=== PATIENT | male | born 1975 | race Caucasian/White ===

== ENCOUNTER 2023-06-30 20:07 | Inpatient (IN) | payer OTHER, SELFPAY ==
--- NOTE | ~2023-06-30 | CT_ITS ---
EXAMINATION: CT ABDOMEN AND PELVIS WITH CONTRAST CLINICAL INFORMATION: Fungemia. Evaluate for obstruction or stones COMPARISON: Chest CT 07/01/2023 TECHNIQUE: Multidetector volumetric images were obtained from the superior aspect of the liver through the pubic symphysis following administration 85 mL of Omnipaque 350 intravenous contrast. Sagittal and coronal reformatted images were obtained on the technologist's workstation. Oral contrast: Yes This CT examination was performed using dose optimization techniques as appropriate, variously including the following: *Automated exposure control *Adjustment of mA and/or kV according to patient size (this includes techniques or standardized protocols for targeted exams where dose is matched to indication/reason for exam; i.e. extremities or head) *Use of iterative reconstruction technique DLP: 447 mGy-cm FINDINGS: LUNG BASES: Increased groundglass attenuation at the lung bases. This is increased from previous chest CT 07/01/2023 LIVER, GALLBLADDER, AND BILIARY TREE: The liver is normal in shape and attenuation. Liver may be slightly enlarged, right lobe measuring 19 cm in length. No focal hepatic lesion or biliary ductal dilatation is present. The gallbladder is contracted. PANCREAS: Unremarkable. SPLEEN: Spleen is slightly enlarged measuring 15 cm in length. ADRENAL GLANDS: Unremarkable. KIDNEYS AND URETERS: The kidneys are normal in size, shape, and attenuation. Bilateral moderate hydronephrosis and ureteral dilatation down to the bladder. No stone seen. Bilateral perinephric stranding. BLADDER: Diffusely thickened bladder wall. Infectious, inflammatory and neoplastic processes should be considered. GASTROINTESTINAL TRACT: The small and large bowel are unremarkable. The appendix is unremarkable. ABDOMINAL WALL: No significant hernia is appreciated. LYMPH NODES: Normal. VASCULAR: Unremarkable. PELVIC VISCERA: The prostate gland is slightly enlarged and measures 4.2 x 4.6 cm in AP and transverse dimension. Prostate gland is heterogeneous in attenuation with low-attenuation areas. Appearance is questionable for prostatitis. There is a small amount of fluid in the pelvis. OSSEOUS STRUCTURES: Degenerative disc disease at L4-L5. CT/CT abdomen pelvis w IV con IMPRESSION: Moderate bilateral hydronephrosis and ureteral dilatation down to the bladder. Diffuse bladder wall thickening. Infectious, inflammatory and neoplastic processes should be considered. Slightly enlarged low-attenuation prostate gland worrisome for infection/prostatitis as well. Groundglass attenuation bases. This is slightly increased from previous chest CT. Pneumonitis/atypical pneumonia and fluid overload/pulmonary edema should be considered. Mild hepatosplenomegaly Findings will be communicated by the [place] work flow assistant front end manager.. Fleischner guidelines were followed.
--- NOTE | ~2023-06-30 | CT_ITS ---
EXAMINATION: CT CHEST WITHOUT CONTRAST CLINICAL INFORMATION: Shortness of breath. COMPARISON: None available. TECHNIQUE: Multidetector volumetric CT imaging of the chest was done. Axial MIP volume rendering provided. Sagittal and coronal reformatted images were obtained. This CT examination was performed using dose optimization techniques as appropriate, variously including the following: *Automated exposure control *Adjustment of mA and/or kV according to patient size (this includes techniques or standardized protocols for targeted exams where dose is matched to indication/reason for exam; i.e. extremities or head) *Use of iterative reconstruction technique DLP: 340 mGy-cm FINDINGS: ABORIGINAL CEREMONIAL CELEBRANT: Unremarkable. LUNGS: There is bilateral mid to lower lung field groundglass opacities/groundglass infiltrates. MEDIASTINUM: The mediastinum is normal. CORONARY ARTERY CALCIFICATION: Mild. PLEURA: There is no pleural effusion. No pleural mass or thickening. AXILLA: No lymphadenopathy. UPPER ABDOMEN: Unremarkable. OSSEOUS STRUCTURES: Unremarkable. CT/CT chest wo IV con IMPRESSION: Bilateral mid to lower lung field groundglass opacities/infiltrates is nonspecific but may be seen with a pneumonitis/atypical pneumonia. Edema could have this appearance. Fleischner guidelines were followed.
--- NOTE | ~2023-06-30 | XR_ITS ---
EXAMINATION: XR CHEST 2 VIEWS CLINICAL INFORMATION: Chest pain. COMPARISON: None. TECHNIQUE: Frontal and lateral views of the chest were obtained. FINDINGS: The heart, great vessels, pulmonary vasculature and mediastinum are normal. The lungs show no focal infiltrate, effusion or pneumothorax. There is no acute osseous abnormality. XR/XR chest 2V IMPRESSION: No active cardiopulmonary disease.
--- NOTE | 2023-06-30 20:20 | ECG_ITS ---
Test Reason : WEAKNESS Blood Pressure : / mmHG Vent. Rate : 128 BPM Atrial Rate : 128 BPM P-R Int : 134 ms QRS Dur : 086 ms QT Int : 322 ms P-R-T Axes : 054 054 034 degrees QTc Int : 470 ms Sinus tachycardia Otherwise normal ECG No previous ECGs available Referred By: Lázaro Ball Electronically Signed By:ELAINE PERLA
[2023-06-30 20:31] VITALS: BP 102/78; PULSE 135; RESP 18; TEMP 39.1; O2SAT 92; BMI 25.1
[2023-06-30 20:47] LABS: Basophils Percent Auto 0.2 % (0-2); Eosinophils Absolute Auto 0.2 X10*3/uL (0.0-0.4); Eosinophils Percent Auto 0.7 % (0-4); Hematocrit 32.2 % (42.0-52.0); Hemoglobin 11.1 g/dl (14.0-18.0); Imm Gran Abs Auto 0.12 X10*3/uL (0.00-0.03); Imm Gran Pct Auto 0.6 % (0.0-0.4); Lymphocytes Absolute Auto 0.9 X10*3/uL (1.2-4.9); Lymphocytes Percent Auto 4.2 % (20-40); MANUAL DIFF FLAG SCAN; Mean Corpuscular HGB Conc 34.5 g/dl (31.0-36.0); Mean Corpuscular Hemoglobin 27.1 pg (27.0-33.0); Mean Corpuscular Volume 78.7 fL (80.0-98.0); Mean Platelet Volume 9.6 fL (9.4-12.4); Monocytes Absolute Auto 0.7 X10*3/uL (0.1-1.2); Monocytes Percent Auto 3.2 % (2-11); Neutrophils Absolute Auto 19.7 x10*3/uL (2.0-8.3); Neutrophils Percent Auto 91.1 % (45-73); Platelet Count 357 X10*3/uL (160-400); Red Blood Count 4.09 X10*6/uL (4.60-5.80); Red Cell Distribution Width 12.4 % (11.0-16.0); SCAN SMEAR FLAG 1; White Blood Count 21.6 X10*3/uL (4.8-10.8)
[2023-06-30] MEDS: Acetaminophen 325 MG TABLET 975 MG PO (20:56)
[2023-06-30 21:00] LABS: COVID-19 Test Negative (Negative); IDNOW Serial# 6674DD1D
[2023-06-30 21:04] LABS: SLIDE REVIEW VERIFIED
[2023-06-30 21:06] VITALS: BP 131/72; PULSE 128; RESP 31; TEMP 37.7; O2SAT 98
--- NOTE | 2023-06-30 21:08 | MHC.EDTECH ---
THIS PCT JUST ASSUMED CARE OF PT ,PT WAS CHANGE INTO HOSPITAL ATTIRE ,VITALS SIGN TAKEN ,ANNIE ADAMS IS AWARE OF PT HIGH RESP AND HEART RATE ,PT WAS HOOKED UP TO [facility] .
[2023-06-30 21:13] LABS: Lactic Acid 1.9 mmol/L (0.5-2.0)
[2023-06-30 21:27] LABS: Appearance Urine Hazy; Color Urine Straw; Glucose Urine UA >=1000 mg/dL (Negative); Leukocyte Esterase Urine Small (1+) (Negative); Nitrite Urine Negative (Negative); Specific Gravity - Urine 1.015 (1.005-1.025); UMIC TRIGGER UACC YES; Urine Blood Moderate (2+) (Negative); Urine Ketones 15 mg/dL (Negative); Urine Protein 100 (2+) mg/dL (Neg-Trace)
[2023-06-30 21:29] LABS: Alanine Aminotransferase 25 U/L (0-40); Albumin Level 3.6 g/dL (3.5-5.0); Alkaline Phosphatase 102 U/L (39-117); Anion Gap 16 (12-20); Aspartate Amino Transferase 22 U/L (5-37); Bilirubin Total 0.8 mg/dL (0.0-1.0); Blood Urea Nitrogen 21 mg/dL (9-16); Calcium 9.4 mg/dL (8.4-10.2); Carbon Dioxide 21 mmol/L (22-29); Chloride 87 mmol/L (96-108); Creatinine Clr Calc Pharmacy 55.4; Estimated Glomerular Filt Rate 48; Glucose Random 552 mg/dL (60-115); Lipase 22 U/L (8-78); Potassium 3.6 mmol/L (3.3-5.1); Sodium 120 mmol/L (135-145); Total Protein 7.6 g/dL (6.5-8.0)
[2023-06-30 21:36] LABS: Bacteria Urine 4+ (None Seen); RBC Urine >20 /HPF (0-2); UACC Culture Trigger YES; WBC Urine >50 /HPF (0-5)
--- NOTE | 2023-06-30 21:43 | ED.GENADULT ---
HPI - General Adult General Chief complaint: Fever Stated complaint: difficulty swallowing, back pain Time Seen by Provider: 06/30/23 21:27 Source: patient Mode of arrival: ambulatory Limitations: no limitations History of Present Illness HPI narrative: Patient comes to the emergency room complaining of a UTI infection and trouble swallowing. Patient states that for about a month, intermittently patient has had UTIs, patient states that his UTI self-resolved and does not take any medications but this time is not getting any better. Also, patient complaining of difficulty swelling for about a week. Patient complaining of fever and chills. Patient into a diabetic, patient does not take any medications at all. Related Data Allergies Allergy/AdvReac Type Severity Reaction Status Date / Time No Known Allergies Allergy Unverified 07/09/20 15:45 Review of Systems Review of Systems: Constitutional : No Weight loss, complaining of fever and chills, No Night Sweats, No Fatigue, No Malaise ENT/Mouth : No Hearing loss, No Ear Pain, No Nasal Congestion, No Sinus Pain, No Hoarseness, No sore throat, No Rhinorrhea, No Swallowing Difficulty Eyes: No Eye Pain, No Swelling, No Redness, No Foreign Body, No Discharge, No Vision Changes Cardiovascular : No Chest Pain, No SOB, No Dyspnea on Exertion, No Orthopnea, No Edema, No Palpitations Respiratory : No Cough, No Sputum, No Wheezing, No Smoke Exposure, No Dyspnea Gastrointestinal : Complaining of trouble swallowing, no pain. No Nausea, No Vomiting, No Diarrhea, No Constipation, No abdominal Pain, No Hematochezia, No Melena Genitourinary : Complaining of dysuria and cloudy looking urine, No Urinary Frequency, No Hematuria, No Urinary Incontinence, No Urgency, complaining of mild bilateral Flank Pain, No Urinary Flow Changes, No Hesitancy Musculoskeletal : No joint pain, No Myalgias, No Joint Swelling Skin : No Skin Lesions, No rash Neuro : No Weakness, No Numbness, No Paresthesias, No Loss of Consciousness, No Dizziness, No Headache Psych : No Anxiety/Panic, No Depression, No SI/HI/AH/VH, No Social Issues, Heme/Lymph: No Bruising, No Bleeding,No Lymphadenopathy Endocrine : No Polyuria, No Polydipsia, No Temperature Intolerance [facility] Past Medical History Medical History (Updated 06/30/23 @ 22:15 by Veronica Wilburn MD) Type 2 diabetes mellitus Social History Social History Smoked in Last 30 Days: No Use of substances other than those prescribed or required for medical reasons: No Advance Directives: No Advance Directives Information Provided: Yes Physical Exam ED Vital Signs: Vital Signs - 24 hr 06/30/23 20:31 06/30/23 21:06 Temperature 102.3 F H 99.9 F Pulse Rate 135 H 128 H Respiratory Rate 18 31 H Blood Pressure 102/78 131/72 Pulse Oximetry 92 98 Oxygen Delivery Method Room Air Room Air BMI result Body Mass Index 25.1 Const Other: Appearance: Alert. Oriented X3. No acute distress. Eyes: Pupils equal, round and reactive to light. ENT: Patient has candidiasis in the home and the oropharynx. Neck: Normal inspection. Neck supple. No lymph nodes noted. No crepitus CVS: Normal heart rate and rhythm. Pulses normal. Normal S1 and S2 Respiratory: No respiratory distress. Breath sounds normal. No Wheezing. No rales Abdomen: Soft and nontender. No rigidity. No distention. Mild CVA tenderness Skin: Skin warm and dry. Patient looks pale, Normal skin turgor. Extremities: No lower extremity edema. No Lacerations. No Rash Neuro: Oriented X 3. No motor deficit. No sensory deficit. Moving all extremities. No slurred speech. CN 2 through 12 grossly intact Psych: calm, cooperative, normal affect Medications Administered Generic Name Dose Route Start Last Admin Trade Name Freq PRN Reason Stop Dose Admin Sodium Chloride 2,245.29 mls @ 2,245.29 mls/hr 06/30/23 21:34 06/30/23 21:49 Ns 30 ml/kg infuse over 1 hr (2245.29 ml) 06/30/23 22:33 2,245.29 mls/hr IV Administration .Q1H STA Discontinued Medications Generic Name Dose Route Start Last Admin Trade Name Freq PRN Reason Stop Dose Admin Acetaminophen 975 mg 06/30/23 20:20 06/30/23 20:56 Acetaminophen 325 Mg Tablet PO 06/30/23 20:21 975 mg ONCE ONE Administration Ceftriaxone Sodium 1 gm/ 50 mls @ 100 mls/hr 06/30/23 21:34 06/30/23 21:52 Sodium Chloride IV 06/30/23 22:03 100 mls/hr ONCE ONE Administration Insulin Human Regular 10 unit 06/30/23 21:34 06/30/23 21:45 Insulin Regular, Human 100 Unit/Ml 3 Ml Vial IVPUSH 06/30/23 21:35 10 unit ONCE ONE Administration Lidocaine HCl 15 ml 06/30/23 21:36 06/30/23 22:04 Lidocaine Hcl Viscous 2 % 15 Ml Solution MUCOUS MEM 06/30/23 21:37 15 ml ONCE ONE Administration Nystatin 200,000 unit 06/30/23 21:35 06/30/23 22:03 Nystatin Oral Susp 500,000 Unit/5 Ml Oral.Susp BUCCAL 06/30/23 21:36 200,000 unit ONCE ONE Administration Protocol Medical Decision Making Medical Decision Making MDM Narrative: -my interpretation of labs: White blood cell count 21.6. The patient's sodium is 120, (corrected sodium 127) glucose 552. Patient's creatinine 1.56, no previous labs for comparison, anion gap closed -on physical exam, patient has candidiasis in the tongue and esophagus, likely secondary from prolonged hyperglycemia. -patient has a UTI, already covered with fluids and antibiotics. -discussed with the patient that he has several electrolyte abnormalities, hyperglycemia, candidiasis, UTI, I discussed with him that I strongly recommend admission. Patient agrees with plan Differential Diagnosis Differential Diagnoses: The differential diagnosis associated with the presentation includes (Hyperglycemia, viral infection, UTI, pyelonephritis) Admission/Observation Consideration of admission/observation: Escalation of care including admission/observation considered Consult Healthcare Provider Management of the patient was discussed with: Hospitalist Lab Data [facility] Lab Attestation statement: I reviewed the patient's lab results. 06/30/23 20:40 06/30/23 20:40 Labs: Lab Results 06/30/23 06/30/23 Range/Units 20:40 21:20 WBC 21.6 H (4.8-10.8) X10*3/uL RBC 4.09 L (4.60-5.80) X10*6/uL Hgb 11.1 L (14.0-18.0) g/dl Hct 32.2 L (42.0-52.0) % MCV 78.7 L (80.0-98.0) fL MCH 27.1 (27.0-33.0) pg MCHC 34.5 (31.0-36.0) g/dl RDW 12.4 (11.0-16.0) % Plt Count 357 (160-400) X10*3/uL MPV 9.6 (9.4-12.4) fL Immature Gran % (Auto) 0.6 H (0.0-0.4) % Neut % (Auto) 91.1 H (45-73) % Lymph % (Auto) 4.2 L (20-40) % [place] % (Auto) 3.2 (2-11) % Eos % (Auto) 0.7 (0-4) % Baso % (Auto) 0.2 (0-2) % Lymph # (Auto) 0.9 L (1.2-4.9) X10*3/uL [place] # (Auto) 0.7 (0.1-1.2) X10*3/uL Eos # (Auto) 0.2 (0.0-0.4) X10*3/uL Baso # (Auto) 0.0 (0.0-0.2) X10*3/uL Abs Immat Gran (auto) 0.12 H (0.00-0.03) X10*3/uL Absolute Neuts (auto) 19.7 H (2.0-8.3) x10*3/uL Absolute Nucleated RBC 0.000 (0.0-0.012) X10*3/uL Nucleated RBC % (auto) 0.0 (0.0-0.2) /100WBC Smear Tech's Comments VERIFIED Sodium 120 L* (135-145) mmol/L Potassium 3.6 (3.3-5.1) mmol/L Chloride 87 L (96-108) mmol/L Carbon Dioxide 21 L (22-29) mmol/L Anion Gap 16 (12-20) BUN 21 H (9-16) mg/dL Creatinine 1.56 H (0.5-1.4) mg/dL Estim Creat Clear Calc 55.4 Estimated GFR 48 Random Glucose 552 H* (60-115) mg/dL Lactic Acid 1.9 (0.5-2.0) mmol/L Calcium 9.4 (8.4-10.2) mg/dL Total Bilirubin 0.8 (0.0-1.0) mg/dL AST 22 (5-37) U/L ALT 25 (0-40) U/L Alkaline Phosphatase 102 (39-117) U/L Total Protein 7.6 (6.5-8.0) g/dL Albumin 3.6 (3.5-5.0) g/dL Lipase 22 (8-78) U/L Urine Color Straw Urine Appearance Hazy Urine pH 6.0 (5.0-9.0) Ur Specific [place] 1.015 (1.005-1.025) Urine Protein 100 (2+) H (Neg-Trace) mg/dL Urine Glucose (UA) >=1000 H (Negative) mg/dL Urine Ketones 15 (Negative) mg/dL Urine Blood Moderate (2+) H (Negative) Urine Nitrite Negative (Negative) Ur Leukocyte Esterase Small (1+) H (Negative) Urine RBC >20 H (0-2) /HPF Urine WBC >50 H (0-5) /HPF Ur Squamous Epith Cells 11-20 (0-2) /HPF Urine Bacteria 4+ (None Seen) Hyaline Casts 3-5 (0-2) /LPF Urine Yeast Present COVID-19 (KAVITHA) Negative (Negative) COVID-19 Clin Com See Note Independent Interpretation I performed an independent interpretation of an: Plain X-Ray Interpretation: FINDINGS: The heart, great vessels, pulmonary vasculature and mediastinum are normal. The lungs show no focal infiltrate, effusion or pneumothorax. There is no acute osseous abnormality. XR/XR chest 2V IMPRESSION: No active cardiopulmonary disease. Radiology Impression Discussion of test interpretation with radiology: I have reviewed the radiologist's reading. Critical Care Time Critical Care Time Critical Care Time: Yes Total Critical Care Time: 60 Attestation: I have personally provided critical care time. Time includes review of lab data, radiology results, discussion with consultants, and monitoring for potential decompensation. Intervention performed as documented. Discharge Plan Discharge Clinical Impression: Type 2 diabetes mellitus, Acute hyperglycemia, DANNIE (acute kidney injury), Acute hyponatremia, Acute UTI, Candidiasis of esophagus Patient Disposition: Admitted As Inpatient
[2023-06-30] MEDS: Insulin Regular, Human 100 UNIT/ML 3 ML VIAL 10 UNIT IVPUSH (21:45)
[2023-06-30] MEDS: 0.9 % Sodium Chloride 2,245.29 ML 2245.29 ML IV (21:49)
[2023-06-30] MEDS: cefTRIAXone sodium 1 GM in 0.9 % Sodium Chloride 50 ML IV (21:52)
[2023-06-30] MEDS: Nystatin Oral Susp 500,000 UNIT/5 ML ORAL.SUSP 200000 UNIT BUCCAL (22:03)
[2023-06-30] MEDS: Lidocaine HCl Viscous 2 % 15 ML SOLUTION MUCOUS MEM (22:04)
[2023-06-30 22:13] LABS: Beta-Hydroxybutyrate 0.88 mmol/L (0.02-0.27)
[2023-06-30 22:25] VITALS: BP 112/66; PULSE 117; RESP 24; TEMP 37.7; O2SAT 93
--- NOTE | 2023-06-30 22:34 | PHA.MEDREC ---
Pharmacy Consult ? Medication Reconciliation Pharmacy has completed the medication reconciliation. Patient report only dual action aleve every once in a while. Zandra Carrasco, PharmD
[2023-06-30 22:37] LABS: Glucose, Whole Blood 398 mg/dL (60-115)
[2023-06-30] MEDS: Lactated Ringers 1,000 ML 100 ML IVCONT (22:55)
[2023-06-30] MEDS: Fluconazole in NaCl,Iso-Osm 400 MG/200 ML PIGGYBACK 100 MG IV (23:00)
[2023-06-30] MEDS: Enoxaparin Sodium 40 MG/0.4 ML SYRINGE SUBCUT (23:05)
[2023-06-30] MEDS: Insulin Lispro 100 UNIT/ML 3 ML VIAL SUBCUT (23:05)
--- NOTE | 2023-06-30 23:07 | P.HPHOSP_ITS ---
History of Present Illness Date of Service: 06/30/23 Chief Complaint: urinary symptoms and difficulty swallowing 38-year-old male past medical history of diabetes comes into the hospital urinary symptoms as well as difficulty swallowing. Patient reports that his urinary symptoms started about a month ago, his started having frequency, urgency, and dysuria. He reports that he has also been experiencing difficulty swallowing for the past 2 weeks. He denies any pain in the esophagus but reports that he just can not swallow. He does endorse a history of diabetes but has not taken any of his medications for many years. He reports that he noticed gemfibrozil was causing him to have recurrent urinary infections therefore he stopped taking it as well as metformin. He has also noticed that he has been having fever and chills for the past few days. Denies any shortness of breath, has a mild cough, some sputum production. He denies any chest pain, has nausea with no vomiting, no abdominal pain or diarrhea. No constipation. No lower extremity edema. On arrival to the ED patient found to have a fever of 102.3, heart rate of 135, satting 88% on room air Labs are significant for WBC count of 21,000, left shift, glucose of 552, pseudohyponatremia, bicarb of 21, creatinine of 1.56 with no baseline for comparison, UA positive for leukocyte Estrace WBC and bacteria Chest CT shows bilateral infiltrate concerning for pneumonia Patient will be admitted for further management Review of Systems 2 Review of Systems: Yes all other systems are reviewed and are negative [facility] Medical History Type 2 diabetes mellitus Social History Patient Tobacco Use Status: Never used Tobacco Smoked in Last 30 Days: No Use of substances other than those prescribed or required for medical reasons: No Advance Directives: No Advance Directives Information Provided: Yes Meds Allergies Allergy/AdvReac Type Severity Reaction Status Date / Time No Known Allergies Allergy Unverified 07/09/20 15:45 Active Medications: Current Medications Acetaminophen (Acetaminophen 325 Mg Tablet) 650 mg PO Q6H PRN PRN Reason: Pain, Mild (Pain Scale 1-3) Dextrose (Dextrose 50 % 25 Gm/50 Ml Syringe) 25 gm IVPUSH Q15M PRN; Protocol PRN Reason: per Hypoglycemia Standing Ord. Docusate Sodium (Docusate Sodium 100 Mg Capsule) 100 mg PO DAILY PRN PRN Reason: Constipation Enoxaparin Sodium (Enoxaparin Sodium 40 Mg/0.4 Ml Syringe) 40 mg SUBCUT Q24H [facility] Fluconazole (Fluconazole 100 Mg Tablet) 200 mg PO DAILY [facility] Glucose (Glucose Gel 15 Gm Gel..Gram.) 15 gm PO Q15M PRN; Protocol PRN Reason: per Hypoglycemia Standing Ord. Lactated Ringer's (Lr) 1,000 mls @ 100 mls/hr IVCONT .Q10H [facility] Last Admin: 06/30/23 22:55 Dose: 100 mls/hr Ceftriaxone Sodium 1 gm/ (Sodium Chloride) 50 mls @ 100 mls/hr IV Q24H [facility] Fluconazole (Diflucan) 400 mg in 200 mls @ 100 mls/hr IV ONCE ONE Stop: 07/01/23 00:31 Last Admin: 06/30/23 23:00 Dose: 100 mls/hr Insulin Human Lispro (Insulin Lispro 100 Unit/Ml 3 Ml Vial) 0 unit SUBCUT QIDACHS [facility]; Protocol Ondansetron HCl (Ondansetron Hcl 4 Mg/2 Ml Vial) 4 mg IVPUSH Q8H PRN PRN Reason: Nausea and Vomiting Sodium Chloride (0.9 % Sodium Chloride Flush 3 Ml Syringe) 3 ml IVFLUSH QSHIFT [facility] Home Medications Medication Instructions Recorded Confirmed Last Taken Type ibuprofen 125 mg-acetaminophen 250 2 tab PO Q8H PRN Pain 06/30/23 06/30/23 Unknown History mg tablet Physical Exam 2 Vital Signs and Narrative: Vital Signs: Last Vital Signs Temp 99.9 F 06/30/23 22:25 Pulse 117 H 06/30/23 22:25 Resp 24 H 06/30/23 22:25 BP 112/66 06/30/23 22:25 Pulse Ox 93 06/30/23 22:25 O2 Del Method Room Air 06/30/23 22:25 BMI result Body Mass Index 25.1 Const: Other: Cachectic appearing Slow speech No confusion General: cooperative HEENT: Other: Has candidiasis on the tongue Eyes: General: appearance normal, both eyes and all related structures Resp: Other: Crackles bilaterally Effort & Inspection: normal respiratory effort Cardio: Rate: regular rate Rhythm: regular rhythm GI: Palpation (GI): Soft to palpation Auscultation: normal bowel sounds Skin: General skin exam: no rashes or lesions noted Neuro: Cognition (Neuro): normal cognition Extrem: General: Yes normal to inspection and Yes no pedal edema Results Labs 06/30/23 20:40 06/30/23 20:40 Labs: Laboratory Results - last 24 hr 06/30/23 06/30/23 06/30/23 20:40 21:20 22:33 MCV 78.7 L MCH 27.1 MCHC 34.5 RDW 12.4 Plt Count 357 MPV 9.6 Immature Gran % (Auto) 0.6 H Neut % (Auto) 91.1 H Lymph % (Auto) 4.2 L [place] % (Auto) 3.2 Eos % (Auto) 0.7 Baso % (Auto) 0.2 Lymph # (Auto) 0.9 L [place] # (Auto) 0.7 Eos # (Auto) 0.2 Baso # (Auto) 0.0 Abs Immat Gran (auto) 0.12 H Absolute Neuts (auto) 19.7 H Absolute Nucleated RBC 0.000 Nucleated RBC % (auto) 0.0 Smear Tech's Comments VERIFIED Anion Gap 16 Estim Creat Clear Calc 55.4 Estimated GFR 48 POC Glucose 398 H* Random Glucose 552 H* Lactic Acid 1.9 Calcium 9.4 Total Bilirubin 0.8 AST 22 ALT 25 Alkaline Phosphatase 102 Total Protein 7.6 Albumin 3.6 Lipase 22 Beta-Hydroxybutyrate 0.88 H Urine Color Straw Urine Appearance Hazy Urine pH 6.0 Ur Specific [place] 1.015 Urine Protein 100 (2+) H Urine Glucose (UA) >=1000 H Urine Ketones 15 Urine Blood Moderate (2+) H Urine Nitrite Negative Ur Leukocyte Esterase Small (1+) H Urine RBC >20 H Urine WBC >50 H Ur Squamous Epith Cells 11-20 Urine Bacteria 4+ Hyaline Casts 3-5 Urine Yeast Present COVID-19 (KAVITHA) Negative COVID-19 Clin Com See Note Imaging Radiologist's Impressions: Impressions Chest X-Ray 06/30/23 20:35 IMPRESSION: No active cardiopulmonary disease. Assessment and Plan (1) Acute UTI: Status: Acute (2) Pseudohyponatremia: Status: Acute (3) DANNIE (acute kidney injury): Status: Acute (4) Acute hyperglycemia: Status: Acute (5) Type 2 diabetes mellitus: Qualifiers: Diabetes mellitus custodial insulin use: without terminal makeup operator use Diabetes mellitus complication status: with hyperglycemia Qualified Code(s): E11.65 - Type 2 diabetes mellitus with hyperglycemia Status: Acute (6) Poorly controlled diabetes mellitus: Status: Acute (7) Candidiasis of esophagus: Status: Acute (8) Acute respiratory failure with hypoxia: Status: Acute Plan 48-year-old male with significant past medical history for diabetes comes into the hospital with difficulty swallowing as well as urinary symptoms found to have multiple complications # acute hyperglycemia poorly controlled diabetes - patient reports that he has not taken his diabetic medications and many years - hemoglobin A1c pending - comes in with a glucose of 550s - not in DKA - will place on low-dose sliding scale insulin, pending A1c, may need additional insulin - POC QIDACHS , diabetic diet # DANNIE - secondary to volume depletion/dehydration - IVF - follow BMP # pseudohyponatremia - secondary to above - follow BMP # acute UTI - UA positive, patient symptomatic - will treat with IV antibiotics - pending cultures # esophageal candidiasis - likely secondary to poor glucose control - will treat with fluconazole -will rule out HIV # acute hypoxic respiratory failure/ community-acquired pneumonia - has bilateral infiltrate on chest x-ray, - with hypoxia in the 80s - continue oxygen supplement as needed - IV antibiotics - follow cultures DVT prophylaxis: Lovenox Given patient's need for further management of the above-mentioned reasons patient require minimum 2 nights inpatient hospital stay for further management and monitoring Time Spent With Patient Time: Total time managing care of this patient today ____ minutes. Quality Stroke Does the patient have a stroke diagnosis?: No VTE Prior VTE?: No VTE Risk Level:: Medical - moderate - high VTE Device Contraindication: Treatment Not Indicated VTE Drug Contraindication: N/A - Med Ordered
[2023-06-30 23:09] VITALS: BP 132/81; PULSE 113; RESP 16; TEMP 37.2; O2SAT 88; O2SAT 94
[2023-06-30 23:47] VITALS: BP 128/79; PULSE 108; RESP 24; O2SAT 94
[2023-07-01] VITALS (8 sets, daily range): BP systolic 129–177; BP diastolic 76–86; PULSE 100–127; RESP 18–42; TEMP 36.6–40; O2SAT 85–95; BMI 29.2
--- NOTE | 2023-07-01 01:23 | PC.NURSE ---
this rn assumed care of pt @ 2300. pt family at bedside. pt calm and cooperative. awaiting bed assignment at this time
--- NOTE | 2023-07-01 03:47 | PC.NURSE ---
this rn made aware of rectal temp of 104.0 hr 110s-120s. pt medicated according to bertha with prn tylenol pt also given ice packs.
[2023-07-01] MEDS: Acetaminophen 325 MG TABLET 650 MG PO (03:51)
[2023-07-01 04:00] LABS: Glucose, Whole Blood 414 mg/dL (60-115)
--- NOTE | 2023-07-01 04:40 | PC.NURSE ---
this rn rechecked poc. poc reading [address] jackson aware. no new orders this rn resent poc result of 414 @[id number]. orders placed
[2023-07-01 05:02] LABS: Glucose, Whole Blood 400 mg/dL (60-115)
[2023-07-01] MEDS: Insulin Lispro 100 UNIT/ML 3 ML VIAL 10 UNIT SUBCUT (05:03)
[2023-07-01] MEDS: Insulin Regular, Human 100 UNIT/ML 3 ML VIAL 10 UNIT IVPUSH (05:03)
--- NOTE | 2023-07-01 06:00 | PC.NURSE ---
repeat POC 344 and rectal temp 101.2. this rn made dr jackson aware of poc and rectal temp. per md no new orders. this rn replaced cold packs
[2023-07-01 06:03] LABS: Glucose, Whole Blood 344 mg/dL (60-115)
[2023-07-01 06:38] LABS: MANUAL DIFF FLAG NO
[2023-07-01 06:42] LABS: Basophils Percent Auto 0.2 % (0-2); Eosinophils Absolute Auto 0.1 X10*3/uL (0.0-0.4); Eosinophils Percent Auto 0.3 % (0-4); Hematocrit 28.9 % (42.0-52.0); Hemoglobin 10.1 g/dl (14.0-18.0); Imm Gran Abs Auto 0.11 X10*3/uL (0.00-0.03); Imm Gran Pct Auto 0.6 % (0.0-0.4); Lymphocytes Absolute Auto 0.9 X10*3/uL (1.2-4.9); Lymphocytes Percent Auto 4.6 % (20-40); Mean Corpuscular HGB Conc 34.9 g/dl (31.0-36.0); Mean Corpuscular Hemoglobin 27.6 pg (27.0-33.0); Mean Platelet Volume 9.7 fL (9.4-12.4); Monocytes Absolute Auto 0.8 X10*3/uL (0.1-1.2); Monocytes Percent Auto 4.4 % (2-11); Neutrophils Absolute Auto 16.7 x10*3/uL (2.0-8.3); Neutrophils Percent Auto 89.9 % (45-73); Platelet Count 307 X10*3/uL (160-400); Red Blood Count 3.66 X10*6/uL (4.60-5.80); Red Cell Distribution Width 12.8 % (11.0-16.0); White Blood Count 18.6 X10*3/uL (4.8-10.8)
[2023-07-01 06:54] LABS: Anion Gap 11 (12-20); Blood Urea Nitrogen 19 mg/dL (9-16); Calcium 9.2 mg/dL (8.4-10.2); Carbon Dioxide 21 mmol/L (22-29); Chloride 100 mmol/L (96-108); Estimated Glomerular Filt Rate > 60; Glucose Random 327 mg/dL (60-115); Potassium 3.1 mmol/L (3.3-5.1); Sodium 129 mmol/L (135-145)
[2023-07-01] MEDS: Azithromycin 500 MG in 0.9 % Sodium Chloride 250 ML 125 MG IV (07:18)
[2023-07-01 07:19] LABS: Glucose, Whole Blood 297 mg/dL (60-115)
[2023-07-01] MEDS: 0.9 % Sodium Chloride Flush 3 ML SYRINGE IVFLUSH ×2 (07:23→16:59)
[2023-07-01] MEDS: Insulin Lispro 100 UNIT/ML 3 ML VIAL SUBCUT ×4 (07:28→22:03)
--- NOTE | 2023-07-01 07:30 | PC.NURSE ---
pt a&ox3, vss, sinus tachy on the ekg monitor tech. pt verbalizing no pain kaci. LR still hung and running. abx and insulin administered per provider order/sliding scale. respirations even and unlabored - no WOB or any signs of apparent distress noted. call hernandez placed within reach.
[2023-07-01 07:54] LABS: Estimated Average Glucose 229 mg/dL; Hemoglobin A1c % 9.6 % (<6.0)
[2023-07-01] MEDS: Lactated Ringers 1,000 ML 100 ML IVCONT ×2 (08:27→22:37)
[2023-07-01] MEDS: Insulin Glargine,Hum.rec.anlog 100 UNIT/ML 10 ML VIAL 8 UNIT SUBCUT (08:27)
[2023-07-01] MEDS: Potassium Chloride Packet 20 MEQ PACKET 40 MEQ PO ×2 (08:28→10:33)
--- NOTE | 2023-07-01 08:34 | PC.NURSE ---
report given to RN on S3 - will notify transport.
[2023-07-01] MEDS: Potassium Chloride/H20 10 MEQ/100 ML PIGGYBACK 100 MEQ IV ×2 (09:27→10:26)
[2023-07-01 09:43] LABS: HIV AB/AG Nonreactive (Nonreactive); HIV Num 1 0.04 S/CO (0.00-0.99)
[2023-07-01] MEDS: metFORMIN HCl 500 MG TABLET PO ×2 (10:34→16:58)
[2023-07-01 11:24] LABS: Glucose, Whole Blood 273 mg/dL (60-115)
--- NOTE | 2023-07-01 12:58 | HO.PM.IMPN ---
Subjective Subjective Date of Service: 07/01/23 Interval History: Seen and evaluated Feels more comfortable spiking fever and dropping O2 sat Still hyperglycemic tolerating diet Review of Systems Review of Systems: Yes all other systems are reviewed and are negative Physical Exam Vital Signs: Vital Signs: Last Vital Signs Temp 100 F 07/01/23 11:43 Pulse 117 H 07/01/23 09:08 Resp 18 07/01/23 09:08 BP 132/78 07/01/23 09:08 Pulse Ox 88 L 07/01/23 11:43 O2 Del Method Room Air 07/01/23 11:43 O2 Flow Rate 2 07/01/23 09:08 BMI result Body Mass Index 29.2 Const: Other: Constitutional : Awake, interactive, not in distress Neck : Normal inspection, Supple Cardiovascular : RRR, no JVP, no lower extremity edema, tachycardia Respiratory : good bilateral air entry, basal fine crackles, no wheezes Gastrointestinal: soft, lax, Normal bowel sounds, Non tender Skin : Warm, Dry Neurological : Alert & oriented x3, No focal deficit Objective Data Active Medications Acetaminophen (Acetaminophen 325 Mg Tablet) 650 mg PO Q6H PRN PRN Reason: Pain, Mild (Pain Scale 1-3) Last Admin: 07/01/23 03:51 Dose: 650 mg Documented By: CASEY Dextrose (Dextrose 50 % 25 Gm/50 Ml Syringe) 25 gm IVPUSH Q15M PRN; Protocol PRN Reason: per Hypoglycemia Standing Ord. Docusate Sodium (Docusate Sodium 100 Mg Capsule) 100 mg PO DAILY PRN PRN Reason: Constipation Enoxaparin Sodium (Enoxaparin Sodium 40 Mg/0.4 Ml Syringe) 40 mg SUBCUT Q24H [facility] Last Admin: 06/30/23 23:05 Dose: 40 mg Documented By: ESTHELA Fluconazole (Fluconazole 100 Mg Tablet) 200 mg PO DAILY [facility] Glipizide (Glipizide 5 Mg Tablet) 5 mg PO DAILY [facility] Glucose (Glucose Gel 15 Gm Gel..Gram.) 15 gm PO Q15M PRN; Protocol PRN Reason: per Hypoglycemia Standing Ord. Lactated Ringer's (Lr) 1,000 mls @ 100 mls/hr IVCONT .Q10H [facility] Last Admin: 07/01/23 08:27 Dose: 100 mls/hr Documented By: CJ Ceftriaxone Sodium 1 gm/ (Sodium Chloride) 50 mls @ 100 mls/hr IV Q24H [facility] Azithromycin 500 mg/ Sodium (Chloride) 250 mls @ 125 mls/hr IV Q24H [facility] Last Infusion: 07/01/23 09:38 Dose: Infused Documented By: ELISEO Insulin Glargine (Insulin Glargine,Hum.Rec.Anlog 100 Unit/Ml 10 Ml Vial) 8 unit SUBCUT DAILY [facility] Last Admin: 07/01/23 08:27 Dose: 8 unit Documented By: CJ Insulin Human Lispro (Insulin Lispro 100 Unit/Ml 3 Ml Vial) 0 unit SUBCUT QIDACHS [facility]; Protocol Last Admin: 07/01/23 11:41 Dose: 6 unit Documented By: ELISEO Metformin HCl (Metformin Hcl 500 Mg Tablet) 500 mg PO BIDWM [facility] Last Admin: 07/01/23 10:34 Dose: 500 mg Documented By: ELISEO Ondansetron HCl (Ondansetron Hcl 4 Mg/2 Ml Vial) 4 mg IVPUSH Q8H PRN PRN Reason: Nausea and Vomiting Sodium Chloride (0.9 % Sodium Chloride Flush 3 Ml Syringe) 3 ml IVFLUSH QSHIFT [facility] Last Admin: 07/01/23 07:23 Dose: 3 ml Documented By: CJ Labs 07/01/23 06:28 07/01/23 06:28 Labs: Laboratory Results - last 24 hr 06/30/23 06/30/23 06/30/23 20:40 21:20 22:33 MCV 78.7 L MCH 27.1 MCHC 34.5 RDW 12.4 Plt Count 357 MPV 9.6 Immature Gran % (Auto) 0.6 H Neut % (Auto) 91.1 H Lymph % (Auto) 4.2 L [place] % (Auto) 3.2 Eos % (Auto) 0.7 Baso % (Auto) 0.2 Lymph # (Auto) 0.9 L [place] # (Auto) 0.7 Eos # (Auto) 0.2 Baso # (Auto) 0.0 Abs Immat Gran (auto) 0.12 H Absolute Neuts (auto) 19.7 H Absolute Nucleated RBC 0.000 Nucleated RBC % (auto) 0.0 Smear Tech's Comments VERIFIED Anion Gap 16 Estim Creat Clear Calc 55.4 Estimated GFR 48 POC Glucose 398 H* Random Glucose 552 H* Estimat Average Glucose Hemoglobin A1c % Lactic Acid 1.9 Calcium 9.4 Total Bilirubin 0.8 AST 22 ALT 25 Alkaline Phosphatase 102 Total Protein 7.6 Albumin 3.6 Lipase 22 Beta-Hydroxybutyrate 0.88 H Urine Color Straw Urine Appearance Hazy Urine pH 6.0 Ur Specific [place] 1.015 Urine Protein 100 (2+) H Urine Glucose (UA) >=1000 H Urine Ketones 15 Urine Blood Moderate (2+) H Urine Nitrite Negative Ur Leukocyte Esterase Small (1+) H Urine RBC >20 H Urine WBC >50 H Ur Squamous Epith Cells 11-20 Urine Bacteria 4+ Hyaline Casts 3-5 Urine Yeast Present COVID-19 (KAVITHA) Negative COVID-19 Clin Com See Note HIV 1&2 Ab/P24 Ag 4thGn 06/30/23 07/01/23 07/01/23 23:42 03:56 04:58 MCV MCH MCHC RDW Plt Count MPV Immature Gran % (Auto) Neut % (Auto) Lymph % (Auto) [place] % (Auto) Eos % (Auto) Baso % (Auto) Lymph # (Auto) [place] # (Auto) Eos # (Auto) Baso # (Auto) Abs Immat Gran (auto) Absolute Neuts (auto) Absolute Nucleated RBC Nucleated RBC % (auto) Smear Tech's Comments Anion Gap Estim Creat Clear Calc Estimated GFR POC Glucose 414 H* 400 H* Random Glucose Estimat Average Glucose 229 Hemoglobin A1c % 9.6 H Lactic Acid Calcium Total Bilirubin AST ALT Alkaline Phosphatase Total Protein Albumin Lipase Beta-Hydroxybutyrate Urine Color Urine Appearance Urine pH Ur Specific [place] Urine Protein Urine Glucose (UA) Urine Ketones Urine Blood Urine Nitrite Ur Leukocyte Esterase Urine RBC Urine WBC Ur Squamous Epith Cells Urine Bacteria Hyaline Casts Urine Yeast COVID-19 (KAVITHA) COVID-19 Clin Com HIV 1&2 Ab/P24 Ag 4thGn 07/01/23 07/01/23 07/01/23 05:54 06:28 06:53 MCV 79.0 L MCH 27.6 MCHC 34.9 RDW 12.8 Plt Count 307 MPV 9.7 Immature Gran % (Auto) 0.6 H Neut % (Auto) 89.9 H Lymph % (Auto) 4.6 L [place] % (Auto) 4.4 Eos % (Auto) 0.3 Baso % (Auto) 0.2 Lymph # (Auto) 0.9 L [place] # (Auto) 0.8 Eos # (Auto) 0.1 Baso # (Auto) 0.0 Abs Immat Gran (auto) 0.11 H Absolute Neuts (auto) 16.7 H Absolute Nucleated RBC 0.000 Nucleated RBC % (auto) 0.0 Smear Tech's Comments Anion Gap 11 L Estim Creat Clear Calc 68.0 Estimated GFR > 60 POC Glucose 344 H Random Glucose 327 H Estimat Average Glucose Hemoglobin A1c % Lactic Acid Calcium 9.2 Total Bilirubin AST ALT Alkaline Phosphatase Total Protein Albumin Lipase Beta-Hydroxybutyrate Urine Color Urine Appearance Urine pH Ur Specific [place] Urine Protein Urine Glucose (UA) Urine Ketones Urine Blood Urine Nitrite Ur Leukocyte Esterase Urine RBC Urine WBC Ur Squamous Epith Cells Urine Bacteria Hyaline Casts Urine Yeast COVID-19 (KAVITHA) COVID-19 [employer] Com HIV 1&2 Ab/P24 Ag 4thGn Nonreactive 07/01/23 07/01/23 07:12 11:19 MCV MCH MCHC RDW Plt Count MPV Immature Gran % (Auto) Neut % (Auto) Lymph % (Auto) [place] % (Auto) Eos % (Auto) Baso % (Auto) Lymph # (Auto) [place] # (Auto) Eos # (Auto) Baso # (Auto) Abs Immat Gran (auto) Absolute Neuts (auto) Absolute Nucleated RBC Nucleated RBC % (auto) Smear Tech's Comments Anion Gap Estim Creat Clear Calc Estimated GFR POC Glucose 297 H 273 H Random Glucose Estimat Average Glucose Hemoglobin A1c % Lactic Acid Calcium Total Bilirubin AST ALT Alkaline Phosphatase Total Protein Albumin Lipase Beta-Hydroxybutyrate Urine Color Urine Appearance Urine pH Ur Specific [place] Urine Protein Urine Glucose (UA) Urine Ketones Urine Blood Urine Nitrite Ur Leukocyte Esterase Urine RBC Urine WBC Ur Squamous Epith Cells Urine Bacteria Hyaline Casts Urine Yeast COVID-19 (KAVITHA) COVID-19 Clin Com HIV 1&2 Ab/P24 Ag 4thGn Microbiology Microbiology Results: Microbiology 06/30/23 21:17 Blood Culture - Preliminary Blood - Venous Prelim: GPC Gram Stain only 06/30/23 20:40 Blood Culture - Preliminary Blood - Venous Prelim: GPC Gram Stain only Assessment and Plan (1) Acute respiratory failure with hypoxia: Status: Acute (2) Poorly controlled diabetes mellitus: Status: Acute (3) Pseudohyponatremia: Status: Acute (4) Candidiasis of esophagus: Status: Acute (5) Acute UTI: Status: Acute (6) Acute hyponatremia: Status: Acute (7) DANNIE (acute kidney injury): Status: Acute (8) Bacteremia due to Gram-positive bacteria: Status: Acute Plan 48-year-old male with significant past medical history for diabetes comes into the hospital with difficulty swallowing as well as urinary symptoms found to have multiple complications # acute hypoxic respiratory failure with Bacteremia 2/2 community-acquired pneumonia has bilateral infiltrate on chest x-ray Cultures growing GPC, to repeat IV antibiotics of Vancomycin and Ceftriaxone Wean O2 down as tolerated ID consult # acute hyperglycemia poorly controlled diabetes Improving HbA1c of 9.6 Lantus 8 units Start Metformin now low-dose sliding scale insulin diabetic diet # DANNIE secondary to volume depletion/dehydration improving, continue IVF follow BMP # pseudohyponatremia improving, secondary to hyperglycemia follow BMP # acute UTI IV antibiotics pending cultures # esophageal candidiasis secondary to poor glucose control Continue fluconazole negative HIV DVT prophylaxis: Lovenox Needs overnight inpatient hospital stay for further management of bacteremia, hypoxia pending final cultures Time Spent With Patient Time: Total time managing care of this patient today ____ minutes. Quality Stroke Does the patient have a stroke diagnosis?: No VTE Prior VTE?: No VTE Risk Level:: Medical - moderate - high VTE Device Contraindication: Treatment Not Indicated VTE Drug Contraindication: N/A - Med Ordered
[2023-07-01] MEDS: vancomycin HCL 1,250 MG in 0.9 % Sodium Chloride 250 ML 166.67 MG IV (13:36)
[2023-07-01 16:12] LABS: Glucose, Whole Blood 283 mg/dL (60-115)
--- NOTE | 2023-07-01 16:20 | MHC.CM.PN ---
CM MET WITH PT AND DAUGHTER AT BEDSIDE PT LIVES WITH 4 OTHER ADULT FAMILY MEMBERS HE IS INDEPENDENT WITH CARE, HAS NO DME AND NO SERVICES PT HAS NO HCP, AND DECLINES TO COMPLETE ONE TODAY HE HAS NO PCP DCP: HOME NO SERVICES DAUGHTER TO TRANSPORT
[2023-07-01] MEDS: Fluconazole 100 MG TABLET 200 MG PO (19:40)
[2023-07-01 20:30] LABS: Glucose, Whole Blood 246 mg/dL (60-115)
[2023-07-01] MEDS: Enoxaparin Sodium 40 MG/0.4 ML SYRINGE SUBCUT (22:02)
[2023-07-01] MEDS: cefTRIAXone sodium 1 GM in 0.9 % Sodium Chloride 50 ML IV (22:03)
[2023-07-02] MEDS: vancomycin HCL 750 MG in 0.9 % Sodium Chloride 250 ML 265 MG IV (02:34)
[2023-07-02 02:47] VITALS: BP 140/80; PULSE 97; RESP 18; TEMP 36.3; O2SAT 92
[2023-07-02 03:48] VITALS: RESP 20
[2023-07-02 06:00] LABS: Hemoglobin 9.4 g/dl (14.0-18.0); Mean Corpuscular HGB Conc 33.6 g/dl (31.0-36.0); Mean Corpuscular Hemoglobin 27.2 pg (27.0-33.0); Mean Corpuscular Volume 80.9 fL (80.0-98.0); Mean Platelet Volume 9.8 fL (9.4-12.4); Platelet Count 312 X10*3/uL (160-400); Red Blood Count 3.46 X10*6/uL (4.60-5.80); Red Cell Distribution Width 13.1 % (11.0-16.0); White Blood Count 15.5 X10*3/uL (4.8-10.8)
[2023-07-02 06:22] LABS: Anion Gap 10 (12-20); Blood Urea Nitrogen 16 mg/dL (9-16); Calcium 9.3 mg/dL (8.4-10.2); Carbon Dioxide 22 mmol/L (22-29); Chloride 101 mmol/L (96-108); Creatinine Clr Calc Pharmacy 99.9; Estimated Glomerular Filt Rate > 60; Glucose Random 253 mg/dL (60-115); Potassium 3.3 mmol/L (3.3-5.1); Sodium 130 mmol/L (135-145)
[2023-07-02 07:22] VITALS: BP 134/81; PULSE 99; RESP 16; TEMP 36.2; O2SAT 93
[2023-07-02 07:51] LABS: Glucose, Whole Blood 284 mg/dL (60-115)
[2023-07-02] MEDS: Insulin Lispro 100 UNIT/ML 3 ML VIAL SUBCUT ×3 (07:59→22:34)
[2023-07-02] MEDS: metFORMIN HCl 500 MG TABLET PO ×2 (08:01→18:17)
[2023-07-02] MEDS: glipiZIDE 5 MG TABLET PO (08:02)
[2023-07-02] MEDS: 0.9 % Sodium Chloride Flush 3 ML SYRINGE IVFLUSH ×3 (08:02→22:44)
[2023-07-02] MEDS: Fluconazole 100 MG TABLET 200 MG PO (08:02)
[2023-07-02] MEDS: Lactated Ringers 1,000 ML 100 ML IVCONT (09:29)
[2023-07-02] MEDS: Insulin Glargine,Hum.rec.anlog 100 UNIT/ML 10 ML VIAL 8 UNIT SUBCUT (09:30)
[2023-07-02 11:16] LABS: Glucose, Whole Blood 209 mg/dL (60-115)
[2023-07-02 13:40] LABS: Vancomycin Random 6.1 mcg/mL (15-20)
[2023-07-02] MEDS: vancomycin HCL 1,000 MG in 0.9 % Sodium Chloride 250 ML 270 MG IV (14:05)
--- NOTE | 2023-07-02 14:56 | P.PNIM_ITS ---
Subjective Subjective Date of Service: 07/02/23 Interval History: Seen and evaluated Feels more comfortable spiking fever less often Blood cultures growing Strep and Yeast Still hyperglycemic tolerating diet Review of Systems Review of Systems: Yes all other systems are reviewed and are negative Physical Exam 2 Vital Signs: Vital Signs: Last Vital Signs Temp 97.1 F 07/02/23 07:22 Pulse 99 07/02/23 07:22 Resp 16 07/02/23 07:22 BP 134/81 07/02/23 07:22 Pulse Ox 93 07/02/23 07:22 O2 Del Method Room Air 07/02/23 07:22 O2 Flow Rate 2.5 07/02/23 02:47 BMI result Body Mass Index 29.2 Const: Other: Constitutional : Awake, interactive, not in distress Neck : Normal inspection, Supple Cardiovascular : RRR, no JVP, no lower extremity edema, tachycardia Respiratory : good bilateral air entry, basal fine crackles, no wheezes Gastrointestinal: soft, lax, Normal bowel sounds, Non tender Skin : Warm, Dry Neurological : Alert & oriented x3, No focal deficit Objective Data Active Medications Acetaminophen (Acetaminophen 325 Mg Tablet) 650 mg PO Q6H PRN PRN Reason: Pain, Mild (Pain Scale 1-3) Last Admin: 07/01/23 03:51 Dose: 650 mg Documented By: CASEY Dextrose (Dextrose 50 % 25 Gm/50 Ml Syringe) 25 gm IVPUSH Q15M PRN; Protocol PRN Reason: per Hypoglycemia Standing Ord. Docusate Sodium (Docusate Sodium 100 Mg Capsule) 100 mg PO DAILY PRN PRN Reason: Constipation Enoxaparin Sodium (Enoxaparin Sodium 40 Mg/0.4 Ml Syringe) 40 mg SUBCUT Q24H [facility] Last Admin: 07/01/23 22:02 Dose: 40 mg Documented By: NEHA Fluconazole (Fluconazole 100 Mg Tablet) 200 mg PO DAILY [facility] Last Admin: 07/02/23 08:02 Dose: 200 mg Documented By: ELISEO Glipizide (Glipizide 5 Mg Tablet) 5 mg PO DAILY [facility] Last Admin: 07/02/23 08:02 Dose: 5 mg Documented By: ELISEO Glucose (Glucose Gel 15 Gm Gel..Gram.) 15 gm PO Q15M PRN; Protocol PRN Reason: per Hypoglycemia Standing Ord. Ceftriaxone Sodium 1 gm/ (Sodium Chloride) 50 mls @ 100 mls/hr IV Q24H [facility] Last Infusion: 07/01/23 22:33 Dose: Infused Documented By: NEHA Vancomycin HCl 1,000 mg/ (Sodium Chloride) 270 mls @ 270 mls/hr IV Q12H [facility] Last Admin: 07/02/23 14:05 Dose: 270 mls/hr Documented By: ELISEO Insulin Human Lispro (Insulin Lispro 100 Unit/Ml 3 Ml Vial) 0 unit SUBCUT QIDACHS [facility]; Protocol Last Admin: 07/02/23 11:41 Dose: 4 unit Documented By: ELISEO Metformin HCl (Metformin Hcl 500 Mg Tablet) 500 mg PO BIDWM [facility] Last Admin: 07/02/23 08:01 Dose: 500 mg Documented By: ELISEO Ondansetron HCl (Ondansetron Hcl 4 Mg/2 Ml Vial) 4 mg IVPUSH Q8H PRN PRN Reason: Nausea and Vomiting Pharmacy Consult (Consult Rx Vancomycin Dosing) 1 each MISCELLANE DAILY PRN PRN Reason: Consult order Sodium Chloride (0.9 % Sodium Chloride Flush 3 Ml Syringe) 3 ml IVFLUSH QSHIFT [facility] Last Admin: 07/02/23 08:02 Dose: 3 ml Documented By: ELISEO Labs 07/02/23 05:49 07/02/23 05:49 Labs: Laboratory Results - last 24 hr 07/01/23 07/01/23 07/02/23 16:08 20:13 05:49 MCV 80.9 MCH 27.2 MCHC 33.6 RDW 13.1 Plt Count 312 MPV 9.8 Absolute Nucleated RBC 0.000 Nucleated RBC % (auto) 0.0 Anion Gap 10 L Estim Creat Clear Calc 99.9 Estimated GFR > 60 POC Glucose 283 H 246 H Random Glucose 253 H Calcium 9.3 Random Vancomycin 07/02/23 07/02/23 07/02/23 07:27 11:12 13:05 MCV MCH MCHC RDW Plt Count MPV Absolute Nucleated RBC Nucleated RBC % (auto) Anion Gap Estim Creat Clear Calc Estimated GFR POC Glucose 284 H 209 H Random Glucose Calcium Random Vancomycin 6.1 L Microbiology Microbiology Results: Microbiology 06/30/23 21:17 Blood Culture - Preliminary Blood - Venous Strep agalactiae (Grp B) 06/30/23 20:40 Blood Culture - Preliminary Blood - Venous Strep agalactiae (Grp B) Yeast 06/30/23 Unknown Urine Culture - Preliminary Urine clean catch - Urine gonzalez top Culture in progress. Assessment and Plan (1) Bacteremia due to Gram-positive bacteria: Status: Acute (2) Acute respiratory failure with hypoxia: Status: Acute (3) Poorly controlled diabetes mellitus: Status: Acute (4) Pseudohyponatremia: Status: Acute Plan 48-year-old male with significant past medical history for diabetes comes into the hospital with difficulty swallowing as well as urinary symptoms found to have multiple complications # acute hypoxic respiratory failure with Streptococcus Bacteremia 2/2 community- acquired pneumonia has bilateral infiltrate on chest x-ray Cultures growing Strep B, to repeat Continue Vancomycin and Ceftriaxone until cx finalized Wean O2 down as tolerated ID consult # Yeast infection growing in blood cultures, pending sensitivity Discuss with ID the need of Caspofungin # acute hyperglycemia poorly controlled diabetes better controlled HbA1c of 9.6 Lantus 8 units, hold and start Glipizide Metformin low-dose sliding scale insulin diabetic diet # DANNIE secondary to volume depletion/dehydration improving, continue IVF follow BMP # pseudohyponatremia improving, secondary to hyperglycemia follow BMP # acute UTI IV antibiotics pending cultures # esophageal candidiasis secondary to poor glucose control Continue fluconazole negative HIV DVT prophylaxis: Lovenox Needs overnight inpatient hospital stay for further management of bacteremia, hypoxia pending final cultures Time Spent With Patient Time: Total time managing care of this patient today ____ minutes. Quality Stroke Does the patient have a stroke diagnosis?: No VTE Prior VTE?: No VTE Risk Level:: Medical - moderate - high VTE Device Contraindication: Treatment Not Indicated VTE Drug Contraindication: N/A - Med Ordered
[2023-07-02 15:29] VITALS: BP 130/63; PULSE 96; RESP 18; TEMP 36.6; O2SAT 91
[2023-07-02 16:17] LABS: Glucose, Whole Blood 126 mg/dL (60-115)
[2023-07-02 19:58] VITALS: BP 144/84; PULSE 94; RESP 17; TEMP 36.7; O2SAT 94
[2023-07-02 20:34] LABS: Glucose, Whole Blood 158 mg/dL (60-115)
--- NOTE | 2023-07-02 22:05 | W.PM.IDCN ---
History of Present Illness Data of Consult Service Date: 07/01/23 Requesting physician: Vale Sinha Primary Care Provider: Unknown Physician HPI Reason for consult: sepsis He presents with fever and chills. He has Group B and yeast in blood on 06/30. He has some pyuria and dysuria reported. He also has dysphagia. Review of Systems Review of Systems: Yes all other systems are reviewed and are negative Constitutional: Constitutional: Reports chills and Reports fever(s) PMFSH Past Medical History Medical History Type 2 diabetes mellitus Family History Family history: reviewed and not pertinent Social History Social History Household Members: Family Housing: House Patient Tobacco Use Status: Never used Tobacco Second Hand Smoke Exposure: No service: Yes Meds Allergies Allergy/AdvReac Type Severity Reaction Status Date / Time No Known Allergies Allergy Verified 07/01/23 19:42 Active Medications: Current Medications Acetaminophen (Acetaminophen 325 Mg Tablet) 650 mg PO Q6H PRN PRN Reason: Pain, Mild (Pain Scale 1-3) Last Admin: 07/01/23 03:51 Dose: 650 mg Dextrose (Dextrose 50 % 25 Gm/50 Ml Syringe) 25 gm IVPUSH Q15M PRN; Protocol PRN Reason: per Hypoglycemia Standing Ord. Docusate Sodium (Docusate Sodium 100 Mg Capsule) 100 mg PO DAILY PRN PRN Reason: Constipation Enoxaparin Sodium (Enoxaparin Sodium 40 Mg/0.4 Ml Syringe) 40 mg SUBCUT Q24H [facility] Last Admin: 07/01/23 22:02 Dose: 40 mg Fluconazole (Fluconazole 100 Mg Tablet) 200 mg PO DAILY [facility] Last Admin: 07/02/23 08:02 Dose: 200 mg Glipizide (Glipizide 5 Mg Tablet) 5 mg PO DAILY [facility] Last Admin: 07/02/23 08:02 Dose: 5 mg Glucose (Glucose Gel 15 Gm Gel..Gram.) 15 gm PO Q15M PRN; Protocol PRN Reason: per Hypoglycemia Standing Ord. Ceftriaxone Sodium 1 gm/ (Sodium Chloride) 50 mls @ 100 mls/hr IV Q24H [facility] Last Infusion: 07/01/23 22:33 Dose: Infused Insulin Human Lispro (Insulin Lispro 100 Unit/Ml 3 Ml Vial) 0 unit SUBCUT QIDACHJaycob [facility]; Protocol Last Admin: 07/02/23 18:19 Dose: Not Given Metformin HCl (Metformin Hcl 500 Mg Tablet) 500 mg PO BIDWM [facility] Last Admin: 07/02/23 18:17 Dose: 500 mg Ondansetron HCl (Ondansetron Hcl 4 Mg/2 Ml Vial) 4 mg IVPUSH Q8H PRN PRN Reason: Nausea and Vomiting Pharmacy Consult (Consult Rx Vancomycin Dosing) 1 each MISCELLANE DAILY PRN PRN Reason: Consult order Sodium Chloride (0.9 % Sodium Chloride Flush 3 Ml Syringe) 3 ml IVFLUSH QSHIFT [facility] Last Admin: 07/02/23 18:18 Dose: 3 ml Home Medications Medication Instructions Recorded Confirmed Last Taken Type ibuprofen 125 mg-acetaminophen 250 2 tab PO Q8H PRN Pain 06/30/23 06/30/23 Unknown History mg tablet Physical Exam Vital Signs: Vital Signs: Last Vital Signs Temp 98.1 F 07/02/23 19:58 Pulse 94 07/02/23 19:58 Resp 17 07/02/23 19:58 BP 144/84 H 07/02/23 19:58 Pulse Ox 94 07/02/23 19:58 O2 Del Method Room Air 07/02/23 19:58 O2 Flow Rate 2.5 07/02/23 02:47 BMI result Body Mass Index 29.2 Const: General: cooperative HEENT: Head: Yes normal to inspection Face and sinus: Yes normal facial exam Mouth: Normal oral and palatal mucosa present Teeth and gingiva: dentition normal Eyes: General: appearance normal, both eyes and all related structures Pupils: Equal, round and reactive pupils present Resp: Effort & Inspection: normal respiratory effort Cardio: Rate: regular rate Rhythm: regular rhythm GI: Palpation (GI): Soft to palpation and nontender : General: Yes no CVA tenderness Back/Spine/Pelvis: Back: no CVA tenderness Skin: General skin exam: no rashes or lesions noted Neuro: General: moves all extremities Cranial nerves: Yes Equal, round and reactive pupils present Extrem: General: Yes normal to inspection Psych: Appearance: grossly normal Results Labs 07/02/23 05:49 07/02/23 05:49 Labs: Short CBC 07/02/23 Range/Units 05:49 WBC 15.5 H (4.8-10.8) X10*3/uL Hgb 9.4 L (14.0-18.0) g/dl Hct 28.0 L (42.0-52.0) % Plt Count 312 (160-400) X10*3/uL BMP 07/02/23 05:49 Sodium 130 L Potassium 3.3 Chloride 101 Carbon Dioxide 22 BUN 16 Creatinine 0.96 Calcium 9.3 Microbiology Microbiology Results: Microbiology 07/01/23 12:57 Blood - Venous Blood Culture - Preliminary No growth after 24 hours. 07/01/23 13:04 Blood - Venous Blood Culture - Preliminary No growth after 24 hours. 06/30/23 21:17 Blood - Venous Blood Culture - Preliminary Strep agalactiae (Grp B) 06/30/23 20:40 Blood - Venous Blood Culture - Preliminary Strep agalactiae (Grp B) Yeast 06/30/23 Unknown Urine clean catch - Urine gonzalez top Urine Culture - Preliminary Culture in progress. Assessment and Plan (1) Bacteremia due to Gram-positive bacteria: Status: Acute Possible urinary source Group B strep. There is possibility of urinary obstruction or nephrolithiasis (2) Candidiasis of esophagus: Status: Acute [place] esophagus unusual in HIV negative even if diabetic and may be causing fungemia Patient not known use IVDU. Check CT abdomen and pelvis check urinary obstruction /hydro/nephrolithiasis. Also consider GI evaluation [place]. Continue Ceftriaxone and Diflucan (may change to oral day or two) Check echo evaluate endocarditis. Optimal blood glucose control Time Spent With Patient Time: Total time managing care of this patient today ____ minutes.
[2023-07-02] MEDS: Enoxaparin Sodium 40 MG/0.4 ML SYRINGE SUBCUT (22:35)
[2023-07-02] MEDS: cefTRIAXone sodium 1 GM in 0.9 % Sodium Chloride 50 ML IV (22:39)
[2023-07-03 03:56] VITALS: BP 135/62; PULSE 65; RESP 18; TEMP 36.4; O2SAT 94
[2023-07-03 06:05] LABS: Hematocrit 28.8 % (42.0-52.0); Hemoglobin 9.7 g/dl (14.0-18.0); Mean Corpuscular HGB Conc 33.7 g/dl (31.0-36.0); Mean Corpuscular Hemoglobin 27.9 pg (27.0-33.0); Mean Corpuscular Volume 82.8 fL (80.0-98.0); Mean Platelet Volume 10.2 fL (9.4-12.4); Platelet Count 382 X10*3/uL (160-400); Red Blood Count 3.48 X10*6/uL (4.60-5.80); Red Cell Distribution Width 13.2 % (11.0-16.0); White Blood Count 13.8 X10*3/uL (4.8-10.8)
[2023-07-03 06:18] LABS: Anion Gap 13 (12-20); Blood Urea Nitrogen 17 mg/dL (9-16); Calcium 9.1 mg/dL (8.4-10.2); Carbon Dioxide 24 mmol/L (22-29); Chloride 102 mmol/L (96-108); Creatinine Clr Calc Pharmacy 106.6; Estimated Glomerular Filt Rate > 60; Glucose Random 139 mg/dL (60-115); Potassium 2.9 mmol/L (3.3-5.1); Sodium 136 mmol/L (135-145)
--- NOTE | 2023-07-03 07:00 | CA_ITS ---
Transthoracic Echocardiogram Patient (Last, First, Middle): Luis Helms P Gender: Male Date of : 1975 Age: 48 Procedure Date: 07/03/2023 Procedure Type: Transthoracic Echocardiogram Location: S3E Height: 172.72 cm Weight: 85.28 kg BSA: 1.99 m2 Heart Rate: 82 bpm BP: 132 / 77 mmHg [employer] Machine Operator: SB Referring MD: Vale Sinha MD Symptoms: Strep B bacteremia, R O vegetations Study Quality: Adequate/Contrast ECG Rhythm: Sinus Conclusions: - The left ventricular systolic function is mildly decreased. The visually estimated ejection fraction is between 45-50%. - No obvious valvular pathology seen on this study. - PFO or ASD with left to right shunt by color doppler. Findings Procedure Information Contrast agent, definity, is being given per protocol without apparent complications. Left Ventricle Normal left ventricular cavity size. There is mildly increased left ventricular wall thickness. The left ventricular systolic function is mildly decreased. The visually estimated ejection fraction is between 45-50%. There is mild global hypokinesis. Diastolic function is normal for age. Right Ventricle Normal right ventricular cavity size and systolic function. Atria Both atria are normal in size. PFO or ASD with left to right shunt by color doppler. Aortic Valve There is a normal trileaflet aortic valve. There is no aortic valve stenosis. There is no aortic valve regurgitation. Mitral Valve The mitral valve appears normal. There is mild anterior mitral leaflet thickening. There is no mitral valve regurgitation. There is no mitral valve stenosis. Pulmonic Valve There is trace pulmonic valve regurgitation. Tricuspid Valve Normal tricuspid valve structure. There is trace tricuspid valve regurgitation. Great Vessels The asc aorta is normal in size. Venous The inferior vena cava is normal in size and collapses greater than 50% with inspiration. Pericardium/Pleural There is a trivial pericardial effusion. Prior Study Comparison No prior study available for comparison. Recommendations, Care & Conclusions No obvious valvular pathology seen on this study. Measurements 2D Linear Measurements IVSd: 1.04 0.6-0.9/0.6-1.0 cm LVIDd: 4.96 3.9-5.3/4.2-5.9 cm LVIDd Index: 2.49 2.4-3.2/2.2-3.1 cm/m2 LVIDs: 3.56 2.0-3.6 cm LVPWd: 1.08 0.7-1.1 cm LA Diam: 3.40 2.7-3.8/3.0-4.0 cm LAIDs Index: 1.71 1.5-2.3 cm/m2 LV Mass: 242.19 67-162/88-224 g LV Mass Index: 121.70 43-95/49-115 g/m2 LVOT Diam: 2.40 3.0+(-)1.3 cm 2D Systolic Function EF 4C: 60.20 >55% EF 2C: 54.20 >55% Mitral Valve MV Pk E: 0.62 MV PK A: 0.60 MV Decel Time: 212.00 E/A: 1.00 E'Lateral: 8.59 E'Medial: 6.42 E/E' Med: 9.70 E/E' Lat: 7.20 PHT: 62.00 MVA PHT: 3.55 Decel [place]: 2.93 Aortic Valve AoV Pk Lonnie: 1.24 AoV Mn Lonnie: 0.83 AoV VTI: 0.19 AoV Pk Grad: 6.00 Aov Mn Grad: 3.00 SID Cont.VTI: 3.21 LVOT LVOT Pk Lonnie: 0.81 LVOT Mn Lonnie: 0.53 LVOT VTI: 0.14 LVOT Pk Grad: 3.00 LVOT Mn Grad: 1.00 LVOT Diam: 2.40 LVOT Area: 4.52 Diastolic Function MV Pk E: 0.62 MV Pk A: 0.60 E/A: 1.00 E'Medial: 6.42 E/E' Med: 9.70 E' Laterial: 8.59 E/E' Lat: 7.20 Right Ventricle TAPSE (mm): 21.90 TVS' Lonnie: 12.40 Tricuspid Valve RA Press: 3.00 Great Vessels Aorta Sinus of Valsalva: 3.10 2.0-3.5 cm Ao Asc: 3.00 2.1-3.4 cm Pulmonary Veins Pulm Vein S/D 1.10 Pulmonary Valve PV Pk Lonnie: 1.13 Peak PV Grad: 5.00 Shunting QP:QS: 1.10 Updated in Other Vendor System with Status of Final Juan Dodge MD electronically signed on 07/03/2023 4:26:29 PM with status of Final
[2023-07-03 07:19] VITALS: BP 132/77; PULSE 77; RESP 18; TEMP 36.2; O2SAT 90
[2023-07-03 07:39] LABS: Glucose, Whole Blood 151 mg/dL (60-115)
[2023-07-03] MEDS: Insulin Lispro 100 UNIT/ML 3 ML VIAL SUBCUT ×2 (07:48→20:49)
[2023-07-03] MEDS: Fluconazole 100 MG TABLET 200 MG PO ×2 (07:48→20:48)
[2023-07-03] MEDS: metFORMIN HCl 500 MG TABLET PO (07:48)
[2023-07-03] MEDS: glipiZIDE 5 MG TABLET PO (07:48)
[2023-07-03] MEDS: 0.9 % Sodium Chloride Flush 3 ML SYRINGE IVFLUSH ×2 (07:51→20:51)
[2023-07-03] MEDS: Potassium Chloride Packet 20 MEQ PACKET 40 MEQ PO ×2 (08:54→10:40)
[2023-07-03 11:27] LABS: Glucose, Whole Blood 132 mg/dL (60-115)
--- NOTE | 2023-07-03 12:16 | P.PNIM_ITS ---
Subjective Subjective Date of Service: 07/03/23 Interval History: Seen and evaluated Feels more comfortable but remains overall weak and not back to his baseline No more fever Blood cultures growing Strep and Yeast Still hyperglycemic tolerating diet Review of Systems Review of Systems: Yes all other systems are reviewed and are negative Physical Exam 2 Vital Signs: Vital Signs: Last Vital Signs Temp 97.2 F 07/03/23 07:19 Pulse 77 07/03/23 07:19 Resp 18 07/03/23 07:19 BP 132/77 07/03/23 07:19 Pulse Ox 90 L 07/03/23 07:19 O2 Del Method Room Air 07/03/23 07:19 O2 Flow Rate 2.5 07/02/23 02:47 BMI result Body Mass Index 29.2 Const: Other: Constitutional : Awake, interactive, not in distress Neck : Normal inspection, Supple Cardiovascular : RRR, no JVP, no lower extremity edema, no clear murmurs, tachycardia Respiratory : good bilateral air entry, basal fine crackles, no wheezes Gastrointestinal: soft, lax, Normal bowel sounds, Non tender Skin : Warm, Dry Neurological : Alert & oriented x3, No focal deficit Objective Data Active Medications Acetaminophen (Acetaminophen 325 Mg Tablet) 650 mg PO Q6H PRN PRN Reason: Pain, Mild (Pain Scale 1-3) Last Admin: 07/01/23 03:51 Dose: 650 mg Documented By: CASEY Dextrose (Dextrose 50 % 25 Gm/50 Ml Syringe) 25 gm IVPUSH Q15M PRN; Protocol PRN Reason: per Hypoglycemia Standing Ord. Docusate Sodium (Docusate Sodium 100 Mg Capsule) 100 mg PO DAILY PRN PRN Reason: Constipation Enoxaparin Sodium (Enoxaparin Sodium 40 Mg/0.4 Ml Syringe) 40 mg SUBCUT Q24H [facility] Last Admin: 07/02/23 22:35 Dose: 40 mg Documented By: MALAIKA Fluconazole (Fluconazole 100 Mg Tablet) 200 mg PO DAILY [facility] Last Admin: 07/03/23 07:48 Dose: 200 mg Documented By: SEN Glipizide (Glipizide 5 Mg Tablet) 5 mg PO DAILY [facility] Last Admin: 07/03/23 07:48 Dose: 5 mg Documented By: SEN Glucose (Glucose Gel 15 Gm Gel..Gram.) 15 gm PO Q15M PRN; Protocol PRN Reason: per Hypoglycemia Standing Ord. Ceftriaxone Sodium 1 gm/ (Sodium Chloride) 50 mls @ 100 mls/hr IV Q24H [facility] Last Infusion: 07/02/23 23:16 Dose: Infused Documented By: MALAIKA Insulin Human Lispro (Insulin Lispro 100 Unit/Ml 3 Ml Vial) 0 unit SUBCUT QIDACHS [facility]; Protocol Last Admin: 07/03/23 11:35 Dose: Not Given Documented By: SEN Non-Admin Reason: No Insulin Coverage Metformin HCl (Metformin Hcl 500 Mg Tablet) 500 mg PO BIDWM [facility] Last Admin: 07/03/23 07:48 Dose: 500 mg Documented By: SEN Ondansetron HCl (Ondansetron Hcl 4 Mg/2 Ml Vial) 4 mg IVPUSH Q8H PRN PRN Reason: Nausea and Vomiting Pharmacy Consult (Consult Rx Vancomycin Dosing) 1 each MISCELLANE DAILY PRN PRN Reason: Consult order Sodium Chloride (0.9 % Sodium Chloride Flush 3 Ml Syringe) 3 ml IVFLUSH QSHIFT [facility] Last Admin: 07/03/23 07:51 Dose: 3 ml Documented By: SEN Labs 07/03/23 05:51 07/03/23 05:51 Labs: Laboratory Results - last 24 hr 07/02/23 07/02/23 07/02/23 13:05 16:09 20:30 MCV MCH MCHC RDW Plt Count MPV Absolute Nucleated RBC Nucleated RBC % (auto) Anion Gap Estim Creat Clear Calc Estimated GFR POC Glucose 126 H 158 H Random Glucose Calcium Random Vancomycin 6.1 L 07/03/23 07/03/23 07/03/23 05:51 07:17 11:23 MCV 82.8 MCH 27.9 MCHC 33.7 RDW 13.2 Plt Count 382 MPV 10.2 Absolute Nucleated RBC 0.000 Nucleated RBC % (auto) 0.0 Anion Gap 13 Estim Creat Clear Calc 106.6 Estimated GFR > 60 POC Glucose 151 H 132 H Random Glucose 139 H Calcium 9.1 Random Vancomycin Microbiology Microbiology Results: Microbiology 07/01/23 12:57 Blood Culture - Preliminary Blood - Venous Prelim: Yeast Gram Stain only 06/30/23 20:40 Blood Culture - Preliminary Blood - Venous Strep agalactiae (Grp B) Yeast 06/30/23 21:17 Blood Culture - Final Blood - Venous Strep agalactiae (Grp B) 06/30/23 Unknown Urine Culture - Preliminary Urine clean catch - Urine gonzalez top Culture in progress. 07/01/23 13:04 Blood Culture - Preliminary Blood - Venous No growth after 24 hours. Assessment and Plan (1) Bacteremia due to Gram-positive bacteria: Status: Acute (2) Acute respiratory failure with hypoxia: Status: Acute (3) Poorly controlled diabetes mellitus: Status: Acute (4) Pseudohyponatremia: Status: Acute (5) Candidiasis of esophagus: Status: Acute (6) Acute UTI: Status: Acute (7) Fungemia: Status: Acute Plan 48-year-old male with significant past medical history for diabetes comes into the hospital with difficulty swallowing as well as urinary symptoms found to have multiple complications # acute hypoxic respiratory failure with Streptococcus Bacteremia 2/2 community- acquired pneumonia has bilateral infiltrate on chest x-ray Cultures growing Strep B, to repeat Continue Ceftriaxone Weaned O2 down to RA ID input appreciated # Fungemia growing in blood cultures and in the repeat pending sensitivity Discuss with ID, Fluconazole 200 mg (can go up to 400 if needed) To get an ECHO # acute hyperglycemia poorly controlled diabetes better controlled , Tolerating new PO meds well, did not take meds for years prior to this hospital stay HbA1c of 9.6 Continue Glipizide Continue Metformin low-dose sliding scale insulin diabetic diet # DANNIE resolved DC IVF follow BMP # pseudohyponatremia improving, secondary to hyperglycemia follow BMP # acute UTI IV antibiotics pending cultures # esophageal candidiasis secondary to poor glucose control Continue fluconazole negative HIV DVT prophylaxis: Lovenox Needs overnight inpatient hospital stay for further management of bacteremia, Fungemia hypoxia pending final cultures Time Spent With Patient Time: Total time managing care of this patient today ____ minutes. Quality Stroke Does the patient have a stroke diagnosis?: No VTE Prior VTE?: No VTE Risk Level:: Medical - moderate - high VTE Device Contraindication: Treatment Not Indicated VTE Drug Contraindication: N/A - Med Ordered
[2023-07-03] MEDS: cefTRIAXone sodium 1 GM in 0.9 % Sodium Chloride 50 ML IV (13:08)
[2023-07-03 13:52] LABS: Vancomycin Random 4.2 mcg/mL (15-20)
[2023-07-03 15:08] VITALS: BP 130/71; PULSE 85; RESP 18; TEMP 36.2; O2SAT 93
[2023-07-03] MEDS: iohexoL 350 MG/ML 100 ML INFUS..BTL 85 ML IV (16:18)
[2023-07-03 16:20] LABS: Glucose, Whole Blood 130 mg/dL (60-115)
--- NOTE | 2023-07-03 19:00 | P.CDIM_ITS ---
PROVIDER RESPONSE TEXT: To clarify, the appropriate diagnosis supported by the clinical indicators: After study (the condition) has been ruled out QUERY TEXT: PHYSICIAN'S DOCUMENTATION REQUEST Date of Query: 07/03/2023 09:42 AM EDT Patient Name: Luis Helms Admit Date: 07/01/2023 Dear Vale Sinha, A review of the medical record indicates additional documentation may be needed. Please review below and update the documentation accordingly. Clinical indicators: ID Consult note 07/02 - Reason for consult: Sepsis Fever, chills WBC 21.6 Temp 104.0 RR 31 HR 135 Vancomycin, Ceftriaxone Consistency and clarity of a diagnosis within the medical record: Sepsis is/was present and is a clinical diagnosis based on After study (the condition) has been ruled out Other (explain)Clinically unable to determine (explain)Thank you, Corrie Hoyt, CCS, CDIS Use of terms such as suspected, likely, concern for, or probable (associated with a specific diagnosi s that is being evaluated, monitored, or treated as if it exists) are acceptable and can be coded in the inpatient se tting, when documented at the time of discharge. Please use your independent medical judgment in providing your response. THIS QUERY IS PART OF THE PERMANENT MEDICAL RECORD
[2023-07-03 19:43] VITALS: BP 137/82; PULSE 85; RESP 18; TEMP 36.3; O2SAT 96
[2023-07-03 20:39] LABS: Glucose, Whole Blood 151 mg/dL (60-115)
[2023-07-03] MEDS: Enoxaparin Sodium 40 MG/0.4 ML SYRINGE SUBCUT (22:24)
[2023-07-04 04:00] VITALS: BP 129/85; PULSE 85; RESP 16; TEMP 36.3; O2SAT 92
[2023-07-04 06:40] LABS: Hematocrit 28.7 % (42.0-52.0); Hemoglobin 9.5 g/dl (14.0-18.0); Mean Corpuscular HGB Conc 33.1 g/dl (31.0-36.0); Mean Corpuscular Hemoglobin 26.9 pg (27.0-33.0); Mean Corpuscular Volume 81.3 fL (80.0-98.0); Platelet Count 474 X10*3/uL (160-400); Red Blood Count 3.53 X10*6/uL (4.60-5.80); Red Cell Distribution Width 13.3 % (11.0-16.0); White Blood Count 10.8 X10*3/uL (4.8-10.8)
[2023-07-04 06:57] LABS: Anion Gap 12 (12-20); Blood Urea Nitrogen 14 mg/dL (9-16); Calcium 9.1 mg/dL (8.4-10.2); Carbon Dioxide 25 mmol/L (22-29); Chloride 104 mmol/L (96-108); Creatinine Clr Calc Pharmacy 121.4; Estimated Glomerular Filt Rate > 60; Glucose Random 132 mg/dL (60-115); Potassium 3.1 mmol/L (3.3-5.1); Sodium 138 mmol/L (135-145)
[2023-07-04 07:13] LABS: Prostate Specific Antigen < 0.10 ng/mL (<0.05-4.0)
[2023-07-04 07:35] LABS: Glucose, Whole Blood 135 mg/dL (60-115)
[2023-07-04 08:00] VITALS: BP 131/79; PULSE 85; RESP 16; TEMP 36; O2SAT 91
[2023-07-04] MEDS: Fluconazole 100 MG TABLET 200 MG PO ×2 (08:11→20:34)
[2023-07-04] MEDS: glipiZIDE 5 MG TABLET PO (08:12)
[2023-07-04] MEDS: 0.9 % Sodium Chloride Flush 3 ML SYRINGE IVFLUSH ×3 (08:12→20:35)
[2023-07-04] MEDS: Potassium Chloride ER 20 MEQ TAB.ER.PRT 40 MEQ PO (08:12)
--- NOTE | 2023-07-04 09:41 | PM.UROCN ---
History of Present Illness Consult details Consult date: 07/04/23 Narrative: 48 year old male with type 2 diabetes states he has had multiple urinary tract infections in the past. He has seen a urologist but had has been many years ago and does not remember the name of the urologist. He states he had UTI symptoms for a few weeks and try to increase his water intake and take cranberry. a presented to ED for worsening symptoms abdominal pain and trouble swallowing. Urine and blood cultures Nuvia and Strep Agalactiae Grp B. The patient denies dysuria currently feels that he is voiding well. CTAP Moderate bilateral hydronephrosis and ureteral dilatation down to the bladder. Diffuse bladder wall thickening. Infectious, inflammatory and neoplastic processes should be considered. Slightly enlarged low-attenuation prostate gland worrisome for infection/prostatitis as well. Review of Systems Review of Systems: Ten point review of systems negative other than stated in HPI [facility] Past Medical History Medical History Type 2 diabetes mellitus Family History Family history: reviewed and not pertinent Social History Social History Household Members: Family Housing: House Patient Tobacco Use Status: Never used Tobacco Second Hand Smoke Exposure: No service: Yes Meds Allergies Allergy/AdvReac Type Severity Reaction Status Date / Time No Known Allergies Allergy Verified 07/01/23 19:42 Active Medications: Current Medications Acetaminophen (Acetaminophen 325 Mg Tablet) 650 mg PO Q6H PRN PRN Reason: Pain, Mild (Pain Scale 1-3) Last Admin: 07/01/23 03:51 Dose: 650 mg Dextrose (Dextrose 50 % 25 Gm/50 Ml Syringe) 25 gm IVPUSH Q15M PRN; Protocol PRN Reason: per Hypoglycemia Standing Ord. Docusate Sodium (Docusate Sodium 100 Mg Capsule) 100 mg PO DAILY PRN PRN Reason: Constipation Enoxaparin Sodium (Enoxaparin Sodium 40 Mg/0.4 Ml Syringe) 40 mg SUBCUT Q24H [facility] Last Admin: 07/03/23 22:24 Dose: 40 mg Fluconazole (Fluconazole 100 Mg Tablet) 200 mg PO BID [facility] Last Admin: 07/04/23 08:11 Dose: 200 mg Glipizide (Glipizide 5 Mg Tablet) 5 mg PO DAILY [facility] Last Admin: 07/04/23 08:12 Dose: 5 mg Glucose (Glucose Gel 15 Gm Gel..Gram.) 15 gm PO Q15M PRN; Protocol PRN Reason: per Hypoglycemia Standing Ord. Ceftriaxone Sodium 1 gm/ (Sodium Chloride) 50 mls @ 100 mls/hr IV Q24H [facility] Last Infusion: 07/03/23 13:39 Dose: Infused Insulin Human Lispro (Insulin Lispro 100 Unit/Ml 3 Ml Vial) 0 unit SUBCUT QIDACHS [facility]; Protocol Last Admin: 07/04/23 07:39 Dose: Not Given Metformin HCl (Metformin Hcl 500 Mg Tablet) 500 mg PO BIDWM [facility] Last Admin: 07/03/23 17:19 Dose: Not Given Ondansetron HCl (Ondansetron Hcl 4 Mg/2 Ml Vial) 4 mg IVPUSH Q8H PRN PRN Reason: Nausea and Vomiting Pharmacy Consult (Consult Rx Vancomycin Dosing) 1 each MISCELLANE DAILY PRN PRN Reason: Consult order Sodium Chloride (0.9 % Sodium Chloride Flush 3 Ml Syringe) 3 ml IVFLUSH QSHIFT [facility] Last Admin: 07/04/23 08:12 Dose: 3 ml Home Medications Medication Instructions Recorded Confirmed Last Taken Type ibuprofen 125 mg-acetaminophen 250 2 tab PO Q8H PRN Pain 06/30/23 06/30/23 Unknown History mg tablet Physical Exam Vital Signs: Vital Signs: Last Vital Signs Temp 96.8 F 07/04/23 08:00 Pulse 85 07/04/23 08:00 Resp 16 07/04/23 08:00 BP 131/79 07/04/23 08:00 Pulse Ox 91 L 07/04/23 08:00 O2 Del Method Room Air 07/04/23 08:00 O2 Flow Rate 2.5 07/02/23 02:47 BMI result Body Mass Index 29.2 Const: General: healthy appearing, no acute distress and well developed Orientation/consciousness: patient oriented x3 HEENT: Head: Yes normocephalic and Yes atraumatic Eyes: Conjunctivae: conjunctivae normal Neck: Neck: Yes normal visual inspection Chest: Chest palpation & inspection: normal inspection of the chest Resp: Effort & Inspection: normal respiratory effort Cardio: Rate: regular rate GI: Inspection: Yes normal to inspection Skin: General skin exam: no rashes or lesions noted Neuro: General: patient oriented x3 Extrem: General: No pedal edema Psych: Appearance: grossly normal Affect: normal affect Results Labs 07/04/23 06:01 07/04/23 06:01 Labs: Abnormal lab results 07/03/23 07/03/23 07/03/23 Range/Units : 13:13 16:15 RBC (4.60-5.80) X10*6/uL Hgb (14.0-18.0) g/dl Hct (42.0-52.0) % MCH (27.0-33.0) pg Plt Count (160-400) X10*3/uL Potassium (3.3-5.1) mmol/L POC Glucose 132 H 130 H (60-115) mg/dL Random Glucose (60-115) mg/dL Random Vancomycin 4.2 L (15-20) mcg/mL 07/03/23 07/04/23 07/04/23 Range/Units 20:34 06:01 07:20 RBC 3.53 L (4.60-5.80) X10*6/uL Hgb 9.5 L (14.0-18.0) g/dl Hct 28.7 L (42.0-52.0) % MCH 26.9 L (27.0-33.0) pg Plt Count 474 H (160-400) X10*3/uL Potassium 3.1 L (3.3-5.1) mmol/L POC Glucose 151 H 135 H (60-115) mg/dL Random Glucose 132 H (60-115) mg/dL Random Vancomycin (15-20) mcg/mL Short CBC 07/04/23 Range/Units 06:01 WBC 10.8 (4.8-10.8) X10*3/uL Hgb 9.5 L (14.0-18.0) g/dl Hct 28.7 L (42.0-52.0) % Plt Count 474 H (160-400) X10*3/uL BMP 07/04/23 06:01 Sodium 138 Potassium 3.1 L Chloride 104 Carbon Dioxide 25 BUN 14 Creatinine 0.79 Calcium 9.1 Urine 06/30/23 Range/Units 21:20 Urine Color Straw Urine Appearance Hazy Urine pH 6.0 (5.0-9.0) Ur Specific [place] 1.015 (1.005-1.025) Urine Protein 100 (2+) H (Neg-Trace) mg/dL Urine Glucose (UA) >=1000 H (Negative) mg/dL All other labs normal. Imaging Additional studies: Date of Service: 07/03/23 EXAMINATION: CT ABDOMEN AND PELVIS WITH CONTRAST CLINICAL INFORMATION: Fungemia. Evaluate for obstruction or stones COMPARISON: Chest CT 07/01/2023 TECHNIQUE: Multidetector volumetric images were obtained from the superior aspect of the liver through the pubic symphysis following administration 85 mL of Omnipaque 350 intravenous contrast. Sagittal and coronal reformatted images were obtained on the technologist's workstation. Oral contrast: Yes This CT examination was performed using dose optimization techniques as appropriate, variously including the following: *Automated exposure control *Adjustment of mA and/or kV according to patient size (this includes techniques or standardized protocols for targeted exams where dose is matched to indication/reason for exam; i.e. extremities or head) *Use of iterative reconstruction technique DLP: 447 mGy-cm FINDINGS: LUNG BASES: Increased groundglass attenuation at the lung bases. This is increased from previous chest CT 07/01/2023 LIVER, GALLBLADDER, AND BILIARY TREE: The liver is normal in shape and attenuation. Liver may be slightly enlarged, right lobe measuring 19 cm in length. No focal hepatic lesion or biliary ductal dilatation is present. The gallbladder is contracted. PANCREAS: Unremarkable. SPLEEN: Spleen is slightly enlarged measuring 15 cm in length. ADRENAL GLANDS: Unremarkable. KIDNEYS AND URETERS: The kidneys are normal in size, shape, and attenuation. Bilateral moderate hydronephrosis and ureteral dilatation down to the bladder. No stone seen. Bilateral perinephric stranding. BLADDER: Diffusely thickened bladder wall. Infectious, inflammatory and neoplastic processes should be considered. GASTROINTESTINAL TRACT: The small and large bowel are unremarkable. The appendix is unremarkable. ABDOMINAL WALL: No significant hernia is appreciated. LYMPH NODES: Normal. VASCULAR: Unremarkable. PELVIC VISCERA: The prostate gland is slightly enlarged and measures 4.2 x 4.6 cm in AP and transverse dimension. Prostate gland is heterogeneous in attenuation with low-attenuation areas. Appearance is questionable for prostatitis. There is a small amount of fluid in the pelvis. OSSEOUS STRUCTURES: Degenerative disc disease at L4-L5. IMPRESSION: Moderate bilateral hydronephrosis and ureteral dilatation down to the bladder. Diffuse bladder wall thickening. Infectious, inflammatory and neoplastic processes should be considered. Slightly enlarged low-attenuation prostate gland worrisome for infection/prostatitis as well. Groundglass attenuation bases. This is slightly increased from previous chest CT. Pneumonitis/atypical pneumonia and fluid overload/pulmonary edema should be considered. Mild hepatosplenomegaly Assessment and Plan (1) Bacteremia due to Gram-positive bacteria: Status: Acute (2) Type 2 diabetes mellitus: Qualifiers: Diabetes mellitus complication status: with hyperglycemia Diabetes mellitus detention insulin use: without detention use Qualified Code(s): E11.65 - Type 2 diabetes mellitus with hyperglycemia Status: Acute (3) DANNIE (acute kidney injury): Status: Acute (4) Bilateral hydronephrosis: Status: Acute (5) Obstructive uropathy: Status: Acute Plan Antibiotics per ID Recommend flomax 0.4 mg Recommend check postvoid residual with bladder scan Outpatient urology follow up Time Spent With Patient Time: Total time managing care of this patient today ____ minutes. Procedures Date of Service Date of Service: 07/04/23
--- NOTE | 2023-07-04 10:58 | HO.PM.IMPN ---
Subjective Subjective Date of Service: 07/04/23 Interval History: Seen and evaluated Feels more comfortable but remains overall weak and not back to his baseline No more fever tolerating diet Review of Systems Review of Systems: Yes all other systems are reviewed and are negative Physical Exam Vital Signs: Vital Signs: Last Vital Signs Temp 96.8 F 07/04/23 08:00 Pulse 85 07/04/23 08:00 Resp 16 07/04/23 08:00 BP 131/79 07/04/23 08:00 Pulse Ox 91 L 07/04/23 08:00 O2 Del Method Room Air 07/04/23 08:00 O2 Flow Rate 2.5 07/02/23 02:47 BMI result Body Mass Index 29.2 General: AO X 3, no acute distress Resp: CTA bilateral, no accessory muscles used CVS: S1,S2,RRR GI: soft, non tender, non distended Neuro: motor grossly intact, alert Psych: appropriate affect, appropriate insight Objective Data Active Medications Acetaminophen (Acetaminophen 325 Mg Tablet) 650 mg PO Q6H PRN PRN Reason: Pain, Mild (Pain Scale 1-3) Last Admin: 07/01/23 03:51 Dose: 650 mg Documented By: CASEY Dextrose (Dextrose 50 % 25 Gm/50 Ml Syringe) 25 gm IVPUSH Q15M PRN; Protocol PRN Reason: per Hypoglycemia Standing Ord. Docusate Sodium (Docusate Sodium 100 Mg Capsule) 100 mg PO DAILY PRN PRN Reason: Constipation Enoxaparin Sodium (Enoxaparin Sodium 40 Mg/0.4 Ml Syringe) 40 mg SUBCUT Q24H [facility] Last Admin: 07/03/23 22:24 Dose: 40 mg Documented By: MALAIKA Fluconazole (Fluconazole 100 Mg Tablet) 200 mg PO BID [facility] Last Admin: 07/04/23 08:11 Dose: 200 mg Documented By: SEN Glipizide (Glipizide 5 Mg Tablet) 5 mg PO DAILY [facility] Last Admin: 07/04/23 08:12 Dose: 5 mg Documented By: SEN Glucose (Glucose Gel 15 Gm Gel..Gram.) 15 gm PO Q15M PRN; Protocol PRN Reason: per Hypoglycemia Standing Ord. Ceftriaxone Sodium 1 gm/ (Sodium Chloride) 50 mls @ 100 mls/hr IV Q24H [facility] Last Infusion: 07/03/23 13:39 Dose: Infused Documented By: SEN Insulin Human Lispro (Insulin Lispro 100 Unit/Ml 3 Ml Vial) 0 unit SUBCUT QIDACHS [facility]; Protocol Last Admin: 07/04/23 07:39 Dose: Not Given Documented By: SEN Non-Admin Reason: No Insulin Coverage Metformin HCl (Metformin Hcl 500 Mg Tablet) 500 mg PO BIDWM [facility] Last Admin: 07/03/23 17:19 Dose: Not Given Documented By: SEN Non-Admin Reason: med on hold Ondansetron HCl (Ondansetron Hcl 4 Mg/2 Ml Vial) 4 mg IVPUSH Q8H PRN PRN Reason: Nausea and Vomiting Pharmacy Consult (Consult Rx Vancomycin Dosing) 1 each MISCELLANE DAILY PRN PRN Reason: Consult order Sodium Chloride (0.9 % Sodium Chloride Flush 3 Ml Syringe) 3 ml IVFLUSH QSHIFT [facility] Last Admin: 07/04/23 08:12 Dose: 3 ml Documented By: SEN Tamsulosin HCl (Tamsulosin Hcl 0.4 Mg Capsule) 0.4 mg PO BEDTIME [facility] Labs 07/04/23 06:01 07/04/23 06:01 Labs: Laboratory Results - last 24 hr 07/03/23 07/03/23 07/03/23 11:23 13:13 16:15 MCV MCH MCHC RDW Plt Count MPV Absolute Nucleated RBC Nucleated RBC % (auto) Anion Gap Estim Creat Clear Calc Estimated GFR POC Glucose 132 H 130 H Random Glucose Calcium Prostate Specific Ag Random Vancomycin 4.2 L 07/03/23 07/04/23 07/04/23 20:34 06:01 07:20 MCV 81.3 MCH 26.9 L MCHC 33.1 RDW 13.3 Plt Count 474 H MPV 10.0 Absolute Nucleated RBC 0.000 Nucleated RBC % (auto) 0.0 Anion Gap 12 Estim Creat Clear Calc 121.4 Estimated GFR > 60 POC Glucose 151 H 135 H Random Glucose 132 H Calcium 9.1 Prostate Specific Ag < 0.10 Random Vancomycin Microbiology Microbiology Results: Microbiology 06/30/23 20:40 Blood Culture - Preliminary Blood - Venous Strep agalactiae (Grp B) Nuvia albicans 06/30/23 Unknown Urine Culture - Final Urine clean catch - Urine gonzalez top Nuvia albicans Strep agalactiae (Grp B) 07/01/23 13:04 Blood Culture - Preliminary Blood - Venous Prelim: Yeast Gram Stain only 07/01/23 12:57 Blood Culture - Preliminary Blood - Venous Prelim: Yeast Gram Stain only 06/30/23 21:17 Blood Culture - Final Blood - Venous Strep agalactiae (Grp B) Assessment and Plan (1) Bacteremia due to Gram-positive bacteria: Status: Acute (2) Acute respiratory failure with hypoxia: Status: Acute (3) Poorly controlled diabetes mellitus: Status: Acute (4) Pseudohyponatremia: Status: Acute (5) Candidiasis of esophagus: Status: Acute (6) Acute UTI: Status: Acute (7) Fungemia: Status: Acute Plan 48M PMH DM presented with dysphagia acute hypoxic respiratory failure 2/2 community-acquired pneumonia has bilateral infiltrate on chest x-ray Continue Ceftriaxone Weaned O2 down to RA ID input appreciated sepsis due to candidemia and GBS bacteremia due to acute UTI due to urinary retention continue rocephin, diflucan follow up cultures acute hyperglycemia poorly controlled diabetes better controlled , Tolerating new PO meds well, did not take meds for years prior to this hospital stay HbA1c of 9.6 Continue Glipizide Continue Metformin low-dose sliding scale insulin diabetic diet DANNIE resolved DC IVF follow BMP esophageal candidiasis secondary to poor glucose control Continue fluconazole negative HIV DVT prophylaxis: Lovenox Needs overnight inpatient hospital stay for further management of bacteremia, Fungemia hypoxia pending final cultures Time Spent With Patient Time: Total time managing care of this patient today ____ minutes. Quality Stroke Does the patient have a stroke diagnosis?: No VTE Prior VTE?: No VTE Risk Level:: Medical - moderate - high VTE Device Contraindication: Treatment Not Indicated VTE Drug Contraindication: N/A - Med Ordered
[2023-07-04 11:43] LABS: Glucose, Whole Blood 181 mg/dL (60-115)
[2023-07-04] MEDS: Insulin Lispro 100 UNIT/ML 3 ML VIAL SUBCUT ×3 (11:44→20:34)
[2023-07-04] MEDS: cefTRIAXone sodium 1 GM in 0.9 % Sodium Chloride 50 ML IV (13:04)
[2023-07-04 15:51] VITALS: BP 126/72; PULSE 84; RESP 18; TEMP 36.1; O2SAT 94
[2023-07-04 16:12] LABS: Glucose, Whole Blood 231 mg/dL (60-115)
[2023-07-04 18:53] VITALS: BP 136/73; PULSE 86; RESP 15; TEMP 36.4; O2SAT 96
[2023-07-04 20:24] LABS: Glucose, Whole Blood 295 mg/dL (60-115)
[2023-07-04] MEDS: Tamsulosin HCL 0.4 MG CAPSULE PO (20:34)
[2023-07-04] MEDS: Enoxaparin Sodium 40 MG/0.4 ML SYRINGE SUBCUT (22:39)
[2023-07-05 03:06] VITALS: BP 129/75; PULSE 91; RESP 16; TEMP 36.3; O2SAT 93
[2023-07-05 06:20] LABS: Creatinine Clr Calc Pharmacy 112.8; Estimated Glomerular Filt Rate > 60
[2023-07-05 07:27] VITALS: BP 124/81; PULSE 77; RESP 16; TEMP 36.1; O2SAT 92
[2023-07-05 07:37] LABS: Glucose, Whole Blood 171 mg/dL (60-115)
--- NOTE | 2023-07-05 08:38 | P.DS_ITS ---
DS: Providers Provider Date of Service: 07/05/23 Date of admission: 06/30/23 22:12 Primary care physician: Unknown Physician Consults: 07/01/23 13:07 Consult to Infectious Diseases Routine Consulting Provider: [facility] Infectious Disease Reason for consultation: GPC Bacteremia 07/03/23 18:11 Consult to Urology Routine Consulting Provider: Tony Davies Reason for consultation: Fungemia, Bladder wall thickening, Hydronephrosis for eval DS: Diagnosis Discharge Diagnosis (1) Bacteremia due to Gram-positive bacteria: Status: Acute (2) Type 2 diabetes mellitus: Status: Acute (3) DANNIE (acute kidney injury): Status: Acute (4) Bilateral hydronephrosis: Status: Acute (5) Obstructive uropathy: Status: Acute DS: Summary Hospital Course Hospital Course: from initial hpi: 38-year-old male past medical history of diabetes comes into the hospital urinary symptoms as well as difficulty swallowing. Patient reports that his urinary symptoms started about a month ago, his started having frequency, urgency, and dysuria. He reports that he has also been experiencing difficulty swallowing for the past 2 weeks. He denies any pain in the esophagus but reports that he just can not swallow. He does endorse a history of diabetes but has not taken any of his medications for many years. He reports that he noticed gemfibrozil was causing him to have recurrent urinary infections therefore he stopped taking it as well as metformin. He has also noticed that he has been having fever and chills for the past few days. Denies any shortness of breath, has a mild cough, some sputum production. He denies any chest pain, has nausea with no vomiting, no abdominal pain or diarrhea. No constipation. No lower extremity edema. On arrival to the ED patient found to have a fever of 102.3, heart rate of 135, satting 88% on room air Labs are significant for WBC count of 21,000, left shift, glucose of 552, pseudohyponatremia, bicarb of 21, creatinine of 1.56 with no baseline for comparison, UA positive for leukocyte Estrace WBC and bacteria Chest CT shows bilateral infiltrate concerning for pneumonia Patient will be admitted for further management hospital course: Patient was admitted for acute hypoxic respiratory failure secondary to community-acquired pneumonia. He was she was ceftriaxone and weaned off oxygen. He was on room air at time of discharge. He also had sepsis due to candidemia and group B strep bacteremia due to urinary tract infection due to urinary retention. Sepsis resolved. He cultures are negative from 07/03/2023. He was treated with ceftriaxone Diflucan. Will be transitioned to amoxicillin and Diflucan for 4 weeks. For diabetes with hyperglycemia due to noncompliance, patient was treated with insulin, metformin, glipizide. On discharge will be continued on metformin and glipizide. Patient should continue to follow his sugars outpatient follow-up with primary care doctor. For acute kidney injury he received IV fluids and resolved, patient also incidentally noted to have reduced EF of 45% on echocardiogram, he should follow up with Cardiology as outpatient. For urinary retention he was started on Flomax and will follow up with Urology. Time Spent with Patient Time attestation: Total time managing care of this patient today ____ minutes. Discharge coordination time: Greater than 30 minutes Quality: Safe Use of Opioids Does Pt have an Active Cancer Diagnosis on the Problem List?: No Quality: Stroke Does the patient have a stroke diagnosis?: No Physical Exam Vital Signs: Vital Signs: Last Vital Signs Temp 96.9 F 07/05/23 07:27 Pulse 77 07/05/23 07:27 Resp 16 07/05/23 07:27 BP 124/81 07/05/23 07:27 Pulse Ox 92 07/05/23 07:27 O2 Del Method Room Air 07/05/23 07:27 O2 Flow Rate 2.5 07/02/23 02:47 BMI result Body Mass Index 29.2 General: AO X 3, no acute distress Resp: CTA bilateral, no accessory muscles used CVS: S1,S2,RRR GI: soft, non tender, non distended Neuro: motor grossly intact, alert Psych: appropriate affect, appropriate insight DS: Data Data Completed and Pending Labs on day of discharge: Laboratory Results - last 24 hr 07/04/23 07/04/23 07/04/23 11:39 16:04 20:08 Creatinine Estim Creat Clear Calc Estimated GFR POC Glucose 181 H 231 H 295 H 07/05/23 07/05/23 05:42 07:32 Creatinine 0.85 Estim Creat Clear Calc 112.8 Estimated GFR > 60 POC Glucose 171 H Preliminary micro results at discharge 07/03/23 13:13 Blood Culture - Preliminary Blood - Venous No growth after 24 hours. 07/03/23 13:13 Blood Culture - Preliminary Blood - Venous No growth after 24 hours. 07/01/23 13:04 Blood Culture - Preliminary Blood - Venous Yeast 07/01/23 12:57 Blood Culture - Preliminary Blood - Venous Yeast 06/30/23 20:40 Blood Culture - Preliminary Blood - Venous Strep agalactiae (Grp B) Nuvia albicans Discharge Plan Discharge Anticipated Discharge Date/Time: 07/05/23 08:29 Patient Disposition: Home, Self-Care Discharge Diagnosis: uti Referrals: Tony Davies MD [Physician] - 1 Week Juan Dodge MD [Physician] - 1 Week Physician,Joseline J [Primary Care Provider] - 1 Week Discharge Medications: New fluconazole [Diflucan] 200 mg tablet 400 mg PO DAILY Qty: 24 0RF amoxicillin 875 mg tablet 875 mg PO BID Qty: 24 0RF tamsulosin 0.4 mg Capsule 0.4 mg PO BEDTIME Qty: 30 0RF glipizide 5 mg Tablet 5 mg PO DAILY Qty: 30 0RF metformin 1,000 mg tablet 1,000 mg PO BIDWMEAL Qty: 60 0RF (DME) FreeStyle Lite Strips Strip Qty: 100 0RF Rx Instructions: Test four times a day or as directed. (DME) blood-glucose meter [FreeStyle Lite Meter] Kit Qty: 1 0RF Rx Instructions: As Directed alcohol swabs Pads, Medicated 1 pad TOPICAL QIDACHS Qty: 100 0RF Rx Instructions: Use four times a day or as directed. (DME) pen needle, diabetic 32 gauge x 1/4 needle Qty: 100 0RF Rx Instructions: Use four times a day or as directed. (DME) lancets [FreeStyle Lancets] 28 gauge misc Qty: 100 0RF Rx Instructions: Test four times a day or as directed. Continued ibuprofen-acetaminophen 125-250 mg Tablet 2 tab PO Q8H PRN (Reason: Pain) Discharge Orders: Discharge Order (Routine); Ordered 07/05/23 Ordered By: Greg Monahan Diet: Advance to usual diet Activity on Discharge: As tolerated Stand Alone Forms: Patient Portal Discharge page Care Plan Goals: recovery Health Concerns: DM, urinary retentnion, uti, reduced EF Plan of Treatment: follow up with cardiology for new finding of reduced EF on echo Assessment: see above
[2023-07-05] MEDS: Fluconazole 100 MG TABLET 200 MG PO (08:54)
[2023-07-05] MEDS: 0.9 % Sodium Chloride Flush 3 ML SYRINGE IVFLUSH (08:55)
[2023-07-05] MEDS: Insulin Lispro 100 UNIT/ML 3 ML VIAL SUBCUT (08:55)
[2023-07-05] MEDS: glipiZIDE 5 MG TABLET PO (08:55)
--- NOTE | 2023-07-05 08:57 | MHC.CM.PN ---
Patient is discharged to home self care. His dtr will provide transport home. He will follow up with out patient.
== END 2023-07-05 11:29 | disposition home or self-care (01) | DRG 193 ==
LOC: HO.ED 22:23 → HO.EDOVER 22:39 → HO.S3 07-01 07:52
PROVIDERS: Physician Assistant; Student in an Organized Health Care Education/Training Program; Admitting Provider Internal Medicine; Emergency Provider Emergency Medicine; Visit Provider Internal Medicine
DX: J18.9 Pneumonia, unspecified organism (principal); J96.01 Acute respiratory failure with hypoxia; N17.9 Acute kidney failure, unspecified; B37.81 Candidal esophagitis; R78.81 Bacteremia; B49 Unspecified mycosis; N13.6 Pyonephrosis; B95.1 Streptococcus, group B, as the cause of diseases classified elsewhere; E86.0 Dehydration; E11.65 Type 2 diabetes mellitus with hyperglycemia; Z20.822 Contact with and (suspected) exposure to COVID-19; Z87.440 Personal history of urinary (tract) infections; Z79.84 Long term (current) use of oral hypoglycemic drugs; Z79.899 Other long term (current) drug therapy
CPT/HCPCS: 36415; 71046; 71250; 74177; 80048; 80053; 80202; 81001; 82010; 82565; 82947; 83036; 83605; 83690; 84153; 85025; 85027; 87040; 87077; 87086; 87088; 87147; 87205; 87389; 87635; 93005; 93306; 99285; J0456; J0696; J1450; J1650; J3370; J3371; Q9957; Q9967

== ENCOUNTER 2023-06-30 22:12 | Outpatient (BNV) | payer OTHER, SELFPAY | END 2023-07-03 07:00 | PROVIDERS: Admitting Provider Internal Medicine; Emergency Provider Emergency Medicine; Visit Provider Internal Medicine | DX: I34.89 Other nonrheumatic mitral valve disorders (principal) | CPT/HCPCS: 93306 ==

== ENCOUNTER → 2023-06-30 22:12 | Outpatient (BNV) | payer OTHER, SELFPAY | PROVIDERS: Admitting Provider Internal Medicine; Emergency Provider Emergency Medicine; Visit Provider Urology | DX: N13.30 Unspecified hydronephrosis (principal); R78.81 Bacteremia; E11.65 Type 2 diabetes mellitus with hyperglycemia; N17.9 Acute kidney failure, unspecified; N13.9 Obstructive and reflux uropathy, unspecified | CPT/HCPCS: 99222 ==

== ENCOUNTER → 2023-06-30 22:12 | Outpatient (BNV) | payer OTHER, SELFPAY | PROVIDERS: Admitting Provider Internal Medicine; Emergency Provider Emergency Medicine; Visit Provider Internal Medicine | DX: R78.81 Bacteremia (principal); E11.65 Type 2 diabetes mellitus with hyperglycemia; N17.9 Acute kidney failure, unspecified; N13.30 Unspecified hydronephrosis; N13.9 Obstructive and reflux uropathy, unspecified | CPT/HCPCS: 99223; 99232; 99233; 99239 ==

== ENCOUNTER → 2023-06-30 22:12 | Outpatient (BNV) | payer OTHER, SELFPAY | PROVIDERS: Admitting Provider Internal Medicine; Emergency Provider Emergency Medicine; Visit Provider Internal Medicine | DX: R78.81 Bacteremia (principal); B37.81 Candidal esophagitis | CPT/HCPCS: 99222 ==

== ENCOUNTER 2023-07-17 08:39 | Outpatient (AMB) | payer OTHER, SELFPAY ==
[2023-07-17 08:43] VITALS: BP 120/72; PULSE 95; BMI 28.0
--- NOTE | 2023-07-17 08:43 | A.OFFVIS_ITS ---
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 blood-glucose meter (FreeStyle Lite Meter kit) As Directed fluconazole (Diflucan) 400 mg (2 x 200 mg) PO DAILY glipizide 5 mg PO DAILY ibuprofen-acetaminophen 125-250 mg 2 tabs PO Q8H PRN lancets (FreeStyle Lancets) Test four times a day or as directed. metformin 1,000 mg PO BIDWMEAL pen needle, diabetic Use four times a day or as directed. 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 He was found to have UTI, bilateral hydronephrosis, bacteremia, community-acquired pneumonia, esophageal Nuvia, uncontrolled diabetes which were managed medically and he was discharged in improved condition. Echocardiogram incidentally showed EF 45-50% in he was referred to Cardiology as outpatient. Today he reports that he is doing much better since his hospital discharge. He continues on antibiotics for a few more weeks. He no longer has any urinary symptoms. He denies having any chest discomfort at rest or with exertion. No shortness of breath, palpitations, dizziness, presyncope, syncope, PND, orthopnea or edema. He has noticed some chest pressure in the past when he is under high stress. 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 He does no routine exercise. Nonsmoker and no alcohol use. He has no known cardiac history. He does have diabetes which he says has been uncontrolled as well as hyperlipidemia. He denies hypertension. His older brot her had an [place] a few years ago. Maternal uncle from [place] in his 50s [facility] Medical History Type 2 diabetes mellitus Family History (Updated 07/17/23 @ 08:50 by Marybel Resendiz) Brother Heart attack Maternal Grandfather CHF (congestive heart failure) Cancer Social History Household Members: Family Housing: House Patient Tobacco Use Status: Never used Tobacco Second Hand Smoke Exposure: No service: Yes Review of Systems Const All systems reviewed & are unremarkable except as noted in HPI and below ENT Denies dizziness Card Denies chest pain, Denies chest pain at rest, Denies chest pain with activity, Denies rapid heart rate, Denies pedal edema, Denies edema, Denies leg edema, Denies lightheadedness, Denies palpitations, Denies dyspnea, Denies dyspnea on exertion and Denies orthopnea Resp Denies cough, Denies dyspnea and Denies dyspnea on exertion GI Denies hematochezia and Denies change in stool character Musc Denies abnormal gait, Denies limited range of motion, Denies muscle cramps, Denies muscle weakness, Denies numbness, Denies radiating pain into limb, Denies stiffness and Denies tingling Neuro Denies abnormal gait, Denies dizziness, Denies numbness and Denies tingling Endo Denies palpitations Physical Exam Vital Signs: Last Vital Signs Pulse 95 07/17/23 08:43 BP 120/72 07/17/23 08:43 BMI result Body Mass Index 28.0 Const General: cooperative, healthy appearing, comfortable and no acute distress Orientation/consciousness: patient oriented x3 Neck Neck: Yes normal visual inspection and Yes no JVD Chest Chest palpation & inspection: normal inspection of the chest Resp Effort & Inspection: normal respiratory effort Auscultation: clear to auscultation bilaterally, no crackles, no rales, no rhonchi and no wheezes Cardio Jugular venous distension: no JVD Rate: regular rate Rhythm: regular rhythm Heart sounds: S1 normal heart sound present, S2 normal heart sound present, no gallops, no murmurs and no rubs Peripheral pulses: Peripheral pulses 2+ throughout GI Inspection: Yes normal to inspection Skin General skin exam: no rashes or lesions noted Neuro General: patient oriented x3 Extrem General: Yes normal to inspection, No no pedal edema and No calf tenderness Psych Appearance: grossly normal Mental Status: mental status grossly normal Speech and movement: Normal speech and movement present Office Procedures EKG Details: Today, read by me sinus rhythm, no acute ST or T-wave abnormalities, rate 95 [id number], Complete Assessment & Plan Assessment & Plan (1) Cardiomyopathy: Code(s): I42.9 - Cardiomyopathy, unspecified Qualifiers: Cardiomyopathy type: unspecified Qualified Code(s): I42.9 - Cardiomyopathy, unspecified Plan: Recent hospital admission for noncardiac reasons including bacteremia, UTI, hydronephrosis, pneumonia. An echocardiogram was done showing EF 45-50%, no valve issues, PFO versus ASD with [id number] shunt. No prior known history of cardiomyopathy, CAD or PFO/ASD. Referred to Cardiology for further evaluation. He does report some chest pressure if he is very stressed. No exertional symptoms. No known sleep apnea. No alcohol use. Blood pressure seems well controlled. EF could have been reduced in the setting of his acute illness. Will check a exercise nuclear stress test to evaluate for any ischemia. Will recheck a limited echo in a few weeks to reassess for improvement in EF. Will add bubble study to determine if he in fact has PFO or ASD. He is interested in knowing this information for his current and future health. His had no TIAs or strokes in the past. He does not take daily aspirin. Cardiology follow-up in 4-6 weeks to go over results in detail. If EF remains low he will need neurohormonal modulation. (2) Abnormal echocardiography findings without diagnosis: Code(s): R93.1 - Abnormal findings on diagnostic imaging of heart and coronary circulation Plan: As above (3) Hospital discharge follow-up: Code(s): Z09 - Encounter for follow-up examination after completed treatment for conditions other than malignant neoplasm Orders: Orders NM cardiolite stress test Today I42.9 - Cardiomyopathy, unspecified, R93.1 - Abnormal findings on diagnostic imaging of heart and coronary circulation CA stress test Today I42.9 - Cardiomyopathy, unspecified, R93.1 - Abnormal findings on diagnostic imaging of heart and coronary circulation CA echo limited 3 Weeks I42.9 - Cardiomyopathy, unspecified, R93.1 - Abnormal findings on diagnostic imaging of heart and coronary circulation Coding Level of Care Code New Pt Level 4 (21265) Diagnoses Cardiomyopathy, unspecified type I42.9 Cardiomyopathy type: unspecified Abnormal echocardiography findings without diagnosis R93.1 Hospital discharge follow-up Z09 CPT Codes EKG - CPT: 37931-[id number], Complete ([id number]) Time Spent (min) 30
== END 2023-07-17 09:15 | disposition home or self-care (01) ==
PROVIDERS: Visit Provider Nurse Practitioner Family
DX: I42.9 Cardiomyopathy, unspecified (principal); R93.1 Abnormal findings on diagnostic imaging of heart and coronary circulation; Z09 Encounter for follow-up examination after completed treatment for conditions other than malignant neoplasm
CPT/HCPCS: 93010; 99204

== ENCOUNTER → 2023-07-17 08:39 | Outpatient (BNVA) | payer OTHER, SELFPAY | PROVIDERS: Visit Provider Nurse Practitioner Family | DX: I42.9 Cardiomyopathy, unspecified (principal); R93.1 Abnormal findings on diagnostic imaging of heart and coronary circulation | CPT/HCPCS: 93005 ==

== ENCOUNTER 2023-08-16 08:51 | Outpatient (AMB) | payer OTHER, SELFPAY ==
--- NOTE | 2023-08-16 08:52 | A.OFFVIS_ITS ---
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 08/16/2023? He is present today for an evaluation of fungemia, bladder wall thickening, and hydronephrosis. The patient was seen in consultation while as an in-patient on 07/04/2023. He has a past medical history significant for type 2 diabetes. Urine culture and blood culture during the admission came back positive for [place], and strep agalastiae group B. He was treated with Antibiotics. Patient was started on Flomax. He states that is doing well since he was discharged from the hospital. Patient states that he noted good urinary flow whi le he was on Flomax. He states that he ran out of Flomax. Patient denies any burning with urination. Evaluation today?UA? leukocytes: 3 +; nitrite: positive; blood: 2 +. Bladder scan PVR >600 mL I discussed placing a marie. On attempts to place a Marie catheter, the meatus was stenotic. I attempted to dilate with a 14 Marshallese dilator, however even with use of lidocaine jelly the patient was not able to tolerate due to pain. I have discussed with the patient urethral dilation and Cystoscopy as an outpt procedure. Patient received macrobid 100 mg 1x dose here. I reviewed the CT abdomen/pelvis results from 07/03/2023 revealed moderate bilateral hydronephrosis and ureteral dilatation down to the bladder. Diffuse bladder wall thickening.. Slightly enlarged low-attenuation prostate gland worrisome for infection/prostatitis as well. Groundglass attenuation bases. Mild hepatosplenomegaly Plan: Nitrite positive urine. Ordered Diflucan 200 mg BID for 7 days. urine culture results, and I will resume tamsulosin 0.4 mg daily. Urethral dilation, cystoscopy - outpatient [facility] Medical History (Updated 09/12/23 @ 09:19 by Giovanni Donovan MD) Type 2 diabetes mellitus Surgical History No pertinent past surgical history Family History Brother Heart attack Maternal Grandfather CHF (congestive heart failure) Cancer Social History Household Members: Family Housing: House Patient Tobacco Use Status: Never used Tobacco Second Hand Smoke Exposure: No service: Yes Review of Systems Const All systems reviewed & are unremarkable except as noted in HPI and below Reports no additional complaints Eyes Reports no additional complaints ENT Reports no additional complaints Card Denies dyspnea Resp Denies cough and Denies dyspnea GI Reports no additional complaints Musc Reports no additional complaints Skin/Breast Denies rash and Denies unusual bruising Neuro Reports no additional complaints Psych Reports no additional complaints Endo Reports no additional complaints Alfonso/Lymph Reports no additional complaints Aller/Immun Reports no additional complaints Physical Exam Const General: healthy appearing, no acute distress and well developed Orientation/consciousness: patient oriented x3 HEENT Head: Yes normocephalic and Yes atraumatic Eyes Conjunctivae: conjunctivae normal Neck Neck: Yes normal visual inspection Chest Chest palpation & inspection: normal inspection of the chest Resp Effort & Inspection: normal respiratory effort Cardio Rate: regular rate GI Inspection: Yes normal to inspection Palpation (GI): Soft to palpation Other: meatal stenosis Scrotum: scrotum normal Skin General skin exam: no rashes or lesions noted Neuro General: patient oriented x3 Extrem General: No pedal edema Psych Appearance: grossly normal Affect: normal affect Office Procedures Post Void Residual Post Residual Void Post Void Residual (PVR): [id number] Void Residual by ultrasound Results AMB Urinalysis, Automated UA Leukoctes 500 Krystina/uL Last Edit by MATT Platt on 08/16/23 09:23 3+ Kenyatta García 08/16/23 09:23 UA Nitrite Positive Last Edit by Kenyatta García A on 08/16/23 09:23 UA Urobilinogen 0.2 mg/dL Last Edit by Kenyatta García, A on 08/16/23 09:2 3 UA Protein 15 mg/dL Last Edit by Kenyatta García, A on 08/16/23 09:23 UA pH 6.0 Last Edit by Kenyatta García, A on 08/16/23 09:23 UA Blood 80 Georgi/uL Last Edit by Kenyatta García [facility] on 08/16/23 09:23 2+ Kenyatta García 08/16/23 09:23 UA Specific [place] 1.020 Last Edit by Kenyatta García [facility] on 08/16/23 09: 23 UA Ketone Negative Last Edit by Kenyatta García, [facility] on 08/16/23 09:23 UA Bilirubin 0 mg/dL Last Edit by Kenyatta García, A on 08/16/23 09:23 UA Glucose 0 mg/dL Last Edit by Kenyatta García [facility] on 08/16/23 09:23 Results Reviewed Results Reviewed: Laboratory Last Values Urine pH (Auto) 6.0 08/16/23 09:14 Specific [place] (Auto) 1.020 08/16/23 09:14 Urine Protein (Auto) 15 mg/dL 08/16/23 09:14 Glucose (UA)(Auto) 0 mg/dL 08/16/23 09:14 Urine Ketones (Auto) Negative 08/16/23 09:14 Urine Blood (Auto) 80 Georgi/uL 08/16/23 09:14 Urine Nitrite (Auto) Positive 08/16/23 09:14 Urine Bilirubin (Auto) 0 mg/dL 08/16/23 09:14 Urine Urobilinogen (Auto) 0.2 mg/dL 08/16/23 09:14 Leukocyte Esterase (Auto) 500 Krystina/uL 08/16/23 09:14 Date of Service: 07/03/23 EXAMINATION: CT ABDOMEN AND PELVIS WITH CONTRAST?? CLINICAL INFORMATION: Fungemia. Evaluate for obstruction or stones?? COMPARISON: Chest CT 07/01/2023 FINDINGS: LUNG BASES: Increased groundglass attenuation at the lung bases. This is increased from previous chest CT 07/01/2023 LIVER, GALLBLADDER, AND BILIARY TREE: The liver is normal in shape and attenuation. Liver may be slightly enlarged, right lobe measuring 19 cm in length. No focal hepatic lesion or biliary ductal dilatation is present. The gallbladder is contracted. PANCREAS: Unremarkable.?? SPLEEN: Spleen is slightly enlarged measuring 15 cm in length. ADRENAL GLANDS: Unremarkable.?? KIDNEYS AND URETERS: The kidneys are normal in size, shape, and attenuation. Bilateral moderate hydronephrosis and ureteral dilatation down to the bladder. No stone seen. Bilateral perinephric stranding. BLADDER: Diffusely thickened bladder wall. Infectious, inflammatory and neoplastic processes should be considered. GASTROINTESTINAL TRACT: The small and large bowel are unremarkable. The appendix is unremarkable.?? ABDOMINAL WALL: No significant hernia is appreciated.?? LYMPH NODES: Normal. VASCULAR: Unremarkable. PELVIC VISCERA: The prostate gland is slightly enlarged and measures 4.2 x 4.6 cm in AP and transverse dimension. Prostate gland is heterogeneous in attenuation with low-attenuation areas. Appearance is questionable for prostatitis. There is a small amount of fluid in the pelvis.? OSSEOUS STRUCTURES: Degenerative disc disease at L4-L5. IMPRESSION: Moderate bilateral hydronephrosis and ureteral dilatation down to the bladder. Diffuse bladder wall thickening. Infectious, inflammatory and neoplastic processes should be considered. Slightly enlarged low-attenuation prostate gland worrisome for infection/prostatitis as well. Groundglass attenuation bases. This is slightly increased from previous chest CT. Pneumonitis/atypical pneumonia and fluid overload/pulmonary edema should be considered. Mild hepatosplenomegaly. Assessment & Plan Assessment & Plan (1) No pertinent past surgical history: Code(s): Z78.9 - Other specified health status (2) Bilateral hydronephrosis: Code(s): N13.30 - Unspecified hydronephrosis (3) Incomplete bladder emptying: Code(s): R33.9 - Retention of urine, unspecified (4) Fungemia: Code(s): B49 - Unspecified mycosis (5) Other urethral stricture, male, meatal: Code(s): N35.811 - Other urethral stricture, male, meatal Plan Nitrite positive urine. Ordered Diflucan 200 mg BID for 7 days. urine culture results, and I will resume tamsulosin 0.4 mg daily. Urethral dilation, cystoscopy - outpatient Orders: Orders US retroperitoneal comp 08/16/23 N13.30 - Unspecified hydronephrosis, R33.9 - Retention of urine, unspecified Blood Urea Nitrogen 08/16/23 R33.9 - Retention of urine, unspecified AMB Urinalysis Automated 08/16/23 Z13.9 - Encounter for screening, unspecified AMB Post Void Residual by ultrasound 08/16/23 N39.8 - Other specified disorders of urinary system Electrolytes 08/16/23 R33.9 - Retention of urine, unspecified Creatinine 08/16/23 R33.9 - Retention of urine, unspecified Medications: New fluconazole (Diflucan) 200 mg PO BID 14 tabs 0RF 7 days tamsulosin (Flomax) 0.4 mg PO BEDTIME 90 caps 1RF Patient Instructions: The patient had an opportunity to ask questions regarding treatment plan. All questions were answered. Imaging, Laboratory studies and physical exam results were discussed and reviewed in detail. No major barriers to understanding were identified. The patient expressed understanding and agreement with the above treatment plan.? ? ? The patient is aware they should contact our office by phone for worsening of their current condition or the appearance of new symptoms. Compliance is encouraged with any medications and followup testing that is ordered.? ? ? It is a privilege to be allowed the opportunity to participate in the urologic care of your patient. If you have any questions or concerns regarding treatment for the above conditions please do not hesitate to contact me. The office telephone contact is [phone].? ? ? This note is constructed in part using voice recognition software. While every effort has been made to ensure accuracy electronic wirer errors may have been included.? ? ? Yours sincerely,? ? ? Giovanni Donovan MD? Coding Level of Care Code Est Pt Level 4 (15064) Diagnoses No pertinent past surgical history Z78.9 Bilateral hydronephrosis N13.30 Incomplete bladder emptying R33.9 Fungemia B49 Other urethral stricture, male, meatal N35.811 CPT Codes Post Residual Void - PVR CPT Code: 52595-Htua Void Residual by ultrasound ([id number])
== END 2023-08-16 13:58 | disposition home or self-care (01) ==
PROVIDERS: Visit Provider Urology
DX: Z78.9 Other specified health status (principal); N13.30 Unspecified hydronephrosis; R33.9 Retention of urine, unspecified; B49 Unspecified mycosis; N35.811 Other urethral stricture, male, meatal
CPT/HCPCS: 99214

== ENCOUNTER 2023-08-16 08:51 | Outpatient (REF) | payer OTHER, SELFPAY | END 2023-08-16 08:52 | disposition home or self-care (01) | LOC: HO.LAB 08:51 | PROVIDERS: Visit Provider Urology | DX: N13.30 Unspecified hydronephrosis (principal); N35.811 Other urethral stricture, male, meatal; R33.9 Retention of urine, unspecified; Z78.9 Other specified health status | CPT/HCPCS: 51798; 81003; 87086; 87088; 87186 ==

== ENCOUNTER → 2023-09-01 07:53 | Outpatient (REF) | payer OTHER, SELFPAY ==
--- NOTE | ~2023-09-01 | NM_ITS ---
EXERCISE MYOCARDIAL PERFUSION STUDY INDICATION: Chest pain, assess for coronary disease and ischemia TECHNIQUE: The patient was brought in for an exercise perfusion study on 09/01/2023. Patient performed exercise as per Trevin protocol and was injected 30 mCi of sestamibi once target heart rate was achieved. Images were obtained using the SPECT gamma camera interlaced with the gating device. Images were obtained in supine position. Resting perfusion study was performed on 09/08/2023. Patient was administered 30 mCi of sestamibi intravenously at rest. Images were then obtained in supine position. Images were processed with the software and compared side to side in short axis, horizontal long axis and vertical long axis views. Total DLP 93mGy-cm. FINDINGS: Raw images were reviewed. The stress perfusion study showed no significant perfusion abnormality. The gated study shows normal LV systolic function with calculated LVEF of 61%. LV cavity is normal in size. The gated study shows normal wall thickening and contraction of segments. Resting study shows diminished tracer uptake along the inferior wall, but there is also adjacent subdiaphragmatic tracer uptake. Overall, difficult to assess. With CT attenuation correction, again inferior wall difficult to assess but otherwise unremarkable. Gating at rest reveals normal wall motion with ejection fraction at 49%. Visually appears normal. The findings are consistent with no clear evidence of any reversible or fixed perfusion defects. NM/NM cardiolite stress test IMPRESSION: 1. Myocardial perfusion imaging study shows probably normal myocardial perfusion. 2. Gated LVEF is 61% during stress and 49% during rest. Visually, there appears to be normal range. 3. Transient ischemic dilatation not present. EKG component of the test reported separately.
--- NOTE | 2023-09-01 07:55 | CA_ITS ---
Transthoracic Echocardiogram Patient (Last, First, Middle): Luis Helms P Gender: Male Date of : 1975 Age: 48 Procedure Date: 09/01/2023 Procedure Type: Transthoracic Echocardiogram Location: OP Height: 172.72 cm Weight: 86.18 kg BSA: 2.00 m2 Heart Rate: 77 bpm BP: 115 / 70 mmHg Central Office Operator Supervisor: SHARYN Referring MD: Kari Rivera PLANT BIOLOGY PROFESSORGeovanyC Traffic Sergeant: Ahsan Ahuja MD Symptoms: R93.1 - Abnormal findings on diagnostic imaging of heart and coronary ci... Study Quality: Adequate ECG Rhythm: Sinus Conclusions: - 1. LV systolic function is normal with LVEF of 60-65% with normal filling pattern 2. Possible PFO with tqbw-rg-sldoi flow at rest Findings Left Ventricle Normal left ventricular size and systolic function. There is mildly increased left ventricular wall thickness. The visually estimated ejection fraction is between 60-65%. Spectral Doppler is indicative of a normal filling pattern. Atria Interatrial shunt cannot be excluded by agitated saline. Prior Study Comparison No significant change compared to prior study dated: 07/03/2023. Recommendations, Care & Conclusions Consider a PHIL if clinically appropriate. Measurements 2D Linear Measurements IVSd: 1.45 0.6-0.9/0.6-1.0 cm LVIDd: 4.47 3.9-5.3/4.2-5.9 cm LVIDd Index: 2.24 2.4-3.2/2.2-3.1 cm/m2 LVIDs: 2.71 2.0-3.6 cm LVPWd: 1.28 0.7-1.1 cm LA Diam: 3.90 2.7-3.8/3.0-4.0 cm LAIDs Index: 1.95 1.5-2.3 cm/m2 LV Mass: 295.29 67-162/88-224 g LV Mass Index: 147.65 43-95/49-115 g/m2 LVOT Diam: 2.10 3.0+(-)1.3 cm 2D Systolic Function EF 4C: 61.90 >55% EF 2C: 52.30 >55% EF BiP: 56.70 >55% Mitral Valve MV Pk E: 0.77 MV PK A: 0.67 MV Decel Time: 201.00 E/A: 1.10 E'Lateral: 8.27 E'Medial: 6.64 E/E' Med: 11.60 E/E' Lat: 9.30 PHT: 59.00 MVA PHT: 3.73 Decel Garvin: 3.82 LVOT LVOT Diam: 2.10 LVOT Area: 3.46 Diastolic Function MV Pk E: 0.77 MV Pk A: 0.67 E/A: 1.10 E'Medial: 6.64 E/E' Med: 11.60 E' Laterial: 8.27 E/E' Lat: 9.30 Updated in Other Vendor System with Status of Final Ahsan Ahuja MD electronically signed on 09/01/2023 6:26:45 PM with status of Final
--- NOTE | 2023-09-01 07:55 | CA_ITS ---
Acquisition Time: 2023-09-01 09:14:56 Total Exercise Time: 00:06:45 Test Indications: Chest Pain Medications: Amlodipine Glipizide Flomax Metformin Protocol: OBI Max HR: 162 BPM 94% of Pred: 171 BPM Max BP: 154/070 mmHG Max Work Load: 8.1 METS Exercise stress test exercise 6 min 45 sec of Obi protocol achieving 94% MPHR, without anginal symptoms, without arrhythmias, with normotensive response to exercise, without EKG changes. Nuclear images pending. Test reviewed with Dr. Ahuja Referred By: Kari Rivera Overread By: Zuleika Esparza
== END ==
LOC: HO.CARD 07:53
PROVIDERS: Visit Provider Nurse Practitioner Family
DX: I42.9 Cardiomyopathy, unspecified (principal); R93.1 Abnormal findings on diagnostic imaging of heart and coronary circulation
CPT/HCPCS: 78452; 87086; 93017; 93308; A9500

== ENCOUNTER → 2023-09-01 07:55 | Outpatient (BNV) | payer OTHER, SELFPAY | PROVIDERS: Visit Provider Nurse Practitioner | DX: I42.9 Cardiomyopathy, unspecified (principal); R93.1 Abnormal findings on diagnostic imaging of heart and coronary circulation | CPT/HCPCS: 78452; 93016; 93018; 93308 ==

== ENCOUNTER → 2023-09-01 11:11 | Outpatient (REF) | payer OTHER, SELFPAY | LOC: HO.NUCMED 11:11 | PROVIDERS: Visit Provider Nurse Practitioner Family | DX: Z13.89 Encounter for screening for other disorder (principal) ==

== ENCOUNTER 2023-09-04 11:00 | Outpatient (REF) | payer OTHER, SELFPAY ==
--- NOTE | ~2023-09-04 | US_ITS ---
EXAMINATION: US RETROPERITONEAL COMPLETE (RENAL) CLINICAL INFORMATION: Hydronephrosis. COMPARISON: 07/03/2023 TECHNIQUE: Real-time imaging of the kidneys and bladder. FINDINGS: RIGHT KIDNEY: 12.2 x 7.0 x 6.1 cm (SAG x AP x TRV). The kidney is normal in size, contour, and echogenicity. Renal cortical thickness is normal. Moderate hydroureteronephrosis. LEFT KIDNEY: 12.7 x 6.8 x 5.7 cm (SAG x AP x TRV). The kidney is normal in size, contour, and echogenicity. Renal cortical thickness is normal. Severe hydroureteronephrosis. BLADDER: Wall thickening with intraluminal debris. Bilateral ureteral jets are demonstrated. Prevoid bladder volume is 899 mL. Postvoid bladder volume is 388 mL following the second voiding attempt. The prostate gland measures 5.6 x 3.6 x 4.8 cm for a volume of 51 mL. US/US retroperitoneal comp IMPRESSION: Moderate right hydroureteronephrosis. Severe left hydroureteronephrosis. Urinary retention. Bladder wall thickening with intraluminal debris.
== END 2023-09-04 11:01 | disposition home or self-care (01) ==
LOC: HO.US 11:00
PROVIDERS: Visit Provider Urology
DX: N13.30 Unspecified hydronephrosis (principal); R33.9 Retention of urine, unspecified
CPT/HCPCS: 76770

== ENCOUNTER 2023-10-03 10:51 | Day surgery (SDC) | payer OTHER, SELFPAY ==
[2023-09-29 10:50] VITALS: BMI 28.0
--- NOTE | 2023-10-02 10:58 | HO.ANESPROP2 ---
Documented by User: Abigail Frey NP 10/02/23 11:01 HPI - Anesthesia Eval Consult details Narrative: 48yo M for Cystoscopy Dilation Bladder Neck Cardiac optimized [facility] Active Problems Active Problems: All Active Problems (Updated 09/29/23 @ 10:50 by Liss Truong RN) Other urethral stricture, male, meatal (Acute) Incomplete bladder emptying (Acute) Hospital discharge follow-up (Acute) Abnormal echocardiography findings without diagnosis (Acute) Cardiomyopathy (Acute) Obstructive uropathy (Acute) Bilateral hydronephrosis (Acute) Fungemia (Acute) Bacteremia due to Gram-positive bacteria (Acute) Acute respiratory failure with hypoxia (Acute) Poorly controlled diabetes mellitus (Acute) Pseudohyponatremia (Acute) Candidiasis of esophagus (Acute) Acute UTI (Acute) Acute hyponatremia (Acute) DANNIE (acute kidney injury) (Acute) Acute hyperglycemia (Acute) No pertinent past surgical history (Acute) Type 2 diabetes mellitus (Acute) Past Medical History Medical History Obstructive uropathy Cardiomyopathy Type 2 diabetes mellitus Family History Family History Brother Heart attack Maternal Grandfather CHF (congestive heart failure) Cancer Surgical History Surgical History No pertinent past surgical history Social History Social History Household Members: Family Housing: House Patient Tobacco Use Status: Never used Tobacco Second Hand Smoke Exposure: No Advance Directives: No Advance Directives Information Provided: Yes service: Yes Meds Allergies Allergy/AdvReac Type Severity Reaction Status Date / Time No Known Allergies Allergy Verified 08/16/23 08:52 Home Medications Medication Instructions Recorded Confirmed Last Taken Type ibuprofen 125 mg-acetaminophen 250 2 tab PO Q8H PRN Pain 06/30/23 09/29/23 Unknown History mg tablet Exam Height,Weight and Vital Signs: Height 5 ft 8 in Weight 83.461 kg Pertinent Lab Results Pertinent Lab Results: Laboratory Tests 07/04/23 07/04/23 07/05/23 06:01 06:01 05:42 WBC 10.8 Hgb 9.5 L Hct 28.7 L Plt Count 474 H Sodium 138 Potassium 3.1 L Chloride 104 Carbon Dioxide 25 BUN 14 Creatinine 0.85 Narrative Narrative: EKG 06/2023 NSR @ 95 ECHO 08/2023 Conclusions: - 1. LV systolic function is normal with LVEF of 60-65% with normal filling pattern 2. Possible PFO with vlwn-es-injtz flow at rest (No valve abnormality on 06/2023 ECHO) NM cardiolite stress test 08/2023 IMPRESSION: 1. Myocardial perfusion imaging study shows probably normal myocardial perfusion. 2. Gated LVEF is 61% during stress and 49% during rest. Visually, there appears to be normal range. 3. Transient ischemic dilatation not present. EKG component of the test reported separately. Assessment and Plan Assessment Anesthesia Assessment: Chart Reviewed Documented by User: Rosario Jaffe MD 10/03/23 12:20 [facility] Past Medical History Medical History Obstructive uropathy Cardiomyopathy Type 2 diabetes mellitus Family History Family History Brother Heart attack Maternal Grandfather CHF (congestive heart failure) Cancer Family history of problems with anesthesia: No Surgical History Surgical History No pertinent past surgical history History of Problems with Anesthesia: Unobtainable Social History Social History Household Members: Family Housing: House Patient Tobacco Use Status: Never used Tobacco Second Hand Smoke Exposure: No Advance Directives: No Advance Directives Information Provided: Yes service: Yes Meds Allergies Allergy/AdvReac Type Severity Reaction Status Date / Time No Known Allergies Allergy Verified 08/16/23 08:52 Home Medications Medication Instructions Recorded Confirmed Last Taken Type ibuprofen 125 mg-acetaminophen 250 2 tab PO Q8H PRN Pain 06/30/23 09/29/23 Unknown History mg tablet Exam Airway Mallampati Class: II TM Dist: >3cm Neck ROM: Full Heart: rrr Lungs: cta Assessment and Plan Assessment Anesthesia Assessment: Anesthesia Plan Discussed Final Anesthetic Review Family History of Problems with Anesthesia: No History of Problems with Anesthesia: Unobtainable NPO: Yes ASA Class: III Final Preanesthetic Review: No Changes in Pt Med Stat, Meds/Allgs Chart Reviewed, Consent Obtained/Reviewed and Anes Risks/Benef Reviewed Patient Risk: Intermediate Procedure Risk: Low Anesthetic Plan Anesthetic Plan: GA Disposition: Standard PACU
--- NOTE | ~2023-10-03 | FL_ITS ---
EXAMINATION: XR FLUOROSCOPY WITH IMAGES CLINICAL INFORMATION: Bladder neck dilatation. COMPARISON: None available. TECHNIQUE: Fluoroscopy Supervised By: Dr. Donovan. Fluoroscopy Time: 8.2 seconds. Cumulative Dose: 3.03 mGy. DAP: Not available. Images: 1. FINDINGS: Image demonstrates balloon and catheter in the bladder. FL/FL guidance in OR IMPRESSION: Fluoroscopy guidance for urology procedure.
[2023-10-03 12:30] LABS: Glucose, Whole Blood 216 mg/dL (60-115)
[2023-10-03 13:57] VITALS: BP 119/77; PULSE 79; RESP 14; TEMP 36.2; O2SAT 96
[2023-10-03 14:02] VITALS: BP 121/80; PULSE 78; RESP 17; O2SAT 98
[2023-10-03 14:07] VITALS: BP 118/82; PULSE 77; RESP 17; O2SAT 98
[2023-10-03 14:12] VITALS: BP 112/73; PULSE 72; RESP 17; O2SAT 98
[2023-10-03 14:27] VITALS: BP 108/71; PULSE 67; RESP 17; O2SAT 98
[2023-10-03 14:35] VITALS: BP 114/74; PULSE 72; RESP 16; TEMP 36.2; O2SAT 96
--- NOTE | 2023-10-03 15:15 | MHC.SHP ---
Pre-Procedural Eval Section A Date of Service: 10/03/23 The History & Physical has been completed within 30 days and I have reviewed it.: Yes Section B Chief Complaint: Unspecified hydronephrosis, bladder outlet obst Allergies: Allergies Allergy/AdvReac Type Severity Reaction Status Date / Time No Known Allergies Allergy Verified 08/16/23 08:52 Plan Diagnosis/Plan: Unchanged I have reviewed the history and physical and performed a pertinent physical examination on my patient. No changes have occurred unless specified. Urethral Dilation. Catheter insertion. Time Spent With Patient Time: Total time managing care of this patient today ____ minutes.
--- NOTE | 2023-10-03 15:17 | W.PM.OPN ---
Operative Note Operative Note Date of Service: 10/03/23 Narrative: PREOP DIAGNOSIS: bilateral hydronephrosis, bladder outlet obstruction, meatal stenosis POSTOP DIAGNOSIS: bilateral hydronephrosis, bladder outlet obstruction, meatal stenosis, bladder neck obstruction PROCEDURE: CYSTOSCOPY, fossa navicularis meatal dilation, urethral dilation bladder neck SURGEON: Giovanni Donovan MD ANESTHESIA: General Indications: Luis has had recurrent UTIs, CT imaging notable for bilateral hydronephrosis hydroureter secondary to bladder outlet obstruction. Details of procedure: The patient was brought into the operating room placed on the OR table in supine position. Vancomycin 2 g IV. General anesthesia was administered. The patient was repositioned into lithotomy position, prepped and draped in the usual sterile fashion. Time-out was done per protocol. Lilian sounds were used to dilate the fossa navicularis starting with a 12 [place]i gradually up to a 24 [place]i A 22 fr cystoscope was placed transurethrally into the bladder. The distal bulbous urethra was within normal limits the membranous urethra, there was noted to be a stricture and scarring proximal to the membranous urethra. An Amplatz Stiff guidewire was passed, into the bladder, using the urethral dilators starting with a 10 [place] this was passed over the guidewire through the bladder neck up to a 20 [place]i. The pediatric urethral scope was passed over the guidewire to the opening at the bladder neck there was scarring noted. The 16 [place]i [place] tip catheter was passed over the guidewire, cloudy yellow urine was drained and urine was sent for culture. The catheter was placed to gravity drainage. Fluoroscopy was used during the procedure. The patient was brought out of anesthesia and taken to recovery in stable condition. Complications: None Drains: 16 fr [place] tip catheter
== END 2023-10-03 14:54 | disposition home or self-care (01) ==
PROVIDERS: Visit Provider Urology
PROC: 0T7C8ZZ Dilation of Bladder Neck, Via Natural or Artificial Opening Endoscopic (ICD-10-PCS; CPT 52281; principal; 2023-10-03 12:30)
DX: N32.0 Bladder-neck obstruction (principal); N13.30 Unspecified hydronephrosis; N35.811 Other urethral stricture, male, meatal; B49 Unspecified mycosis; R33.9 Retention of urine, unspecified; E11.9 Type 2 diabetes mellitus without complications; Z87.440 Personal history of urinary (tract) infections
CPT/HCPCS: 52281; 82947; 87086; 87088; 87186; C1758; C1769; J1885; J2405; J2704; J3010; J3371; Q9967

== ENCOUNTER → 2023-10-03 10:51 | Outpatient (BNV) | payer OTHER, SELFPAY | PROVIDERS: Visit Provider Urology | DX: N32.0 Bladder-neck obstruction (principal); N35.811 Other urethral stricture, male, meatal; N13.30 Unspecified hydronephrosis | CPT/HCPCS: 52281 ==

== ENCOUNTER 2023-10-06 15:21 | Outpatient (AMB) | payer OTHER, SELFPAY ==
--- NOTE | 2023-10-06 16:01 | A.OFFVIS_ITS ---
Intake Intake Visit Reasons: cysto/cath replacement Allergies No Known Allergies Allergy (Verified 08/16/23 08:52) HPI HPI Comments History of Present Illness Details Luis is s/p procedure to dilate urethral meatus and bladder neck 2 days ago, he states the marie mechanism controlling the marie balloon got broken and the marie slipped out of position. Office cysto - today, notes bladder neck is wide open, the [place] tip marie was placed over a guide wire and the marie was clamped. The patient was instructed to drain the catheter every 2-3 hr duing the daytime and keep to gravity drainage at night. [facility] Medical History (Updated 10/20/23 @ 09:06 by MATT Platt) Heart attack Obstructive uropathy Cardiomyopathy Type 2 diabetes mellitus Surgical History No pertinent past surgical history Family History Brother Heart attack Maternal Grandfather CHF (congestive heart failure) Cancer Social History Household Members: Family Housing: House Patient Tobacco Use Status: Never used Tobacco Second Hand Smoke Exposure: No service: Yes Office Procedures Cystoscopy Consent Discussed risk and benefit or proposed procedure with the patient. Information consent for procedure given to the patient. Discussed technical aspects, risks, benefits and alternatives in full. Addressed all of the patient's questions and concerns regarding the procedure. The patient demonstrated knowledge and understanding. They wish to proceed with this procedure. Preparation The patient was prepped in the usual manner. A harbor master was present and in the room. Genitalia was prepped with betadine solution in a sterile manner. Lidocaine Jelly 2% was placed into the urethra and 16Fr flexible Olympus cystoscope was inserted into the meatus after adequate lubrication. Procedure PROCEDURE: CYSTOSCOPY Details of procedure: Time-out was done per protocol. A 16 fr cystoscope was placed transurethrally into the bladder. The urethra was within normal limits, the bladder neck was open, an amplaz guide wire was passed thru the cystoscope, the cystoscope was removed leaving the guide wire in place. The 16 fr [place] tip marie was passed over the guide wire into the bladder 13 cc placed into the balloon. Complications: None Drains: 16 fr marie [id number] of temporary indwelling bladder catheter, simple [id number] DISPOSABLE SCOPE URO-G FLEXIBLE SCOPE Procedure code (CPT) selection complete Office Meds lidocaine HCl 2 % mucosal jelly in applicator Performing Provider: Giovanni Donovan MD Performing Location: [facility] Administered by: Rose Marie Ellison RN on 10/06/23 16:01 Dose Route Admin Location Dispensed Lot Number Expiration Date NDC Pest Control Service Representative 10 mL intra-urethral 20 mL naproxen 500 mg tablet Performing Provider: Giovanni Donovan MD Performing Location: [facility] Administered by: Rose Marie Ellison RN on 10/06/23 16:01 Dose Route Admin Location Dispensed Lot Number Expiration Date NDC Pest Control Service Representative 500 mg PO 1 tab ciprofloxacin HCl 500 mg tablet Performing Provider: Giovanni Donovan MD Performing Location: [facility] Administered by: Rose Marie Ellison RN on 10/06/23 16:01 Dose Route Admin Location Dispensed Lot Number Expiration Date NDC Pest Control Service Representative 500 mg PO 1 tab Assessment & Plan Assessment & Plan (1) Other urethral stricture, male, meatal: Code(s): N35.811 - Other urethral stricture, male, meatal (2) Incomplete bladder emptying: Code(s): R33.9 - Retention of urine, unspecified (3) Obstructive uropathy: Code(s): N13.9 - Obstructive and reflux uropathy, unspecified Plan FU in 2 weeks Orders: Orders AMB Cystoscopy 10/06/23 N35.811 - Other urethral stricture, male, meatal Coding Level of Care Code Procedure Only Diagnoses Other urethral stricture, male, meatal N35.811 Incomplete bladder emptying R33.9 Obstructive uropathy N13.9 CPT Codes Cystoscopy - CPT: 50912-Kdhkqwlme of temporary indwelling bladder catheter, simple ([id number]) Cystoscopy - CPT: 54145-Cakksftjso ([id number])
== END 2023-10-06 16:46 | disposition home or self-care (01) ==
PROVIDERS: Visit Provider Urology
DX: N35.811 Other urethral stricture, male, meatal (principal)
CPT/HCPCS: 52000

== ENCOUNTER → 2023-10-06 15:21 | Outpatient (BNVA) | payer OTHER, SELFPAY | PROVIDERS: Visit Provider Urology | DX: N35.811 Other urethral stricture, male, meatal (principal); R33.9 Retention of urine, unspecified; N13.9 Obstructive and reflux uropathy, unspecified | CPT/HCPCS: 52000 ==

== ENCOUNTER 2023-10-20 08:53 | Outpatient (AMB) | payer OTHER, SELFPAY ==
--- NOTE | 2023-10-20 08:58 | A.OFFVIS_ITS ---
Intake Intake Visit Reasons: f/u urethral stricture, BNO, marie Intake Note: Patient presents today for a follow-up on Urethral Stricture, BNO & Marie: Meds- Tamsulosin & Pyridium Allergies to Antibiotic- No Known Allergies Blood Thinner- None Patient stated that he had a heart attack on 10/17/2023 Log Cut Off Sawyer Required: No Accompanied by: Self / Same As Patient Allergies No Known Allergies Allergy (Verified 08/16/23 08:52) HPI HPI Comments History of Present Illness Details Luis is a 48-year-old male who presents today to the office for follow up. He has been followed for hydronephrosis secondary to obstructive u ropathy, and was treated for UTI and fungemia. 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 He is s/p urethral dilation and on cystoscopy was noted to have bladder neck scarring which needed dilation. 10/20/23--He presents today in and [facility] he was hospitalized at [facility] for an [place] and had a cardiac cath, he was discharged last night. He currently has marie in place (placed 10/06/23) and is draining it every 2-3 hours during the day and to drainage at night time. The patient states he was started on new meds at [facility] but does not remember the names, he will call once he gets home. Will reconcile meds once we have the updated medications available. Exam- penis, meatus no excoriation. Review of chart: The patient was seen in consultation while as an in-patient on 07/04/2023. He has a past medical history significant for type 2 diabetes. Urine culture and blood culture during the admission came back positive for [place], and strep agalastiae group B. He was treated with Antibiotics. Patient was started on Flomax. noted persistent elevated PVR CT abdomen/pelvis results from 07/03/2023 revealed moderate bilateral hydronephrosis and ureteral dilatation down to the bladder. Diffuse bladder wall thickening. Slightly enlarged low-attenuation prostate gland worrisome for infection/prostatitis. Plan: Cont marie, fu for nurse visit in 2 wks for catheter change, fu with me in 6 weeks for cysto and possible catheter removal vs change. Renal US prior. [facility] Medical History Heart attack Obstructive uropathy Cardiomyopathy Type 2 diabetes mellitus Surgical History No pertinent past surgical history Family History Brother Heart attack Maternal Grandfather CHF (congestive heart failure) Cancer Social History Household Members: Family Housing: House Patient Tobacco Use Status: Never used Tobacco Second Hand Smoke Exposure: No service: Yes Review of Systems Const All systems reviewed & are unremarkable except as noted in HPI and below Reports no additional complaints Eyes Reports no additional complaints ENT Reports no additional complaints Resp Denies cough GI Reports no additional complaints Musc Reports no additional complaints Skin/Breast Denies rash and Denies unusual bruising Neuro Reports no additional complaints Psych Reports no additional complaints Endo Reports no additional complaints Alfonso/Lymph Reports no additional complaints Aller/Immun Reports no additional complaints Physical Exam Const General: well developed Orientation/consciousness: patient oriented x3 HEENT Head: Yes normocephalic and Yes atraumatic Eyes Conjunctivae: conjunctivae normal Neck Neck: Yes normal visual inspection Chest Chest palpation & inspection: normal inspection of the chest Resp Effort & Inspection: normal respiratory effort Cardio Rate: regular rate GI Inspection: Yes normal to inspection Palpation (GI): Soft to palpation Penis: normal penis Scrotum: scrotum normal Skin General skin exam: no rashes or lesions noted Neuro General: patient oriented x3 Psych Appearance: grossly normal Affect: normal affect Assessment & Plan Assessment & Plan (1) Other urethral stricture, male, meatal: Code(s): N35.811 - Other urethral stricture, male, meatal (2) Incomplete bladder emptying: Code(s): R33.9 - Retention of urine, unspecified (3) Obstructive uropathy: Code(s): N13.9 - Obstructive and reflux uropathy, unspecified (4) Bilateral hydronephrosis: Code(s): N13.30 - Unspecified hydronephrosis (5) Marie catheter in place: Code(s): Z97.8 - Presence of other specified devices Plan Cont marie, fu for nurse visit in 2 wks for catheter change, fu with me in 6 weeks for cysto and possible catheter removal vs change. Renal US prior. Orders: Orders US renal BI Today N13.30 - Unspecified hydronephrosis, N13.9 - Obstructive and reflux uropathy, unspecified, R33.9 - Retention of urine, unspecified, Z97.8 - Presence of other specified devices Patient Instructions: The patient had an opportunity to ask questions regarding treatment plan. All questions were answered. Imaging, Laboratory studies and physical exam results were discussed and reviewed in detail. No major barriers to understanding were identified. The patient expressed understanding and agreement with the above treatment plan. The patient is aware they should contact our office by phone for worsening of their current condition or the appearance of new symptoms. Compliance is encouraged with any medications and followup testing that is ordered. It is a privilege to be allowed the opportunity to participate in the urologic care of your patient. If you have any questions or concerns regarding treatment for the above conditions please do not hesitate to contact me. The office telephone contact is [phone]. This note is constructed in part using voice recognition software. While every effort has been made to ensure accuracy high pressure operator errors may have been included. Yours sincerely, Giovanni Donovan MD Coding Level of Care Code Est Pt Level 4 (57795) Diagnoses Other urethral stricture, male, meatal N35.811 Incomplete bladder emptying R33.9 Obstructive uropathy N13.9 Bilateral hydronephrosis N13.[address] Z97.8
== END 2023-10-20 09:39 | disposition home or self-care (01) ==
PROVIDERS: Visit Provider Urology
DX: N35.811 Other urethral stricture, male, meatal (principal); R33.9 Retention of urine, unspecified; N13.9 Obstructive and reflux uropathy, unspecified; N13.30 Unspecified hydronephrosis; Z97.8 Presence of other specified devices
CPT/HCPCS: 99214

== ENCOUNTER → 2023-10-20 08:53 | Outpatient (BNVA) | payer OTHER, SELFPAY | PROVIDERS: Visit Provider Urology ==

== ENCOUNTER 2023-10-26 14:59 | Outpatient (AMB) | payer OTHER, SELFPAY ==
[2023-10-26 15:23] VITALS: BP 120/60; PULSE 79; BMI 30.6
--- NOTE | 2023-10-26 15:23 | MHC.OFFVIS ---
Intake Vital Signs 10/26/23 15:23 Height 5 ft 8 in Weight 201 lb 0.985 oz BMI 30.6 BP 120/60 Blood Pressure Location Lt brachial Position Sitting Pulse 79 Pulse Source Pulse Oximeter Intake Visit Reasons: FU/DC [facility] 10.17.23/LDR Stent Intake Note: f/up [facility] 10/17/23, pt its feeling fine Cotton Expert Required: No Accompanied by: Self / Same As Patient Allergies No Known Allergies Allergy (Verified 08/16/23 08:52) Medication List - Last Reconciled 10/26/23 by Kari Rivera NP-C alcohol swabs 1 pad topical QIDACHS aspirin 81 mg PO DAILY blood sugar diagnostic (FreeStyle Lite Strips) Test four times a day or as directed. carvedilol 6.25 mg PO BID lancets (FreeStyle Lancets) Test four times a day or as directed. metformin 1,000 mg PO BIDWMEAL rosuvastatin 40 mg PO DAILY sacubitril-valsartan 24-26 mg (Entresto) 1 tab PO BID tamsulosin (Flomax) 0.4 mg PO BEDTIME ticagrelor (Brilinta) 90 mg PO BID HPI FU/DC [facility] 10.17.23/LDR Stent HPI Details Luis is a 48-year-old male with past medical history of diabetes, uncontrolled who was recently admitted to [facility] with urinary symptoms, difficulty swallowing. He was found to have UTI, bilateral hydronephrosis, bacteremia, community-acquired pneumonia, esophageal Nuvia, uncontrolled diabetes which were managed medically and he was discharged in improved condition. Echocardiogram incidentally showed EF 45-50% in he was referred to Cardiology as outpatient. [facility] Medical History (Updated 10/26/23 @ 17:08 by VINNIE CostelloC) Heart attack Obstructive uropathy Cardiomyopathy Type 2 diabetes mellitus Surgical History (Updated 10/26/23 @ 17:40 by JORDY Costello) No pertinent past surgical history Family History Brother Heart attack Maternal Grandfather CHF (congestive heart failure) Cancer Social History Household Members: Family Housing: House Patient Tobacco Use Status: Never used Tobacco Second Hand Smoke Exposure: No service: Yes Review of Systems Const No All systems reviewed & are unremarkable except as noted in HPI and below Denies chills, Reports fatigue, Denies fever(s), Denies frequent falls, Denies weakness, Denies weight gain and Denies weight loss ENT Denies dizziness Card Denies chest pain, Denies leg edema, Denies lightheadedness, Denies palpitations, Denies dyspnea and Denies dyspnea on exertion Resp Denies cough, Denies dyspnea and Denies dyspnea on exertion GI Denies hematochezia Musc Denies abnormal gait, Denies muscle weakness, Denies numbness, Denies radiating pain into limb and Denies tingling Neuro Denies abnormal gait, Denies dizziness, Denies frequent falls, Denies numbness, Denies tingling and Denies weakness Endo Reports fatigue and Denies palpitations Physical Exam Vital Signs: Last Vital Signs Pulse 79 10/26/23 15:23 BP 120/60 10/26/23 15:23 BMI result Body Mass Index 30.6 Const General: cooperative, healthy appearing, comfortable and no acute distress Orientation/consciousness: patient oriented x3 Neck Neck: Yes normal visual inspection Resp Effort & Inspection: normal respiratory effort Auscultation: clear to auscultation bilaterally, no crackles, no rales, no rhonchi and no wheezes Cardio Jugular venous distension: no JVD Rate: regular rate Rhythm: regular rhythm Heart sounds: S1 normal heart sound present, S2 normal heart sound present, no murmurs and no rubs Neuro General: patient oriented x3 Extrem Other: Right radial catheterization site well healed General: Yes normal to inspection Psych Appearance: grossly normal Mental Status: mental status grossly normal Speech and movement: Normal speech and movement present Assessment & Plan Assessment & Plan (1) Cardiomyopathy: Code(s): I42.9 - Cardiomyopathy, unspecified Qualifiers: Cardiomyopathy type: unspecified Qualified Code(s): I42.9 - Cardiomyopathy, unspecified Plan[place] [facility] [place] for noncardiac reasons including bacteremia, UTI, hydronephrosis, pneumonia. An echocardiogram was done showing EF 45-50%, no valve issues, PFO versus ASD with ovvu-am-ijark shunt. No prior known history of cardiomyopathy, CAD or PFO/ASD. As outpt he was Referred to Cardiology for further evaluation and he was seen on 07/17/23. At that visit he reported some chest pressure if he is very stressed, No exertional symptoms, No known sleep apnea, No alcohol use. Blood pressure was well controlled. Reduced EF to be related to acute illness however ischemia needed to be ruled out. He underwent an exercise nuclear stress test on 09/01/23 with exercise 6 min 45 sec of Trevin protocol without anginal symptoms or EKG changes, nuclear imaging showed normal myocardial perfusion imaging with visually normal EF, t.i.d. not present. A limited echocardiogram on 09/01/2023 shows EF 60-65%, normal filling pattern, possible PFO, no reported wall motion abnormality. Patient had been informed of normal test results, possible PFO. (2) STEMI (ST elevation myocardial infarction): Code(s): I21.3 - ST elevation (STEMI) myocardial infarction of unspecified site Plan: Patient developed sudden-onset chest discomfort on 10/17/2023. He was transported to [facility] for anterior STEMI. Cardiac catheterization shows 100% occlusion of the proximal LAD. Lad open with balloon and stent placed. Other vessels showed only minimal irregularities. Echocardiogram done there showed EF 30-35%, no apical thrombus, mid to distal anterior wall akinetic, entire septal wall akinetic, distal inferior wall akinetic, apex dyskinetic. Today he reports he has been doing well since his hospital discharge. His right radial catheterization site is healing well. He has had no recurrent chest discomfort. He tells me prior to the not CO he had not been getting discomfort like he felt the day of his CO. He is interested in cardiac rehab, will order. Will have him continue on aspirin indefinitely. Continue ticagrelor 90 mg b.i.d.. Continue rosuvastatin with ideal LDL goal less than 70. Continue carvedilol and Entresto. Will plan for limited echo prior to his next visit. Cardiology follow-up in 1 month, sooner if needed. Emergency care if needed for any recurrent discomfort. (3) S/P cardiac cath: Comment: 10/17/2023, left main, left circumflex and RCA minimal luminal irregularities, lad proximal 100% stenosis, culprit lesion, balloon angioplasty and stent Code(s): Z98.890 - Other specified postprocedural states Plan: As above (4) Hospital discharge follow-up: Code(s): Z09 - Encounter for follow-up examination after completed treatment for conditions other than malignant neoplasm Plan: As above (5) Type 2 diabetes mellitus: Comment: uncontrolled-recently started on glipizide & metformin Code(s): E11.9 - Type 2 diabetes mellitus without complications Qualifiers: Diabetes mellitus complication status: with hyperglycemia Diabetes mellitus fci insulin use: without fci use Qualified Code(s): E11.65 - Type 2 diabetes mellitus with hyperglycemia Plan: Patient has history of diabetes. He had been on metformin but tells me he does not have a PCP and has been out of his metformin for several weeks. He is status post STEMI and is very important to keep his blood sugar well controlled. Will send refill for his metformin, confirmed on [facility] discharge. Will send message to our chief environmental commitment officer regarding PCP availability in the [facility]. Plan Time spent on chart review, documentation, interview and assessment Orders: Orders CA echo limited 11/20/[address] - [address] elevation (STEMI) myocardial infarction of unspecified site, Z98.890 - Other specified postprocedural states Cardiac Rehab Today I21.3 - ST elevation (STEMI) myocardial infarction of unspecified site, Z98.890 - Other specified postprocedural states Medications: New ticagrelor (Brilinta) 90 mg PO BID 90 days 180 tabs 3RF carvedilol 6.25 mg PO BID 90 days 180 tabs 3RF aspirin 81 mg PO DAILY 90 tabs 3RF sacubitril-valsartan 24-26 mg (Entresto) 1 tab PO BID 90 days 180 tabs 1RF rosuvastatin 40 mg PO DAILY 90 tabs 3RF Changed From metformin 1,000 mg PO BIDWMEAL 60 tabs 0RF To metformin Further refills from your PCP 1,000 mg PO BIDWMEAL 90 days 180 tabs 0RF Coding Level of Care Code Est Pt Level 4 (26156) Diagnoses Cardiomyopathy, unspecified type I42.9 Cardiomyopathy type: unspecified STEMI (ST elevation myocardial infarction) I21.3 S/P cardiac cath Z98.890 Hospital discharge follow-up Z09 Type 2 diabetes mellitus with hyperglycemia, without long-term current use of insulin E11.65 Diabetes mellitus complication status: with hyperglycemia Diabetes mellitus fci insulin use: without supervisor coffee use Time Spent (min) 35
== END 2023-10-26 16:18 | disposition home or self-care (01) ==
PROVIDERS: Visit Provider Nurse Practitioner Family
DX: I42.9 Cardiomyopathy, unspecified (principal); I21.3 ST elevation (STEMI) myocardial infarction of unspecified site; Z98.890 Other specified postprocedural states; Z09 Encounter for follow-up examination after completed treatment for conditions other than malignant neoplasm; E11.65 Type 2 diabetes mellitus with hyperglycemia
CPT/HCPCS: 99214

== ENCOUNTER → 2023-10-26 14:59 | Outpatient (BNVA) | payer OTHER, SELFPAY | PROVIDERS: Visit Provider Nurse Practitioner Family ==

== ENCOUNTER → 2023-10-29 23:59 | Outpatient (BNV) | payer OTHER, SELFPAY ==
--- NOTE | 2024-11-03 14:51 | MHC.OFFVIS ---
Intake Visit Reasons: Remote ICD check- [employer] Allergies No Known Allergies Allergy (Verified 10/31/24 15:03) [facility] Medical History (Updated 11/03/24 @ 14:53 by Juan Dodge MD) ICD (implantable cardioverter-defibrillator) in place Candidiasis of mouth and esophagus Bacteremia due to Gram-positive bacteria Fungemia Hydronephrosis Obstructive uropathy Abnormal echocardiography findings without diagnosis Hospital discharge follow-up Incomplete bladder emptying STEMI (ST elevation myocardial infarction) Bacteriuria, asymptomatic Bacteriuria, chronic UTI (urinary tract infection) Atherosclerotic cardiovascular disease Obstructive uropathy Cardiomyopathy Type 2 diabetes mellitus Surgical History S/P cardiac cath History of permanent cardiac pacemaker placement Family History Brother Heart attack Maternal Grandfather CHF (congestive heart failure) Cancer Father Prostate cancer Paternal Grandfather Stomach cancer Other Mental health disorder Substance use disorder Social History Household Members: Family Housing: House Do you presently have visiting nurse or other home services: No Alcohol intake: never Patient Tobacco Use Status: Former Tobacco user e-Cigarette/Vaping Use: Never Used Second Hand Smoke Exposure: Yes service: Yes Current occupational status: employed Current occupation: [employer] Cognitive needs: No Hearing needs: No Vision needs: Yes (glasses) Office Procedures Cardiac Device Check Cardiac Device Check Details: Date of service 10/29/2024; Battery life 99%; no treated VT/VF; normal ICD function. [id number] Cardiac Interrogation, implant defibrillator w/interim Procedure code (CPT) selection complete Assessment & Plan Assessment & Plan (1) ICD (implantable cardioverter-defibrillator) in place: Code(s): Z95.810 - Presence of automatic (implantable) cardiac defibrillator Category: Medical (2) Ischemic cardiomyopathy: Code(s): I25.5 - Ischemic cardiomyopathy Category: Medical Plan x Coding Level of Care Code Procedure Only Diagnoses ICD (implantable cardioverter-defibrillator) in place Z95.810 Ischemic cardiomyopathy I25.5 CPT Codes Cardiac Device Check - Cardiac Device 13: [id number] Cardiac Interrogation, implant defibrillator w/interim ([id number])
== END ==
PROVIDERS: PCP Internal Medicine; Visit Provider Internal Medicine
DX: I25.5 Ischemic cardiomyopathy (principal); Z95.810 Presence of automatic (implantable) cardiac defibrillator
CPT/HCPCS: 93295

== ENCOUNTER → 2023-11-14 08:50 | Outpatient (REF) | payer OTHER, SELFPAY ==
--- NOTE | 2023-11-14 08:53 | CA_ITS ---
Transthoracic Echocardiogram Patient (Last, First, Middle): Luis Helms P Gender: Male Date of : 1975 Age: 48 Procedure Date: 11/14/2023 Procedure Type: Transthoracic Echocardiogram Location: OP Height: 172.72 cm Weight: 89.36 kg BSA: 2.03 m2 Heart Rate: bpm BP: 110 / 70 mmHg Staple Laster: TO Referring MD: Kari Rivera SENIOR INFRASTRUCTURE ENGINEERGeovanyC Symptoms: I21.3 - ST elevation (STEMI) myocardial infarction of unspecified site Study Quality: Fair/Contrast Conclusions: - The left ventricular systolic function is moderately decreased. The visually estimated ejection fraction is between 30-35%. - There is evidence of regional wall motion abnormalities. Findings Procedure Information Contrast agent, definity, is being given per protocol without apparent complications. Left Ventricle Normal left ventricular cavity size. There is mildly increased left ventricular wall thickness. The left ventricular systolic function is moderately decreased. The visually estimated ejection fraction is between 30 35%. There is evidence of regional wall motion abnormalities. There is mild septal and mild basal asymmetric hypertrophy. Wall Motion Rest Echo Findings The mid inferoseptal segment is hypokinetic. The apex, apical inferior, mid anterior, apical septum, and mid anteroseptal segments are akinetic. Venous The inferior vena cava is normal in size and collapses greater than 50% with inspiration. Pericardium/Pleural There is a small loculated pericardial effusion overlying the left ventricle. Prior Study Comparison Changes noted compared to prior study dated: 09/01/2023. However, similar [place] [facility] [place] Measurements 2D Linear Measurements IVSd: 1.53 0.6-0.9/0.6-1.0 cm LVIDd: 4.81 3.9-5.3/4.2-5.9 cm LVIDd Index: 2.37 2.4-3.2/2.2-3.1 cm/m2 LVIDs: 3.48 2.0-3.6 cm LVPWd: 1.09 0.7-1.1 cm LV Mass: 310.84 67-162/88-224 g LV Mass Index: 153.12 43-95/49-115 g/m2 LVOT Diam: 2.40 3.0+(-)1.3 cm 2D Systolic Function EF 4C: 48.90 >55% EF 2C: 35.00 >55% EF BiP: 44.30 >55% LVOT LVOT Pk Lonnie: 0.65 LVOT Mn Lonnie: 0.50 LVOT VTI: 0.14 LVOT Pk Grad: 2.00 LVOT Mn Grad: 1.00 LVOT Diam: 2.40 LVOT Area: 4.52 Tricuspid Valve RA Press: 3.00 Updated in Other Vendor System with Status of Final Juan Dodge MD electronically signed on 11/14/2023 2:39:22 PM with status of Final
== END ==
LOC: HO.CARD 08:50
PROVIDERS: Visit Provider Nurse Practitioner Family
DX: I21.3 ST elevation (STEMI) myocardial infarction of unspecified site (principal); Z98.890 Other specified postprocedural states
CPT/HCPCS: 93308; Q9957

== ENCOUNTER → 2023-11-14 08:53 | Outpatient (BNV) | payer OTHER, SELFPAY | PROVIDERS: Visit Provider Internal Medicine | DX: I21.3 ST elevation (STEMI) myocardial infarction of unspecified site (principal) | CPT/HCPCS: 93308 ==

== ENCOUNTER 2023-11-17 10:21 | Outpatient (REF) | payer OTHER, SELFPAY ==
--- NOTE | ~2023-11-17 | US_ITS ---
EXAMINATION: US RETROPERITONEAL LIMITED (RENAL ONLY) CLINICAL INFORMATION: Retention of urine, unspecified. COMPARISON: Renal ultrasound 09/04/2023. CT abdomen and pelvis 07/03/2023. TECHNIQUE: Real-time imaging of the kidneys. FINDINGS: RIGHT KIDNEY: 11.6 x 4.5 x 6.1 cm (SAG x AP x TRV). The kidney is normal in size, contour, and echogenicity. Renal cortical thickness is normal. No renal calculi or focal parenchymal lesions. LEFT KIDNEY: 12.3 x 4.1 x 5.6 cm (SAG x AP x TRV). The kidney is normal in size, contour, and echogenicity. Renal cortical thickness is normal. No renal calculi or focal parenchymal lesions. There is mild left renal caliectasis. US/US renal BI IMPRESSION: 1. Interval marked resolution of left hydronephrosis and hydroureter. Mild residual left renal caliectasis is seen on the current examination. 2. Unchanged normal sonographic appearance of right kidney.
== END 2023-11-17 10:22 | disposition home or self-care (01) ==
LOC: HO.US 10:21
PROVIDERS: Visit Provider Urology
DX: R33.9 Retention of urine, unspecified (principal); N13.9 Obstructive and reflux uropathy, unspecified; N13.30 Unspecified hydronephrosis; Z97.8 Presence of other specified devices
CPT/HCPCS: 76775

== ENCOUNTER 2023-11-27 12:24 | Outpatient (AMB) | payer OTHER, SELFPAY ==
[2023-11-27 12:45] VITALS: BP 120/68; PULSE 83; BMI 30.8
--- NOTE | 2023-11-27 12:45 | A.OFFVIS_ITS ---
Intake Vital Signs 11/27/23 12:45 Height 5 ft 8 in Weight 202 lb 6.15 oz BMI 30.8 BP 120/68 Blood Pressure Location Lt brachial Position Sitting Pulse 83 Intake Visit Reasons: 1 month follow up Intake Note: 1 month follow up Prick Stitcher Required: No Accompanied by: Self / Same As Patient Allergies No Known Allergies Allergy (Verified 11/27/23 12:46) Medication List - Last Reconciled 11/27/23 by Juan Dodge MD alcohol swabs 1 pad topical QIDACHS aspirin 81 mg PO DAILY blood sugar diagnostic (FreeStyle Lite Strips) Test four times a day or as directed. carvedilol 6.25 mg PO BID 90 days dapagliflozin propanediol 10 mg PO DAILY lancets (FreeStyle Lancets) Test four times a day or as directed. metformin 1,000 mg PO BIDWMEAL 90 days rosuvastatin 40 mg PO DAILY sacubitril-valsartan 24-26 mg (Entresto) 1 tab PO BID 90 days tamsulosin (Flomax) 0.4 mg PO BEDTIME ticagrelor (Brilinta) 90 mg PO BID 90 days HPI HPI Comments History of Present Illness Details Luis is here for consultation regarding coronary artery disease. He has been previously seen by our nurse practitioner. Due to findings of mild cardiomyopathy on a prior echocardiogram, he underwent ischemic workup with a stress test which was essentially unremarkable. However, couple months later he actually had a anterior wall STEMI. Underwent LAD stenting. Prior to that episode, he states he never really had any chest pain. Subsequent to stenting again no further symptoms. History of diabetes. No smoking or drugs. [facility] Medical History (Updated 11/27/23 @ 13:02 by Juan Dodge MD) Atherosclerotic cardiovascular disease Heart attack Obstructive uropathy Cardiomyopathy Type 2 diabetes mellitus Surgical History No pertinent past surgical history Family History Brother Heart attack Maternal Grandfather CHF (congestive heart failure) Cancer Social History Household Members: Family Housing: House Patient Tobacco Use Status: Never used Tobacco Second Hand Smoke Exposure: No service: Yes Review of Systems Const Denies weakness ENT Denies dizziness Card Denies chest pain, Denies chest pain with activity, Denies syncope, Denies rapid heart rate, Denies pedal edema, Denies edema, Denies leg edema, Denies lightheadedness, Denies palpitations, Denies dyspnea, Denies dyspnea on exertion and Denies orthopnea Resp Denies cough, Denies dyspnea and Denies dyspnea on exertion GI Denies hematochezia and Denies change in stool character Musc Denies abnormal gait, Denies muscle cramps, Denies muscle weakness, Denies numbness, Denies radiating pain into limb and Denies tingling Neuro Denies abnormal gait, Denies dizziness, Denies syncope, Denies numbness, Denies tingling and Denies weakness Endo Denies palpitations Physical Exam Vital Signs: Last Vital Signs Pulse 83 11/27/23 12:45 BP 120/68 11/27/23 12:45 BMI result Body Mass Index 30.8 Const General: comfortable and no acute distress Orientation/consciousness: patient oriented x3 HEENT Other: Unremarkable Head: Yes normal to inspection Neck Neck: Yes normal visual inspection Chest Chest palpation & inspection: normal inspection of the chest Resp Auscultation: clear to auscultation bilaterally Cardio Palpation: normal PMI Heart sounds: S1 normal heart sound present, S2 normal heart sound present, no gallops, no murmurs and no rubs GI Palpation (GI): Soft to palpation Back/Spine/Pelvis Other: unremarkable Skin General skin exam: no rashes or lesions noted Neuro General: patient oriented x3 Extrem General: Yes normal to inspection Psych Mental Status: mental status grossly normal Assessment & Plan Assessment & Plan (1) STEMI (ST elevation myocardial infarction): Code(s): I21.3 - ST elevation (STEMI) myocardial infarction of unspecified site (2) Atherosclerotic cardiovascular disease: Code(s): I25.10 - Atherosclerotic heart disease of [place] coronary artery without angina pectoris (3) Type 2 diabetes mellitus: Comment: uncontrolled-recently started on glipizide & metformin Code(s): E11.9 - Type 2 diabetes mellitus without complications Qualifiers: Diabetes mellitus complication status: with hyperglycemia Diabetes mellitus termite control representative insulin use: without termite control representative use Qualified Code(s): E11.65 - Type 2 diabetes mellitus with hyperglycemia Plan Recent EKG from [facility] shows evidence of anterior infarction with anterior Q-waves. In the recent echocardiogram, LVEF is 30-35%. LAD wall motion abnormality. Prior echocardiogram August showed preserved LVEF at 60-65%. Cardiac catheterization 09/2023-100% stenosis in the distal subsection of proximal LAD, status post PCI. Otherwise, only minimal irregularities. Of note, myocardial perfusion imaging study prior to catheterization actually showed probably normal perfusion at 8.1 METS. Overall, continue medical therapy for stable CAD. Aspirin indefinitely. Brilinta for 1 year. Continue beta-blockers and Entresto. Continue high-dose statins. He is also on a diuretic regimen of metformin/Farxiga. Check labs including renal function, lipids, hemoglobin A1c. Cardiac rehabilitation. Follow-up in about 3 months. Total time spent including review of all the prior [facility] as well as [facility] inpatient documentation, counseling, documentation, coordination of care-45 minutes. Orders: Orders Lipid Panel Today E78.5 - Hyperlipidemia, unspecified, I25.10 - Atherosclerotic heart disease of [place] coronary artery without angina pectoris LDL Cholesterol Direct Today E78.2 - Mixed hyperlipidemia, I25.10 - Atherosclerotic heart disease of [place] coronary artery without angina pectoris Hemoglobin A1c Today E11.9 - Type 2 diabetes mellitus without complications, I25.10 - Atherosclerotic heart disease of [place] coronary artery without angina pectoris Liver Panel Today I25.10 - Atherosclerotic heart disease of [place] coronary artery without angina pectoris Basic Metabolic Panel Today I25.10 - Atherosclerotic heart disease of [place] co ronary artery without angina pectoris Coding Level of Care Code Est Pt Level 5 (82566) Diagnoses STEMI (ST elevation myocardial infarction) I21.3 Atherosclerotic cardiovascular disease I25.10 Type 2 diabetes mellitus with hyperglycemia, without long-term current use of insulin E11.65 Diabetes mellitus complication status: with hyperglycemia Diabetes mellitus termite control representative insulin use: without termite control representative use
== END 2023-11-27 13:11 | disposition home or self-care (01) ==
PROVIDERS: Visit Provider Internal Medicine
DX: I21.3 ST elevation (STEMI) myocardial infarction of unspecified site (principal); I25.10 Atherosclerotic heart disease of native coronary artery without angina pectoris; E11.65 Type 2 diabetes mellitus with hyperglycemia
CPT/HCPCS: 99215

== ENCOUNTER → 2023-11-27 12:24 | Outpatient (BNVA) | payer OTHER, SELFPAY | PROVIDERS: Visit Provider Internal Medicine ==

== ENCOUNTER 2023-11-28 08:12 | Outpatient (REF) | payer OTHER, SELFPAY ==
[2023-11-28 09:17] LABS: Estimated Average Glucose 154 mg/dL
[2023-11-28 09:26] LABS: Alanine Aminotransferase 33 U/L (0-40); Albumin Level 4.5 g/dL (3.5-5.0); Alkaline Phosphatase 69 U/L (39-117); Anion Gap 13 (12-20); Aspartate Amino Transferase 17 U/L (5-37); Bilirubin Direct 0.2 mg/dL (0.0-0.5); Bilirubin Total 0.6 mg/dL (0.0-1.0); Blood Urea Nitrogen 29 mg/dL (9-16); Calcium 10.1 mg/dL (8.4-10.2); Carbon Dioxide 23 mmol/L (22-29); Chloride 106 mmol/L (96-108); Cholesterol 137 mg/dL (<200); Estimated Glomerular Filt Rate 57; Glucose Random 181 mg/dL (60-115); HDL Cholesterol 32 mg/dL (>40); LDL Cholesterol Calculated 26 mg/dL (<100); Potassium 3.8 mmol/L (3.3-5.1); Sodium 138 mmol/L (135-145); Total Protein 7.6 g/dL (6.5-8.0); Triglycerides 399 mg/dL (<150)
[2023-11-29 23:14] LABS: LDL Cholesterol Direct 71 mg/dL (<100)
== END 2023-11-28 08:13 | disposition home or self-care (01) ==
LOC: HO.LAB 08:12
PROVIDERS: Visit Provider Internal Medicine
DX: I25.10 Atherosclerotic heart disease of native coronary artery without angina pectoris (principal); E78.2 Mixed hyperlipidemia; E11.9 Type 2 diabetes mellitus without complications; E78.5 Hyperlipidemia, unspecified
CPT/HCPCS: 36415; 80048; 80061; 80076; 83036; 83721

== ENCOUNTER 2023-11-29 08:45 | Outpatient (AMB) | payer OTHER, SELFPAY ==
--- NOTE | 2023-11-29 08:49 | MHC.PC.OV ---
Vital Signs 11/29/23 08:52 Height 5 ft 7 in Weight 201 lb 4 oz BMI 31.5 BP 100/60 Blood Pressure Location Lt brachial Position Sitting Pulse 45 L Pulse Source Pulse Oximeter Pulse Oximetry (%) 95 Oxygen Delivery Method Room Air Intake Visit Reasons: est care/ previous heart attack Intake Note: Patient is a new patient here to establish care for History of Heart attack, Diabetes, Left shoulder pain. Transferring care from Dr Bowden. Medical records have not been requested and have not received. Clinical Business Analyst Required: No Venetian Blind Machine Operator: Not Required per policy Accompanied by: Self / Same As Patient Allergies No Known Allergies Allergy (Verified 11/29/23 09:38) Medication List - Last Reconciled 11/29/23 by Richard Wright MD alcohol swabs 1 pad topical QIDACHS aspirin 81 mg PO DAILY blood sugar diagnostic (FreeStyle Lite Strips) Test four times a day or as directed. carvedilol 6.25 mg PO BID 90 days dapagliflozin propanediol 10 mg PO DAILY lancets (FreeStyle Lancets) Test four times a day or as directed. metformin 1,000 mg PO BIDWMEAL 90 days nitroglycerin 0.4 mg sublingual Q5M PRN rosuvastatin 40 mg PO DAILY sacubitril-valsartan 24-26 mg (Entresto) 1 tab PO BID 90 days tamsulosin (Flomax) 0.4 mg PO BEDTIME ticagrelor (Brilinta) 90 mg PO BID 90 days Tobacco use date assessed: 11/29/23 Dental Screening Dental Screen Date: 11/29/23 Did you have a dental visit in the last 12 months?: No Did you have a dental problem in the last 6 months where you did not have access to dental care?: No Was dental information given to patient?: No HPI est care/ previous heart attack HPI Details 48-year-old male presents to the office to discuss his medical issues. I will be his new primary care provider. Patient has not seen a primary care physician in the last 10 years. In June 2023, patient was admitted to the hospital with pneumonia and urinary sepsis. He was treated with antibiotics and antifungal medications. Diabetes medications including metformin and glipizide were given to him. Patient was only taking the metformin till September when he had an acute coronary event. Patient subsequently had a stent placed and was discharged home on Farxiga for diabetes. Patient is reporting symptoms of diarrhea when he takes a combination of metformin and Farxiga. In the last 2 days he has stopped taking the Farxiga. Currently asymptomatic. Able to function and do all activities of daily living. Patient is at cardiac rehab and is also restarted his work. 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 1. Little interest or pleasure in doing things: not at all 2. Feeling down, depressed, or hopeless: not at all 3. Trouble falling or staying asleep, or sleeping too much: not at all 4. Feeling tired or having little energy: not at all 5. Poor appetite or overeating: not at all 6. Feeling bad about yourself - or that you are a failure or have let yourself or your family down: not at all 7. Trouble concentrating on things, such as reading the newspaper or watching television: not at all 8. Moving or speaking so slowly that other people could have noticed. Or the opposite - being so fidgety or restless that you have been moving around a lot more than usual: not at all 9. Thoughts that you would be better off or of hurting yourself in some way: not at all Total score: 0 Depression Screening Interpretation: Negative Depression Screening Done: Yes Source: Developed by Drs. Morgan Kitchen, Guillermo Guerrero and colleagues, with an educational azul from [employer]. Thrive Questionnaire Date Thrive assessed: 11/29/23 I am a: Patient What is your living situation today?: I have a steady place to live Within the past 12 months, did the food you bought not last and you didn't have the money to get more?: Never true Within the past 12 months, did you worry whether your food would run out before you got money to buy more?: Never true Do you have trouble paying for medicines?: No Do you have trouble getting transportation to medical appointments?: No Do you have trouble paying your heating and electricity bill?: No Do you have trouble taking care of your child, family member or friend?: No Do you have trouble with day-to-day activities such as bathing, preparing meals, shopping, managing finances, etc.?: No Are you currently unemployed and looking for a job?: No Are you interested in more education?: No Currently or been in a relationship where the following occur: no concerns reported THRIVE Score: 0 AUDIT C Alcohol Use Questionnaire (AUDIT-C) 1. How often do you have a drink containing alcohol?: Never Total Score: 0 MAKAYLA-7 AMB Questionnaire MAKAYLA-7 Date MAKAYLA - 7 assessed: 11/29/23 Feeling nervous, anxious, or on edge: 0 = Not at all Not being able to stop or control worryin = Not at all Worrying too much about different things: 0 = Not at all Trouble relaxin = Not at all Being so restless that it is hard to sit still: 0 = Not at all Becoming easily annoyed or irritable: 0 = Not at all Feeling afraid as if something awful might happen: 0 = Not at all Total MAKAYLA-7 score (0-4 normal; 5-9 mild; 10-14 moderate; 15-21 severe): 0 Source: Developed by Drs. Morgan Kitchen, Guillermo Guerrero and colleagues, with an educational azul from [employer]. Physical exam (Primary Care) Vital Signs: Last Vital Signs Pulse 45 L 11/29/23 08:52 BP 100/60 11/29/23 08:52 Pulse Ox 95 11/29/23 08:52 Oxygen Delivery Method Room Air 11/29/23 08:52 Care Plan Goal for BP management: Blood pressure is in range. Continue current medications. BMI result Body Mass Index 31.5 BMI Assessment/Plan discussion: High (1 lb per week weight loss suggested.) BMI High, discussed plan: lifestyle, weight reduction and dietary Tobacco/Smoking Status: Tobacco use Status Tobacco use date assessed 11/29/23 11/29/23 09:04 Patient Tobacco Use Status Never used Tobacco 11/29/23 08:51 e-Cigarette/Vaping Use Never Used 11/29/23 09:04 PHQ-9: PHQ-9 Score PHQ-9: Total score 0 11/29/23 08:51 Depression Screening Interpretation: Negative Thrive Assessment: Date of Thrive Assessment Date Thrive assessed 11/29/23 11/29/23 08:51 Currently or been in a relationship where the following occur: no concerns reported Const General: cooperative and healthy appearing Nutritional Appearance: well nourished Orientation/consciousness: patient oriented x3 Limitations: no limitations HENMT Head: Yes normal to inspection Eyes General: appearance normal, both eyes and all related structures Neck Neck: Yes normal visual inspection Chest Chest palpation & inspection: normal palpation of entire chest wall Resp Effort & Inspection: normal respiratory effort Neuro General: patient oriented x3 Assessment and Plan Assessment & Plan (1) Poorly controlled diabetes mellitus: Code(s): E11.65 - Type 2 diabetes mellitus with hyperglycemia Plan: A1c is 7.0. Farxiga has been discontinued. Jardiance has been substituted in place. Continue metformin at same dosage. Patient was advised to check blood sugars regularly and report via the portal. Also encouraged him to continue the rehab and start diet and exercise. (2) STEMI (ST elevation myocardial infarction): Code(s): I21.3 - ST elevation (STEMI) myocardial infarction of unspecified site Plan: Condition is stable. Continue current medications. Continue cardiac rehab. Coding Level of Care Code New Pt Level 4 (30628) Diagnoses Poorly controlled diabetes mellitus E11.65 STEMI (ST elevation myocardial infarction) I21.3
[2023-11-29 08:52] VITALS: BP 100/60; PULSE 45; O2SAT 95; BMI 31.5
== END 2023-11-29 09:37 | disposition home or self-care (01) ==
PROVIDERS: Visit Provider Internal Medicine
DX: E11.65 Type 2 diabetes mellitus with hyperglycemia (principal); I25.2 Old myocardial infarction
CPT/HCPCS: 99204

== ENCOUNTER 2023-12-01 14:17 | Outpatient (AMB) | payer OTHER, SELFPAY ==
--- NOTE | 2023-12-01 14:27 | A.OFFVIS_ITS ---
Intake Intake Visit Reasons: follow up Intake Note: Patient presents today for a follow-up on Urethral Stricture, Bladder neck obstruction, neurogenic bladder. Meds- Tamsulosin & Pyridium Allergies to Antibiotic- No Known Allergies Blood Thinner- Aspirin L Cotton Classer Aide Required: No Accompanied by: Self / Same As Patient Allergies No Known Allergies Allergy (Verified 12/01/23 14:28) HPI HPI Comments History of Present Illness Details 12/01/23--Luis is a 48-year-old mal e who presents today to the office for follow up. He has been followed for hydronephrosis secondary to obstructive uropathy, and was treated for UTI and fungemia. 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 He is s/p urethral dilation and on cystoscopy was noted to have bladder neck scarring which needed dilation. He also has neurogenic bladder. 16 fr marie removed by nursing staff. O ffice cystoscopy not indicated today. (cystoscopy done on 10/06/23 - bladder neck open) I want the patient to follow up with nursing to learn CIC. Review of chart: 10/20/23--He presents today in and [facility] he was hospitalized at [facility] for an NV and had a cardiac cath, he was discharged last night. He currently has marie in place (placed 10/06/23) and is draining it every 2-3 hours during the day and to drainage at night time. The patient states he was started on new meds at [facility] but does not remember the names, he will call once he gets home. Will reconcile meds once we have the updated medications available. Exam- penis, meatus no excoriation. Cont marie, fu for nurse visit in 2 wks for catheter change, fu with me in 6 weeks for cysto and possible catheter removal vs change. Renal US prior. 10/06/23--Luis is s/p procedure t o dilate urethral meatus and bladder neck 2 days ago, he states the marie mechanism controlling the marie balloon got broken and the marie slipped out of position. Office cysto - today, notes bladder neck is wide open, the picayune tip marie was placed over a guide wire and the marie was clamped. The patient was instructed to drain the catheter every 2-3 hr duing the daytime and keep to gravity drainage at night. 08/16/2023? The patient was seen in consultation while as an in-patient on 07/04/2023. He has a past medical history significant for type 2 diabetes. Urine culture and blood culture during the admission came back positive for [place], and strep agalastiae group B. He was treated with Antibiotics. Patient was started on Flomax. FU noted persistent elevated PVR. Bladder scan PVR >600 mL Evaluation today?UA? leukocytes: 3 +; nitrite: positive; blood: 2 +. I discussed placing a marie. On attempts to place a Marie catheter, the meatus was stenotic. I attempted to dilate with a 14 [place] dilator, however even with use of lidocaine jelly the patient was not able to tolerate due to pain. I have discussed with the patient urethral dilation and Cystoscopy as an outpt procedure. Patient received macrobid 100 mg [address]x dose here. CT abdomen/pelvis results from 07/03/2023 revealed moderate bilateral hydronephrosis and ureteral dilatation down to the bladder. Diffuse bladder wall thickening. Slightly enlarged low-attenuation prostate gland worrisome for infection/prostatitis. 12/01/23--PLAN: Follow up with nursing for CIC teaching. Renal US. CIC - TID to start. 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 Current occupation: [employer] Cognitive needs: No Hearing needs: No Vision needs: Yes (glasses) Review of Systems Const All systems reviewed & are unremarkable except as noted in HPI and below Reports no additional complaints Eyes Reports no additional complaints ENT Reports no additional complaints Resp Denies cough GI Reports no additional complaints Musc Reports no additional complaints Skin/Breast Denies rash and Denies unusual bruising Neuro Reports no additional complaints Psych Reports no additional complaints Endo Reports no additional complaints Alfonso/Lymph Reports no additional complaints Aller/Immun Reports no additional complaints Assessment & Plan Assessment & Plan (1) Neurogenic bladder: Code(s): N31.9 - Neuromuscular dysfunction of bladder, unspecified (2) Other urethral stricture, male, meatal: Code(s): N35.811 - Other urethral stricture, male, meatal (3) Incomplete bladder emptying: Code(s): R33.9 - Retention of urine, unspecified (4) Obstructive uropathy: Code(s): N13.9 - Obstructive and reflux uropathy, unspecified (5) Bilateral hydronephrosis: Code(s): N13.30 - Unspecified hydronephrosis Plan Follow up with nursing for CIC teaching. Renal US. CIC - TID to start. Orders: Orders US retroperitoneal comp 1 Month N31.9 - Neuromuscular dysfunction of bladder, unspecified Coding Level of Care Code Est Pt Level 3 (90828) Diagnoses Neurogenic bladder N31.9 Other urethral stricture, male, meatal N35.811 Incomplete bladder emptying R33.9 Obstructive uropathy N13.9 Bilateral hydronephrosis N13.30
--- NOTE | 2023-12-01 14:27 | AM.OFFVISNUR ---
Intake Intake Visit Reasons: cysto- possible cath change Allergies No Known Allergies Allergy (Verified 12/01/23 14:28) Nursing Note patient here for catheter removal. 16 fr 10ml balloon removed, patient tolerated removal well. Coding
== END 2023-12-01 14:48 | disposition home or self-care (01) ==
PROVIDERS: Visit Provider Urology
DX: N31.9 Neuromuscular dysfunction of bladder, unspecified (principal); N35.811 Other urethral stricture, male, meatal; R33.9 Retention of urine, unspecified; N13.9 Obstructive and reflux uropathy, unspecified; N13.30 Unspecified hydronephrosis
CPT/HCPCS: 99213

== ENCOUNTER → 2023-12-01 14:17 | Outpatient (BNVA) | payer OTHER, SELFPAY | PROVIDERS: Visit Provider Urology ==

== ENCOUNTER 2023-12-07 08:53 | Outpatient (AMB) | payer OTHER, SELFPAY ==
--- NOTE | 2023-12-07 09:46 | AM.OFFVISNUR ---
Intake Intake Visit Reasons: CIC teaching Allergies No Known Allergies Allergy (Verified 12/01/23 14:28) Nursing Note Patient presented to office for CIC teaching. Patient stated that his urine was cloudy even with increase in intake of water. Reviewed with Dr. Campo- run UA and send for culture. Pt urinated 300mls in urinal, PVR showed 334 mls. Patient UA indicated infection so CIC rescheduled 12/25/23. Patient understood and agreeable Office Procedures Post Void Residual Post Residual Void Details: pt presents to office for PVR and discussion of CIC- infection present CIC delayed. PVR done to calculate times needed daily for CIC Post Void Residual (PVR): 334 [id number] Void Residual by ultrasound Results AMB Urinalysis, Automated UA Leukoctes 125 Krystina/uL Last Edit by Ren Martínez LPN on 12/07/23 09:49 UA Nitrite Positive Last Edit by Ren Martínze LPN on 12/07/23 09:49 UA Urobilinogen 0 mg/dL Last Edit by Ren Martínez LPN on 12/07/23 09:49 UA Protein 100 mg/dL Last Edit by Ren Martínez LPN on 12/07/23 09:49 UA pH 6.0 Last Edit by Ren Martínez LPN on 12/07/23 09:49 UA Blood 200 Georgi/uL Last Edit by Ren Martínez LPN on 12/07/23 09:49 UA Specific Malcolm 1.015 Last Edit by Ren Martínez LPN on 12/07/23 09:49 UA Ketone Negative Last Edit by Ren Martínez LPN on 12/07/23 09:49 UA Bilirubin 0 mg/dL Last Edit by Ren Martínez LPN on 12/07/23 09:49 UA Glucose 1000 mg/dL Last Edit by Ren Martínez LPN on 12/07/23 09:49 Coding CPT Codes Post Residual Void - PVR CPT Code: [id number] Void Residual by ultrasound ([id number]) Assessment & Plan Assessment & Plan Orders: Orders Urine Culture Today N31.9 - Neuromuscular dysfunction of bladder, unspecified, N39.0 - Urinary tract infection, site not specified, R33.9 - Retention of urine, unspecified AMB Urinalysis Automated Today N31.9 - Neuromuscular dysfunction of bladder, unspecified, N39.0 - Urinary tract infection, site not specified, R33.9 - Retention of urine, unspecified AMB Post Void Residual by ultrasound Today N31.9 - Neuromuscular dysfunction of bladder, unspecified, R33.9 - Retention of urine, unspecified
== END 2023-12-07 09:56 | disposition home or self-care (01) ==
PROVIDERS: Visit Provider Urology
DX: N31.9 Neuromuscular dysfunction of bladder, unspecified (principal); R33.9 Retention of urine, unspecified; N39.0 Urinary tract infection, site not specified

== ENCOUNTER 2023-12-07 08:53 | Outpatient (REF) | payer OTHER, SELFPAY | END 2023-12-07 08:54 | disposition home or self-care (01) | LOC: HO.LNP 08:53 | PROVIDERS: Visit Provider Urology | DX: N31.9 Neuromuscular dysfunction of bladder, unspecified (principal); N39.0 Urinary tract infection, site not specified; R33.9 Retention of urine, unspecified | CPT/HCPCS: 51798; 81003; 87086; 87088; 87186 ==

== ENCOUNTER 2023-12-27 10:32 | Outpatient (REF) | payer OTHER, SELFPAY ==
--- NOTE | ~2023-12-27 | US_ITS ---
EXAMINATION: US RETROPERITONEAL COMPLETE (RENAL) CLINICAL INFORMATION: Neuromuscular dysfunction bladder. COMPARISON: 11/17/2023 TECHNIQUE: Real-time imaging of the kidneys and bladder. FINDINGS: RIGHT KIDNEY: 12.6 x 5.4 x 5.4 cm (SAG x AP x TRV). The kidney is normal in size, contour, and echogenicity. Renal cortical thickness is normal. No calculi or focal parenchymal lesions. In comparison with previous study, increasing right mild hydronephrosis. Proximal right hydroureter also identified. LEFT KIDNEY: 12.5 x 5.4 x 5.4 cm (SAG x AP x TRV). The kidney is normal in size, contour, and echogenicity. Renal cortical thickness is normal. No calculi or focal parenchymal lesions. Interval development of moderate left hydronephrosis with megaureter identified measuring 1.6 cm. BLADDER: Despite urinary bladder wall distention, diffusely thickened bladder wall to 4 mm. Urinary bladder debris again seen. Bilateral ureteral jets are demonstrated. Prevoid bladder volume 561.2 mL. 2 post void residuals were obtained, first measures 305.4 mL, second 253 mL. Prominent heterogeneous prostate measuring 39.6 mL. US/US retroperitoneal comp IMPRESSION:. Interval development of moderate left hydronephrosis and left megaureter to 1.6 cm. Interval development of mild right hydroureteronephrosis. (Similar findings were present on 09/04/2023 with resolution on most recent 11/17/2023 renal ultrasound.) Distended urinary bladder with wall thickening and significant post void residual. Prominent heterogeneous prostate.
== END 2023-12-27 10:33 | disposition home or self-care (01) ==
LOC: HO.US 10:32
PROVIDERS: Visit Provider Urology
DX: N31.9 Neuromuscular dysfunction of bladder, unspecified (principal)
CPT/HCPCS: 76770

== ENCOUNTER 2024-01-25 10:10 | Outpatient (AMB) | payer OTHER, SELFPAY ==
--- NOTE | 2024-01-25 10:15 | MHC.OFFVIS ---
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 carvedilol 6.25 mg PO BID 90 days empagliflozin (Jardiance) 10 mg PO DAILY lancets (FreeStyle Lancets) Test four times a day or as directed. metformin 1,000 mg PO BIDWMEAL 90 days nitrofurantoin macrocrystal 100 mg PO BID 10 days nitroglycerin 0.4 mg sublingual Q5M PRN rosuvastatin 40 mg PO DAILY sacubitril-valsartan 24-26 mg (Entresto) 1 tab PO BID 90 days tamsulosin (Flomax) 0.4 mg PO BEDTIME ticagrelor (Brilinta) 90 mg PO BID 90 days HPI HPI Comments History of Present Illness Details Luis returns for follow-up regarding coronary artery disease. He has been previously seen by our nurse practitioner. Due to findings of mild cardiomyopathy on a prior echocardiogram, he underwent ischemic workup with a stress test which was essentially unremarkable. However, couple months later he actually had a anterior wall STEMI. Underwent LAD stenting. Prior to that episode, he states he never really had any chest pain. Subsequent to stenting again no further symptoms. History of diabetes. No smoking or drugs. Since last seen, he is generally doing fine. He really does not have any clear-cut symptoms and also back on his job without issues. 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 Current occupation: [employer] Cognitive needs: No Hearing needs: No Vision needs: Yes (glasses) Review of Systems Const Denies weakness ENT Denies dizziness Card Denies chest pain, Denies chest pain with activity, Denies syncope, Denies rapid heart rate, Denies pedal edema, Denies edema, Denies leg edema, Denies lightheadedness, Denies palpitations, Denies dyspnea, Denies dyspnea on exertion and Denies orthopnea Resp Denies cough, Denies dyspnea and Denies dyspnea on exertion GI Denies hematochezia and Denies change in stool character Musc Denies abnormal gait, Denies muscle cramps, Denies muscle weakness, Denies numbness, Denies radiating pain into limb and Denies tingling Neuro Denies abnormal gait, Denies dizziness, Denies syncope, Denies numbness, Denies tingling and Denies weakness Endo Denies palpitations Physical Exam Vital Signs: Last Vital Signs Pulse 83 01/25/24 10:16 BP 92/56 L 01/25/24 10:16 BMI result Body Mass Index 32.5 Const General: comfortable and no acute distress Orientation/consciousness: patient oriented x3 HEENT Other: Unremarkable Head: Yes normal to inspection Neck Neck: Yes normal visual inspection Chest Chest palpation & inspection: normal inspection of the chest Resp Auscultation: clear to auscultation bilaterally Cardio Palpation: normal PMI Heart sounds: S1 normal heart sound present, S2 normal heart sound present, no gallops, no murmurs and no rubs GI Palpation (GI): Soft to palpation Back/Spine/Pelvis Other: unremarkable Skin General skin exam: no rashes or lesions noted Neuro General: patient oriented x3 Extrem General: Yes normal to inspection Psych Mental Status: mental status grossly normal Assessment & Plan Assessment & Plan (1) STEMI (ST elevation myocardial infarction): Code(s): I21.3 - ST elevation (STEMI) myocardial infarction of unspecified site (2) Ischemic cardiomyopathy: Code(s): I25.5 - Ischemic cardiomyopathy (3) Atherosclerotic cardiovascular disease: Code(s): I25.10 - Atherosclerotic heart disease of [place] coronary artery without angina pectoris (4) Type 2 diabetes mellitus: Comment: recently started on glipizide & metformin Code(s): E11.9 - Type 2 diabetes mellitus without complications Qualifiers: Diabetes mellitus complication status: with hyperglycemia Diabetes mellitus senior living insulin use: without petroleum terminal plant operator use Qualified Code(s): E11.65 - Type 2 diabetes mellitus with hyperglycemia Plan [place] [facility] [place] of [place] infarction with anterior Q-waves. Recent echocardiogram with LVEF of 30-35%. LAD territory wall motion abnormality. In the study prior to that, again similar. Even earlier study from August showed preserved LVEF at 60-65%. Cardiac catheterization 09/2023-100% stenosis in the distal subsection of proximal LAD, status post PCI. Otherwise, only minimal irregularities. Of note, myocardial perfusion imaging study prior to catheterization actually showed probably normal perfusion at 8.1 METS. Overall, coronary disease, ischemic cardiomyopathy but clinically no overt symptoms. For medications, continue aspirin. Brilinta for 1 year. Continue beta-blockers/Entresto. Blood pressure somewhat lowish but he does not have any overt symptoms. Continue high-dose statins. Last LDL 71 mg/dL. Four diabetes, on Jardiance, metformin. Hemoglobin A1c is 7%. With regard to the cardiomyopathy, he may be candidate for prophylactic ICD. As the myocardial infarction is only 3 months ago, we will give him somewhat time to see if there is any recovery. If not, possibly EP referral for ICD. We did briefly discuss about this. 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
[2024-01-25 10:16] VITALS: BP 92/56; PULSE 83; BMI 32.5
== END 2024-01-25 10:35 | disposition home or self-care (01) ==
PROVIDERS: Visit Provider Internal Medicine
DX: I21.3 ST elevation (STEMI) myocardial infarction of unspecified site (principal); I25.5 Ischemic cardiomyopathy; I25.10 Atherosclerotic heart disease of native coronary artery without angina pectoris; E11.65 Type 2 diabetes mellitus with hyperglycemia
CPT/HCPCS: 99214

== ENCOUNTER → 2024-01-25 10:10 | Outpatient (BNVA) | payer OTHER, SELFPAY | PROVIDERS: Visit Provider Internal Medicine ==

== ENCOUNTER 2024-02-29 08:16 | Outpatient (AMB) | payer OTHER, SELFPAY ==
--- NOTE | 2024-02-29 08:21 | MHC.OFFVIS ---
Intake Visit Reasons: 3m/US Intake Note: Patient presents today for a follow-up on US Results. Meds- Tamsulosin & Pyridium Allergies to Antibiotic- No Known Allergies Blood Thinner- Aspirin PVR, 298 mL Pricing Intern Required: No Accompanied by: Self / Same As Patient Allergies No Known Allergies Allergy (Verified 01/25/24 10:17) Medication List - Last Reconciled 02/29/24 by Giovanni Donovan MD alcohol swabs 1 pad topical QIDACHS aspirin 81 mg PO DAILY bethanechol chloride 25 mg PO TID blood sugar diagnostic (FreeStyle Lite Strips) Test four times a day or as directed. carvedilol 6.25 mg PO BID 90 days empagliflozin (Jardiance) 10 mg PO DAILY lancets (FreeStyle Lancets) Test four times a day or as directed. metformin 1,000 mg PO BIDWMEAL 90 days nitrofurantoin macrocrystal 100 mg PO BID 10 days nitroglycerin 0.4 mg sublingual Q5M PRN rosuvastatin 40 mg PO DAILY sacubitril-valsartan 24-26 mg (Entresto) 1 tab PO BID 90 days tamsulosin (Flomax) 0.4 mg PO BID ticagrelor (Brilinta) 90 mg PO BID 90 days HPI Comments Details: 02/29/2024--Luis is here in follow-up. He states that he has not been doing the clean intermittent catheterization. He states he tried once and had some difficulty and did not try again. I have reviewed the renal ultrasound which shows that the bilateral hydronephrosis is recurrent. I have discussed with the patient risks related to incomplete bladder emptying and referred pressure on the kidneys that may cause kidney damage. Recommended Marie catheter. Patient declines. Discussed other evaluation and therapy to investigate including urodynamics. Urinalysis today nitrite positive. Will send urine for culture. Hold on antibiotics until culture results. Trial of increasing Flomax to b.i.d., bethanechol 25 mg t.i.d. repeat renal ultrasound in 2 months. Review of chart: 12/01/23--Luis is a 48-year-old male who presents today to the office for follow up. He has been followed for hydronephrosis secondary to obstructive uropathy, and was treated for UTI and fungemia. 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 He is s/p urethral dilation and on cystoscopy was noted to have bladder neck scarring which needed dilation. He also has neurogenic bladder. 16 fr marie removed by nursing staff. Office cystoscopy not indicated today. (cystoscopy done on 10/06/23 - bladder neck open) I want the patient to follow up with nursing to learn CIC. 10/20/23--He presents today in fu and states he was hospitalized at [facility] for an VT and had a cardiac cath, he was discharged last night. He currently has marie in place (placed 10/06/23) and is draining it every 2-3 hours during the day and to drainage at night time. The patient states he was started on new meds at [facility] but does not remember the names, he will call once he gets home. Will reconcile meds once we have the updated medications available. Exam- penis, meatus no excoriation. Cont marie, fu for nurse visit in 2 wks for catheter change, fu with me in 6 weeks for cysto and possible catheter removal vs change. Renal US prior. 10/06/23--Riosjuan m is s/p procedure to dilate urethral meatus and bladder neck 2 days ago, he states the marie mechanism controlling the marie balloon got broken and the marie slipped out of position. Office cysto - today, notes bladder neck is wide open, the [place] tip marie was placed over a guide wire and the marie was clamped. The patient was instructed to drain the catheter every 2-3 hr duing the daytime and keep to gravity drainage at night. 08/16/2023? The patient was seen in consultation while as an in-patient on 07/04/2023. He has a past medical history significant for type 2 diabetes. Urine culture and blood culture during the admission came back positive for [place], and strep agalastiae group B. He was treated with Antibiotics. Patient was started on Flomax. FU noted persistent elevated PVR. Bladder scan PVR >600 mL Evaluation today?UA? leukocytes: 3 +; nitrite: positive; blood: 2 +. I discussed placing a marie. On attempts to place a Marie catheter, the meatus was stenotic. I attempted to dilate with a 14 Telugu dilator, however even with use of lidocaine jelly the patient was not able to tolerate due to pain. I have discussed with the patient urethral dilation and Cystoscopy as an outpt procedure. Patient received macrobid 100 mg [address] dose [address]. [address] abdomen/pelvis results from 07/03/2023 revealed moderate bilateral hydronephrosis and ureteral dilatation down to the bladder. Diffuse bladder wall thickening. Slightly enlarged low-attenuation prostate gland worrisome for infection/prostatitis. 02/29/24--PLAN:Will send urine for culture. Hold on antibiotics until culture results. Trial of increasing Flomax to b.i.d., bethanechol 25 mg t.i.d. 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 Current occupation: [employer] Cognitive needs: No Hearing needs: No Vision needs: Yes (glasses) Review of Systems Const All systems reviewed & are unremarkable except as noted in HPI and below Reports no additional complaints Eyes Reports no additional complaints ENT Reports no additional complaints Card Reports no additional complaints Resp Reports no additional complaints GI Reports no additional complaints Reports as per HPI Musc Reports no additional complaints Skin/Breast Reports system reviewed and no additional complaints, except as documented Neuro Reports no additional complaints Psych Reports no additional complaints Endo Reports no additional complaints Alfonso/Lymph Reports no additional complaints Aller/Immun Reports no additional complaints Office Procedures Post Void Residual Post Residual Void Post Void Residual (PVR): 298 [id number] Void Residual by ultrasound Results AMB Urinalysis, Automated UA Leukoctes 70 Krystina/uL Last Edit by MATT Platt on 02/29/24 08:42 1+ Kenyatta García 02/29/24 08:42 UA Nitrite Positive Last Edit by Kenyatta García [facility] on 02/29/24 08:42 UA Urobilinogen 0.2 mg/dL Last Edit by Kenyatta García, [facility] on 02/29/24 08:42 UA Protein 30 mg/dL Last Edit by Kenyatta García [facility] on 02/29/24 08:42 1+ Kenyatta García 02/29/24 08:42 UA pH 6.0 Last Edit by Kenyatta García, [facility] on 02/29/24 08:42 UA Blood 200 Georgi/uL Last Edit by Kenyatta García [facility] on 02/29/24 08:42 3+ Kenyatta García 02/29/24 08:42 UA Specific [place]elope 1.015 Last Edit by Kenyatta García [facility] on 02/29/24 08:42 UA Ketone Negative Last Edit by Kenyatta García [facility] on 02/29/24 08:42 UA Bilirubin 0 mg/dL Last Edit by Kenyatta García, [facility] on 02/29/24 08:42 UA Glucose 1000 mg/dL Last Edit by Kenyatta García [facility] on 02/29/24 08:42 3+ Kenyatta García 02/29/24 08:42 Results Reviewed Results Reviewed: Laboratory Last Values Urine pH (Auto) 6.0 02/29/24 08:29 Specific [place]elope (Auto) 1.015 02/29/24 08:29 Urine Protein (Auto) 30 mg/dL 02/29/24 08:29 Glucose (UA)(Auto) 1000 mg/dL 02/29/24 08:29 Urine Ketones (Auto) Negative 02/29/24 08:29 Urine Blood (Auto) 200 Georgi/uL 02/29/24 08:29 Urine Nitrite (Auto) Positive 02/29/24 08:29 Urine Bilirubin (Auto) 0 mg/dL 02/29/24 08:29 Urine Urobilinogen (Auto) 0.2 mg/dL 02/29/24 08:29 Leukocyte Esterase (Auto) 70 Krystina/uL 02/29/24 08:29 Date of Service: 12/27/23 Procedure(s): US retroperitoneal comp Accession Number(s): [id number] cc: Giovanni Donovan MD~ EXAMINATION: US RETROPERITONEAL COMPLETE (RENAL) CLINICAL INFORMATION: Neuromuscular dysfunction bladder. COMPARISON: 11/17/2023 TECHNIQUE: Real-time imaging of the kidneys and bladder. FINDINGS: RIGHT KIDNEY: 12.6 x 5.4 x 5.4 cm (SAG x AP x TRV). The kidney is normal in size, contour, and echogenicity. Renal cortical thickness is normal. No calculi or focal parenchymal lesions. In comparison with previous study, increasing right mild hydronephrosis. Proximal right hydroureter also identified. LEFT KIDNEY: 12.5 x 5.4 x 5.4 cm (SAG x AP x TRV). The kidney is normal in size, contour, and echogenicity. Renal cortical thickness is normal. No calculi or focal parenchymal lesions. Interval development of moderate left hydronephrosis with megaureter identified measuring 1.6 cm. BLADDER: Despite urinary bladder wall distention, diffusely thickened bladder wall to 4 mm. Urinary bladder debris again seen. Bilateral ureteral jets are demonstrated. Prevoid bladder volume 561.2 mL. 2 post void residuals were obtained, first measures 305.4 mL, second 253 mL. Prominent heterogeneous prostate measuring 39.6 mL. IMPRESSION:. Interval development of moderate left hydronephrosis and left megaureter to 1.6 cm. Interval development of mild right hydroureteronephrosis. (Similar findings were present on 09/04/2023 with resolution on most recent 11/17/2023 renal ultrasound.) Distended urinary bladder with wall thickening and significant post void residual. Prominent heterogeneous prostate. Date of Service: 07/03/23 EXAMINATION: CT ABDOMEN AND PELVIS WITH CONTRAST?? CLINICAL INFORMATION: Fungemia. Evaluate for obstruction or stones?? COMPARISON: Chest CT 07/01/2023 FINDINGS: LUNG BASES: Increased groundglass attenuation at the lung bases. This is increased from previous chest CT 07/01/2023 LIVER, GALLBLADDER, AND BILIARY TREE: The liver is normal in shape and attenuation. Liver may be slightly enlarged, right lobe measuring 19 cm in length. No focal hepatic lesion or biliary ductal dilatation is present. The gallbladder is contracted. PANCREAS: Unremarkable.?? SPLEEN: Spleen is slightly enlarged measuring 15 cm in length. ADRENAL GLANDS: Unremarkable.?? KIDNEYS AND URETERS: The kidneys are normal in size, shape, and attenuation. Bilateral moderate hydronephrosis and ureteral dilatation down to the bladder. No stone seen. Bilateral perinephric stranding. BLADDER: Diffusely thickened bladder wall. Infectious, inflammatory and neoplastic processes should be considered. GASTROINTESTINAL TRACT: The small and large bowel are unremarkable. The appendix is unremarkable.?? ABDOMINAL WALL: No significant hernia is appreciated.?? LYMPH NODES: Normal. VASCULAR: Unremarkable. PELVIC VISCERA: The prostate gland is slightly enlarged and measures 4.2 x 4.6 cm in AP and transverse dimension. Prostate gland is heterogeneous in attenuation with low-attenuation areas. Appearance is questionable for prostatitis. There is a small amount of fluid in the pelvis.? OSSEOUS STRUCTURES: Degenerative disc disease at L4-L5. IMPRESSION: Moderate bilateral hydronephrosis and ureteral dilatation down to the bladder. Diffuse bladder wall thickening. Infectious, inflammatory and neoplastic processes should be considered. Slightly enlarged low-attenuation prostate gland worrisome for infection/prostatitis as well. Groundglass attenuation bases. This is slightly increased from previous chest CT. Pneumonitis/atypical pneumonia and fluid overload/pulmonary edema should be considered. Mild hepatosplenomegaly. Assessment & Plan Assessment & Plan (1) Neurogenic bladder: Code(s): N31.9 - Neuromuscular dysfunction of bladder, unspecified Category: Medical (2) Other urethral stricture, male, meatal: Code(s): N35.811 - Other urethral stricture, male, meatal Category: Medical (3) Incomplete bladder emptying: Code(s): R33.9 - Retention of urine, unspecified Category: Medical (4) Obstructive uropathy: Code(s): N13.9 - Obstructive and reflux uropathy, unspecified Category: Medical (5) Bilateral hydronephrosis: Code(s): N13.30 - Unspecified hydronephrosis Category: Medical Plan Will send urine for culture. Hold on antibiotics until culture results. Trial of increasing Flomax to b.i.d., bethanechol 25 mg t.i.d. repeat renal ultrasound in 2 months Orders: Orders AMB Urinalysis Automated Today Z13.9 - Encounter for screening, unspecified AMB Post Void Residual by ultrasound Today N39.8 - Other specified disorders of urinary system Urine Culture Today N39.0 - Urinary tract infection, site not specified US renal BI 2 Months N13.30 - Unspecified hydronephrosis Medications: New bethanechol chloride 25 mg PO TID 90 tabs 1RF Changed From tamsulosin (Flomax) 0.4 mg PO BEDTIME 90 caps 1RF To tamsulosin (Flomax) 0.4 mg PO BID 180 caps 1RF Patient Instructions: The patient had an opportunity to ask questions regarding treatment plan. The patient expressed understanding and agreement with the above treatment plan. The patient is aware they should contact our office by phone for worsening of their current condition or the appearance of new symptoms. Compliance is encouraged with any medications and followup testing that is ordered. It is a privilege to be allowed the opportunity to participate in the urologic care of your patient. If you have any questions or concerns regarding treatment for the above conditions please do not hesitate to contact me. The office telephone contact is [phone]. This note is constructed in part using voice recognition software. While every effort has been made to ensure accuracy cath lab manager errors may have been included. Yours sincerely, Giovanni Donovan MD Coding Level of Care Code Est Pt Level 4 (40114) Diagnoses Neurogenic bladder N31.9 Other urethral stricture, male, meatal N35.811 Incomplete bladder emptying R33.9 Obstructive uropathy N13.9 Bilateral hydronephrosis N13.30 CPT Codes Post Residual Void - PVR CPT Code: 63640-Uvrx Void Residual by ultrasound ([id number])
== END 2024-02-29 09:19 | disposition home or self-care (01) ==
PROVIDERS: Visit Provider Urology
DX: N31.9 Neuromuscular dysfunction of bladder, unspecified (principal); N35.811 Other urethral stricture, male, meatal; R33.9 Retention of urine, unspecified; N13.9 Obstructive and reflux uropathy, unspecified; N13.30 Unspecified hydronephrosis; Z13.9 Encounter for screening, unspecified
CPT/HCPCS: 99214

== ENCOUNTER 2024-02-29 08:16 | Outpatient (REF) | payer OTHER, SELFPAY | END 2024-02-29 08:17 | disposition home or self-care (01) | LOC: HO.LAB 08:16 | PROVIDERS: Visit Provider Urology | DX: N39.0 Urinary tract infection, site not specified (principal); Z13.9 Encounter for screening, unspecified | CPT/HCPCS: 51798; 81003; 87086; 87147; 87186 ==

== ENCOUNTER 2024-03-21 09:17 | Outpatient (AMB) | payer OTHER, SELFPAY ==
--- NOTE | 2024-03-21 09:44 | A.OFFPC_ITS ---
Vital Signs 03/21/24 09:47 Height 5 ft 7 in Weight 203 lb BMI 31.8 BP 102/68 Blood Pressure Location Lt brachial Position Sitting Pulse 70 Pulse Source Pulse Oximeter Pulse Oximetry (%) 99 Oxygen Delivery Method Room Air Intake Visit Reasons: 3mth f/u Intake Note: Patient is here to follow up on DM, STEMI, DANNIE. 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 carvedilol 6.25 mg PO BID 90 days empagliflozin (Jardiance) 10 mg PO DAILY lancets (FreeStyle Lancets) Test four times a day or as directed. metformin 1,000 mg PO BIDWMEAL 90 days nitrofurantoin macrocrystal 100 mg PO BID 10 days nitroglycerin 0.4 mg sublingual Q5M PRN rosuvastatin 40 mg PO DAILY sacubitril-valsartan 24-26 mg (Entresto) 1 tab PO BID 90 days tamsulosin (Flomax) 0.4 mg PO BID ticagrelor (Brilinta) 90 mg PO BID 90 days Tobacco use date assessed: 03/21/24 Dental Screening Dental Screen Date: 11/29/23 HPI 3mth f/u HPI Details 48-year-old male presents to the office to discuss his chronic medical conditions. Patient is compliant with medications and reporting no side effects. Not checking his blood sugars as he had run out of strips. Has returned to work and able to do all activities of daily living. Patient does cardiac rehab twice a week and as part of his work, he is constantly on his feet. 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 Morgan Kitchen, Luly Jones, Guillermo Rai and colleagues, with an educational azul from [employer]. Physical exam (Primary Care) Vital Signs: Last Vital Signs Pulse 70 03/21/24 09:47 BP 102/68 03/21/24 09:47 Pulse Ox 99 03/21/24 09:47 Oxygen Delivery Method Room Air 03/21/24 09:47 Care Plan Goal for BP management: Blood pressure is in range. Continue current medications. BMI result Body Mass Index 31.8 Tobacco/Smoking Status: Tobacco use Status Tobacco use date assessed 03/21/24 03/21/24 09:49 Patient Tobacco Use Status Never used Tobacco 03/21/24 09:49 e-Cigarette/Vaping Use Never Used 03/21/24 09:49 Thrive Assessment: Date of Thrive Assessment Date Thrive assessed 11/29/23 03/21/24 09:49 Const General: cooperative and healthy appearing Nutritional Appearance: well nourished Orientation/consciousness: patient oriented x3 Limitations: no limitations HENMT Head: Yes normal to inspection Eyes General: appearance normal, both eyes and all related structures Neck Neck: Yes normal visual inspection Chest Chest palpation & inspection: normal palpation of entire chest wall Resp Effort & Inspection: normal respiratory effort Neuro General: patient oriented x3 Results AMB Hemoglobin A1c AMB Hemoglobin A1c 7.4 % Last Edit by MATT Pollack on 03/21/24 09:56 Results Reviewed Results Reviewed: Laboratory Last Values Hgb A1c (Clinic) 7.4 % (4.0-6.0) H 03/21/24 09:43 Assessment and Plan Assessment & Plan (1) Poorly controlled diabetes mellitus: Code(s): E11.65 - Type 2 diabetes mellitus with hyperglycemia Plan: A1c continues to be elevated at 7.4. Trulicity added to the regimen. Patient was encouraged to follow a healthy diet. Orders: Orders AMB Hemoglobin A1c Today E11.65 - Type 2 diabetes mellitus with hyperglycemia Medications: Refilled blood sugar diagnostic (FreeStyle Lite Strips) Test four times a day or as directed. 100 ea 0RF E11.9 - Type 2 diabetes mellitus without complications Coding Level of Care Code Est Pt Level 4 (41297) Complex EM visit Add On G2211 Diagnoses Poorly controlled diabetes mellitus E11.65 Time Spent (min) 20
[2024-03-21 09:47] VITALS: BP 102/68; PULSE 70; O2SAT 99; BMI 31.8
== END 2024-03-21 10:36 | disposition home or self-care (01) ==
PROVIDERS: Visit Provider Internal Medicine
DX: E11.65 Type 2 diabetes mellitus with hyperglycemia (principal)
CPT/HCPCS: 83036; 99214; G2211

== ENCOUNTER 2024-03-29 10:00 | Outpatient (RCR) | payer OTHER, SELFPAY ==
[2024-03-04 12:02] LABS: Glucose, Whole Blood 164 mg/dL (60-115)
[2024-03-11 11:09] LABS: Glucose, Whole Blood 126 mg/dL (60-115)
[2024-04-05 11:11] LABS: Glucose, Whole Blood 132 mg/dL (60-115)
== END 2024-04-09 09:47 | disposition home or self-care (01) ==
LOC: HO.CR 10:00
PROVIDERS: PCP Internal Medicine; Visit Provider Nurse Practitioner Family
DX: I21.3 ST elevation (STEMI) myocardial infarction of unspecified site (principal); Z98.890 Other specified postprocedural states
CPT/HCPCS: 82947; 93798

== ENCOUNTER → 2024-04-23 08:43 | Outpatient (REF) | payer OTHER, SELFPAY ==
--- NOTE | 2024-04-23 08:45 | CA_ITS ---
Transthoracic Echocardiogram Patient (Last, First, Middle): Luis Helms P Gender: Male Date of : 1975 Age: 48 Procedure Date: 04/23/2024 Procedure Type: Transthoracic Echocardiogram Location: OP Height: 172.72 cm Weight: 86.18 kg BSA: 2.00 m2 Heart Rate: 75 bpm BP: 98 / 58 mmHg Cryptographic Machine Operator: SB Referring MD: Juan Dodge MD Symptoms: I42.9 - Cardiomyopathy, unspecified Study Quality: Adequate ECG Rhythm: Sinus Conclusions: - The left ventricular systolic function is moderately decreased. The visually estimated ejection fraction is between 30-35%. - Wall motion abnormalities related to underlying coronary artery disease. - No obvious valvular pathology seen on this study. Findings Procedure Information Contrast agent, definity, is being given per protocol without apparent complications. Left Ventricle Normal left ventricular cavity size. The left ventricular systolic function is moderately decreased. The visually estimated ejection fraction is between 30-35%. There is evidence of regional wall motion abnormalities. Evidence suggests grade I (mild) diastolic dysfunction. There is moderate septal asymmetric hypertrophy. Wall Motion Rest Echo Findings The apex, apical inferior, basal inferior, apical lateral, and mid anteroseptal segments are akinetic. Right Ventricle Normal right ventricular cavity size and systolic function. Atria Both atria are normal in size. Aortic Valve There is a normal trileaflet aortic valve. There is no aortic valve stenosis. There is no aortic valve regurgitation. Mitral Valve The mitral valve appears normal. There is no mitral valve regurgitation. There is no mitral valve stenosis. Pulmonic Valve The pulmonic valve is likely normal. Tricuspid Valve Normal tricuspid valve structure. There is no tricuspid valve regurgitation. Tricuspid regurgitation envelope is inadequate for calculation of right ventricular systolic pressure. Great Vessels The asc aorta and aortic arch are normal in size. Venous The inferior vena cava is normal in size and collapses greater than 50% with inspiration. Pericardium/Pleural There is no evidence of pericardial effusion. Prior Study Comparison No significant change compared to prior study. Recommendations, Care & Conclusions No obvious valvular pathology seen on this study. Measurements 2D Linear Measurements IVSd: 1.35 0.6-0.9/0.6-1.0 cm LVIDd: 5.15 3.9-5.3/4.2-5.9 cm LVIDd Index: 2.58 2.4-3.2/2.2-3.1 cm/m2 LVIDs: 3.98 2.0-3.6 cm LVPWd: 0.82 0.7-1.1 cm LA Diam: 3.50 2.7-3.8/3.0-4.0 cm LAIDs Index: 1.75 1.5-2.3 cm/m2 LV Mass: 266.36 67-162/88-224 g LV Mass Index: 133.18 43-95/49-115 g/m2 LVOT Diam: 2.30 3.0+(-)1.3 cm 2D Systolic Function EF 4C: 46.10 >55% EF 2C: 37.20 >55% EF BiP: 41.70 >55% Mitral Valve MV Pk E: 0.51 MV PK A: 0.66 MV Decel Time: 138.00 E/A: 0.80 E'Lateral: 4.90 E'Medial: 6.09 E/E' Med: 8.40 E/E' Lat: 10.50 PHT: 41.00 MVA PHT: 5.37 Decel [place]: 3.71 Aortic Valve AoV Pk Lonnie: 1.02 AoV Pk Grad: 4.00 SID: 3.27 LVOT LVOT Pk Lonnie: 0.81 LVOT Mn Lonnie: 0.56 LVOT VTI: 0.20 LVOT Pk Grad: 3.00 LVOT Mn Grad: 1.00 LVOT Diam: 2.30 LVOT Area: 4.15 Diastolic Function MV Pk E: 0.51 MV Pk A: 0.66 E/A: 0.80 E'Medial: 6.09 E/E' Med: 8.40 E' Laterial: 4.90 E/E' Lat: 10.50 Right Ventricle TAPSE (mm): 19.80 TVS' Lonnie: 11.00 Tricuspid Valve RA Press: 3.00 Great Vessels Aorta Sinus of Valsalva: 3.10 2.0-3.5 cm Ao Asc: 3.10 2.1-3.4 cm Ao Arch: 2.40 Pulmonary Valve PV Pk Lonnie: 1.33 Peak PV Grad: 7.00 Updated in Other Vendor System with Status of Final Juan Dodge MD electronically signed on 04/25/2024 12:43:38 PM with status of Final
== END ==
LOC: HO.CARD 08:43
PROVIDERS: Visit Provider Internal Medicine
DX: I42.9 Cardiomyopathy, unspecified (principal)
CPT/HCPCS: 93306; Q9957

== ENCOUNTER → 2024-04-23 08:45 | Outpatient (BNV) | payer OTHER, SELFPAY | PROVIDERS: Visit Provider Internal Medicine | DX: I42.2 Other hypertrophic cardiomyopathy (principal); I25.10 Atherosclerotic heart disease of native coronary artery without angina pectoris | CPT/HCPCS: 93306 ==

== ENCOUNTER 2024-04-30 09:59 | Outpatient (REF) | payer OTHER, SELFPAY ==
--- NOTE | ~2024-04-30 | US_ITS ---
EXAMINATION: US RETROPERITONEAL LIMITED (RENAL ONLY) CLINICAL INFORMATION: Unspecified hydronephrosis. COMPARISON: Ultrasound kidneys and bladder 12/27/2023. Renal ultrasound 11/17/2023. CT abdomen and pelvis 07/03/2023. TECHNIQUE: Real-time imaging of the kidneys. FINDINGS: RIGHT KIDNEY: 12.1 x 6.6 x 5.4 cm (SAG x AP x TRV). The kidney is normal in size, contour, and echogenicity. Renal cortical thickness is normal. No calculi or focal parenchymal lesions. No hydronephrosis. Previously seen right-sided hydronephrosis on the prior CT scan is not evident on the current study. LEFT KIDNEY: 12.1 x 5.0 x 4.8 cm (SAG x AP x TRV). The kidney is normal in size, contour, and echogenicity. Renal cortical thickness is normal. No renal calculi or focal parenchymal lesions. There is mild left-sided hydronephrosis and dilatation of the left ureter to a maximum of 1.4 cm. Similar findings were seen on the 12/27/2023 study. US/US renal BI IMPRESSION: Mild left-sided hydronephrosis and dilatation of the left ureter.
== END 2024-04-30 10:00 | disposition home or self-care (01) ==
LOC: HO.US 09:59
PROVIDERS: Visit Provider Urology
DX: N13.30 Unspecified hydronephrosis (principal)
CPT/HCPCS: 76775

== ENCOUNTER 2024-05-01 09:07 | Outpatient (AMB) | payer OTHER, SELFPAY ==
[2024-05-01 09:08] VITALS: BP 100/54; PULSE 70; BMI 30.2
--- NOTE | 2024-05-01 09:08 | MHC.OFFVIS ---
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 carvedilol 6.25 mg PO BID 90 days dulaglutide (Trulicity) 0.75 mg (0.5 mL) subcut QWEEK empagliflozin (Jardiance) 10 mg PO DAILY lancets (FreeStyle Lancets) Test four times a day or as directed. metformin 1,000 mg PO BIDWMEAL 90 days nitroglycerin 0.4 mg sublingual Q5M PRN rosuvastatin 40 mg PO DAILY sacubitril-valsartan 24-26 mg (Entresto) 1 tab PO BID 90 days tamsulosin (Flomax) 0.4 mg PO BID ticagrelor (Brilinta) 90 mg PO BID 90 days HPI Comments Details: Luis returns for follow-up regarding coronary artery disease. He has been previously seen by our nurse practitioner. Due to findings of mild cardiomyopathy on a prior echocardiogram, he underwent ischemic workup with a stress test which was essentially unremarkable. However, couple months later he actually had a anterior wall STEMI. Underwent LAD stenting. Prior to that episode, he states he never really had any chest pain. Subsequent to stenting again no further symptoms. History of diabetes. No smoking or drugs. Overall doing well. No clear-cut symptoms. 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 Current occupation: [employer] Cognitive needs: No Hearing needs: No Vision needs: Yes (glasses) Review of Systems Const All systems reviewed & are unremarkable except as noted in HPI and below Denies chills, Denies fatigue, Denies fever(s), Denies weight gain and Denies weight loss Eyes Reports as per HPI and Denies no additional complaints ENT Denies no additional complaints and Reports as per HPI Card Denies chest pain, Denies leg edema, Denies lightheadedness, Denies palpitations, Denies dyspnea on exertion and Denies orthopnea Resp Denies cough and Denies dyspnea on exertion GI Denies hematochezia and Denies change in stool character Reports no additional complaints and Reports as per HPI Musc Denies muscle weakness and Denies radiating pain into limb Skin/Breast Reports system reviewed and no additional complaints, except as documented Neuro Reports no additional complaints and Reports as per HPI Psych Reports no additional complaints and Reports as per HPI Endo Denies fatigue and Denies palpitations Alfonso/Lymph Reports no additional complaints and Reports as per HPI Aller/Immun Reports no additional complaints and Reports as per HPI Physical Exam Vital Signs: Last Vital Signs Pulse 70 05/01/24 09:08 BP 100/54 L 05/01/24 09:08 BMI result Body Mass Index 30.2 Const General: comfortable and no acute distress Orientation/consciousness: patient oriented x3 HEENT Other: Unremarkable Head: Yes normal to inspection Neck Neck: Yes normal visual inspection Chest Chest palpation & inspection: normal inspection of the chest Resp Auscultation: clear to auscultation bilaterally Cardio Palpation: normal PMI Heart sounds: S1 normal heart sound present, S2 normal heart sound present, no gallops, no murmurs and no rubs GI Palpation (GI): Soft to palpation Back/Spine/Pelvis Other: unremarkable Skin General skin exam: no rashes or lesions noted Neuro General: patient oriented x3 Extrem General: Yes normal to inspection Psych Mental Status: mental status grossly normal Office Procedures EKG Details: EKG with sinus rhythm at 70/Min; old anteroseptal infarct. [id number], Complete Assessment & Plan Assessment & Plan (1) STEMI (ST elevation myocardial infarction): Code(s): I21.3 - ST elevation (STEMI) myocardial infarction of unspecified site Category: Medical (2) Ischemic cardiomyopathy: Code(s): I25.5 - Ischemic cardiomyopathy Category: Medical (3) Atherosclerotic cardiovascular disease: Code(s): I25.10 - Atherosclerotic heart disease of [place] coronary artery without angina pectoris Category: Medical (4) Type 2 diabetes mellitus: Comment: recently started on glipizide & metformin Code(s): E11.9 - Type 2 diabetes mellitus without complications Category: Medical Qualifiers: Diabetes mellitus complication status: with hyperglycemia Diabetes mellitus skilled nursing insulin use: without skilled nursing use Qualified Code(s): E11.65 - Type 2 diabetes mellitus with hyperglycemia Plan In the most recent echocardiogram, LVEF is 30-35%. Prior to that, echocardiogram from October 2023, again similar LVEF. Overall, no change. Cardiac catheterization 09/2023-100% stenosis in the distal subsection of proximal LAD, status post PCI. Otherwise, only minimal irregularities. Overall, coronary disease, ischemic cardiomyopathy but clinically no overt symptoms. For medications, continue aspirin. Brilinta for 1 year. Continue beta-blockers/Entresto. Blood pressure somewhat lowish. He does get some occasional dizziness and if it persists, cut back on Coreg dosing. Continue high-dose statins. Last LDL 26 mg/dL. Four diabetes, on Trulicity, Jardiance, metformin. Hemoglobin A1c is 7.4%. Due to persistently low EF and ischemic cardiomyopathy history, discussed about prophylactic ICD. He is interested. We will refer to EP. Coding Level of Care Code Est Pt Level 4 (03065) Diagnoses STEMI (ST elevation myocardial infarction) I21.3 Ischemic cardiomyopathy I25.5 Atherosclerotic cardiovascular disease I25.10 Type 2 diabetes mellitus with hyperglycemia, without long-term current use of insulin E11.65 Diabetes mellitus complication status: with hyperglycemia Diabetes mellitus skilled nursing insulin use: without skilled nursing use CPT Codes EKG - CPT: 79619-[id number], Complete ([id number])
== END 2024-05-01 10:00 | disposition home or self-care (01) ==
PROVIDERS: Visit Provider Internal Medicine
DX: I21.3 ST elevation (STEMI) myocardial infarction of unspecified site (principal); I25.5 Ischemic cardiomyopathy; I25.10 Atherosclerotic heart disease of native coronary artery without angina pectoris; E11.65 Type 2 diabetes mellitus with hyperglycemia
CPT/HCPCS: 93010; 99214

== ENCOUNTER → 2024-05-01 09:07 | Outpatient (BNVA) | payer OTHER, SELFPAY | PROVIDERS: Visit Provider Internal Medicine | DX: I25.5 Ischemic cardiomyopathy (principal); I25.10 Atherosclerotic heart disease of native coronary artery without angina pectoris; E11.65 Type 2 diabetes mellitus with hyperglycemia; I25.2 Old myocardial infarction; Z79.82 Long term (current) use of aspirin; Z79.84 Long term (current) use of oral hypoglycemic drugs; Z79.899 Other long term (current) drug therapy | CPT/HCPCS: 93005 ==

== ENCOUNTER 2024-05-31 09:05 | Outpatient (REF) | payer OTHER, SELFPAY ==
[2024-05-31 09:14] LABS: MANUAL DIFF FLAG NO
[2024-05-31 09:21] LABS: Basophils Absolute Auto 0.1 X10*3/uL (0.0-0.2); Basophils Percent Auto 0.6 % (0-2); Eosinophils Absolute Auto 0.3 X10*3/uL (0.0-0.4); Eosinophils Percent Auto 3.1 % (0-4); Hematocrit 38.8 % (42.0-52.0); Hemoglobin 13.4 g/dl (14.0-18.0); Imm Gran Abs Auto 0.04 X10*3/uL (0.00-0.03); Imm Gran Pct Auto 0.4 % (0.0-0.4); Lymphocytes Percent Auto 29.9 % (20-40); Mean Corpuscular HGB Conc 34.5 g/dl (31.0-36.0); Mean Corpuscular Hemoglobin 29.3 pg (27.0-33.0); Mean Corpuscular Volume 84.7 fL (80.0-98.0); Mean Platelet Volume 9.2 fL (9.4-12.4); Monocytes Absolute Auto 0.8 X10*3/uL (0.1-1.2); Monocytes Percent Auto 8.1 % (2-11); Neutrophils Absolute Auto 5.8 x10*3/uL (2.0-8.3); Neutrophils Percent Auto 57.9 % (45-73); Platelet Count 290 X10*3/uL (160-400); Red Blood Count 4.58 X10*6/uL (4.60-5.80); Red Cell Distribution Width 13.5 % (11.0-16.0); White Blood Count 10.1 X10*3/uL (4.8-10.8)
[2024-05-31 09:25] LABS: INTERNATIONAL NORM RATIO 0.9 (0.9-1.1)
[2024-05-31 09:53] LABS: Anion Gap 9 (12-20); Blood Urea Nitrogen 19 mg/dL (9-16); Calcium 9.8 mg/dL (8.4-10.2); Carbon Dioxide 25 mmol/L (22-29); Chloride 111 mmol/L (96-108); Estimated Glomerular Filt Rate > 60; Glucose Random 168 mg/dL (60-115); Potassium 3.6 mmol/L (3.3-5.1); Sodium 141 mmol/L (135-145)
== END 2024-05-31 09:06 | disposition home or self-care (01) ==
LOC: HO.LAB 09:05
PROVIDERS: PCP Internal Medicine; Visit Provider Internal Medicine Cardiovascular Disease
DX: I50.9 Heart failure, unspecified (principal)
CPT/HCPCS: 36415; 51798; 80048; 81003; 85025; 85610

== ENCOUNTER 2024-05-31 09:42 | Outpatient (AMB) | payer OTHER, SELFPAY ==
--- NOTE | 2024-05-31 09:56 | A.OFFVIS_ITS ---
Intake Visit Reasons: 3m/US(US 04/30) Intake Note: Patient presents today for a follow-up on US Results. Meds- Tamsulosin Allergies to Antibiotic- No Known Allergies Blood Thinner- Aspirin PVR:408mL Horseradish Maker Required: No Accompanied by: Self / Same As Patient Allergies No Known Allergies Allergy (Verified 05/31/24 09:57) HPI Comments Details: 05/31/24--here for fu. h/o neurogenic bladder on flomax and bethanochol. states he ran out of the bethanochol about a 6 weeks ago, called office and med was not refilled. He has been taking the flomax. He states he has pacemaker scheduled for next Monday. PVR >400 mL. UA nitrite positive. In review of previous c/s -- I will empiracally place him on macrobid. bactrim interacts with one of his meds. He denies any urinary symptoms, dysuria, fever. Discussed renal US, Mild left hydro, minimally improved. I will increase bethanochol to 50 mg tid. Review of chart: 02/29/2024--Luis is here in follow-up. He states that he has not been doing the clean intermittent catheterization. He states he tried once and had some difficulty and did not try again. I have reviewed the renal ultrasound which shows that the bilateral hydronephrosis is recurrent. I have discussed with the patient risks related to incomplete bladder emptying and referred pressure on the kidneys that may cause kidney damage. Recommended Marie catheter. Patient declines. Discussed other evaluation and therapy to investigate including urodynamics. Urinalysis today nitrite positive. Will send urine for culture. Hold on antibiotics until culture results. Trial of increasing Flomax to b.i.d., bethanechol 25 mg t.i.d. repeat renal ultrasound in 2 months. 12/01/23--Luis is a 48-year-old male who presents today to the office for follow up. He has been followed for hydronephrosis secondary to obstructive uropathy, and was treated for UTI and fungemia. 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 He is s/p urethral dilation and on cystoscopy was noted to have bladder neck scarring which needed dilation. He also has neurogenic bladder. 16 fr marie removed by nursing staff. Office cystoscopy not indicated today. (cystoscopy done on 10/06/23 - bladder neck open) I want the patient to follow up with nursing to learn CIC. 10/20/23--He presents today in fu and states he was hospitalized at [facility] for an MT and had a cardiac cath, he was discharged last night. He currently has marie in place (placed 10/06/23) and is draining it every 2-3 hours during the day and to drainage at night time. The patient states he was started on new meds at [facility] but does not remember the names, he will call once he gets home. Will reconcile meds once we have the updated medications available. Exam- penis, meatus no excoriation. Cont marie, fu for nurse visit in 2 wks for catheter change, fu with me in 6 weeks for cysto and possible catheter removal vs change. Renal US prior. 10/06/23--Luis is s/p procedure to dilate urethral meatus and bladder neck 2 days ago, he states the marie mechanism controlling the marie balloon got broken and the marie slipped out of position. Office cysto - today, notes bladder neck is wide open, the pilot station tip marie was placed over a guide wire and the marie was clamped. The patient was instructed to drain the catheter every 2-3 hr duing the daytime and keep to gravity drainage at night. 08/16/2023? The patient was seen in consultation while as an in-patient on 07/04/2023. He has a past medical history significant for type 2 diabetes. Urine culture and blood culture during the admission came back positive for [place], and strep agalastiae group B. He was treated with Antibiotics. Patient was started on Flomax. FU noted persistent elevated PVR. Bladder scan PVR >600 mL Evaluation today?UA? leukocytes: 3 +; nitrite: positive; blood: 2 +. I discussed placing a marie. On attempts to place a Marie catheter, the meatus was stenotic. I attempted to dilate with a 14 Urdu dilator, however even with use of lidocaine jelly the patient was not able to tolerate due to pain. I have discussed with the patient urethral dilation and Cystoscopy as an outpt procedure. Patient received macrobid 100 mg [address] dose here. [address] abdomen/pelvis results from 07/03/2023 revealed moderate bilateral hydronephrosis and ureteral dilatation down to the bladder. Diffuse bladder wall thickening. Slightly enlarged low-attenuation prostate gland worrisome for infection/prostatitis. 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 Current occupation: [employer] Cognitive needs: No Hearing needs: No Vision needs: Yes (glasses) Review of Systems Const All systems reviewed & are unremarkable except as noted in HPI and below Reports no additional complaints Eyes Reports no additional complaints ENT Reports no additional complaints Card Reports no additional complaints Resp Reports no additional complaints GI Reports no additional complaints Reports as per HPI Musc Reports no additional complaints Skin/Breast Reports system reviewed and no additional complaints, except as documented Neuro Reports no additional complaints Psych Reports no additional complaints Endo Reports no additional complaints Alfonso/Lymph Reports no additional complaints Aller/Immun Reports no additional complaints Office Procedures Post Void Residual Post Residual Void Post Void Residual (PVR): 408 [id number] Void Residual by ultrasound Results AMB Urinalysis, Automated UA Leukoctes 70 Krystina/uL Last Edit by Erin Morgan CMA on 05/31/24 10:05 UA Nitrite Positive Last Edit by Erin Morgan CMA on 05/31/24 10:05 UA Urobilinogen 0.2 mg/dL Last Edit by Erin Morgan CMA on 05/31/24 10:05 UA Protein 100 mg/dL Last Edit by Erin Morgan CMA on 05/31/24 10:05 UA pH 6.0 Last Edit by Erin Morgan CMA on 05/31/24 10:05 UA Blood 200 Georgi/uL Last Edit by Erin Morgan CMA on 05/31/24 10:05 UA Specific [place] 1.015 Last Edit by Erin Morgan CMA on 05/31/24 10:05 UA Ketone Negative Last Edit by Erin Morgan CMA on 05/31/24 10:05 UA Bilirubin 0 mg/dL Last Edit by Erin Morgan CMA on 05/31/24 10:05 UA Glucose 1000 mg/dL Last Edit by Erin Morgan CMA on 05/31/24 10:05 Results Reviewed Results Reviewed: Laboratory Last Values Urine pH (Auto) 6.0 05/31/24 09:58 Specific [place] (Auto) 1.015 05/31/24 09:58 Urine Protein (Auto) 100 mg/dL 05/31/24 09:58 Glucose (UA)(Auto) 1000 mg/dL 05/31/24 09:58 Urine Ketones (Auto) Negative 05/31/24 09:58 Urine Blood (Auto) 200 Georgi/uL 05/31/24 09:58 Urine Nitrite (Auto) Positive 05/31/24 09:58 Urine Bilirubin (Auto) 0 mg/dL 05/31/24 09:58 Urine Urobilinogen (Auto) 0.2 mg/dL 05/31/24 09:58 Leukocyte Esterase (Auto) 70 Krystina/uL 05/31/24 09:58 Date of Service: 04/30/24 US RETROPERITONEAL LIMITED (RENAL ONLY) CLINICAL INFORMATION: Unspecified hydronephrosis. COMPARISON: Ultrasound kidneys and bladder 12/27/2023. Renal ultrasound 11/17/2023. CT abdomen and pelvis 07/03/2023. TECHNIQUE: Real-time imaging of the kidneys. FINDINGS: RIGHT KIDNEY: 12.1 x 6.6 x 5.4 cm (SAG x AP x TRV). The kidney is normal in size, contour, and echogenicity. Renal cortical thickness is normal. No calculi or focal parenchymal lesions. No hydronephrosis. Previously seen right-sided hydronephrosis on the prior CT scan is not evident on the current study. LEFT KIDNEY: 12.1 x 5.0 x 4.8 cm (SAG x AP x TRV). The kidney is normal in size, contour, and echogenicity. Renal cortical thickness is normal. No renal calculi or focal parenchymal lesions. There is mild left-sided hydronephrosis and dilatation of the left ureter to a maximum of 1.4 cm. Similar findings were seen on the 12/27/2023 study. IMPRESSION: Mild left-sided hydronephrosis and dilatation of the left ureter. Date of Service: 12/27/23 EXAMINATION: US RETROPERITONEAL COMPLETE (RENAL) CLINICAL INFORMATION: Neuromuscular dysfunction bladder. COMPARISON: 11/17/2023 TECHNIQUE: Real-time imaging of the kidneys and bladder. FINDINGS: RIGHT KIDNEY: 12.6 x 5.4 x 5.4 cm (SAG x AP x TRV). The kidney is normal in size, contour, and echogenicity. Renal cortical thickness is normal. No calculi or focal parenchymal lesions. In comparison with previous study, increasing right mild hydronephrosis. Proximal right hydroureter also identified. LEFT KIDNEY: 12.5 x 5.4 x 5.4 cm (SAG x AP x TRV). The kidney is normal in size, contour, and echogenicity. Renal cortical thickness is normal. No calculi or focal parenchymal lesions. Interval development of moderate left hydronephrosis with megaureter identified measuring 1.6 cm. BLADDER: Despite urinary bladder wall distention, diffusely thickened bladder wall to 4 mm. Urinary bladder debris again seen. Bilateral ureteral jets are demonstrated. Prevoid bladder volume 561.2 mL. 2 post void residuals were obtained, first measures 305.4 mL, second 253 mL. Prominent heterogeneous prostate measuring 39.6 mL. IMPRESSION:. Interval development of moderate left hydronephrosis and left megaureter to 1.6 cm. Interval development of mild right hydroureteronephrosis. (Similar findings were present on 09/04/2023 with resolution on most recent 11/17/2023 renal ultrasound.) Distended urinary bladder with wall thickening and significant post void residual. Prominent heterogeneous prostate. Date of Service: 07/03/23 EXAMINATION: CT ABDOMEN AND PELVIS WITH CONTRAST?? CLINICAL INFORMATION: Fungemia. Evaluate for obstruction or stones?? COMPARISON: Chest CT 07/01/2023 FINDINGS: LUNG BASES: Increased groundglass attenuation at the lung bases. This is increased from previous chest CT 07/01/2023 LIVER, GALLBLADDER, AND BILIARY TREE: The liver is normal in shape and attenuation. Liver may be slightly enlarged, right lobe measuring 19 cm in length. No focal hepatic lesion or biliary ductal dilatation is present. The gallbladder is contracted. PANCREAS: Unremarkable.?? SPLEEN: Spleen is slightly enlarged measuring 15 cm in length. ADRENAL GLANDS: Unremarkable.?? KIDNEYS AND URETERS: The kidneys are normal in size, shape, and attenuation. Bilateral moderate hydronephrosis and ureteral dilatation down to the bladder. No stone seen. Bilateral perinephric stranding. BLADDER: Diffusely thickened bladder wall. Infectious, inflammatory and neoplastic processes should be considered. GASTROINTESTINAL TRACT: The small and large bowel are unremarkable. The appendix is unremarkable.?? ABDOMINAL WALL: No significant hernia is appreciated.?? LYMPH NODES: Normal. VASCULAR: Unremarkable. PELVIC VISCERA: The prostate gland is slightly enlarged and measures 4.2 x 4.6 cm in AP and transverse dimension. Prostate gland is heterogeneous in attenuation with low-attenuation areas. Appearance is questionable for prostatitis. There is a small amount of fluid in the pelvis.? OSSEOUS STRUCTURES: Degenerative disc disease at L4-L5. IMPRESSION: Moderate bilateral hydronephrosis and ureteral dilatation down to the bladder. Diffuse bladder wall thickening. Infectious, inflammatory and neoplastic processes should be considered. Slightly enlarged low-attenuation prostate gland worrisome for infection/prostatitis as well. Groundglass attenuation bases. This is slightly increased from previous chest CT. Pneumonitis/atypical pneumonia and fluid overload/pulmonary edema should be considered. Mild hepatosplenomegaly. Assessment & Plan Assessment & Plan (1) Neurogenic bladder: Code(s): N31.9 - Neuromuscular dysfunction of bladder, unspecified Category: Medical (2) Other urethral stricture, male, meatal: Code(s): N35.811 - Other urethral stricture, male, meatal Category: Medical (3) Incomplete bladder emptying: Code(s): R33.9 - Retention of urine, unspecified Category: Medical (4) Obstructive uropathy: Code(s): N13.9 - Obstructive and reflux uropathy, unspecified Category: Medical (5) Hydronephrosis: Code(s): N13.30 - Unspecified hydronephrosis Category: Medical (6) Bacteriuria, asymptomatic: Code(s): R82.71 - Bacteriuria Category: Medical (7) Bacteriuria, chronic: Code(s): R82.71 - Bacteriuria Category: Medical Plan Will send urine for culture. Hold on antibiotics until culture results. Trial of increasing Flomax to b.i.d., bethanechol 25 mg t.i.d. repeat renal ultrasound in 2 months Orders: Orders AMB Post Void Residual by ultrasound Today Z13.9 - Encounter for screening, unspecified AMB Urinalysis Automated Today Z13.9 - Encounter for screening, unspecified Medications: New bethanechol chloride 50 mg PO TID 90 tabs 11RF nitrofurantoin monohyd/m-cryst 100 mg (Macrobid) must administer with a meal/food 100 mg PO BID 10 days 20 caps 0RF Refilled tamsulosin (Flomax) 0.4 mg PO BID 180 caps 1RF Discontinued bethanechol chloride Discontinued Reason: Doctor's Order 25 mg PO TID 90 tabs 1RF Patient Instructions: The patient had an opportunity to ask questions regarding treatment plan. The patient expressed understanding and agreement with the above treatment plan. The patient is aware they should contact our office by phone for worsening of their current condition or the appearance of new symptoms. Compliance is encouraged with any medications and followup testing that is ordered. It is a privilege to be allowed the opportunity to participate in the urologic care of your patient. If you have any questions or concerns regarding treatment for the above conditions please do not hesitate to contact me. The office telephone contact is [phone]. This note is constructed in part using voice recognition software. While every effort has been made to ensure accuracy relationship manager errors may have been included. Yours sincerely, Giovanni Donovan MD Coding Level of Care Code Est Pt Level 4 (08435) Diagnoses Neurogenic bladder N31.9 Other urethral stricture, male, meatal N35.811 Incomplete bladder emptying R33.9 Obstructive uropathy N13.9 Hydronephrosis N13.30 Bacteriuria, asymptomatic R82.71 Bacteriuria, chronic R82.71 CPT Codes Post Residual Void - PVR CPT Code: 41495-Xuaj Void Residual by ultrasound ([id number])
== END 2024-05-31 10:29 | disposition home or self-care (01) ==
PROVIDERS: Visit Provider Urology
DX: N31.9 Neuromuscular dysfunction of bladder, unspecified (principal); N35.811 Other urethral stricture, male, meatal; R33.9 Retention of urine, unspecified; N13.9 Obstructive and reflux uropathy, unspecified; N13.30 Unspecified hydronephrosis; R82.71 Bacteriuria; Z13.9 Encounter for screening, unspecified
CPT/HCPCS: 99214

== ENCOUNTER 2024-05-31 10:33 | Outpatient (REF) | payer OTHER, SELFPAY | END 2024-05-31 10:34 | disposition home or self-care (01) | LOC: HO.LNP 10:33 | PROVIDERS: Visit Provider Urology | DX: N39.0 Urinary tract infection, site not specified (principal) | CPT/HCPCS: 87086; 87088; 87186 ==

== ENCOUNTER → 2024-06-04 13:22 | Outpatient (BNV) | payer OTHER, SELFPAY | PROVIDERS: Admitting Provider Internal Medicine Cardiovascular Disease; Visit Provider Internal Medicine | DX: R94.31 Abnormal electrocardiogram [ECG] [EKG] (principal) | CPT/HCPCS: 93010 ==

== ENCOUNTER 2024-06-04 14:30 | Observation (INO) | payer OTHER, SELFPAY ==
--- NOTE | 2024-06-03 09:49 | HO.ANESPROP2 ---
Documented by User: Abigail Frey NP 06/03/24 11:00 HPI - Anesthesia Eval Consult details Narrative: 49yo M for Single Chamber ICD Insertion Brillinta for NSTEMI with PCI 09/2023 Anesthesia Pre-Procedure Meds Is the patient on any of the following meds?: GLP1/DPP4 and SGLT2 Inhib PMFSH Active Problems Active Problems: All Active Problems Bacteriuria, chronic (Acute) Bacteriuria, asymptomatic (Acute) Recurrent UTI (Acute) Hydronephrosis (Acute) Ischemic cardiomyopathy (Acute) Neurogenic bladder (Acute) Atherosclerotic cardiovascular disease (Acute) S/P cardiac cath (Acute) STEMI (ST elevation myocardial infarction) (Acute) Cruz catheter in place (Acute) Other urethral stricture, male, meatal (Acute) Incomplete bladder emptying (Acute) Hospital discharge follow-up (Acute) Abnormal echocardiography findings without diagnosis (Acute) Cardiomyopathy (Acute) Obstructive uropathy (Acute) Bilateral hydronephrosis (Acute) Fungemia (Acute) Bacteremia due to Gram-positive bacteria (Acute) Acute respiratory failure with hypoxia (Acute) Poorly controlled diabetes mellitus (Acute) Pseudohyponatremia (Acute) Candidiasis of esophagus (Acute) Acute UTI (Acute) Acute hyponatremia (Acute) DANNIE (acute kidney injury) (Acute) Acute hyperglycemia (Acute) No pertinent past surgical history (Acute) Type 2 diabetes mellitus (Acute) Past Medical History Medical History Atherosclerotic cardiovascular disease Heart attack Obstructive uropathy Cardiomyopathy Type 2 diabetes mellitus Family History Family History Brother Heart attack Maternal Grandfather CHF (congestive heart failure) Cancer Other Mental health disorder Substance use disorder Family history of problems with anesthesia: No Surgical History Surgical History History of heart artery stent History of Problems with Anesthesia: Unobtainable Social History Social History Household Members: Family Housing: House Alcohol intake: never Patient Tobacco Use Status: Never used Tobacco e-Cigarette/Vaping Use: Never Used Second Hand Smoke Exposure: No Use of substances other than those prescribed or required for medical reasons: No Advance Directives: No Advance Directives Information 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 The visually estimated ejection fraction is between 30-35%. - Wall motion abnormalities related to underlying coronary artery disease. - No obvious valvular pathology seen on this study. EKG 04/2024 sinus rhythm at 70/Min; old anteroseptal infarct Cardiac catheterization 09/2023-100% stenosis in the distal subsection of proximal LAD, status post PCI. Otherwise, only minimal irregularities. Assessment and Plan Assessment Anesthesia Assessment: Chart Reviewed Final Anesthetic Review Family History of Problems with Anesthesia: No History of Problems with Anesthesia: Unobtainable Documented by User: Jass Mendez MD 06/04/24 13:45 [facility] Past Medical History Medical History Atherosclerotic cardiovascular disease Heart attack Obstructive uropathy Cardiomyopathy Type 2 diabetes mellitus Family History Family History Brother Heart attack Maternal Grandfather CHF (congestive heart failure) Cancer Other Mental health disorder Substance use disorder Surgical History Surgical History History of heart artery stent History of Problems with Anesthesia: No Social History Social History Household Members: Family Housing: House Alcohol intake: never Patient Tobacco Use Status: Never used Tobacco e-Cigarette/Vaping Use: Never Used Second Hand Smoke Exposure: No Use of substances other than those prescribed or required for medical reasons: No Advance Directives: No Advance Directives Information 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 Current occupation: [employer] Cognitive needs: No Hearing needs: No Vision needs: Yes (glasses) Meds Allergies Allergy/AdvReac Type Severity Reaction Status Date / Time No Known Allergies Allergy Verified 06/04/24 12:49 Exam Airway Mallampati Class: II TM Dist: >3cm Neck ROM: Full Loose/Missing/Broken Teeth: No Heart: see above Lungs: ok Assessment and Plan Assessment Anesthesia Assessment: Anesthesia Plan Discussed Final Anesthetic Review History of Problems with Anesthesia: No NPO: Yes ASA Class: IV Final Preanesthetic Review: No Changes in Pt Med Stat, Meds/Allgs Chart Reviewed, Consent Obtained/Reviewed and Anes Risks/Benef Reviewed Patient Risk: High Procedure Risk: Intermediate Anesthetic Plan Anesthetic Plan: GA and Agree w/ Assess. and Plan Disposition: Standard PACU
[2024-06-04] VITALS (10 sets, daily range): BP systolic 105–125; BP diastolic 64–76; PULSE 62–76; RESP 14–18; TEMP 36.2–36.6; O2SAT 97–98; BMI 28.7
--- NOTE | ~2024-06-04 | XR_ITS ---
EXAMINATION: XR CHEST CLINICAL INFORMATION: Single chamber ICD COMPARISON: 06/30/2020 TECHNIQUE: 2 views of the chest were obtained. FINDINGS: Lungs are clear, cardiomediastinal silhouette is normal. There is single chamber ICD identified with the battery on the left. XR/XR chest 2V IMPRESSION: ICD in place
--- NOTE | ~2024-06-04 | FL_ITS ---
EXAMINATION: XR FLUOROSCOPY WITH IMAGES CLINICAL INFORMATION: ICD insertion COMPARISON: None available. TECHNIQUE: Fluoroscopy Supervised By: Denice Fluoroscopy Time: 0.7 minutes. Cumulative Dose: 9.03 mGy. DAP: 0.157 Gycm2. Images: 1. FINDINGS: Single chamber ICD insertion FL/FL guidance in OR IMPRESSION: ICD insertion
[2024-06-04] MEDS: Lactated Ringers 1,000 ML 50 ML IVCONT (12:42)
[2024-06-04 12:47] LABS: Glucose, Whole Blood 167 mg/dL (60-115)
--- NOTE | 2024-06-04 13:22 | ECG_ITS ---
Test Reason : preop Blood Pressure : / mmHG Vent. Rate : 068 BPM Atrial Rate : 068 BPM P-R Int : 174 ms QRS Dur : 090 ms QT Int : 398 ms P-R-T Axes : 041 036 073 degrees QTc Int : 423 ms Normal sinus rhythm Low voltage QRS Cannot rule out Anteroseptal infarct , age undetermined Abnormal ECG When compared with ECG of 30-JUN-2023 20:26, Vent. rate has decreased BY 60 BPM QRS voltage has decreased Minimal criteria for Anteroseptal infarct are now Present T wave inversion now evident in Anterior leads Referred By: Kilo Vasquez Electronically Signed By:BRYAN ABREU
--- NOTE | 2024-06-04 14:41 | W.PM.OPN ---
Operative Note Operative Note Date of Service: 06/04/24
--- NOTE | 2024-06-04 16:36 | P.OP_ITS ---
Operative Note Operative Note Date of Service: 06/04/24 Narrative: NAME OF PROCEDURE: Subcutaneous?ICD?implantation (Healthcare IT DFT testing INDICATION FOR PROCEDURE:??Systolic heart failure: Primary prevention ICD SEDATION:??General anesthesia Description of Procedure:??Patient was identified brought to the electrophysiology laboratory in a postabsorptive state.? A 2.5 cm horizontal subxiphoid incision was made to the left of midline. Tissue was dissected to the fascia. The ICD ?lead was tunnelled to the center of sternum about 4 cm below the sternal notch. Lead was advanced over the sternum and extended to the lateral pocket with the tunnelling tool The initial incision was made lateral to the left of the pectoralis major muscle in a diagonal approach and was carried to the level of the pectoralis fascia in a diagonal approach and was carried to the level of the muscle.? Dissection was then carried down posteriorly along the thoracic cage deep to the latissimus dorsi muscle, where hemostasis was assured inside the pocket to accommodate t he?ICD?pulse generator. The patient received IV Antibiotics prior to the case for surgical prophylaxis. Hemostasis was obtained with electrocautery . Using a tunnelling tool, a tract was created from the subxiphoid incision to pocket that was made in the axillary line. ICD electrode was advanced from the subxiphoid incision site to the anterior axillary pocket. The anterior axillary incision site was flushed with an antibiotic solution. The subxiphoid and the anterior axillary incisions were closed using 2-0 Vicryl. Following this DFT testing was performed. VF was induced 65 J shock was del ivered and was successful. Dermabond was applied over the incision sites. After reversing anesthesia, patient was transferred to recovery in a stable condition.\ PLAN: 1.?Routine postprocedure monitoring. 2.?CXR tomorrow POST OP INSTRUCTIONS 1. No shower 3 days 2. Donot remove bandage till seen in clinic 3. Adequate pain control. 4. Followup in wound care clinic
[2024-06-04 18:25] LABS: Glucose, Whole Blood 170 mg/dL (60-115)
--- NOTE | 2024-06-04 18:37 | PHA.MEDREC ---
Pharmacy Consult ? Medication Reconciliation Pharmacy has reviewed the medication reconciliation completed by nursing. Patient takes Trulicity on Monday, last took all medications yesterday except Metformin last taken on Saturday 06/02, and Jardiance last taken Friday 06/01.
[2024-06-04] MEDS: 0.9 % Sodium Chloride Flush 3 ML SYRINGE IVFLUSH ×2 (18:45→20:33)
[2024-06-04] MEDS: metFORMIN HCl 1,000 MG TABLET 1000 MG PO (18:45)
[2024-06-04] MEDS: Atorvastatin Calcium 80 MG TABLET PO (18:45)
[2024-06-04] MEDS: carvediloL 6.25 MG TABLET PO (20:33)
[2024-06-04] MEDS: Sacubitril/Valsartan 24/26 1 TAB TABLET PO (20:33)
[2024-06-04] MEDS: Nitrofurantoin Monohyd/M-Cryst 100 MG CAPSULE PO (20:33)
[2024-06-04] MEDS: Bethanechol Chloride 25 MG TABLET 50 MG PO (20:33)
[2024-06-04] MEDS: Ticagrelor 90 MG TABLET PO (20:33)
[2024-06-04] MEDS: Tamsulosin HCL 0.4 MG CAPSULE PO (20:33)
[2024-06-05 03:38] VITALS: BP 111/66; PULSE 74; RESP 18; TEMP 36.4; O2SAT 95
[2024-06-05 06:45] LABS: MANUAL DIFF FLAG NO
--- NOTE | 2024-06-05 06:53 | PC.NURSE ---
Patient night was uneventful, he is A/O x4 he denies pain at this time, lung sounds are clear vitals are stable. Patient takes medication whole with thin liquids. He is able to turn and reposition self in bed, dressing to lateral left side DCI . No sign of respiratory distress no edema to lower extremities .Please see [facility] for more details.
[2024-06-05 06:55] LABS: Basophils Percent Auto 0.1 % (0-2); Hematocrit 38.8 % (42.0-52.0); Imm Gran Abs Auto 0.06 X10*3/uL (0.00-0.03); Imm Gran Pct Auto 0.4 % (0.0-0.4); Lymphocytes Absolute Auto 2.2 X10*3/uL (1.2-4.9); Lymphocytes Percent Auto 13.1 % (20-40); Mean Corpuscular HGB Conc 33.5 g/dl (31.0-36.0); Mean Corpuscular Hemoglobin 28.5 pg (27.0-33.0); Mean Corpuscular Volume 85.1 fL (80.0-98.0); Mean Platelet Volume 9.6 fL (9.4-12.4); Monocytes Absolute Auto 0.9 X10*3/uL (0.1-1.2); Monocytes Percent Auto 5.3 % (2-11); Neutrophils Absolute Auto 13.4 x10*3/uL (2.0-8.3); Neutrophils Percent Auto 81.1 % (45-73); Platelet Count 294 X10*3/uL (160-400); Red Blood Count 4.56 X10*6/uL (4.60-5.80); Red Cell Distribution Width 13.7 % (11.0-16.0); White Blood Count 16.5 X10*3/uL (4.8-10.8)
[2024-06-05 07:13] LABS: Alanine Aminotransferase 25 U/L (0-40); Albumin Level 4.1 g/dL (3.5-5.0); Alkaline Phosphatase 52 U/L (39-117); Anion Gap 12 (12-20); Aspartate Amino Transferase 13 U/L (5-37); Bilirubin Total 0.8 mg/dL (0.0-1.0); Blood Urea Nitrogen 16 mg/dL (9-16); Calcium 9.6 mg/dL (8.4-10.2); Carbon Dioxide 24 mmol/L (22-29); Chloride 108 mmol/L (96-108); Creatinine Clr Calc Pharmacy 104.6; Estimated Glomerular Filt Rate > 60; Glucose Random 143 mg/dL (60-115); Potassium 3.9 mmol/L (3.3-5.1); Sodium 140 mmol/L (135-145); Total Protein 6.7 g/dL (6.5-8.0)
[2024-06-05 07:31] VITALS: BP 108/67; PULSE 67; RESP 19; TEMP 36.3; O2SAT 97
[2024-06-05] MEDS: Tamsulosin HCL 0.4 MG CAPSULE PO (08:17)
[2024-06-05] MEDS: Aspirin Enteric Coated 81 MG TABLET.DR PO (08:17)
[2024-06-05] MEDS: metFORMIN HCl 1,000 MG TABLET 1000 MG PO (08:17)
[2024-06-05] MEDS: Nitrofurantoin Monohyd/M-Cryst 100 MG CAPSULE PO (08:17)
[2024-06-05] MEDS: Sacubitril/Valsartan 24/26 1 TAB TABLET PO (08:17)
[2024-06-05] MEDS: Empagliflozin 10 MG TABLET PO (08:17)
[2024-06-05] MEDS: 0.9 % Sodium Chloride Flush 3 ML SYRINGE IVFLUSH (08:18)
[2024-06-05] MEDS: carvediloL 6.25 MG TABLET PO (08:18)
[2024-06-05] MEDS: Ticagrelor 90 MG TABLET PO (08:18)
[2024-06-05] MEDS: Atorvastatin Calcium 80 MG TABLET PO (08:18)
[2024-06-05] MEDS: Bethanechol Chloride 25 MG TABLET 50 MG PO (08:18)
--- NOTE | 2024-06-05 08:27 | MHC.CM.PN ---
CM met with Patient at bedside and addressed ADAMS with him, providing Patient with the original and a copy has been placed on the chart. 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 Home/self care is the goal and CM has initiated and will follow for dc planning. PCP is Dr. Wright.Father or Daughter will transport to home.
--- NOTE | 2024-06-05 10:02 | HO.POSTANES ---
Post Anesthesia Evaluation Post Anesthesia Evaluation Date of Service: 06/04/24 Vital Signs: Vital Signs Temp Pulse Resp BP Pulse Ox O2 Del Method 06/05/24 07:31 97.4 F 67 19 108/67 97 Room Air 06/05/24 03:38 97.6 F 74 18 111/66 95 Room Air 06/04/24 23:18 97.4 F 75 18 106/64 97 Room Air Anesthesia: General LMA Mental Status: Awake Pain Control: Satisfactory Nausea/Vomiting: None Hydration: Adequate Anesthesia-Related Issues: No Anes. Related Issues
[2024-06-05 10:59] LABS: Glucose, Whole Blood 142 mg/dL (60-115)
[2024-06-05 11:18] VITALS: BP 107/58; PULSE 68; RESP 19; TEMP 36.3; O2SAT 98
--- NOTE | 2024-06-05 11:49 | PC.NURSE ---
pressure dressing removed at 10:20 this morning per Kilo Vasquez telephone order.
--- NOTE | 2024-06-05 11:55 | PM.IMHP ---
History of Present Illness Date of Service: 06/04/24 Attending physician on admission: Sumit Guillen Chief Complaint: ICD placement 49-year-old male with history of ujz-vvokwyd-[id number] type 2 diabetes, cardiomyopathy, coronary artery disease, HI, esophageal candidiasis, history of candidemia group B strep bacteremia due to UTI who underwent ICD implantation performed by Dr. Vasquez 06/04 due to systolic HF and cardiomyopathy admitted to hospitalist service for post operative pain management. ICD implanation uncomplicated. POst operative vitals stable. Review of Systems Review of Systems: General: No fevers, malaise, unintentional weight loss HEENT: No blurred vision, diplopia. No sore throat, nasal congestion, rhinorrhea, sinus pain, ear pain Cardiovascular: No chest pain, palpitations, or leg edema Respiratory: No shortness of breath, wheezing, cough GI: No abdominal pain, nausea, vomiting, diarrhea, constipation, melena, hematochezia : No dysuria, hematuria, increased urinary frequency, decreased urinary output MSK: No myalgia, back pain Neuro: No headaches, weakness, paresthesias Skin: No rashes or lesions [facility] Medical History Atherosclerotic cardiovascular disease Heart attack Obstructive uropathy Cardiomyopathy Type 2 diabetes mellitus Family History Brother Heart attack Maternal Grandfather CHF (congestive heart failure) Cancer Other Mental health disorder Substance use disorder Surgical History History of heart artery stent Social History Household Members: Family Housing: House Do you presently have visiting nurse or other home services: No Alcohol intake: never Patient Tobacco Use Status: Former Tobacco user e-Cigarette/Vaping Use: Never Used Second Hand Smoke Exposure: No Use of substances other than those prescribed or required for medical reasons: No Currently Displaying Signs/Symptoms of Drug Intoxication Withdrawal: No Have you been hit, kicked, punched, or otherwise hurt by someone within the past year? If so, by whom?: No Do you feel safe in your current relationship?: Yes Is there a partner from a previous relationship who is making you feel unsafe now?: No Are you made to feel afraid or neglected: No Advance Directives: No Advance Directives Information Provided: Yes Do you have a plan to hurt others: No Plan Recently lost weight without trying: No Nutrition Risks: No Nutritional Risk service: Yes Current occupational status: employed Current occupation: [employer] Cognitive needs: No Hearing needs: No Vision needs: Yes (glasses) Meds Allergies Allergy/AdvReac Type Severity Reaction Status Date / Time No Known Allergies Allergy Verified 06/04/24 12:49 Active Medications: Current Medications Acetaminophen (Acetaminophen 325 Mg Tablet) 650 mg PO Q6H PRN PRN Reason: Pain, Mild (Pain Scale 1-3), fever or headache Aspirin (Aspirin Enteric Coated 81 Mg Tablet.Dr) 81 mg PO DAILY [facility] Last Admin: 06/05/24 08:17 Dose: 81 mg Atorvastatin Calcium (Atorvastatin Calcium 80 Mg Tablet) 80 mg PO DAILY [facility] Last Admin: 06/05/24 08:18 Dose: 80 mg Bethanechol Chloride (Bethanechol Chloride 25 Mg Tablet) 50 mg PO TID [facility] Last Admin: 06/05/24 08:18 Dose: 50 mg Calcium Carbonate (Calcium Carbonate 750 Mg Tab.Chew) 750 mg PO Q4H PRN PRN Reason: Heartburn Carvedilol (Carvedilol 6.25 Mg Tablet) 6.25 mg PO BID [facility]; Protocol Last Admin: 06/05/24 08:18 Dose: 6.25 mg Empagliflozin (Empagliflozin 10 Mg Tablet) 10 mg PO DAILY [facility] Last Admin: 06/05/24 08:17 Dose: 10 mg Lactated Ringer's (Lr) 1,000 mls @ 50 mls/hr IVCONT .Q20H [facility] Last Admin: 06/05/24 10:12 Dose: Not Given Magnesium Hydroxide (Milk Of Magnesia 30 Ml Oral.Susp) 30 ml PO DAILY PRN PRN Reason: Constipation Melatonin (Melatonin 3 Mg Tablet) 6 mg PO BEDTIME PRN PRN Reason: Insomnia Metformin HCl (Metformin Hcl 1,000 Mg Tablet) 1,000 mg PO BIDWM [facility] Last Admin: 06/05/24 08:17 Dose: 1,000 mg Nitrofurantoin Macrocrystals (Nitrofurantoin Monohyd/M-Cryst 100 Mg Capsule) 100 mg PO BID [facility] Last Admin: 06/05/24 08:17 Dose: 100 mg Sacubitril/Valsartan (Sacubitril/Valsartan 1 Tab Tablet) 1 tab PO BID [facility]; Protocol Last Admin: 06/05/24 08:17 Dose: 1 tab Sodium Chloride (0.9 % Sodium Chloride Flush 3 Ml Syringe) 3 ml IVFLUSH QSHIFT [facility] Last Admin: 06/05/24 08:18 Dose: 3 ml Tamsulosin HCl (Tamsulosin Hcl 0.4 Mg Capsule) 0.4 mg PO BID [facility] Last Admin: 06/05/24 08:17 Dose: 0.4 mg Ticagrelor (Ticagrelor 90 Mg Tablet) 90 mg PO BID [facility] Last Admin: 06/05/24 08:18 Dose: 90 mg Physical Exam Vital Signs and Narrative: Vital Signs: Last Vital Signs Temp 97.4 F 06/05/24 11:18 Pulse 68 06/05/24 11:18 Resp 19 06/05/24 11:18 BP 107/58 L 06/05/24 11:18 Pulse Ox 98 06/05/24 11:18 O2 Del Method Room Air 06/05/24 11:18 BMI result Body Mass Index 28.7 Results Labs 06/05/24 06:19 06/05/24 06:20 Labs: Laboratory Results - last 24 hr 06/04/24 06/04/24 06/05/24 12:44 18:22 06:19 MCV 85.1 MCH 28.5 MCHC 33.5 RDW 13.7 Plt Count 294 MPV 9.6 Immature Gran % (Auto) 0.4 Neut % (Auto) 81.1 H Lymph % (Auto) 13.1 L [place] % (Auto) 5.3 Eos % (Auto) 0.0 Baso % (Auto) 0.1 Lymph # (Auto) 2.2 [place] # (Auto) 0.9 Eos # (Auto) 0.0 Baso # (Auto) 0.0 Abs Immat Gran (auto) 0.06 H Absolute Neuts (auto) 13.4 H Absolute Nucleated RBC 0.000 Nucleated RBC % (auto) 0.0 Anion Gap Estim Creat Clear Calc Estimated GFR POC Glucose 167 H 170 H Random Glucose Calcium Total Bilirubin AST ALT Alkaline Phosphatase Total Protein Albumin 06/05/24 06/05/24 06:20 10:56 MCV MCH MCHC RDW Plt Count MPV Immature Gran % (Auto) Neut % (Auto) Lymph % (Auto) [place] % (Auto) Eos % (Auto) Baso % (Auto) Lymph # (Auto) [place] # (Auto) Eos # (Auto) Baso # (Auto) Abs Immat Gran (auto) Absolute Neuts (auto) Absolute Nucleated RBC Nucleated RBC % (auto) Anion Gap 12 Estim Creat Clear Calc 104.6 Estimated GFR > 60 POC Glucose 142 H Random Glucose 143 H Calcium 9.6 Total Bilirubin 0.8 AST 13 ALT 25 Alkaline Phosphatase 52 Total Protein 6.7 Albumin 4.1 Assessment and Plan (1) Ischemic cardiomyopathy: Status: Acute Plan 49-year-old male with history of qfs-mwpffct-ovzatuwlw type 2 diabetes, cardiomyopathy, coronary artery disease, HI, esophageal candidiasis, history of candidemia group B strep bacteremia due to UTI who underwent ICD implantation performed by Dr. Vasquez 06/04 due to systolic HF and cardiomyopathy admitted to hospitalist service for post operative pain management. #HFrEF/ischemic cardiomyopathy s/p ICD implantation -plan per Dr. Vasquez, pain management with percocet 10/325mg. Discharge with the same -continue entresto, jardiance, coreg #Non insulin dependent type 2 diabetes -poc glucose, diabetic diet -continue home meds #CAD -continue coreg.statin, asa DVT prophylaxis- scps full code Quality Stroke Does the patient have a stroke diagnosis?: No VTE Prior VTE?: No VTE Risk Level:: Medical - low VTE Device Contraindication: N/A - Device Ordered VTE Drug Contraindication: Treatment Not Indicated
--- NOTE | 2024-06-05 12:53 | P.DS_ITS ---
DS: Providers Provider Date of Service: 06/05/24 Date of admission: 06/04/24 14:30 Primary care physician: Unknown Physician DS: Diagnosis Discharge Diagnosis (1) Ischemic cardiomyopathy: Status: Acute DS: Summary Hospital Course Hospital Course: from initial hpi: 49-year-old male with history of nqu-xknjgty-fxqgiighl type 2 diabetes, cardiomyopathy, coronary artery disease, [place], esophageal candidiasis, history of candidemia group B strep bacteremia due to UTI who underwent ICD implantation performed by Dr. Vasquez 06/04 due to systolic HF and cardiomyopathy admitted to hospitalist service for post operative pain management. ICD implanation uncomplicated. POst operative vitals stable. hospital course: Patient was admitted for elective ICD implantation due to ischemic cardiomyopathy. Periprocedural course was unremarkable. Placement was confirmed with chest x-ray. Patient will be discharged home, recommended no heavy lifting for 10 days and follow-up with Cardiology. Time Attestation Discharge Coordination Time (in mins): 32 Quality: Safe Use of Opioids Does Pt have an Active Cancer Diagnosis on the Problem List?: No Quality: Stroke Does the patient have a stroke diagnosis?: No Physical Exam Vital Signs: Vital Signs: Last Vital Signs Temp 97.4 F 06/05/24 11:18 Pulse 68 06/05/24 11:18 Resp 19 06/05/24 11:18 BP 107/58 L 06/05/24 11:18 Pulse Ox 98 06/05/24 11:18 O2 Del Method Room Air 06/05/24 11:18 BMI result Body Mass Index 28.7 General: AO X 3, no acute distress Resp: CTA bilateral, no accessory muscles used CVS: S1,S2,RRR GI: soft, non tender, non distended Neuro: motor grossly intact, alert Psych: appropriate affect, appropriate insight DS: Data Data Completed and Pending Labs on day of discharge: Laboratory Results - last 24 hr 06/04/24 06/05/24 06/05/24 18:22 06:19 06:20 WBC 16.5 H RBC 4.56 L Hgb 13.0 L Hct 38.8 L MCV 85.1 MCH 28.5 MCHC 33.5 RDW 13.7 Plt Count 294 MPV 9.6 Immature Gran % (Auto) 0.4 Neut % (Auto) 81.1 H Lymph % (Auto) 13.1 L [place] % (Auto) 5.3 Eos % (Auto) 0.0 Baso % (Auto) 0.1 Lymph # (Auto) 2.2 [place] # (Auto) 0.9 Eos # (Auto) 0.0 Baso # (Auto) 0.0 Abs Immat Gran (auto) 0.06 H Absolute Neuts (auto) 13.4 H Absolute Nucleated RBC 0.000 Nucleated RBC % (auto) 0.0 Sodium 140 Potassium 3.9 Chloride 108 Carbon Dioxide 24 Anion Gap 12 BUN 16 Creatinine 0.90 Estim Creat Clear Calc 104.6 Estimated GFR > 60 POC Glucose 170 H Random Glucose 143 H Calcium 9.6 Total Bilirubin 0.8 AST 13 ALT 25 Alkaline Phosphatase 52 Total Protein 6.7 Albumin 4.1 06/05/24 10:56 WBC RBC Hgb Hct MCV MCH MCHC RDW Plt Count MPV Immature Gran % (Auto) Neut % (Auto) Lymph % (Auto) [place] % (Auto) Eos % (Auto) Baso % (Auto) Lymph # (Auto) [place] # (Auto) Eos # (Auto) Baso # (Auto) Abs Immat Gran (auto) Absolute Neuts (auto) Absolute Nucleated RBC Nucleated RBC % (auto) Sodium Potassium Chloride Carbon Dioxide Anion Gap BUN Creatinine Estim Creat Clear Calc Estimated GFR POC Glucose 142 H Random Glucose Calcium Total Bilirubin AST ALT Alkaline Phosphatase Total Protein Albumin Discharge Plan Discharge Anticipated Discharge Date/Time: 06/05/24 12:50 Patient Disposition: Home, Self-Care Discharge Diagnosis: icd Referrals: Physician,Unknown J [Primary Care Provider] - 1 Week Discharge Medications: New oxycodone-acetaminophen [Endocet] 10-325 mg tablet 1 tab PO Q8H PRN (Reason: moderate pain (scale score 5-6)) Qty: 10 0RF Rx Instructions: Partial Fill upon patient request. Continued Entresto 24-26 mg tablet 1 tab PO BID 90 Days Qty: 180 1RF (DME) FreeStyle Lite Strips Strip Qty: 100 0RF Rx Instructions: Test four times a day or as directed. Trulicity 0.75 mg/0.5 mL pen injector 0.75 mg subcut QWEEK Qty: 2 1RF Jardiance 10 mg tablet 10 mg PO DAILY Qty: 90 0RF metformin 1,000 mg tablet 1,000 mg PO BIDWMEAL 90 Days Qty: 180 0RF Rx Instructions: Further refills from your PCP (DME) lancets [FreeStyle Lancets] 28 gauge misc Qty: 100 0RF Rx Instructions: Test four times a day or as directed. Brilinta 90 mg tablet 90 mg PO BID 90 Days Qty: 180 3RF rosuvastatin 40 mg tablet 40 mg PO DAILY Qty: 90 3RF carvedilol 6.25 mg tablet 6.25 mg PO BID 90 Days Qty: 180 3RF aspirin 81 mg tablet,delayed release (DR/EC) 81 mg PO DAILY Qty: 90 3RF nitroglycerin 0.4 mg tablet, sublingual 0.4 mg sublingual Q5M PRN (Reason: chest pain) Qty: 30 5RF Rx Instructions: do not exceed 3 doses per episode bethanechol chloride 50 mg tablet 50 mg PO TID Qty: 90 11RF nitrofurantoin monohyd/m-cryst [Macrobid] 100 mg capsule 100 mg PO BID 10 Days Qty: 20 0RF Rx Instructions: must administer with a meal/food tamsulosin [Flomax] 0.4 mg capsule 0.4 mg PO BID Qty: 180 1RF Discharge Orders: Discharge Order (Routine); Ordered 06/05/24 Ordered By: Greg Monahan Diet: Advance to usual diet Activity on Discharge: No heavy lifting Stand Alone Forms: Patient Portal Discharge page, Work/School Release Print Language: Yakut Care Plan Goals: recovery Health Concerns: icd Plan of Treatment: no shower 3 days do not remove bandage until visit Assessment: see above Patient Instructions: Implantable Cardioverter Defibrillator (DC)
--- NOTE | 2024-06-05 13:01 | MHC.CM.PN ---
Patient has been medically cleared for dc to home today, self care.
== END 2024-06-05 13:34 | disposition home or self-care (01) ==
LOC: HO.SSSA 14:35 → HO.IMC 17:24
PROVIDERS: Admitting Provider Internal Medicine Cardiovascular Disease; PCP Internal Medicine; Visit Provider Internal Medicine Cardiovascular Disease
PROC: (CPT 33249; principal; 2024-06-04 13:30)
DX: I50.22 Chronic systolic (congestive) heart failure (principal); I25.5 Ischemic cardiomyopathy; I21.3 ST elevation (STEMI) myocardial infarction of unspecified site; I25.10 Atherosclerotic heart disease of native coronary artery without angina pectoris; E11.9 Type 2 diabetes mellitus without complications
CPT/HCPCS: 33249; 36415; 71046; 80053; 82947; 85025; 93005; 96360; 96361; C1722; C1896; J0690; J1100; J2250; J2371; J2405; J2704; J2795; J3010; J3370; Q9967

== ENCOUNTER → 2024-06-04 14:30 | Outpatient (BNV) | payer OTHER, SELFPAY | PROVIDERS: Admitting Provider Internal Medicine Cardiovascular Disease; Visit Provider Internal Medicine | DX: I25.5 Ischemic cardiomyopathy (principal) | CPT/HCPCS: 99222 ==

== ENCOUNTER 2024-06-26 09:05 | Outpatient (AMB) | payer OTHER, SELFPAY ==
--- NOTE | 2024-06-26 09:13 | A.OFFPC_ITS ---
Vital Signs 06/26/24 09:14 Height 5 ft 8 in Weight 190 lb 4 oz BMI 28.9 BP 100/66 Blood Pressure Location Lt brachial Position Sitting Pulse 94 Pulse Source Pulse Oximeter Pulse Oximetry (%) 97 Oxygen Delivery Method Room Air Intake Visit Reasons: 3mof\u Intake Note: Patient is here to follow up on DM, DANNIE, Cardiomyopathy. Special Education Curriculum Specialist Required: No Maintenance Worker: Not Required per policy Accompanied by: Self / Same As Patient Allergies No Known Allergies Allergy (Verified 07/03/24 20:46) Medication List - Last Reconciled 07/03/24 by Richard Wright MD aspirin 81 mg PO DAILY bethanechol chloride 50 mg PO BID blood sugar diagnostic (FreeStyle Lite Strips) Test four times a day or as directed. carvedilol 6.25 mg PO BID 90 days dulaglutide (Trulicity) 0.75 mg (0.5 mL) subcut QWEEK empagliflozin (Jardiance) 10 mg PO DAILY lancets (FreeStyle Lancets) Test four times a day or as directed. metformin 1,000 mg PO BIDWMEAL 90 days nitroglycerin 0.4 mg sublingual Q5M PRN rosuvastatin 40 mg PO DAILY sacubitril-valsartan 24-26 mg (Entresto) 1 tab PO BID 90 days tamsulosin (Flomax) 0.4 mg PO BID ticagrelor (Brilinta) 90 mg PO BID 90 days Tobacco use date assessed: 06/26/24 Dental Screening Dental Screen Date: 11/29/23 HPI 3mof\u HPI Details 49-year-old male presents to the office for a follow-up on his chronic medical conditions. Patient is at baseline state of health and compliant with medications. [facility] Medical History (Updated 06/26/24 @ 09:42 by Richard Wright MD) Atherosclerotic cardiovascular disease Obstructive uropathy Cardiomyopathy Type 2 diabetes mellitus Surgical History (Updated 06/26/24 @ 09:20 by MATT Pollack) History of permanent cardiac pacemaker placement History of heart artery stent Family History Brother Heart attack Maternal Grandfather CHF (congestive heart failure) Cancer Other Mental health disorder Substance use disorder Social History Household Members: Family Housing: House Do you presently have visiting nurse or other home services: No Alcohol intake: never Patient Tobacco Use Status: Former Tobacco user e-Cigarette/Vaping Use: Never Used Second Hand Smoke Exposure: No service: Yes Current occupational status: employed Current occupation: [employer] Cognitive needs: No Hearing needs: No Vision needs: Yes (glasses) Questionnaire Thrive Questionnaire Date Thrive assessed: 06/05/24 MAKAYLA-7 AMB Questionnaire MAKAYLA-7 Date MAKAYLA - 7 assessed: 11/29/23 Source: Developed by Drs. Morgan Kitchen, Luly Jones, Guillermo Rai and colleagues, with an educational azul from [employer]. Physical exam (Primary Care) Vital Signs: Last Vital Signs Pulse 94 06/26/24 09:14 BP 100/66 06/26/24 09:14 Pulse Ox 97 06/26/24 09:14 Oxygen Delivery Method Room Air 06/26/24 09:14 BMI result Body Mass Index 28.9 Tobacco/Smoking Status: Tobacco use Status Tobacco use date assessed 06/26/24 06/26/24 09:22 Patient Tobacco Use Status Former Tobacco user 06/26/24 09:22 e-Cigarette/Vaping Use Never Used 06/26/24 09:22 Thrive Assessment: Date of Thrive Assessment Date Thrive assessed 06/05/24 06/26/24 09:22 Const General: cooperative and healthy appearing Nutritional Appearance: well nourished Orientation/consciousness: patient oriented x3 Limitations: no limitations HENMT Head: Yes normal to inspection Eyes General: appearance normal, both eyes and all related structures Neck Neck: Yes normal visual inspection Chest Chest palpation & inspection: normal palpation of entire chest wall Resp Effort & Inspection: normal respiratory effort Neuro General: patient oriented x3 Results AMB Hemoglobin A1c AMB Hemoglobin A1c 5.8 % Last Edit by MATT Pollack on 06/26/24 09:26 Results Reviewed Results Reviewed: Laboratory Last Values Hgb A1c (Clinic) 5.8 % (4.0-6.0) 06/26/24 09:13 Assessment and Plan Assessment & Plan (1) Ischemic cardiomyopathy: Code(s): I25.5 - Ischemic cardiomyopathy Plan: Patient had a pacemaker installed recently. (2) Incomplete bladder emptying: Code(s): R33.9 - Retention of urine, unspecified (3) Poorly controlled diabetes mellitus: Code(s): E11.65 - Type 2 diabetes mellitus with hyperglycemia Plan: Medical condition is stable. Orders: Orders AMB Hemoglobin A1c 06/26/24 E11.65 - Type 2 diabetes mellitus with hyperglycemia Complete Blood Count no Diff 06/26/24 D72.829 - Elevated white blood cell count, unspecified Referrals Cologuard Test Z12.11 - Encounter for screening for malignant neoplasm of colon Medications: Changed From bethanechol chloride 50 mg PO TID 90 tabs 11RF To bethanechol chloride 50 mg PO BID 90 tabs 11RF Coding Level of Care Code Est Pt Level 3 (66734) Complex EM visit Add On G2211 Diagnoses Ischemic cardiomyopathy I25.5 Incomplete bladder emptying R33.9 Poorly controlled diabetes mellitus E11.65
[2024-06-26 09:14] VITALS: BP 100/66; PULSE 94; O2SAT 97; BMI 28.9
== END 2024-06-26 09:39 | disposition home or self-care (01) ==
PROVIDERS: Visit Provider Internal Medicine
DX: E11.65 Type 2 diabetes mellitus with hyperglycemia (principal)
CPT/HCPCS: 83036; 99213; G2211

== ENCOUNTER 2024-07-03 10:31 | Outpatient (REF) | payer OTHER, SELFPAY ==
[2024-07-03 12:38] LABS: Appearance Urine Turbid; Color Urine Yellow; Glucose Urine UA >=1000 mg/dL (Negative); Leukocyte Esterase Urine Large (3+) (Negative); Nitrite Urine Positive (Negative); PH 5.5 (5.0-9.0); UMIC TRIGGER UA YES; Urine Blood Moderate (2+) (Negative); Urine Ketones Negative (Negative); Urine Protein 100 (2+) mg/dL (Neg-Trace)
[2024-07-03 13:11] LABS: Bacteria Urine 3+ (None Seen); Hyaline Casts Urine 0-2 /LPF (0-2); RBC Urine 0-2 /HPF (0-2); Squamous Epithelial Cell Urine 0-2 /HPF (0-2); WBC Urine >50 /HPF (0-5)
== END 2024-07-03 10:32 | disposition home or self-care (01) ==
LOC: HO.LAB 10:31
PROVIDERS: PCP Internal Medicine; Visit Provider Urology
DX: N39.0 Urinary tract infection, site not specified (principal); R33.9 Retention of urine, unspecified; N31.9 Neuromuscular dysfunction of bladder, unspecified
CPT/HCPCS: 81001; 87086; 87088; 87186

== ENCOUNTER → 2024-08-01 23:59 | Outpatient (BNV) | payer OTHER, SELFPAY ==
--- NOTE | 2024-08-11 18:26 | MHC.OFFVIS ---
Intake Visit Reasons: Remote device [email or web address] Allergies No Known Allergies Allergy (Verified 07/03/24 20:46) [facility] Medical History (Updated 06/26/24 @ 09:42 by Richard Wright MD) Atherosclerotic cardiovascular disease Obstructive uropathy Cardiomyopathy Type 2 diabetes mellitus Surgical History (Updated 06/26/24 @ 09:20 by MATT Pollack) History of permanent cardiac pacemaker placement History of heart artery stent Family History Brother Heart attack Maternal Grandfather CHF (congestive heart failure) Cancer Other Mental health disorder Substance use disorder Social History Household Members: Family Housing: House Do you presently have visiting nurse or other home services: No Alcohol intake: never Patient Tobacco Use Status: Former Tobacco user e-Cigarette/Vaping Use: Never Used Second Hand Smoke Exposure: No service: Yes Current occupational status: employed Current occupation: [employer] Cognitive needs: No Hearing needs: No Vision needs: Yes (glasses) Office Procedures Cardiac Device Check Cardiac Device Check Details: Date of service 08/01/2024; Battery life 99%; normal lead parameters; no treated VT/VF; ; normal ICD function. [id number] Cardiac Interrogation, implant defibrillator w/interim Procedure code (CPT) selection complete Assessment & Plan Assessment & Plan (1) Ischemic cardiomyopathy: Code(s): I25.5 - Ischemic cardiomyopathy Category: Medical Plan x Coding Level of Care Code Procedure Only Diagnoses Ischemic cardiomyopathy I25.5 CPT Codes Cardiac Device Check - Cardiac Device 13: [id number] Cardiac Interrogation, implant defibrillator w/interim ([id number])
== END ==
PROVIDERS: PCP Internal Medicine; Visit Provider Internal Medicine
DX: I25.5 Ischemic cardiomyopathy (principal); Z95.810 Presence of automatic (implantable) cardiac defibrillator
CPT/HCPCS: 93295

== ENCOUNTER 2024-09-23 09:07 | Outpatient (AMB) | payer OTHER, SELFPAY ==
--- NOTE | 2024-09-23 09:12 | A.OFFPC_ITS ---
Vital Signs 09/23/24 09:13 Height 5 ft 8 in Weight 176 lb 2 oz BMI 26.8 BP 130/70 Blood Pressure Location Lt brachial Position Sitting Pulse 84 Pulse Source Pulse Oximeter Pulse Oximetry (%) 98 Oxygen Delivery Method Room Air Intake Visit Reasons: 3mth f/u Intake Note: Patient is here to follow up on DM, Cardiomyopathy. Pt decline flu shot today. Clay Puddler Required: No Packer: Not Required per policy Accompanied by: Self / Same As Patient Allergies No Known Allergies Allergy (Verified 09/23/24 09:38) Medication List - Last Reconciled 09/23/24 by Maritza Muller PA-C aspirin 81 mg PO DAILY bethanechol chloride 50 mg PO BID blood sugar diagnostic (FreeStyle Lite Strips) Test four times a day or as directed. carvedilol 6.25 mg PO BID 90 days dulaglutide (Trulicity) 0.75 mg (0.5 mL) subcut QWEEK empagliflozin (Jardiance) 10 mg PO DAILY lancets (FreeStyle Lancets) Test four times a day or as directed. levofloxacin 500 mg PO DAILY 10 days metformin 1,000 mg PO BIDWMEAL 90 days nitrofurantoin macrocrystal 100 mg PO BID 10 days nitroglycerin 0.4 mg sublingual Q5M PRN rosuvastatin 40 mg PO DAILY sacubitril-valsartan 24-26 mg (Entresto) 1 tab PO BID 90 days tamsulosin (Flomax) 0.4 mg PO BID ticagrelor (Brilinta) 90 mg PO BID 90 days Tobacco use date assessed: 09/23/24 Dental Screening Dental Screen Date: 11/29/23 HPI HPI Comments History of Present Illness Details 49-year-old male presenting for routine follow-up. In addition patient admits to urinary symptoms. He reports over the past 4 days he has had urinary frequency, urgency with cloudy colored urine and pain on the right flank. He denies any fevers, abdominal pain, nausea vomiting, hematuria, abnormal penile discharge, diarrhea constipation, abnormal penile rashes. Patient is not interested in flu vaccine. Patient had a positive Cologuard on 07/22/2024 has a colonoscopy scheduled with GI on 10/31/2024. Patient reports his last eye exam was 2-3 years ago. Patient denies any additional complaints or concerns at this time. [facility] Medical History (Updated 09/23/24 @ 10:40 by Richard Wright MD) Atherosclerotic cardiovascular disease Obstructive uropathy Cardiomyopathy Type 2 diabetes mellitus Surgical History History of permanent cardiac pacemaker placement History of heart artery stent Family History Brother Heart attack Maternal Grandfather CHF (congestive heart failure) Cancer Other Mental health disorder Substance use disorder Social History Household Members: Family Housing: House Do you presently have visiting nurse or other home services: No Alcohol intake: never Patient Tobacco Use Status: Former Tobacco user e-Cigarette/Vaping Use: Never Used Second Hand Smoke Exposure: Yes service: Yes Current occupational status: employed Current occupation: [employer] Cognitive needs: No Hearing needs: No Vision needs: Yes (glasses) Questionnaire Thrive Questionnaire Date Thrive assessed: 06/05/24 MAKAYLA-7 AMB Questionnaire MAKAYLA-7 Date MAKAYLA - 7 assessed: 11/29/23 Source: Developed by Drs. Morgan Kitchen, Luly Jones, Guillermo Rai and colleagues, with an educational azul from [employer]. Physical exam (Primary Care) Vital Signs: Last Vital Signs Pulse 84 09/23/24 09:13 BP 130/70 09/23/24 09:13 Pulse Ox 98 09/23/24 09:13 Oxygen Delivery Method Room Air 09/23/24 09:13 BMI result Body Mass Index 26.8 Tobacco/Smoking Status: Tobacco use Status Tobacco use date assessed 09/23/24 09/23/24 09:22 Patient Tobacco Use Status Former Tobacco user 09/23/24 09:22 e-Cigarette/Vaping Use Never Used 09/23/24 09:22 Thrive Assessment: Date of Thrive Assessment Date Thrive assessed 06/05/24 09/23/24 09:22 Const Other: Appearance: Alert. Oriented X3. No acute distress. ? Head: Normal external exam. Normocephalic. Atraumatic.? Eyes: PERRLA. EOMI. Conjunctiva and sclera normal. Eyelids normal. ? ENT: EAC normal. TM's Normal. Pharynx normal. Uvula midline. Moist mucous membranes. ? Neck: Normal inspection. Neck supple. FROM. No adenopathy. Thyroid Normal. No meningeal signs. No neck mass noted. CVS: Normal heart rate and rhythm. Heart sound normal. No murmurs noted. Pulses normal throughout. Respiratory: No respiratory distress. Painless inspiration. Breath sounds normal. No wheezes/rales/rhonchi noted. Chest nontender. ? No accessory muscle usage noted or decreased air movement noted. Abdomen: Soft and nontender. Bowel sounds normal in all 4 quadrants. No distention noted.? No organomegaly noted.? No visible injury noted. Back: ?No CVA tenderness.? Full range of motion noted. Skin: Skin warm and dry.? Normal skin color.? Normal skin turgor. No rashes/lesions/lacerations noted. Extremities: No lower extremity edema. ? Extremities exhibit normal range of motion.? Extremities nontender. Neuro: Oriented X 3.? No motor deficit.? No sensory deficit.? Reflexes normal. Results AMB Hemoglobin A1c AMB Hemoglobin A1c 6.5 % Last Edit by Selena Alejo Balwinder on 09/23/24 09:25 AMB Urinalysis Dipstick UR Leukocytes Large Last Edit by Selena Alejo Balwinder on 09/23/24 09:53 UR Nitrite Negative Last Edit by Selena Alejo [facility] on 09/23/24 09:53 UR Urobilinogen Normal Last Edit by MATT Pollack on 09/23/24 09:53 UR Protein 100 Last Edit by Selena Alejo Balwinder on 09/23/24 09:53 UR Ph 6.0 Last Edit by Selena Alejo [facility] on 09/23/24 09:53 UR Blood Moderate Last Edit by MATT Pollack on 09/23/24 09:53 UR Specific [place] 1.015 Last Edit by Selena Alejo [facility] on 09/23/24 09: 53 UR Ketone Negative Last Edit by Selena Alejo Balwinder on 09/23/24 09:53 UR Bilirubin Negative Last Edit by Selena Alejo Balwinder on 09/23/24 09:53 UR Glucose 1000 Last Edit by MATT Pollack on 09/23/24 09:53 Results Reviewed Results Reviewed: Laboratory Last Values Hgb A1c (Clinic) 6.5 % (4.0-6.0) H 09/23/24 09:12 Urine pH (Clinic) 6.0 09/23/24 09:43 Specific [place] (Clinic) 1.015 09/23/24 09:43 Ur Protein (Clinic) 100 A* 09/23/24 09:43 Ur Ketones (Clinic) Negative 09/23/24 09:43 Urine Blood (Clinic) Moderate A* 09/23/24 09:43 Urine Nitrite Negative 09/23/24 09:43 Urine Bilirubin (Clinic) Negative 09/23/24 09:43 Urobilinogen (Clinic) Normal 09/23/24 09:43 Leukocyte Esterase (Clinic) Large A* 09/23/24 09:43 Urine Glucose (Clinic) 1000 A* 09/23/24 09:43 Patient's A1c level on 06/26/2024 was 5.8. Today patient's A1c level is 6.5. Coding Level of Care Code Est Pt Level 4 (84061) Complex EM visit Add On G2211 Diagnoses Type 2 diabetes mellitus with hyperglycemia, without long-term current use of insulin E11.65 Diabetes mellitus complication status: with hyperglycemia Diabetes mellitus intermediate insulin use: without intermediate use Positive colorectal cancer screening using Cologuard test R19.5 Neurogenic bladder N31.9 UTI (urinary tract infection) N39.0 Assessment & Plan Assessment & Plan (1) Type 2 diabetes mellitus: Comment: recently started on glipizide & metformin Code(s): E11.9 - Type 2 diabetes mellitus without complications Category: Medical Qualifiers: Diabetes mellitus complication status: with hyperglycemia Diabetes mellitus inspector balance truing insulin use: without inspector balance truing use Qualified Code(s): E11.65 - Type 2 diabetes mellitus with hyperglycemia Plan: Patient is currently on metformin, Jardiance and Trulicity taking as prescribed. A1c level went from 5.8-6.5. A1c level increased although still within good range. Condition is stable. At this time will continue same diabetic regimen although in October discussed with patient about discontinue Jardiance and starting the patient on Januvia. This change of Jardiance to Januvia will help decrease proteinuria in the urine and possibly decreased patient has urinary tract infections. (2) Positive colorectal cancer screening using Cologuard test: Onset Date: ~07/22/24 Comment: Has Colonoscopy scheduled on 10/31/2024 Code(s): R19.5 - Other fecal abnormalities Category: Medical Plan: Patient had positive Cologuard on 07/22/2024. Has GI follow-up on 10/31/2024 for colonoscopy. (3) Neurogenic bladder: Code(s): N31.9 - Neuromuscular dysfunction of bladder, unspecified Category: Medical Plan: Patient has history of neurogenic bladder with recurrent UTIs. Being followed by Urology. (4) UTI (urinary tract infection): Code(s): N39.0 - Urinary tract infection, site not specified Category: Medical Plan: Patient positive for UTI. Will be started on Macrobid with follow-up with Urology Dr. Carissa Schumacher 49-year-old male with a past medical history of type 2 diabetes currently on metformin, Jardiance and Trulicity with an A1c level of 6.5 presenting for routine follow-up. In addition to routine follow-up patient reports urinary frequency, urgency with a cloudy urine and right-sided flank pain over the past 4 days. UA obtained and positive for UTI. Urine culture will be sent. Patient will be started on Macrobid for a positive UTI. Patient to follow-up with GI for colonoscopy in June of 2025. Patient to continue current diabetes regimen. Patient to return in 3-6 months. Orders: Orders Urine Culture Today Maritza Muller PA-C N39.0 - Urinary tract infection, site not specified AMB Hemoglobin A1c Today Richard Wright MD E11.65 - Type 2 diabetes mellitus with hyperglycemia AMB Urinalysis Dipstick Today Maritza Muller PA-C Z13.9 - Encounter for screening, unspecified Medications: New nitrofurantoin monohyd/m-cryst 100 mg (Macrobid) must administer with a meal/food 100 mg PO Q12H 5 days 10 caps 0RF uti Maritza Muller PA-C Refilled nitrofurantoin macrocrystal must administer with a meal/food 100 mg PO BID 10 days 20 caps 0RF Maritza Muller PA-C N39.0 - Urinary tract infection, site not specified
[2024-09-23 09:13] VITALS: BP 130/70; PULSE 84; O2SAT 98; BMI 26.8
== END 2024-09-23 10:04 | disposition home or self-care (01) ==
PROVIDERS: PCP Internal Medicine; Visit Provider Physician Assistant Medical
DX: E11.65 Type 2 diabetes mellitus with hyperglycemia (principal); R19.5 Other fecal abnormalities; N31.9 Neuromuscular dysfunction of bladder, unspecified; N39.0 Urinary tract infection, site not specified

== ENCOUNTER 2024-09-23 09:07 | Outpatient (REF) | payer OTHER, SELFPAY | END 2024-09-23 09:08 | disposition home or self-care (01) | LOC: HO.LNP 09:07 | PROVIDERS: PCP Internal Medicine; Visit Provider Internal Medicine | DX: N39.0 Urinary tract infection, site not specified (principal); E11.65 Type 2 diabetes mellitus with hyperglycemia; R19.5 Other fecal abnormalities; N31.9 Neuromuscular dysfunction of bladder, unspecified | CPT/HCPCS: 81002; 83036; 87086; 87088; 87186 ==

== ENCOUNTER 2024-09-30 08:10 | Outpatient (AMB) | payer OTHER, SELFPAY ==
--- NOTE | 2024-09-29 20:05 | MHC.OFFVIS ---
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 h/o neurogenic bladder on flomax and bethanochol. followed for urinary retention with subsequent bilateral hydronephrosis. Last renal US 04/2024--Pt refuses CIC or any type of catheterization on a chronic basis. Luis states that he saw his PCP recently at that time he reported being feverish and having flank pain. He was started on Bactrim SS and was called and change to Bactrim BS b.i.d. for 10 days. Urine culture 09/23/2024 Serratia marcescens greater than 100,000 colonies is sensitive to Bactrim. I will check a renal ultrasound and increase bethanechol to t.i.d.. Review of chart: 05/31/24--here for fu. h/o neurogenic bladder on flomax and bethanochol. states he ran out of the bethanochol about a 6 weeks ago, called office and med was not refilled. He has been taking the flomax. He states he has pacemaker scheduled for next Monday. PVR >400 mL. UA nitrite positive. In review of previous c/s -- I will empiracally place him on macrobid. bactrim interacts with one of his meds. He denies any urinary symptoms, dysuria, fever. Discussed renal US, Mild left hydro, minimally improved. I will increase bethanochol to 50 mg tid. 02/29/2024-- He states that he has not been doing the clean intermittent catheterization. He states he tried once and had some difficulty and did not try again. I have reviewed the renal ultrasound which shows that the bilateral hydronephrosis is recurrent. I have discussed with the patient risks related to incomplete bladder emptying and referred pressure on the kidneys that may cause kidney damage. Recommended Marie catheter. Patient declines. Discussed other evaluation and therapy to investigate including urodynamics. Urinalysis today nitrite positive. Will send urine for culture. Hold on antibiotics until culture results. Trial of increasing Flomax to b.i.d., bethanechol 25 mg t.i.d. repeat renal ultrasound in 2 months. 12/01/23--Luis is a 48-year-old male who presents today to the office for follow up. He has been followed for hydronephrosis secondary to obstructive uropathy, and was treated for UTI and fungemia. 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 He is s/p urethral dilation and on cystoscopy was noted to have bladder neck scarring which needed dilation. He also has neurogenic bladder. 16 fr marie removed by nursing staff. Office cystoscopy not indicated today. (cystoscopy done on 10/06/23 - bladder neck open) I want the patient to follow up with nursing to learn CIC. 10/20/23--He presents today in fu and states he was hospitalized at [facility] for an DC and had a cardiac cath, he was discharged last night. He currently has marie in place (placed 10/06/23) and is draining it every 2-3 hours during the day and to drainage at night time. The patient states he was started on new meds at [facility] but does not remember the names, he will call once he gets home. Will reconcile meds once we have the updated medications available. Exam- penis, meatus no excoriation. Cont marie, fu for nurse visit in 2 wks for catheter change, fu with me in 6 weeks for cysto and possible catheter removal vs change. Renal US prior. 10/06/23--Luis is s/p procedure to dilate urethral meatus and bladder neck 2 days ago, he states the marie mechanism controlling the marie balloon got broken and the marie slipped out of position. Office cysto - today, notes bladder neck is wide open, the agdaagux tip marie was placed over a guide wire and the marie was clamped. The patient was instructed to drain the catheter every 2-3 hr duing the daytime and keep to gravity drainage at night. 08/16/2023? The patient was seen in consultation while as an in-patient on 07/04/2023. He has a past medical history significant for type 2 diabetes. Urine culture and blood culture during the admission came back positive for [place], and strep agalastiae group B. He was treated with Antibiotics. Patient was started on Flomax. FU noted persistent elevated PVR. Bladder scan PVR >600 mL Evaluation today?UA? leukocytes: 3 +; nitrite: positive; blood: 2 +. I discussed placing a marie. On attempts to place a Marie catheter, the meatus was stenotic. I attempted to dilate with a 14 Arabic dilator, however even with use of lidocaine jelly the patient was not able to tolerate due to pain. I have discussed with the patient urethral dilation and Cystoscopy as an outpt procedure. Patient received macrobid 100 mg 1x dose here. CT abdomen/pelvis results from 07/03/2023 revealed moderate bilateral hydronephrosis and ureteral dilatation down to the bladder. Diffuse bladder wall thickening. Slightly enlarged low-attenuation prostate gland worrisome for infection/prostatitis. [facility] Medical History Atherosclerotic cardiovascular disease Obstructive uropathy Cardiomyopathy Type 2 diabetes mellitus Surgical History History of permanent cardiac pacemaker placement History of heart artery stent Family History Brother Heart attack Maternal Grandfather CHF (congestive heart failure) Cancer Other Mental health disorder Substance use disorder Social History Household Members: Family Housing: House Do you presently have visiting nurse or other home services: No Alcohol intake: never Patient Tobacco Use Status: Former Tobacco user e-Cigarette/Vaping Use: Never Used Second Hand Smoke Exposure: Yes service: Yes Current occupational status: employed Current occupation: [employer] Cognitive needs: No Hearing needs: No Vision needs: Yes (glasses) Review of Systems Const All systems reviewed & are unremarkable except as noted in HPI and below Reports no additional complaints Eyes Reports no additional complaints ENT Reports no additional complaints Card Reports no additional complaints Resp Reports no additional complaints GI Reports no additional complaints Reports as per HPI Musc Reports no additional complaints Skin/Breast Reports system reviewed and no additional complaints, except as documented Neuro Reports no additional complaints Psych Reports no additional complaints Endo Reports no additional complaints Alfonso/Lymph Reports no additional complaints Aller/Immun Reports no additional complaints Office Procedures Post Void Residual Post Residual Void Post Void Residual (PVR): 645 [id number] Void Residual by ultrasound Results AMB Urinalysis, Automated UA Leukoctes 500 Krystina/uL Last Edit by Daphne Pelayo CMA on 09/30/24 08:33 UA Nitrite Negative Last Edit by Daphne Pelayo CMA on 09/30/24 08:33 UA Urobilinogen 0.2 mg/dL Last Edit by Daphne Pelayo CMA on 09/30/24 08:33 UA Protein 100 mg/dL Last Edit by Daphne Pelayo CMA on 09/30/24 08:33 UA pH 6.0 Last Edit by Daphne Pelayo CMA on 09/30/24 08:33 UA Blood 80 Georgi/uL Last Edit by Daphne Pelayo CMA on 09/30/24 08:33 UA Specific [place] 1.015 Last Edit by Daphne Pelayo CMA on 09/30/24 08:33 UA Ketone Negative Last Edit by Daphne Pelayo CMA on 09/30/24 08:33 UA Bilirubin 0 mg/dL Last Edit by Daphne Pelayo CMA on 09/30/24 08:33 UA Glucose 0 mg/dL Last Edit by Daphne Pelayo CMA on 09/30/24 08:33 Results Reviewed Results Reviewed: Laboratory Last Values Urine pH (Auto) 6.0 09/30/24 08:22 Specific [place] (Auto) 1.015 09/30/24 08:22 Urine Protein (Auto) 100 mg/dL 09/30/24 08:22 Glucose (UA)(Auto) 0 mg/dL 09/30/24 08:22 Urine Ketones (Auto) Negative 09/30/24 08:22 Urine Blood (Auto) 80 Georgi/uL 09/30/24 08:22 Urine Nitrite (Auto) Negative 09/30/24 08:22 Urine Bilirubin (Auto) 0 mg/dL 09/30/24 08:22 Urine Urobilinogen (Auto) 0.2 mg/dL 09/30/24 08:22 Leukocyte Esterase (Auto) 500 Krystina/uL 09/30/24 08:22 Collected: 09/23/24 Status: COMP Req#: [id number] Received: 09/23/24 Source: [facility] Sp Desc: Subm Dr: Maritza Muller PA-C Ordered: Urine Culture Procedure Result Verified Urine Culture Final 09/28/24 Organism 1 Serratia marcescens Quant > 100,000 cfu/mL S marcesc M.I.C. RX --------- --- Cefazolin >=32 R Cefepime <=0.12 S Ceftriaxone <=0.25 S Ciprofloxacin <=0.06 S Gentamicin <=1 S Trimethoprim/Sulfamethoxazole <=20 S Date of Service: 04/30/24 US RETROPERITONEAL LIMITED (RENAL ONLY) CLINICAL INFORMATION: Unspecified hydronephrosis. COMPARISON: Ultrasound kidneys and bladder 12/27/2023. Renal ultrasound 11/17/2023. CT abdomen and pelvis 07/03/2023. TECHNIQUE: Real-time imaging of the kidneys. FINDINGS: RIGHT KIDNEY: 12.1 x 6.6 x 5.4 cm (SAG x AP x TRV). The kidney is normal in size, contour, and echogenicity. Renal cortical thickness is normal. No calculi or focal parenchymal lesions. No hydronephrosis. Previously seen right-sided hydronephrosis on the prior CT scan is not evident on the current study. LEFT KIDNEY: 12.1 x 5.0 x 4.8 cm (SAG x AP x TRV). The kidney is normal in size, contour, and echogenicity. Renal cortical thickness is normal. No renal calculi or focal parenchymal lesions. There is mild left-sided hydronephrosis and dilatation of the left ureter to a maximum of 1.4 cm. Similar findings were seen on the 12/27/2023 study. IMPRESSION: Mild left-sided hydronephrosis and dilatation of the left ureter. Date of Service: 12/27/23 EXAMINATION: US RETROPERITONEAL COMPLETE (RENAL) CLINICAL INFORMATION: Neuromuscular dysfunction bladder. COMPARISON: 11/17/2023 TECHNIQUE: Real-time imaging of the kidneys and bladder. FINDINGS: RIGHT KIDNEY: 12.6 x 5.4 x 5.4 cm (SAG x AP x TRV). The kidney is normal in size, contour, and echogenicity. Renal cortical thickness is normal. No calculi or focal parenchymal lesions. In comparison with previous study, increasing right mild hydronephrosis. Proximal right hydroureter also identified. LEFT KIDNEY: 12.5 x 5.4 x 5.4 cm (SAG x AP x TRV). The kidney is normal in size, contour, and echogenicity. Renal cortical thickness is normal. No calculi or focal parenchymal lesions. Interval development of moderate left hydronephrosis with megaureter identified measuring 1.6 cm. BLADDER: Despite urinary bladder wall distention, diffusely thickened bladder wall to 4 mm. Urinary bladder debris again seen. Bilateral ureteral jets are demonstrated. Prevoid bladder volume 561.2 mL. 2 post void residuals were obtained, first measures 305.4 mL, second 253 mL. Prominent heterogeneous prostate measuring 39.6 mL. IMPRESSION:. Interval development of moderate left hydronephrosis and left megaureter to 1.6 cm. Interval development of mild right hydroureteronephrosis. (Similar findings were present on 09/04/2023 with resolution on most recent 11/17/2023 renal ultrasound.) Distended urinary bladder with wall thickening and significant post void residual. Prominent heterogeneous prostate. Date of Service: 07/03/23 EXAMINATION: CT ABDOMEN AND PELVIS WITH CONTRAST?? CLINICAL INFORMATION: Fungemia. Evaluate for obstruction or stones?? COMPARISON: Chest CT 07/01/2023 FINDINGS: LUNG BASES: Increased groundglass attenuation at the lung bases. This is increased from previous chest CT 07/01/2023 LIVER, GALLBLADDER, AND BILIARY TREE: The liver is normal in shape and attenuation. Liver may be slightly enlarged, right lobe measuring 19 cm in length. No focal hepatic lesion or biliary ductal dilatation is present. The gallbladder is contracted. PANCREAS: Unremarkable.?? SPLEEN: Spleen is slightly enlarged measuring 15 cm in length. ADRENAL GLANDS: Unremarkable.?? KIDNEYS AND URETERS: The kidneys are normal in size, shape, and attenuation. Bilateral moderate hydronephrosis and ureteral dilatation down to the bladder. No stone seen. Bilateral perinephric stranding. BLADDER: Diffusely thickened bladder wall. Infectious, inflammatory and neoplastic processes should be considered. GASTROINTESTINAL TRACT: The small and large bowel are unremarkable. The appendix is unremarkable.?? ABDOMINAL WALL: No significant hernia is appreciated.?? LYMPH NODES: Normal. VASCULAR: Unremarkable. PELVIC VISCERA: The prostate gland is slightly enlarged and measures 4.2 x 4.6 cm in AP and transverse dimension. Prostate gland is heterogeneous in attenuation with low-attenuation areas. Appearance is questionable for prostatitis. There is a small amount of fluid in the pelvis.? OSSEOUS STRUCTURES: Degenerative disc disease at L4-L5. IMPRESSION: Moderate bilateral hydronephrosis and ureteral dilatation down to the bladder. Diffuse bladder wall thickening. Infectious, inflammatory and neoplastic processes should be considered. Slightly enlarged low-attenuation prostate gland worrisome for infection/prostatitis as well. Groundglass attenuation bases. This is slightly increased from previous chest CT. Pneumonitis/atypical pneumonia and fluid overload/pulmonary edema should be considered. Mild hepatosplenomegaly. Assessment & Plan Assessment & Plan (1) Hydronephrosis: Code(s): N13.30 - Unspecified hydronephrosis Category: Medical (2) Urinary retention: Code(s): R33.9 - Retention of urine, unspecified Category: Medical (3) Neurogenic bladder: Code(s): N31.9 - Neuromuscular dysfunction of bladder, unspecified Category: Medical (4) Other urethral stricture, male, meatal: Code(s): N35.811 - Other urethral stricture, male, meatal Category: Medical (5) Incomplete bladder emptying: Code(s): R33.9 - Retention of urine, unspecified Category: Medical Plan Lusi is on Bactrim for UTI. Increase bethanechol 50 mg from b.i.d. to t.i.d. continue Flomax 0.4 mg b.i.d. Check renal ultrasound Orders: Orders AMB Urinalysis Automated Today Z13.9 - Encounter for screening, unspecified AMB Post Void Residual by ultrasound Today N39.0 - Urinary tract infection, site not specified US renal BI Today N13.30 - Unspecified hydronephrosis, R33.9 - Retention of urine, unspecified Patient Instructions: The patient had an opportunity to ask questions regarding treatment plan. The patient expressed understanding and agreement with the above treatment plan. The patient is aware they should contact our office by phone for worsening of their current condition or the appearance of new symptoms. Compliance is encouraged with any medications and followup testing that is ordered. It is a privilege to be allowed the opportunity to participate in the urologic care of your patient. If you have any questions or concerns regarding treatment for the above conditions please do not hesitate to contact me. The office telephone contact is [phone]. This note is constructed in part using voice recognition software. While every effort has been made to ensure accuracy supervisor tellers errors may have been included. Yours sincerely, Giovanni Donovan MD Coding Level of Care Code Est Pt Level 4 (47082) Diagnoses Hydronephrosis N13.30 Urinary retention R33.9 Neurogenic bladder N31.9 Other urethral stricture, male, meatal N35.811 Incomplete bladder emptying R33.9 CPT Codes Post Residual Void - PVR CPT Code: 73798-Nebw Void Residual by ultrasound ([id number])
== END 2024-09-30 09:01 | disposition home or self-care (01) ==
PROVIDERS: PCP Internal Medicine; Visit Provider Urology
DX: N13.30 Unspecified hydronephrosis (principal); R33.9 Retention of urine, unspecified; N31.9 Neuromuscular dysfunction of bladder, unspecified; N35.811 Other urethral stricture, male, meatal; Z13.9 Encounter for screening, unspecified
CPT/HCPCS: 99214

== ENCOUNTER → 2024-09-30 08:10 | Outpatient (BNVA) | payer OTHER, SELFPAY | PROVIDERS: PCP Internal Medicine; Visit Provider Urology | DX: N31.9 Neuromuscular dysfunction of bladder, unspecified (principal); N13.30 Unspecified hydronephrosis; R33.9 Retention of urine, unspecified; N35.811 Other urethral stricture, male, meatal; Z79.899 Other long term (current) drug therapy | CPT/HCPCS: 51798; 81003 ==

== ENCOUNTER 2024-10-07 12:14 | Outpatient (AMB) | payer OTHER, SELFPAY ==
[2024-10-07 12:42] VITALS: BP 90/68; PULSE 82; BMI 26.6
--- NOTE | 2024-10-07 12:42 | A.OFFVIS_ITS ---
Vital Signs 10/07/24 12:42 Height 5 ft 8 in Weight 175 lb BMI 26.6 BP 90/68 Blood Pressure Location Lt brachial Position Sitting Pulse 82 Pulse Source Pulse Oximeter Intake Visit Reasons: 3 month follow up w/ [place] [facility] device check Allergies No Known Allergies Allergy (Verified 09/30/24 08:19) Medication List - Last Reconciled 10/07/24 by Juan Dodge MD aspirin 81 mg PO DAILY bethanechol chloride 50 mg PO TID blood sugar diagnostic (FreeStyle Lite Strips) Test four times a day or as directed. carvedilol 6.25 mg PO BID 90 days dulaglutide (Trulicity) 0.75 mg (0.5 mL) subcut QWEEK empagliflozin (Jardiance) 10 mg PO DAILY lancets (FreeStyle Lancets) Test four times a day or as directed. metformin 1,000 mg PO BIDWMEAL 90 days nitroglycerin 0.4 mg sublingual Q5M PRN rosuvastatin 40 mg PO DAILY sacubitril-valsartan 24-26 mg (Entresto) 1 tab PO BID 90 days sulfamethoxazole-trimethoprim 800-160 mg (Bactrim DS) 1 tab PO BID 10 days tamsulosin (Flomax) 0.4 mg PO BID ticagrelor (Brilinta) 90 mg PO BID 90 days HPI Comments Details: Luis returns for follow-up regarding coronary artery disease. He has been previously seen by our nurse practitioner. Due to findings of mild cardiomyopathy on a prior echocardiogram, he underwent ischemic workup with a stress test which was essentially unremarkable. However, couple of months later, he actually had an anterior wall STEMI. Underwent LAD stenting. Prior to that episode, he states he never really had any chest pain. Subsequent to stenting again no further symptoms. History of diabetes. No smoking or drugs. Since last seen, no new complaints. He states he feels fine. Some postural dizziness but otherwise no other concerns. However, not too bothersome. [facility] Medical History Atherosclerotic cardiovascular disease Obstructive uropathy Cardiomyopathy Type 2 diabetes mellitus Surgical History History of permanent cardiac pacemaker placement History of heart artery stent Family History Brother Heart attack Maternal Grandfather CHF (congestive heart failure) Cancer Other Mental health disorder Substance use disorder Social History Household Members: Family Housing: House Do you presently have visiting nurse or other home services: No Alcohol intake: never Patient Tobacco Use Status: Former Tobacco user e-Cigarette/Vaping Use: Never Used Second Hand Smoke Exposure: Yes service: Yes Current occupational status: employed Current occupation: [employer] Cognitive needs: No Hearing needs: No Vision needs: Yes (glasses) Review of Systems Const Denies weakness ENT Denies dizziness Card Denies chest pain, Denies chest pain with activity, Denies syncope, Denies rapid heart rate, Denies pedal edema, Denies edema, Denies leg edema, Denies lightheadedness, Denies palpitations, Denies dyspnea, Denies dyspnea on exertion and Denies orthopnea Resp Denies cough, Denies dyspnea and Denies dyspnea on exertion GI Denies hematochezia and Denies change in stool character Musc Denies abnormal gait, Denies muscle cramps, Denies muscle weakness, Denies n umbness, Denies radiating pain into limb and Denies tingling Neuro Denies abnormal gait, Denies dizziness, Denies syncope, Denies numbness, Denies tingling and Denies weakness Endo Denies palpitations Physical Exam Vital Signs: Last Vital Signs Pulse 82 10/07/24 12:42 BP 90/68 10/07/24 12:42 BMI result Body Mass Index 26.6 Const General: comfortable and no acute distress Orientation/consciousness: patient oriented x3 HEENT Other: Unremarkable Head: Yes normal to inspection Neck Neck: Yes normal visual inspection Chest Chest palpation & inspection: normal inspection of the chest Resp Auscultation: clear to auscultation bilaterally Cardio Palpation: normal PMI Heart sounds: S1 normal heart sound present, S2 normal heart sound present, no gallops, no murmurs and no rubs GI Palpation (GI): Soft to palpation Back/Spine/Pelvis Other: unremarkable Skin General skin exam: no rashes or lesions noted Neuro General: patient oriented x3 Extrem General: Yes normal to inspection Psych Mental Status: mental status grossly normal Assessment & Plan Assessment & Plan (1) Atherosclerotic cardiovascular disease: Code(s): I25.10 - Atherosclerotic heart disease of [place] coronary artery without angina pectoris Category: Medical (2) STEMI (ST elevation myocardial infarction): Code(s): I21.3 - ST elevation (STEMI) myocardial infarction of unspecified site Category: Medical (3) Ischemic cardiomyopathy: Code(s): I25.5 - Ischemic cardiomyopathy Category: Medical (4) Type 2 diabetes mellitus: Code(s): E11.9 - Type 2 diabetes mellitus without complications Category: Medical Qualifiers: Diabetes mellitus complication status: with hyperglycemia Diabetes mellitus [facility] insulin use: without [facility] use Qualified Code(s): E11.65 - Type 2 diabetes mellitus with hyperglycemia (5) ICD (implantable cardioverter-defibrillator) in place: Code(s): Z95.810 - Presence of automatic (implantable) cardiac defibrillator Category: Medical Plan In the most recent echocardiogram, LVEF is 30-35%. Prior to that, echocardiogram from October 2023, again similar LVEF. Overall, no change. Cardiac catheterization 09/2023-100% stenosis in the distal subsection of proximal LAD, status post PCI. Otherwise, only minimal irregularities. Overall, coronary disease, ischemic cardiomyopathy but clinically no overt symptoms. For medications, continue aspirin. Brilinta can be stopped at the 1 year jose. We discussed about this today. He remains on carvedilol/Entresto. He does have some dizziness occasionally but not too bothersome. We discussed about lowering the medication doses but he states he would like to continue the same. If necessary, we can decrease Coreg in the future. Continue high-dose statins. Last LDL 26 mg/dL. Four diabetes, on Trulicity, Jardiance, metformin. Hemoglobin A1c is 6.5%. ICD was interrogated today. Subcutaneous device. Normal device function. No treated episodes. Battery life 96%. Medications: Discontinued ticagrelor (Brilinta) Discontinued Reason: Doctor's Order 90 mg PO BID 90 days 180 tabs 3RF Coding Level of Care Code Est Pt Level 4 (12616) Diagnoses Atherosclerotic cardiovascular disease I25.10 STEMI (ST elevation myocardial infarction) I21.3 Ischemic cardiomyopathy I25.5 Type 2 diabetes mellitus with hyperglycemia, without long-term current use of insulin E11.65 Diabetes mellitus complication status: with hyperglycemia Diabetes mellitus rn long term care insulin use: without [facility] use ICD (implantable cardioverter-defibrillator) in place Z95.810
== END 2024-10-07 13:01 | disposition home or self-care (01) ==
PROVIDERS: PCP Internal Medicine; Visit Provider Internal Medicine
DX: I25.10 Atherosclerotic heart disease of native coronary artery without angina pectoris (principal); I21.3 ST elevation (STEMI) myocardial infarction of unspecified site; I25.5 Ischemic cardiomyopathy; E11.65 Type 2 diabetes mellitus with hyperglycemia; Z95.810 Presence of automatic (implantable) cardiac defibrillator
CPT/HCPCS: 99214

== ENCOUNTER → 2024-10-07 12:14 | Outpatient (BNVA) | payer OTHER, SELFPAY | PROVIDERS: PCP Internal Medicine; Visit Provider Internal Medicine ==

== ENCOUNTER 2024-10-31 14:45 | Outpatient (AMB) | payer OTHER, SELFPAY ==
--- NOTE | 2024-10-31 14:53 | MHC.OFFVIS ---
Vital Signs 10/31/24 14:59 Height 5 ft 8 in Weight 182 lb 15.739 oz BMI 27.8 BP 101/65 Blood Pressure Location Rt brachial Position Sitting Pulse 85 Comment Patient reports wearing a lot of layers today. Intake Visit Reasons: Positive Cologuard Intake Note: Luis presents as a new patient for colonoscopy screening after a positive cologuard. CC: Patient reports having loose stools for a while but he believes is related to the medications he takes. Hand Inspector Required: No Accompanied by: Self / Same As Patient Allergies No Known Allergies Allergy (Verified 10/31/24 15:03) HPI HPI Positive Cologuard: Details: 49-year-old male here for preprocedural meeting to discuss a screening colonoscopy in the context of a positive Cologuard. He is referred by Richard Wright. PMX Diabetes Ischemic cardiomyopathy Arthrosclerotic cardiovascular disease Obstructive uropathy bilateral hydronephrosis Recurrent UTI with chronic bacteremia Positive Cologuard test * SURGICAL HISTORY Cardiac catheterization with angioplasty Cardiac pacemaker placement * ALLERGIES: NKDA * [facility] LABS: Laboratory Tests 06/05/24 06/05/24 06:19 06:20 WBC 16.5 H RBC 4.56 L Hgb 13.0 L Hct 38.8 L MCV 85.1 MCH 28.5 Plt Count 294 Estimated GFR > 60 Total Bilirubin 0.8 AST 13 ALT 25 Alkaline Phosphatase 52 TODAY'S VISIT This is his first colonoscopy. He has been cleared by Dr. Dodge despite his severe illnesses in the past year. NO current respiratory problems and his cardiac condition is controlled (has a pacemaker). He is relatively naive to anesthesia and sedation but no problems with past cardiac procedures. No current ID problems. He thinks his father had polyps and the pt had a positive COloguard. [facility] Medical History Candidiasis of mouth and esophagus Bacteremia due to Gram-positive bacteria Fungemia Hydronephrosis Obstructive uropathy Abnormal echocardiography findings without diagnosis Hospital discharge follow-up Incomplete bladder emptying STEMI (ST elevation myocardial infarction) Bacteriuria, asymptomatic Bacteriuria, chronic UTI (urinary tract infection) ICD (implantable cardioverter-defibrillator) in place Atherosclerotic cardiovascular disease Obstructive uropathy Cardiomyopathy Type 2 diabetes mellitus Surgical History S/P cardiac cath History of permanent cardiac pacemaker placement Family History Brother Heart attack Maternal Grandfather CHF (congestive heart failure) Cancer Father Prostate cancer Paternal Grandfather Stomach cancer Other Mental health disorder Substance use disorder Social History Household Members: Family Housing: House Do you presently have visiting nurse or other home services: No Alcohol intake: never Patient Tobacco Use Status: Former Tobacco user e-Cigarette/Vaping Use: Never Used Second Hand Smoke Exposure: Yes service: Yes Current occupational status: employed Current occupation: [employer] Cognitive needs: No Hearing needs: No Vision needs: Yes (glasses) Review of Systems Const Details: glasses ENT Reports Normal hearing present Neuro Reports Normal hearing present and Denies Abnormal speech present Physical Exam Vital Signs: Last Vital Signs Pulse 85 10/31/24 14:59 BP 101/65 10/31/24 14:59 BMI result Body Mass Index 27.8 Const General: cooperative, no acute distress, well developed and well groomed Nutritional Appearance: well nourished, obese and overweight Orientation/consciousness: oriented to person, oriented to place and oriented to time Limitations: No language barrier, ambulation with cane, ambulation with walker and wheelchair HEENT Head: Yes normocephalic and Yes atraumatic Eyes General: appearance normal, both eyes and all related structures Pupils: Equal, round and reactive pupils present Neck Neck: Yes normal visual inspection and Yes no lymphadenopathy Thyroid: Thyroid normal Chest Chest/axillae images: 1. surgical scars 2. Resp Effort & Inspection: normal respiratory effort and able to speak in complete sentences Auscultation: clear to auscultation bilaterally Cardio Rate: regular rate Rhythm: regular rhythm Heart sounds: Normal, physiologic split S2 sound present Peripheral pulses: radial pulses present and posterior tibial pulses present GI Inspection: No distended and No Abdominal panniculus present Palpation (GI): Soft to palpation, nontender, no guarding, not rigid and No hepatosplenomegaly present Percussion: Yes normal to percussion Auscultation: normal bowel sounds Rectal Exam - Male: Yes deferred Back/Spine/Pelvis Back/spine/pelvis image: 1. cardiac pacemaker Skin General skin exam: no rashes or lesions noted, turgor normal, skin not dry, no jaundice, No spider nevi and no striae Rashes: no rashes Nails: normal Neuro General: oriented to person, oriented to place and oriented to time Cranial nerves: Yes Equal, round and reactive pupils present and Yes Normal hearing present Speech: No Abnormal speech present Extrem General: Yes normal to inspection, No clubbing, No cyanosis and No edema Psych Appearance: grossly normal and well kempt Mental Status: mental status grossly normal Speech and movement: Normal speech and movement present Affect: normal affect Attitude: cooperative Thought process: Normal thought process present and not confabulating Thought content: Normal thought content present Insight: Good insight present (Psych) Judgement: Good judgement present (Psych) Assessment & Plan Assessment & Plan (1) Ischemic cardiomyopathy: Code(s): I25.5 - Ischemic cardiomyopathy Category: Medical (2) Positive colorectal cancer screening using Cologuard test: Onset Date: ~07/22/24 Comment: Has Colonoscopy scheduled on 10/31/2024 Code(s): R19.5 - Other fecal abnormalities Category: Medical (3) Pre-op examination: Code(s): Z01.818 - Encounter for other preprocedural examination Category: Medical Plan This is his first colonoscopy. He has been cleared by Dr. Dodge despite his severe illnesses in the past year. NO current respiratory problems and his cardiac condition is controlled (has a pacemaker). He is relatively naive to anesthesia and sedation but no problems with past cardiac procedures. No current ID problems. He thinks his father had polyps and the pt had a positive COloguard. Orders: Orders Colonoscopy - GI Use Only Today I25.5 - Ischemic cardiomyopathy, R19.5 - Other fecal abnormalities, Z01.818 - Encounter for other preprocedural examination Medications: New polyethylene glycol 3350 (Miralax) 238 grams PO ONCE 238 grams 0RF colonoscopy prep 1 day bisacodyl (Dulcolax (bisacodyl)) 10 mg (2 x 5 mg) PO BEDTIME 4 tabs 0RF 2 days Coding Level of Care Code New Pt Level 3 (49220) Diagnoses Ischemic cardiomyopathy I25.5 Positive colorectal cancer screening using Cologuard test R19.5 Pre-op examination Z01.818
[2024-10-31 14:59] VITALS: BP 101/65; PULSE 85; BMI 27.8
== END 2024-10-31 15:25 | disposition home or self-care (01) ==
PROVIDERS: PCP Internal Medicine; Visit Provider Nurse Practitioner
DX: Z01.818 Encounter for other preprocedural examination (principal); Z12.11 Encounter for screening for malignant neoplasm of colon; R19.5 Other fecal abnormalities; Z80.0 Family history of malignant neoplasm of digestive organs
CPT/HCPCS: 99202

== ENCOUNTER → 2024-10-31 14:45 | Outpatient (BNVA) | payer OTHER, SELFPAY | PROVIDERS: PCP Internal Medicine; Visit Provider Nurse Practitioner ==

== ENCOUNTER 2024-12-16 16:37 | Outpatient (REF) | payer OTHER, SELFPAY ==
[2024-12-16 17:19] LABS: Appearance Urine Turbid; Color Urine Yellow; Glucose Urine UA >=1000 mg/dL (Negative); Leukocyte Esterase Urine Large (3+) (Negative); Nitrite Urine Negative (Negative); PH 5.5 (5.0-9.0); UMIC TRIGGER UA YES; Urine Blood Moderate (2+) (Negative); Urine Ketones Negative (Negative); Urine Protein 100 (2+) mg/dL (Neg-Trace)
[2024-12-16 17:29] LABS: Bacteria Urine 4+ (None Seen); Hyaline Casts Urine 0-2 /LPF (0-2); RBC Urine 0-2 /HPF (0-2); Squamous Epithelial Cell Urine 0-2 /HPF (0-2); WBC Urine >50 /HPF (0-5)
== END 2024-12-16 16:38 | disposition home or self-care (01) ==
LOC: HO.LAB 16:37
PROVIDERS: PCP Internal Medicine; Visit Provider Urology
DX: N39.0 Urinary tract infection, site not specified (principal); R33.9 Retention of urine, unspecified; Z96.0 Presence of urogenital implants
CPT/HCPCS: 81001; 87086; 87088; 87186

== ENCOUNTER 2025-01-09 08:36 | Outpatient (AMB) | payer OTHER, SELFPAY ==
--- NOTE | 2025-01-09 08:56 | MHC.PC.OV ---
Vital Signs 01/09/25 08:58 Height 5 ft 8 in Weight 176 lb 6 oz BMI 26.8 BP 120/72 Blood Pressure Location Lt brachial Position Sitting Pulse 91 Pulse Source Pulse Oximeter Temp 97.7 F Temp Source Temporal Artery Scan Pulse Oximetry (%) 98 Oxygen Delivery Method Room Air Intake Visit Reasons: 3mth f/u Intake Note: Patient is here to follow up on DM. Primary Products Inspectors Required: No Motor Vehicle Lecturer: Not Required per policy Accompanied by: Self / Same As Patient Allergies No Known Allergies Allergy (Verified 01/09/25 09:19) Medication List - Last Reconciled 01/09/25 by Richard Wright MD aspirin 81 mg PO DAILY bethanechol chloride 50 mg PO TID bisacodyl (Dulcolax (bisacodyl)) 10 mg (2 x 5 mg) PO BEDTIME 2 days blood sugar diagnostic (FreeStyle Lite Strips) Test four times a day or as directed. carvedilol 6.25 mg PO BID 90 days dulaglutide (Trulicity) 0.75 mg (0.5 mL) subcut QWEEK empagliflozin (Jardiance) 10 mg PO DAILY lancets (FreeStyle Lancets) Test four times a day or as directed. metformin 1,000 mg PO BIDWMEAL 90 days nitroglycerin 0.4 mg sublingual Q5M PRN polyethylene glycol 3350 (Miralax) 238 grams PO ONCE 1 day rosuvastatin 40 mg PO DAILY sacubitril-valsartan 24-26 mg (Entresto) 1 tab PO BID 90 days sulfamethoxazole-trimethoprim 800-160 mg (Bactrim DS) 1 tab PO BID 7 days tamsulosin (Flomax) 0.4 mg PO BID 90 days Tobacco use date assessed: 01/09/25 Dental Screening Dental Screen Date: 01/09/25 Did you have a dental visit in the last 12 months?: No Did you have a dental problem in the last 6 months where you did not have access to dental care?: No Was dental information given to patient?: No [facility] Medical History ICD (implantable cardioverter-defibrillator) in place Candidiasis of mouth and esophagus Bacteremia due to Gram-positive bacteria Fungemia Hydronephrosis Obstructive uropathy Abnormal echocardiography findings without diagnosis Hospital discharge follow-up Incomplete bladder emptying STEMI (ST elevation myocardial infarction) Bacteriuria, asymptomatic Bacteriuria, chronic UTI (urinary tract infection) Atherosclerotic cardiovascular disease Obstructive uropathy Cardiomyopathy Type 2 diabetes mellitus Surgical History S/P cardiac cath History of permanent cardiac pacemaker placement Family History Brother Heart attack Maternal Grandfather CHF (congestive heart failure) Cancer Father Prostate cancer Paternal Grandfather Stomach cancer Other Mental health disorder Substance use disorder Social History Household Members: Family Housing: House Do you presently have visiting nurse or other home services: No Alcohol intake: never Patient Tobacco Use Status: Former Tobacco user e-Cigarette/Vaping Use: Never Used Second Hand Smoke Exposure: Yes service: Yes Current occupational status: employed Current occupation: [employer] Cognitive needs: No Hearing needs: No Vision needs: Yes (glasses) Questionnaire PHQ-9 Over the last 2 weeks, how often have you been bothered by any of the following problems? 1. Little interest or pleasure in doing things: not at all 2. Feeling down, depressed, or hopeless: not at all 3. Trouble falling or staying asleep, or sleeping too much: not at all 4. Feeling tired or having little energy: not at all 5. Poor appetite or overeating: not at all 6. Feeling bad about yourself - or that you are a failure or have let yourself or your family down: not at all 7. Trouble concentrating on things, such as reading the newspaper or watching television: not at all 8. Moving or speaking so slowly that other people could have noticed. Or the opposite - being so fidgety or restless that you have been moving around a lot more than usual: not at all 9. Thoughts that you would be better off or of hurting yourself in some way: not at all Total score: 0 Depression Screening Interpretation: Negative Depression Screening Done: Yes Source: Developed by Drs. Morgan Kitchen, Luly Jones, Gulilermo Rai and colleagues, with an educational azul from [employer]. Thrive Questionnaire Date Thrive assessed: 01/09/25 I am a: Patient What is your living situation today?: I have a steady place to live Within the past 12 months, did the food you bought not last and you didn't have the money to get more?: Never true Within the past 12 months, did you worry whether your food would run out before you got money to buy more?: Never true Do you have trouble paying for medicines?: No Do you have trouble getting transportation to medical appointments?: No Do you have trouble paying your heating and electricity bill?: No Do you have trouble taking care of your child, family member or friend?: No Do you have trouble with day-to-day activities such as bathing, preparing meals, shopping, managing finances, etc.?: No Are you currently unemployed and looking for a job?: No Are you interested in more education?: No Please select the resources that you would like help with: None Currently or been in a relationship where the following occur: No concerns reported THRIVE Score: 0 AUDIT C Alcohol Use Questionnaire (AUDIT-C) 1. How often do you have a drink containing alcohol?: Never 3. How often do you have six or more drinks on one occasion?: Never Total Score: 0 MAKAYLA-7 AMB Questionnaire MAKAYLA-7 Date MAKAYLA - 7 assessed: 01/09/25 Feeling nervous, anxious, or on edge: 0 = Not at all Not being able to stop or control worryin = Not at all Worrying too much about different things: 0 = Not at all Trouble relaxin = Not at all Being so restless that it is hard to sit still: 0 = Not at all Becoming easily annoyed or irritable: 0 = Not at all Feeling afraid as if something awful might happen: 0 = Not at all Total MAKAYLA-7 score (0-4 normal; 5-9 mild; 10-14 moderate; 15-21 severe): 0 Source: Developed by Drs. Morgan Kitchen, Guillermo Guerrero and colleagues, with an educational azul from [employer]. Physical exam (Primary Care) Vital Signs: Last Vital Signs Temp 97.7 F 01/09/25 08:58 Pulse 91 01/09/25 08:58 BP 120/72 03/20/25 08:58 Pulse Ox 98 01/09/25 08:58 Oxygen Delivery Method Room Air 01/09/25 08:58 BMI result Body Mass Index 26.8 Tobacco/Smoking Status: Tobacco use Status Tobacco use date assessed 01/09/25 01/09/25 09:05 Patient Tobacco Use Status Former Tobacco user 01/09/25 09:05 e-Cigarette/Vaping Use Never Used 01/09/25 09:05 PHQ-9: PHQ-9 Score PHQ-9: Total score 0 01/09/25 09:05 Depression Screening Interpretation: Negative Thrive Assessment: Date of Thrive Assessment Date Thrive assessed 01/09/25 01/09/25 09:05 Currently or been in a relationship where the following occur: No concerns reported Results AMB Hemoglobin A1c AMB Hemoglobin A1c 6.0 % Last Edit by MATT Pollack on 01/09/25 09:09 AMB Urinalysis, Automated UA Leukoctes 3 Krystina/uL Last Edit by MATT Pollack on 01/09/25 09:14 UA Nitrite Negative Last Edit by MATT Pollack on 01/09/25 09:14 UA Urobilinogen 0 mg/dL Last Edit by MATT Pollack on 01/09/25 09:14 UA Protein 1 mg/dL Last Edit by MATT Pollack on 01/09/25 09:14 UA pH 6.0 Last Edit by MATT Pollack on 01/09/25 09:14 UA Blood 2 Georgi/uL Last Edit by MATT Pollack on 01/09/25 09:14 UA Specific [place] 1.015 Last Edit by MATT Pollack on 01/09/25 09:14 UA Ketone Negative Last Edit by MATT Pollack on 01/09/25 09:14 UA Bilirubin 0 mg/dL Last Edit by MATT Pollack on 01/09/25 09:14 UA Glucose 3 mg/dL Last Edit by MATT Pollack on 01/09/25 09:14 Results Reviewed Results Reviewed: Laboratory Last Values Hgb A1c (Clinic) 6.0 % (4.0-6.0) 01/09/25 08:56 Urine pH (Auto) 6.0 01/09/25 08:56 Specific [place] (Auto) 1.015 01/09/25 08:56 Urine Protein (Auto) 1 mg/dL L* 01/09/25 08:56 Glucose (UA)(Auto) 3 mg/dL H* 01/09/25 08:56 Urine Ketones (Auto) Negative 01/09/25 08:56 Urine Blood (Auto) 2 Georgi/uL H* 01/09/25 08:56 Urine Nitrite (Auto) Negative 01/09/25 08:56 Urine Bilirubin (Auto) 0 mg/dL 01/09/25 08:56 Urine Urobilinogen (Auto) 0 mg/dL 01/09/25 08:56 Leukocyte Esterase (Auto) 3 Krystina/uL H* 01/09/25 08:56 Coding Level of Care Code Est Pt Level 4 (71256) Complex EM visit Add On G2211 Diagnoses Cardiomyopathy, unspecified type I42.9 Cardiomyopathy type: unspecified Type 2 diabetes mellitus with hyperglycemia, without long-term current use of insulin E11.65 Diabetes mellitus complication status: with hyperglycemia Diabetes mellitus senior living insulin use: without senior living use Assessment & Plan Assessment & Plan (1) Cardiomyopathy: Code(s): I42.9 - Cardiomyopathy, unspecified Category: Medical Qualifiers: Cardiomyopathy type: unspecified Qualified Code(s): I42.9 - Cardiomyopathy, unspecified Plan: Advised to check weight on a daily basis. Continue with medications at the same dosage. (2) Type 2 diabetes mellitus: Code(s): E11.9 - Type 2 diabetes mellitus without complications Category: Medical Qualifiers: Diabetes mellitus complication status: with hyperglycemia Diabetes mellitus senior living insulin use: without senior living use Qualified Code(s): E11.65 - Type 2 diabetes mellitus with hyperglycemia Plan: A1c has been ordered. Will call with results. Plan History of Present Illness The patient is a 49-year-old male presenting for a follow-up regarding type 2 diabetes mellitus, congestive heart failure, and hyperlipidemia. He has not been vigilant in checking his blood glucose levels recently but is aware of the need for a hemoglobin A1c test. Weight fluctuations were noted due to a recent urinary tract infection, which is now resolved, and his weight has returned to normal with medical treatment. He is currently on medications including carvedilol, rosuvastatin, Entresto, and tamsulosin, which he reportedly tolerates well. He experiences cold hands as the only side effect. The patient is employed full-time, involving significant physical activity. He acknowledges that his diet is not optimal for his conditions and intends to improve it. A positive Cologuard test was noted, with a colonoscopy pending scheduling. Social History - Employment: Full-time at [employer] for 28 years, involving significant walking and lifting activities. - Diet: Frequent consumption of fast foods such as grinders and pizza due to convenience at work. - Exercise: Involves walking substantial distances at work. - Functional status: Limited lifting due to heart condition, otherwise engages in work activities fully. Review of Systems - Cardiovascular: Reports cold hands. - Gastrointestinal: Denies any significant concerns apart from acknowledgment of a positive Cologuard. - Genitourinary: Reports stable symptoms with Flomax, without significant change. Physical Exam General: Appearance normal, both eyes and all related structures Nutritional Appearance: Could be better, ends up having a lot of grinders and pizzas Orientation/consciousness: Patient oriented x3 Limitations: No limitations, but needs to take it easy on weights Head: Normal to inspection Neck: Normal visual inspection Chest: Normal palpation of entire chest wall Respiratory: Normal respiratory effort Neurology: Patient oriented x3 Results - Labs/Tests: Pending hemoglobin A1c test, blood panel, and colonoscopy scheduling due to positive Cologuard test. Plan The patient will undergo a fasting blood panel and hemoglobin A1c test to monitor diabetes management. Continued compliance with heart failure medications including carvedilol, rosuvastatin, and Entresto is advised, with attention to any side effects. The importance of blood glucose monitoring was emphasized, and dietary improvements encouraged. Compression stockings remain indicated. Scheduling for the pending colonoscopy will be pursued after a positive Cologuard test. Follow-up in three months was planned to review test results and adjust management as needed. Patient was informed and verbally consented to the use of an ambient scribe for clinic note documentation during this visit. Discussion Notes I discussed with the patient the necessity of completing a fasting blood panel and hemoglobin A1c to monitor his diabetes. The importance of dietary control in managing both diabetes and heart failure was conveyed, and I encouraged small changes towards reducing intake of fast foods. I detailed the ongoing medication regimen for congestive heart failure and hyperlipidemia and addressed current side effects. The rationale for wearing compression stockings was reviewed due to past clots. We talked about the timeline for scheduling a colonoscopy after the Cologuard test came back positive. Follow-up in three months was determined for comprehensive review and ongoing management assessment. Patient Instructions - Complete a fasting blood panel and hemoglobin A1c test at your earliest convenience. - Monitor blood glucose levels at least twice weekly. - Aim to incorporate healthier food choices into your diet, reducing fast foods. - Continue current medications as prescribed. - Plan for a colonoscopy based on prior Cologuard results, follow up for scheduling. - Wear compression stockings as advised for prior blood clot history. - Return for follow-up in three months or sooner if you experience changes in symptoms. Orders: Orders AMB Urinalysis Automated Today Z13.9 - Encounter for screening, unspecified AMB Hemoglobin A1c Today E11.65 - Type 2 diabetes mellitus with hyperglycemia
[2025-01-09 08:58] VITALS: BP 120/72; PULSE 91; TEMP 36.5; O2SAT 98; BMI 26.8
== END 2025-01-09 09:21 | disposition home or self-care (01) ==
LOC: HO.HMCH 08:36
PROVIDERS: PCP Internal Medicine; Visit Provider Internal Medicine
DX: I42.9 Cardiomyopathy, unspecified (principal); E11.65 Type 2 diabetes mellitus with hyperglycemia; Z13.9 Encounter for screening, unspecified

== ENCOUNTER → 2025-01-09 08:36 | Outpatient (BNVA) | payer OTHER, SELFPAY | PROVIDERS: PCP Internal Medicine; Visit Provider Internal Medicine | DX: I42.9 Cardiomyopathy, unspecified (principal); E11.65 Type 2 diabetes mellitus with hyperglycemia | CPT/HCPCS: 81003; 83036; 96127 ==

== ENCOUNTER 2025-01-13 13:04 | Outpatient (REF) | payer OTHER, SELFPAY ==
[2025-01-13 14:29] LABS: Hematocrit 31.2 % (42.0-52.0); Hemoglobin 10.1 g/dl (14.0-18.0); Mean Corpuscular HGB Conc 32.4 g/dl (31.0-36.0); Mean Corpuscular Hemoglobin 26.8 pg (27.0-33.0); Mean Corpuscular Volume 82.8 fL (80.0-98.0); Mean Platelet Volume 9.1 fL (9.4-12.4); Platelet Count 325 X10*3/uL (160-400); Red Blood Count 3.77 X10*6/uL (4.60-5.80); Red Cell Distribution Width 15.9 % (11.0-16.0); White Blood Count 9.2 X10*3/uL (4.8-10.8)
[2025-01-13 14:41] LABS: Estimated Average Glucose 128 mg/dL; Hemoglobin A1C 113.2853 umol/L; Hemoglobin A1c % 6.1 % (<6.0)
[2025-01-13 15:12] LABS: Alanine Aminotransferase 16 U/L (0-40); Albumin Level 3.9 g/dL (3.5-5.0); Alkaline Phosphatase 75 U/L (39-117); Anion Gap 8 (12-20); Aspartate Amino Transferase 13 U/L (5-37); Bilirubin Direct 0.1 mg/dL (0.0-0.5); Bilirubin Total 0.4 mg/dL (0.0-1.0); Blood Urea Nitrogen 25 mg/dL (9-16); Calcium 9.7 mg/dL (8.4-10.2); Carbon Dioxide 24 mmol/L (22-29); Chloride 110 mmol/L (96-108); Cholesterol 92 mg/dL (<200); Estimated Glomerular Filt Rate 40; Glucose Random 138 mg/dL (60-115); HDL Cholesterol 27 mg/dL (>40); LDL Cholesterol Calculated 32 mg/dL (<100); Potassium 3.2 mmol/L (3.3-5.1); Sodium 139 mmol/L (135-145); Total Protein 7.6 g/dL (6.5-8.0); Triglycerides 167 mg/dL (<150)
== END 2025-01-13 13:05 | disposition home or self-care (01) ==
LOC: HO.LAB 13:04
PROVIDERS: PCP Internal Medicine; Visit Provider Internal Medicine
DX: E11.65 Type 2 diabetes mellitus with hyperglycemia (principal); I42.9 Cardiomyopathy, unspecified; D72.829 Elevated white blood cell count, unspecified
CPT/HCPCS: 36415; 80048; 80061; 80076; 83036; 85027

== ENCOUNTER 2025-01-17 09:21 | Outpatient (REF) | payer OTHER, SELFPAY ==
--- NOTE | ~2025-01-17 | US_ITS ---
CLINICAL HISTORY: R33.9 - Retention of urine, unspecified US Renal Comparison: None Findings: Right kidney normal size and echotexture, 13.2 cm length. Left kidney normal size and echotexture, 13.4 cm length. Athpmifi-lw-gwijxx collecting system dilatation of bilateral kidneys. Normal color Doppler. There is nonspecific debris layering in the urinary bladder with the bladder otherwise unremarkable. Prevoid volume 510 mL. Postvoid volume 401 mL. Right ureteral jets is visualized. IMPRESSION: 1. Bilateral hydroureteronephrosis. This document has been electronically signed by: Jordi Cali MD on 01/18/2025 07:51:07
== END 2025-01-17 09:22 | disposition home or self-care (01) ==
LOC: HO.US 09:21
PROVIDERS: PCP Internal Medicine; Visit Provider Urology
DX: R33.9 Retention of urine, unspecified (principal); N13.30 Unspecified hydronephrosis
CPT/HCPCS: 76770

== ENCOUNTER → 2025-01-17 09:24 | Outpatient (BNV) | payer OTHER, SELFPAY | PROVIDERS: PCP Internal Medicine; Visit Provider Specialist | DX: N13.732 Vesicoureteral-reflux with reflux nephropathy with hydroureter, bilateral (principal) | CPT/HCPCS: 76770 ==

== ENCOUNTER 2025-01-30 08:31 | Outpatient (AMB) | payer OTHER, SELFPAY ==
--- NOTE | 2025-01-30 08:43 | A.OFFVIS_ITS ---
Intake Visit Reasons: 4m/US Intake Note: Patient is present for follow up PVR/ UA Urology Med: Tamsulosin, Bethanechol Antibiotic Allergy: None Blood Thinner: Aspirin PVR:438ml Road Driver Required: No Accompanied by: Self / Same As Patient Allergies No Known Allergies Allergy (Verified 01/30/25 08:51) HPI Comments Details: 01/30/25--Luis is here in follow-up. h/o neurogenic bladder on flomax and bethanochol. followed for urinary retention with subsequent bilateral hydronephrosis. Last renal US-- 01/18/25---Pt has refused CIC or any type of catheterization on a chronic basis. The patient is a 49-year-old male presenting with voiding dysfunction and associated renal issues. He has an ongoing issue of neurogenic bladder which has led to incomplete bladder emptying and subsequent bilateral hydronephrosis. A renal ultrasound in December 2024 reconfirmed these findings, with notable post- void residual urine volume. Lab work has also shown progression in renal impairment with elevated BUN and creatinine values alongside a decreased GFR, reinforcing the compromised renal function. Today's UA was not nitrate-positive, although it was visibly cloudy, suggesting the possible import of another episode. The patient's history includes management of urethral stricture with catheterization, he continues to decline catheterization options includinge SP tube. Urinary Symptoms Review - Incomplete bladder emptying - Significant post-void residual urine volume of 401 mL - Recent urinary tract infection history - Declines repeated urethral catheterization - History of urethral stricture Results - Laboratory: 01/13/25--Blood Urea Nitrogen (BUN) 25 mg/dL; Creatinine 1.8 mg/dL; Glomerular Filtration Rate (GFR) 40 mL/min/1.73m? - Imaging: Renal ultrasound dated January 18, 2025, showing bilateral hydronephrosis and elevated PVR Discussion Notes During the consultation, we discussed the ongoing management of the patient's voiding dysfunction and renal implications. I provided explanations surrounding the need for further evaluation by nephrology due to deteriorating renal function, as indicated by the decreased GFR. Options for managing the persistent urine retention were discussed, including the use of a suprapubic catheter as an alternative to CIC/urethral catheterization. Detailed considerations were communicated regarding the risks of renal deterioration if the bladder's drainage issue remains unresolved. 09/30/24--Luis is here in follow-up. h/o neurogenic bladder on flomax and bethanochol. followed for urinary retention with subsequent bilateral hydronephrosis. Last renal US 04/2024--Pt refuses CIC or any type of catheterization on a chronic basis. Luis states that he saw his PCP recently at that time he reported being feverish and having flank pain. He was started on Bactrim SS and was called and change to Bactrim BS b.i.d. for 10 days. Urine culture 09/23/2024 Serratia marcescens greater than 100,000 colonies is sensitive to Bactrim. I will check a renal ultrasound and increase bethanechol to t.i.d.. 05/31/24--here for fu. h/o neurogenic bladder on flomax and bethanochol. states he ran out of the bethanochol about a 6 weeks ago, called office and med was not refilled. He has been taking the flomax. He states he has pacemaker scheduled for next Monday. PVR >400 mL. UA nitrite positive. In review of previous c/s -- I will empiracally place him on macrobid. bactrim interacts with one of his meds. He denies any urinary symptoms, dysuria, fever. Discussed renal US, Mild left hydro, minimally improved. I will increase bethanochol to 50 mg tid. 02/29/2024-- He states that he has not been doing the clean intermittent catheterization. He states he tried once and had some difficulty and did not try again. I have reviewed the renal ultrasound which shows that the bilateral hydronephrosis is recurrent. I have discussed with the patient risks related to incomplete bladder emptying and referred pressure on the kidneys that may cause kidney damage. Recommended Marie catheter. Patient declines. Discussed other evaluation and therapy to investigate including urodynamics. Urinalysis today nitrite positive. Will send urine for culture. Hold on antibiotics until culture results. Trial of increasing Flomax to b.i.d., bethanechol 25 mg t.i.d. repeat renal ultrasound in 2 months. 12/01/23--Luis is a 48-year-old male who presents today to the office for follow up. He has been followed for hydronephrosis secondary to obstructive uropathy, and was treated for UTI and fungemia. 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 He is s/p urethral dilation and on cystoscopy was noted to have bladder neck scarring which needed dilation. He also has neurogenic bladder. 16 fr marie removed by nursing staff. Office cystoscopy not indicated today. (cystoscopy done on 10/06/23 - bladder neck open) I want the patient to follow up with nursing to learn CIC. 10/20/23--He presents today in fu and states he was hospitalized at [facility] for an [place] and had a cardiac cath, he was discharged last night. He currently has marie in place (placed 10/06/23) and is draining it every 2-3 hours during the day and to drainage at night time. The patient states he was started on new meds at [facility] but does not remember the names, he will call once he gets home. Will reconcile meds once we have the updated medications available. Exam- penis, meatus no excoriation. Cont marie, fu for nurse visit in 2 wks for catheter change, fu with me in 6 weeks for cysto and possible catheter removal vs change. Renal US prior. 10/06/23--Luis is s/p procedure to dilate urethral meatus and bladder neck 2 days ago, he states the marie mechanism controlling the marie balloon got broken and the marie slipped out of position. Office cysto - today, notes bladder neck is wide open, the [place] tip marie was placed over a guide wire and the marie was clamped. The patient was instructed to drain the catheter every 2-3 hr duing the daytime and keep to gravity drainage at night. 08/16/2023?The patient was seen in consultation while as an in-patient on 07/04/2023. He has a past medical history significant for type 2 diabetes. Urine culture and blood culture during the admission came back positive for [place], and strep agalastiae group B. He was treated with Antibiotics. Patient was started on Flomax. FU noted persistent elevated PVR. Bladder scan PVR >600 mL Evaluation today?UA? leukocytes: 3 +; nitrite: positive; blood: 2 +. I discussed placing a marie. On attempts to place a Marie catheter, the meatus was stenotic. I attempted to dilate with a 14 [place] dilator, however even with use of lidocaine jelly the patient was not able to tolerate due to pain. I have discussed with the patient urethral dilation and Cystoscopy as an outpt procedure. Patient received macrobid 100 mg 1x dose here. CT abdomen/pelvis results from 07/03/2023 revealed moderate bilateral hydronephrosis and ureteral dilatation down to the bladder. Diffuse bladder wall thickening. Slightly enlarged low-attenuation prostate gland worrisome for infection/prostatitis. COUNTS INCLUDE 234 BEDS AT THE [facility] Medical History ICD (implantable cardioverter-defibrillator) in place Candidiasis of mouth and esophagus Bacteremia due to Gram-positive bacteria Fungemia Hydronephrosis Obstructive uropathy Abnormal echocardiography findings without diagnosis Hospital discharge follow-up Incomplete bladder emptying STEMI (ST elevation myocardial infarction) Bacteriuria, asymptomatic Bacteriuria, chronic UTI (urinary tract infection) Atherosclerotic cardiovascular disease Obstructive uropathy Cardiomyopathy Type 2 diabetes mellitus Surgical History S/P cardiac cath History of permanent cardiac pacemaker placement Family History Brother Heart attack Maternal Grandfather CHF (congestive heart failure) Cancer Father Prostate cancer Paternal Grandfather Stomach cancer Other Mental health disorder Substance use disorder Social History Household Members: Family Housing: House Do you presently have visiting nurse or other home services: No Alcohol intake: never Patient Tobacco Use Status: Former Tobacco user e-Cigarette/Vaping Use: Never Used Second Hand Smoke Exposure: Yes service: Yes Current occupational status: employed Current occupation: [employer] Cognitive needs: No Hearing needs: No Vision needs: Yes (glasses) Review of Systems Const All systems reviewed & are unremarkable except as noted in HPI and below Reports no additional complaints Eyes Reports no additional complaints ENT Reports no additional complaints Card Reports no additional complaints Resp Reports no additional complaints GI Reports no additional complaints Reports as per HPI Musc Reports no additional complaints Skin/Breast Reports system reviewed and no additional complaints, except as documented Neuro Reports no additional complaints Psych Reports no additional complaints Endo Reports no additional complaints Alfonso/Lymph Reports no additional complaints Aller/Immun Reports no additional complaints Assessment & Plan Assessment & Plan (1) Proteinuria: Code(s): R80.9 - Proteinuria, unspecified Category: Medical (2) Diabetes: Code(s): E11.9 - Type 2 diabetes mellitus without complications Category: Medical (3) Hydronephrosis: Code(s): N13.30 - Unspecified hydronephrosis Category: Medical (4) Urinary retention: Code(s): R33.9 - Retention of urine, unspecified Category: Medical (5) Neurogenic bladder: Code(s): N31.9 - Neuromuscular dysfunction of bladder, unspecified Category: Medical (6) Other urethral stricture, male, meatal: Code(s): N35.811 - Other urethral stricture, male, meatal Category: Medical (7) Incomplete bladder emptying: Code(s): R33.9 - Retention of urine, unspecified Category: Medical Plan Plan I plan to refer the patient to nephrology for further assessment of his compromised renal function Cont Tamsulosin, bethanochol Continue to monitor renal bladder ultrasound in 6 months Orders: Referrals Nephrology Referral E11.9 - Type 2 diabetes mellitus without complications, R80.9 - Proteinuria, unspecified Patient Instructions: The patient had an opportunity to ask questions regarding treatment plan. The patient expressed understanding and agreement with the above treatment plan. The patient is aware they should contact our office by phone for worsening of their current condition or the appearance of new symptoms. Compliance is encouraged with any medications and followup testing that is ordered. It is a privilege to be allowed the opportunity to participate in the urologic care of your patient. If you have any questions or concerns regarding treatment for the above conditions please do not hesitate to contact me. The office telephone contact is [phone]. This note is constructed in part using voice recognition software. While every effort has been made to ensure accuracy regional maintenance manager errors may have been included. Yours sincerely, Giovanni Donovan MD Scribe Plan - Not visible on output: Patient was informed and verbally consented to the use of an ambient scribe for clinic note documentation during this visit. Coding Level of Care Code Est Pt Level 4 (55483) Complex EM visit Add On G2211 Diagnoses Proteinuria R80.9 Diabetes E11.9 Hydronephrosis N13.30 Urinary retention R33.9 Neurogenic bladder N31.9 Other urethral stricture, male, meatal N35.811 Incomplete bladder emptying R33.9
== END 2025-01-30 09:14 | disposition home or self-care (01) ==
LOC: HO.HUSH 08:32
PROVIDERS: PCP Internal Medicine; Visit Provider Urology
DX: R80.9 Proteinuria, unspecified (principal); E11.9 Type 2 diabetes mellitus without complications; N13.30 Unspecified hydronephrosis; R33.9 Retention of urine, unspecified; N31.9 Neuromuscular dysfunction of bladder, unspecified; N35.811 Other urethral stricture, male, meatal; Z13.9 Encounter for screening, unspecified
CPT/HCPCS: 99214; G2211

== ENCOUNTER 2025-01-30 08:31 | Outpatient (REF) | payer OTHER, SELFPAY | END 2025-01-30 08:32 | disposition home or self-care (01) | LOC: HO.LAB 08:31 | PROVIDERS: PCP Internal Medicine; Visit Provider Urology | DX: N39.0 Urinary tract infection, site not specified (principal) | CPT/HCPCS: 81003; 87086; 87088; 87186 ==

== ENCOUNTER 2025-02-17 09:17 | Outpatient (AMB) | payer OTHER, SELFPAY ==
--- NOTE | 2025-02-17 09:27 | HO.NEPHOV_ITS ---
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 He has chronic urinary retention presumed to be due to neurogenic bladder. He has been a diabetic and is on medications. He has lost weight on Trulicity and his hemoglobin A1c is remarkably better. He has bilateral hydronephrosis and his urologist has instructed him to do self intermittent catheterization which he refuses. Alternate option was given for suprapubic catheter insertion which he does not want. He has coronary artery disease needing PCI and stenting. He has cardiomyopathy and is on carvedilol as well as Entresto. He has proteinuria. He denies retinopathy, neuropathy, peripheral arterial disease, carotid disease, nausea, vomiting, diarrhea. He denies taking nonsteroidal anti-inflammatory medications on a regular basis. He does not have any epistaxis, photosensitivity, skin rashes, hematuria or orthostatic symptoms. He is on Jardiance. He is concerned about his drop in GFR. His last serum creatinine prior to this office visit was 1.8 PFSH Medical History ICD (implantable cardioverter-defibrillator) in place Candidiasis of mouth and esophagus Bacteremia due to Gram-positive bacteria Fungemia Hydronephrosis Obstructive uropathy Abnormal echocardiography findings without diagnosis Hospital discharge follow-up Incomplete bladder emptying STEMI (ST elevation myocardial infarction) Bacteriuria, asymptomatic Bacteriuria, chronic UTI (urinary tract infection) Atherosclerotic cardiovascular disease Obstructive uropathy Cardiomyopathy Type 2 diabetes mellitus Surgical History S/P cardiac cath History of permanent cardiac pacemaker placement Family History Brother Heart attack Maternal Grandfather CHF (congestive heart failure) Cancer Father Prostate cancer Paternal Grandfather Stomach cancer Other Mental health disorder Substance use disorder Social History Household Members: Family Housing: House Do you presently have visiting nurse or other home services: No Alcohol intake: never Patient Tobacco Use Status: Former Tobacco user e-Cigarette/Vaping Use: Never Used Second Hand Smoke Exposure: Yes service: Yes Current occupational status: employed Current occupation: [employer] Cognitive needs: No Hearing needs: No Vision needs: Yes (glasses) Review of Systems Const All systems reviewed & are unremarkable except as noted in HPI and below Physical Exam Vital Signs: Last Vital Signs Pulse 85 02/17/25 09:37 BP 80/60 L 02/17/25 09:37 Pulse Ox 96 02/17/25 09:37 Oxygen Delivery Method Room Air 02/17/25 09:37 BMI result Body Mass Index 26.8 Const General: comfortable and no acute distress Orientation/consciousness: patient oriented x3 HEENT Head: Yes normocephalic Mouth: Normal oral and palatal mucosa present Eyes EOM: EOMs intact bilaterally Neck Neck: Yes supple Resp Auscultation: clear to auscultation bilaterally Cardio Jugular venous distension: no JVD Rate: regular rate GI Palpation (GI): Soft to palpation Auscultation: normal bowel sounds General: Yes no CVA tenderness Back/Spine/Pelvis Back: no CVA tenderness Skin General skin exam: no rashes or lesions noted Neuro General: patient oriented x3 and moves all extremities Extrem General: Yes no pedal edema Results Reviewed Nephrology Results: Hgb 10.1 g/dl (14.0-18.0) L 01/13/25 WBC 9.2 X10*3/uL (4.8-10.8) 01/13/25 Plt Count 325 X10*3/uL (160-400) 01/13/25 Sodium 140 mmol/L (135-145) 02/17/25 Potassium 3.8 mmol/L (3.3-5.1) 02/17/25 Chloride 112 mmol/L (96-108) H 02/17/25 Carbon Dioxide 21 mmol/L (22-29) L 02/17/25 BUN 26 mg/dL (9-16) H 02/17/25 Creatinine 1.65 mg/dL (0.5-1.4) H 02/17/25 Calcium 9.7 mg/dL (8.4-10.2) 01/13/25 Urine Protein 100 (2+) mg/dL (Neg-Trace) H 12/16/24 Assessment & Plan Assessment & Plan (1) Proteinuria: Code(s): R80.9 - Proteinuria, unspecified Category: Medical Qualifiers: Proteinuria type: other Qualified Code(s): R80.8 - Other proteinuria (2) DANNIE (acute kidney injury): Code(s): N17.9 - Acute kidney failure, unspecified Category: Medical (3) CKD stage 3a, GFR 45-59 ml/min: Code(s): N18.31 - Chronic kidney disease, stage 3a Category: Medical (4) Urinary retention: Code(s): R33.9 - Retention of urine, unspecified Category: Medical (5) Hypertension: Code(s): I10 - Essential (primary) hypertension Category: Medical Qualifiers: Hypertension type: primary hypertension Qualified Code(s): I10 - Essential (primary) hypertension Plan Luis has CKD due to obstructive uropathy from neurogenic bladder as well as contribution from diabetes mellitus and vascular disease. While having urinary retention with the bilateral hydro nephrosis he is on Entresto. This clearly is causing more tubular injury. He has proteinuria due to diabetic nephropathy. He is on Jardiance. He is going to discuss with the urology to explore surgical avenues to help him with his bladder drainage issues. If his creatinine goes up I may temporarily hold his Entresto. He should avoid nonsteroidal anti-inflammatories and maintain good hydration. I shall continue to monitor him pretty closely and optimize his medication based on evolving data. Answered all questions. Follow-up appointment given. Orders: Orders Blood Urea Nitrogen Today N17.9 - Acute kidney failure, unspecified, R80.9 - Proteinuria, unspecified Electrolytes Today N17.9 - Acute kidney failure, unspecified, R80.9 - Proteinuria, unspecified Creatinine Today N17.9 - Acute kidney failure, unspecified, R80.9 - Proteinuria, unspecified Electrolytes 1 Month N17.9 - Acute kidney failure, unspecified Blood Urea Nitrogen 1 Month N17.9 - Acute kidney failure, unspecified Creatinine 1 Month N17.9 - Acute kidney failure, unspecified Coding Level of Care Code New Pt Level 4 (17374) Diagnoses Other proteinuria R80.8 Proteinuria type: other DANNIE (acute kidney injury) N17.9 CKD stage 3a, GFR 45-59 ml/min N18.31 Urinary retention R33.9 Primary hypertension I10 Hypertension type: primary hypertension
[2025-02-17 09:37] VITALS: BP 80/60; PULSE 85; O2SAT 96; BMI 26.8
== END 2025-02-17 10:06 | disposition home or self-care (01) ==
LOC: HO.HKA 09:18
PROVIDERS: PCP Internal Medicine; Referring Provider Urology; Visit Provider Internal Medicine Nephrology
DX: R80.8 Other proteinuria (principal); N17.9 Acute kidney failure, unspecified; N18.31 Chronic kidney disease, stage 3a; R33.9 Retention of urine, unspecified; I10 Essential (primary) hypertension
CPT/HCPCS: 99204

== ENCOUNTER → 2025-02-17 09:17 | Outpatient (BNVA) | payer OTHER, SELFPAY | PROVIDERS: PCP Internal Medicine; Referring Provider Urology; Visit Provider Internal Medicine Nephrology ==

== ENCOUNTER 2025-02-17 10:15 | Outpatient (REF) | payer OTHER, SELFPAY ==
[2025-02-17 14:00] LABS: Anion Gap 11 (12-20); Blood Urea Nitrogen 26 mg/dL (9-16); Carbon Dioxide 21 mmol/L (22-29); Chloride 112 mmol/L (96-108); Estimated Glomerular Filt Rate 44; Potassium 3.8 mmol/L (3.3-5.1); Sodium 140 mmol/L (135-145)
== END 2025-02-17 10:16 | disposition home or self-care (01) ==
LOC: HO.10HDL 10:15
PROVIDERS: Visit Provider Internal Medicine Nephrology
DX: R80.9 Proteinuria, unspecified (principal); N17.9 Acute kidney failure, unspecified
CPT/HCPCS: 36415; 80051; 82565; 84520

== ENCOUNTER 2025-03-15 10:41 | Outpatient (REF) | payer OTHER, SELFPAY ==
[2025-03-15 11:06] LABS: Hematocrit 34.9 % (42.0-52.0); Hemoglobin 11.5 g/dl (14.0-18.0); Mean Corpuscular Hemoglobin 27.6 pg (27.0-33.0); Mean Corpuscular Volume 83.7 fL (80.0-98.0); Mean Platelet Volume 9.7 fL (9.4-12.4); Platelet Count 244 X10*3/uL (160-400); Red Blood Count 4.17 X10*6/uL (4.60-5.80); Red Cell Distribution Width 15.9 % (11.0-16.0); White Blood Count 9.1 X10*3/uL (4.8-10.8)
[2025-03-15 11:22] LABS: Appearance Urine Cloudy; Color Urine Yellow; Glucose Urine UA >=1000 mg/dL (Negative); Leukocyte Esterase Urine Large (3+) (Negative); Nitrite Urine Negative (Negative); PH 6.5 (5.0-9.0); UMIC TRIGGER UA YES; Urine Blood Small (1+) (Negative); Urine Ketones Negative (Negative); Urine Protein 30 (1+) mg/dL (Neg-Trace)
[2025-03-15 11:40] LABS: Bacteria Urine Trace (None Seen); Hyaline Casts Urine 0-2 /LPF (0-2); Squamous Epithelial Cell Urine 0-2 /HPF (0-2); WBC Urine 21-50 /HPF (0-5)
[2025-03-15 11:48] LABS: Anion Gap 13 (12-20); Blood Urea Nitrogen 30 mg/dL (9-16); Carbon Dioxide 23 mmol/L (22-29); Chloride 110 mmol/L (96-108); Estimated Glomerular Filt Rate 43; Potassium 3.8 mmol/L (3.3-5.1); Sodium 142 mmol/L (135-145)
[2025-03-15 11:50] LABS: Creatinine Urine 35.74 mg/dL; Microalbum/Creatinine Ratio Ur 260.2 ug/mg cr (<30)
== END 2025-03-15 10:42 | disposition home or self-care (01) ==
LOC: HO.LAB 10:41
PROVIDERS: Absent Provider Internal Medicine; PCP Internal Medicine; Visit Provider Internal Medicine Nephrology
DX: N17.9 Acute kidney failure, unspecified (principal); E11.65 Type 2 diabetes mellitus with hyperglycemia; I42.9 Cardiomyopathy, unspecified
CPT/HCPCS: 36415; 80051; 81001; 82043; 82565; 82570; 84520; 85027

== ENCOUNTER 2025-03-19 14:42 | Outpatient (AMB) | payer OTHER, SELFPAY ==
--- NOTE | 2025-03-19 14:55 | HO.NEPHOV ---
Vital Signs 03/19/25 14:56 Height 5 ft 8 in Weight 182 lb BMI 27.7 BP 98/60 Blood Pressure Location Rt brachial Position Sitting Pulse 85 Pulse Source Pulse Oximeter Pulse Oximetry (%) 98 Oxygen Delivery Method Room Air Intake Visit Reasons: 1 MO FU-[facility] Installation Supervisor Required: No Accompanied by: Self / Same As Patient Allergies No Known Allergies Allergy (Verified 03/19/25 14:59) HPI Comments Details: I had the privilege of seeing Luis in follow up for chronic kidney disease. 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 He has chronic urinary retention presumed to be due to neurogenic bladder. He has been a diabetic and is on medications. He has lost weight on Trulicity and his hemoglobin A1c is better. He has H/O bilateral hydronephrosis and his urologist has instructed him to do self intermittent catheterization which he refuses. Alternate option was given for suprapubic catheter insertion which he does not want. He has coronary artery disease needing PCI and stenting. He has cardiomyopathy and is on carvedilol as well as Entresto. He has proteinuria. He denies retinopathy, neuropathy, peripheral arterial disease, carotid disease, nausea, vomiting, diarrhea. He denies taking nonsteroidal anti-inflammatory medications on a regular basis. He does not have any epistaxis, photosensitivity, skin rashes, hematuria or orthostatic symptoms. He is on Jardiance which he is tolerating well. [facility] Medical History ICD (implantable cardioverter-defibrillator) in place Candidiasis of mouth and esophagus Bacteremia due to Gram-positive bacteria Fungemia Hydronephrosis Obstructive uropathy Abnormal echocardiography findings without diagnosis Hospital discharge follow-up Incomplete bladder emptying STEMI (ST elevation myocardial infarction) Bacteriuria, asymptomatic Bacteriuria, chronic UTI (urinary tract infection) Atherosclerotic cardiovascular disease Obstructive uropathy Cardiomyopathy Type 2 diabetes mellitus Surgical History S/P cardiac cath History of permanent cardiac pacemaker placement Family History Brother Heart attack Maternal Grandfather CHF (congestive heart failure) Cancer Father Prostate cancer Paternal Grandfather Stomach cancer Other Mental health disorder Substance use disorder Social History Household Members: Family Housing: House Do you presently have visiting nurse or other home services: No Alcohol intake: never Patient Tobacco Use Status: Former Tobacco user e-Cigarette/Vaping Use: Never Used Second Hand Smoke Exposure: Yes service: Yes Current occupational status: employed Current occupation: [employer] Cognitive needs: No Hearing needs: No Vision needs: Yes (glasses) Review of Systems Const All systems reviewed & are unremarkable except as noted in HPI and below Physical Exam Vital Signs: Last Vital Signs Pulse 85 03/19/25 14:56 BP 98/60 03/19/25 14:56 Pulse Ox 98 03/19/25 14:56 Oxygen Delivery Method Room Air 03/19/25 14:56 BMI result Body Mass Index 27.7 Const General: comfortable and no acute distress Orientation/consciousness: patient oriented x3 HEENT Head: Yes normocephalic Mouth: Normal oral and palatal mucosa present Eyes EOM: EOMs intact bilaterally Neck Neck: Yes supple Resp Auscultation: clear to auscultation bilaterally Cardio Jugular venous distension: no JVD Rate: regular rate GI Palpation (GI): Soft to palpation Auscultation: normal bowel sounds General: Yes no CVA tenderness Back/Spine/Pelvis Back: no CVA tenderness Skin General skin exam: no rashes or lesions noted Neuro General: patient oriented x3 and moves all extremities Extrem General: Yes no pedal edema Results Reviewed Nephrology Results: Hgb 11.5 g/dl (14.0-18.0) L 03/15/25 WBC 9.1 X10*3/uL (4.8-10.8) 03/15/25 Plt Count 244 X10*3/uL (160-400) 03/15/25 Sodium 142 mmol/L (135-145) 03/15/25 Potassium 3.8 mmol/L (3.3-5.1) 03/15/25 Chloride 110 mmol/L (96-108) H 03/15/25 Carbon Dioxide 23 mmol/L (22-29) 03/15/25 BUN 30 mg/dL (9-16) H 03/15/25 Creatinine 1.69 mg/dL (0.5-1.4) H 03/15/25 Calcium 9.7 mg/dL (8.4-10.2) 01/13/25 Urine Protein 30 (1+) mg/dL (Neg-Trace) H 03/15/25 Urine Creatinine 35.74 mg/dL 03/15/25 Assessment & Plan Assessment & Plan (1) CKD stage 3a, GFR 45-59 ml/min: Code(s): N18.31 - Chronic kidney disease, stage 3a Category: Medical (2) Hypertension: Code(s): I10 - Essential (primary) hypertension Category: Medical Qualifiers: Hypertension type: primary hypertension Qualified Code(s): I10 - Essential (primary) hypertension Plan Luis has CKD due to obstructive uropathy from neurogenic bladder as well as contribution from diabetes mellitus and vascular disease. While having urinary retention with the bilateral hydro nephrosis he is on Entresto. This clearly had caused tubular injury. He has proteinuria due to diabetic nephropathy. He is on Jardiance. He is going to discuss with the urology to explore surgical avenues to help him with his bladder drainage issues. If his creatinine goes up I may temporarily hold his Entresto. He should avoid nonsteroidal anti-inflammatories and maintain good hydration. I shall continue to monitor him pretty closely and optimize his medication based on evolving data. Answered all questions. Follow-up appointment given. Orders: Orders Creatinine 4 Months I10 - Essential (primary) hypertension, N18.31 - Chronic kidney disease, stage 3a Electrolytes 4 Months I10 - Essential (primary) hypertension, N18.31 - Chronic kidney disease, stage 3a Blood Urea Nitrogen 4 Months I10 - Essential (primary) hypertension, N18.31 - Chronic kidney disease, stage 3a Protein Creatinine Ratio, Ur 4 Months I10 - Essential (primary) hypertension, N18.31 - Chronic kidney disease, stage 3a Coding Level of Care Code Est Pt Level 4 (30704) Diagnoses CKD stage 3a, GFR 45-59 ml/min N18.31 Primary hypertension I10 Hypertension type: primary hypertension
[2025-03-19 14:56] VITALS: BP 98/60; PULSE 85; O2SAT 98; BMI 27.7
== END 2025-03-19 15:17 | disposition home or self-care (01) ==
LOC: HO.HKA 14:43
PROVIDERS: PCP Internal Medicine; Visit Provider Internal Medicine Nephrology
DX: N18.31 Chronic kidney disease, stage 3a (principal); I10 Essential (primary) hypertension
CPT/HCPCS: 99214

== ENCOUNTER → 2025-03-19 14:42 | Outpatient (BNVA) | payer OTHER, SELFPAY | PROVIDERS: PCP Internal Medicine; Visit Provider Internal Medicine Nephrology ==

== ENCOUNTER 2025-03-24 06:55 | Day surgery (SDC) | payer OTHER, SELFPAY ==
--- NOTE | 2025-03-21 11:43 | HO.ANESPROP2 ---
Documented by User: Abigail Frey NP 03/21/25 11:53 HPI - Anesthesia Eval Consult details Narrative: 49yo M for Colonoscopy Follows [facility] [place] Cardiolgy for: CAD STEMI/stent - 09/2023 Cardiomyopathy ICD in situ Stable at 09/2024 office visit Anesthesia Pre-Procedure Meds Is the patient on any of the following meds?: GLP1/DPP4 and SGLT2 Inhib PMFSH Active Problems Active Problems: All Active Problems Hypertension (Acute) CKD stage 3a, GFR 45-59 ml/min (Acute) Diabetes (Acute) Proteinuria (Acute) ICD (implantable cardioverter-defibrillator) in place (Acute) Pre-op examination (Acute) Urinary retention (Acute) Positive colorectal cancer screening using Cologuard test (Acute ~07/22/24) Recurrent UTI (Acute) Ischemic cardiomyopathy (Acute) Neurogenic bladder (Acute) Atherosclerotic cardiovascular disease (Acute) Cruz catheter in place (Acute) Other urethral stricture, male, meatal (Acute) Cardiomyopathy (Acute) Bilateral hydronephrosis (Acute) Poorly controlled diabetes mellitus (Acute) Type 2 diabetes mellitus (Acute) Past Medical History Medical History Low BP Candidiasis of mouth and esophagus ICD (implantable cardioverter-defibrillator) in place UTI (urinary tract infection) Bacteriuria, chronic Bacteriuria, asymptomatic Hydronephrosis Atherosclerotic cardiovascular disease STEMI (ST elevation myocardial infarction) Obstructive uropathy Cardiomyopathy Incomplete bladder emptying Hospital discharge follow-up Abnormal echocardiography findings without diagnosis Obstructive uropathy Fungemia Bacteremia due to Gram-positive bacteria Type 2 diabetes mellitus Family History Family History Brother Heart attack Maternal Grandfather CHF (congestive heart failure) Cancer Father Prostate cancer Paternal Grandfather Stomach cancer Other Mental health disorder Substance use disorder Family history of problems with anesthesia: No Surgical History Surgical History History of permanent cardiac pacemaker placement S/P cardiac cath History of Problems with Anesthesia: No Social History Social History Household Members: Family Housing: House Do you presently have visiting nurse or other home services: No Alcohol intake: never Patient Tobacco Use Status: Former Tobacco user e-Cigarette/Vaping Use: Never Used Second Hand Smoke Exposure: Yes Have you been hit, kicked, punched, or otherwise hurt by someone within the past year? If so, by whom?: No Are you DNR?: No Advance Directives: No Advance Directives Information Provided: Yes service: Yes Current occupational status: employed Current occupation: [employer] Cognitive needs: No Hearing needs: No Vision needs: Yes (glasses) Meds Allergies Allergy/AdvReac Type Severity Reaction Status Date / Time No Known Allergies Allergy Verified 03/19/25 14:59 Exam Pertinent Lab Results Pertinent Lab Results: Laboratory Tests 03/15/25 10:53 WBC 9.1 Hgb 11.5 L Hct 34.9 L Plt Count 244 Sodium 142 Potassium 3.8 Chloride 110 H Carbon Dioxide 23 BUN 30 H Creatinine 1.69 H Narrative Narrative: EKG 2023 Vent. Rate : 068 BPM Atrial Rate : 068 BPM P-R Int : 174 ms QRS Dur : 090 ms QT Int : 398 ms P-R-T Axes : 041 036 073 degrees QTc Int : 423 ms Normal sinus rhythm Low voltage QRS Cannot rule out Anteroseptal infarct , age undetermined Abnormal ECG When compared with ECG of 30-JUN-2023 20:26, Vent. rate has decreased BY 60 BPM QRS voltage has decreased Minimal criteria for Anteroseptal infarct are now Present T wave inversion now evident in Anterior leads ECHO 04/2024 Conclusions: - The left ventricular systolic function is moderately decreased. The visually estimated ejection fraction is between 30-35%. - Wall motion abnormalities related to underlying coronary artery disease. - No obvious valvular pathology seen on this study. Cardiac Device Check Details: Date of service 10/29/2024; Battery life 99%; no treated VT/VF; normal ICD function. Assessment and Plan Assessment Anesthesia Assessment: Chart Reviewed Final Anesthetic Review Family History of Problems with Anesthesia: No History of Problems with Anesthesia: No Documented by User: Radha Manuel MD 03/24/25 08:34 COUNTS INCLUDE 234 BEDS AT THE [facility] Past Medical History Medical History Low BP Candidiasis of mouth and esophagus ICD (implantable cardioverter-defibrillator) in place UTI (urinary tract infection) Bacteriuria, chronic Bacteriuria, asymptomatic Hydronephrosis Atherosclerotic cardiovascular disease STEMI (ST elevation myocardial infarction) Obstructive uropathy Cardiomyopathy Incomplete bladder emptying Hospital discharge follow-up Abnormal echocardiography findings without diagnosis Obstructive uropathy Fungemia Bacteremia due to Gram-positive bacteria Type 2 diabetes mellitus Family History Family History Brother Heart attack Maternal Grandfather CHF (congestive heart failure) Cancer Father Prostate cancer Paternal Grandfather Stomach cancer Other Mental health disorder Substance use disorder Surgical History Surgical History History of permanent cardiac pacemaker placement S/P cardiac cath Social History Social History Household Members: Family Housing: House Do you presently have visiting nurse or other home services: No Alcohol intake: never Patient Tobacco Use Status: Former Tobacco user e-Cigarette/Vaping Use: Never Used Second Hand Smoke Exposure: Yes Have you been hit, kicked, punched, or otherwise hurt by someone within the past year? If so, by whom?: No Are you DNR?: No Advance Directives: No Advance Directives Information Provided: Yes service: Yes Current occupational status: employed Current occupation: [employer] Cognitive needs: No Hearing needs: No Vision needs: Yes (glasses) Meds Allergies Allergy/AdvReac Type Severity Reaction Status Date / Time No Known Allergies Allergy Verified 03/19/25 14:59 Exam Airway Mallampati Class: IV TM Dist: >3cm Neck ROM: Full Loose/Missing/Broken Teeth: No Heart: RRR Lungs: CTA Assessment and Plan Final Anesthetic Review NPO: Yes ASA Class: IV Final Preanesthetic Review: Meds/Allgs Chart Reviewed, Consent Obtained/Reviewed and Anes Risks/Benef Reviewed Patient Risk: High Procedure Risk: Low Anesthetic Plan Anesthetic Plan: MAC: Disposition: Standard PACU
[2025-03-24 07:25] VITALS: BMI 27.7
[2025-03-24 07:26] VITALS: BP 94/61; PULSE 76; RESP 18; TEMP 36.9; O2SAT 97
--- NOTE | 2025-03-24 07:29 | MHC.SHP ---
Pre-Procedural Eval Section A - 24 Hr Update-Section A only Date of Service: 03/24/25 The patient is an INPATIENT: No The patient has been examined within 24 hours of the surgical procedure. The History & Physical has been completed within 30 days and I have reviewed it.: No Section B - Complete if H&P > 30 days Chief Complaint: Positive Cologuard test Relevant Family History (Specify if Yes): No Relevant Social History: Tobacco Use (Former smoker) Present Medications: see Short Stay Collaborative assessment Medical History: Significant History (Diabetes Ischemic cardiomyopathy Arthrosclerotic cardiovascular disease Obstructive uropathy bilateral hydronephrosis Recurrent UTI with chronic bacteremia Positive Cologuard test ) History of Previous Operations: Relevant previous surgery/procedure and date(s) (S/P cardiac cath History of permanent cardiac pacemaker placement) Allergies: Allergies Allergy/AdvReac Type Severity Reaction Status Date / Time No Known Allergies Allergy Verified 03/19/25 14:59 Review of Systems Sugical H&P ROS: Negative: Constitution, Cardiovascular, Respiratory and Gastrointestinal Exam Surgical H&P Exam: Normal: Heart, Normal: Lungs, Normal: Extremities and Normal: Abdomen Plan Diagnosis/Plan: Unchanged I have reviewed the history and physical and performed a pertinent physical examination on my patient. No changes have occurred unless specified. Time Spent With Patient Time: Total time managing care of this patient today ____ minutes.
[2025-03-24 07:40] LABS: Glucose, Whole Blood 121 mg/dL (60-115)
[2025-03-24] MEDS: Lactated Ringers 1,000 ML 50 ML IVCONT (07:55)
--- NOTE | 2025-03-24 08:17 | PC.NURSE ---
pt first colonscopy
--- NOTE | 2025-03-24 09:20 | P.OPN-COLO_ITS ---
Colonoscopy Operative Note Operative Note Date of Service: 03/24/25 Narrative: COLONOSCOPY TILL CECUM WITH SNARE POLYPECTOMY Pre-op diagnosis: Positive Cologuard test, rectal bleeding. Post-op diagnosis:? Colon polyp, Diverticulosis, hemorrhoids Endoscopist:? Katiana Velazquez MD Anesthesia:?MAC Consent: Indications for the procedure and potential complications of bleeding, perforation, reaction to medications and missed diagnosis were discussed with the patient and informed consent was obtained. Instrument: Olympus CF H 190 L variable stiffness adult colonoscope Monitoring: Vital signs and clinical assessment, intermittent blood pressure monitoring, continuous EKG monitoring, Pulse oximetry and Carbon Dioxide monitoring were done throughout the procedure. Please see anesthesia flowsheet. Colon withdrawl time was 25 minutes. Procedure: The patient was placed in the left lateral decubitis position and pre-procedure medications were administered. After a digital rectal examination of the ano-rectum, the video colonoscope was inserted into the rectum and advanced through the colon to the cecum. The colonoscope was slowly withdrawn in a retrograde panoramic fashion and the colon mucosa was carefully examined including a retroflexed view of the rectum. Findings and interventions are described below. Procedure Difficulty: Colon was long and tortuous and there was some loop formation. Findings: Terminal Ileum: Not evaluated Cecum: Normal Ascending Colon: A 6-7 mm sessile polyp in the mid AC - removed with a cold snare Transverse Colon: Normal Descending Colon: Moderate diverticulosis Sigmoid Colon: Severe diverticulosis with luminal narrowing Rectum: Normal Ano-rectum: Moderate internal hemorrhoids Colon preparation: Excellent, after some irrigation. [place] Bowel Preparation Scale Right colon; 3 Transverse colon: 3 Left colon; 3 (0 = Unprepared colon segment with mucosa not seen due to solid stool that cannot be cleared. 1 = Portion of mucosa of the colon segment seen, but other areas of the colon segment not well seen due to staining, residual stool and/or opaque liquid. 2 = Minor amount of residual staining, small fragments of stool and/or opaque liquid, but mucosa of colon segment seen well. 3 = Entire mucosa of colon segment seen well with no residual staining, small fragments of stool or opaque liquid) Impression and Post Procedure Diagnosis: Colonoscopy Findings: One small polyp was removed Moderate to severe diverticulosis seen in the left colon Moderate hemorrhoids on retroflexed exam. Plan: Pt has a FU appointment on 04/09/25 with Laura Jenkins NP. Repeat Colonoscopy in 5 years if polyps are adenomatous and 10 year if polyps are hyperplastic. Above findings were reviewed with the patient and relevant handouts were given and the discharge area.
[2025-03-24 09:21] VITALS: BP 88/53; PULSE 67; RESP 18; TEMP 36.1; O2SAT 99
[2025-03-24 09:35] VITALS: BP 92/56; PULSE 69; RESP 18; O2SAT 99
[2025-03-24 09:50] VITALS: BP 99/58; PULSE 66; RESP 16; TEMP 36.1; O2SAT 99
== END 2025-03-24 10:27 | disposition home or self-care (01) ==
PROVIDERS: PCP Internal Medicine; Visit Provider Internal Medicine Gastroenterology
PROC: 0DJD8ZZ Inspection of Lower Intestinal Tract, Via Natural or Artificial Opening Endoscopic (ICD-10-PCS; CPT 45378; principal; 2025-03-24 08:30)
DX: R19.5 Other fecal abnormalities (principal); K62.5 Hemorrhage of anus and rectum; D12.2 Benign neoplasm of ascending colon; K57.30 Diverticulosis of large intestine without perforation or abscess without bleeding; K64.8 Other hemorrhoids; I25.5 Ischemic cardiomyopathy; I25.10 Atherosclerotic heart disease of native coronary artery without angina pectoris; I25.2 Old myocardial infarction; Z95.0 Presence of cardiac pacemaker; E11.9 Type 2 diabetes mellitus without complications; Z79.84 Long term (current) use of oral hypoglycemic drugs; Z79.85 Long-term (current) use of injectable non-insulin antidiabetic drugs; Z79.82 Long term (current) use of aspirin; Z79.899 Other long term (current) drug therapy; Z87.891 Personal history of nicotine dependence
CPT/HCPCS: 45385; 82947; 88305; J2003; J2704

== ENCOUNTER → 2025-03-24 06:55 | Outpatient (BNV) | payer OTHER, SELFPAY | PROVIDERS: PCP Internal Medicine; Visit Provider Internal Medicine Gastroenterology | DX: K62.5 Hemorrhage of anus and rectum (principal); D12.2 Benign neoplasm of ascending colon; K57.90 Diverticulosis of intestine, part unspecified, without perforation or abscess without bleeding; K64.8 Other hemorrhoids | CPT/HCPCS: 45385 ==

== ENCOUNTER 2025-04-02 08:53 | Outpatient (AMB) | payer OTHER, SELFPAY ==
[2025-04-02 08:55] VITALS: BP 100/62; PULSE 84; BMI 27.8
--- NOTE | 2025-04-02 08:55 | A.OFFVIS_ITS ---
Vital Signs 04/02/25 08:55 Height 5 ft 8 in Weight 182 lb 15.739 oz BMI 27.8 BP 100/62 Blood Pressure Location Lt brachial Position Sitting Pulse 84 Intake Visit Reasons: 6 mth f/up Intake Note: 6 month follow-up feeling good [place] Required: No Allergies No Known Allergies Allergy (Verified 03/19/25 14:59) Medication List - Last Reconciled 04/02/25 by Juan Dodge MD aspirin 81 mg PO DAILY bethanechol chloride 50 mg PO TID blood sugar diagnostic (FreeStyle Lite Strips) Test four times a day or as directed. carvedilol 6.25 mg PO BID 90 days dulaglutide (Trulicity) 0.75 mg (0.5 mL) subcut QWEEK empagliflozin (Jardiance) 10 mg PO DAILY lancets (FreeStyle Lancets) Test four times a day or as directed. metformin 1,000 mg PO BIDWMEAL 90 days nitroglycerin 0.4 mg sublingual Q5M PRN rosuvastatin 40 mg PO DAILY sacubitril-valsartan 24-26 mg (Entresto) 1 tab PO BID 90 days tamsulosin (Flomax) 0.4 mg PO BID 90 days HPI Comments Details: Luis returns for follow-up regarding coronary artery disease. To recall, due to findings of mild cardiomyopathy on a prior echocardiogram, he underwent ischemic workup with a stress test which was essentially unremarkable. However, couple of months later, he actually had an anterior wall STEMI. Underwent LAD stenting. Prior to that episode, he states he never really had any chest pain. Subsequent to stenting again no further symptoms. History of diabetes. No smoking or drugs. Overall, he states he actually feels quite good. Rare postural dizziness but otherwise he has got no complaints. Doing well overall. No angina. [facility] Medical History Low BP Candidiasis of mouth and esophagus ICD (implantable cardioverter-defibrillator) in place UTI (urinary tract infection) Bacteriuria, chronic Bacteriuria, asymptomatic Hydronephrosis Atherosclerotic cardiovascular disease STEMI (ST elevation myocardial infarction) Obstructive uropathy Cardiomyopathy Incomplete bladder emptying Hospital discharge follow-up Abnormal echocardiography findings without diagnosis Obstructive uropathy Fungemia Bacteremia due to Gram-positive bacteria Type 2 diabetes mellitus Surgical History (Updated 03/28/25 @ 09:47 by Richard Wright MD) History of colonoscopy (03/24/25) History of permanent cardiac pacemaker placement S/P cardiac cath Family History Brother Heart attack Maternal Grandfather CHF (congestive heart failure) Cancer Father Prostate cancer Paternal Grandfather Stomach cancer Other Mental health disorder Substance use disorder Social History Household Members: Family Housing: House Do you presently have visiting nurse or other home services: No Alcohol intake: never Patient Tobacco Use Status: Former Tobacco user e-Cigarette/Vaping Use: Never Used Second Hand Smoke Exposure: Yes service: Yes Current occupational status: employed Current occupation: [employer] Cognitive needs: No Hearing needs: No Vision needs: Yes (glasses) Review of Systems Const Denies chills, Denies fatigue, Denies fever(s), Denies frequent falls, Denies weakness, Denies weight gain and Denies weight loss ENT Denies dizziness Card Denies chest pain, Denies leg edema, Denies lightheadedness, Denies palpitations, Denies dyspnea, Denies dyspnea on exertion, Denies orthopnea and Denies other (loss of consciousness) Resp Denies cough, Denies dyspnea and Denies dyspnea on exertion GI Denies hematochezia and Denies change in stool character Musc Denies abnormal gait, Denies muscle weakness, Denies numbness, Denies radiating pain into limb and Denies tingling Neuro Denies abnormal gait, Denies dizziness, Denies frequent falls, Denies numbness, Denies tingling and Denies weakness Endo Denies fatigue and Denies palpitations Physical Exam Vital Signs: Last Vital Signs Pulse 84 04/02/25 08:55 BP 100/62 04/02/25 08:55 BMI result Body Mass Index 27.8 Const General: comfortable and no acute distress Orientation/consciousness: patient oriented x3 HEENT Other: Unremarkable Head: Yes normal to inspection Neck Neck: Yes normal visual inspection Chest Chest palpation & inspection: normal inspection of the chest Resp Auscultation: clear to auscultation bilaterally Cardio Palpation: normal PMI Heart sounds: S1 normal heart sound present, S2 normal heart sound present, no gallops, no murmurs and no rubs GI Palpation (GI): Soft to palpation Back/Spine/Pelvis Other: unremarkable Skin General skin exam: no rashes or lesions noted Neuro General: patient oriented x3 Extrem General: Yes normal to inspection Psych Mental Status: mental status grossly normal Assessment & Plan Assessment & Plan (1) Atherosclerotic cardiovascular disease: Code(s): I25.10 - Atherosclerotic heart disease of [place] coronary artery without angina pectoris Category: Medical (2) STEMI (ST elevation myocardial infarction): Code(s): I21.3 - ST elevation (STEMI) myocardial infarction of unspecified site Category: Medical (3) Ischemic cardiomyopathy: Code(s): I25.5 - Ischemic cardiomyopathy Category: Medical (4) Type 2 diabetes mellitus: Code(s): E11.9 - Type 2 diabetes mellitus without complications Category: Medical Qualifiers: Diabetes mellitus complication status: with hyperglycemia Diabetes mellitus usp insulin use: without equipment operator intermodal yard use Qualified Code(s): E11.65 - Type 2 diabetes mellitus with hyperglycemia (5) ICD (implantable cardioverter-defibrillator) in place: Code(s): Z95.810 - Presence of automatic (implantable) cardiac defibrillator Category: Medical Plan In the last echocardiogram, LVEF is 30-35%. Prior to that, echocardiogram from October 2023, again similar LVEF. Overall, no change. Cardiac catheterization 09/2023-100% stenosis in the distal subsection of proximal LAD, status post PCI. Otherwise, only minimal irregularities. Overall, coronary artery disease, ischemic cardiomyopathy but clinically no overt symptoms. Continue low-dose aspirin. Continue carvedilol/Entresto further cardiomyopathy but he has got no active heart failure. For diabetes, he is on Trulicity, Jardiance, metformin. Hemoglobin A1c is 6.1%. Indicates good control. With regard to ICD, we will need to be monitored remotely brother no recent transmissions. We will look into it. Follow up in 6 months. Discussion Notes I acknowledged that the patient reported improvement in his dizziness and did not change his medications. I discussed issues with data transmission from the ICD device and the potential interference from other electronics. I stated I would follow up and potentially arrange for contact if necessary. I confirmed that the patient's diabetes was well managed, and his current treatment remains unchanged. The patient requested a nitroglycerin renewal due to expiration, which I agreed to issue as a precaution. Patient was informed and verbally consented to the use of an ambient scribe for clinic note documentation during this visit. Medications: Refilled nitroglycerin do not exceed 3 doses per episode 0.4 mg sublingual Q5M PRN 30 tabs 5RF chest pain R07.2 - Precordial pain Patient Instructions: - Continue current medications, Carvedilol and Entresto. - Resolve transmission issues with the ICD. - Maintain diabetes management as directed. - Renew nitroglycerin prescription before it expires. - Stay aware of any changes in symptoms and report if needed. Coding Level of Care Code Est Pt Level 4 (36167) Complex EM visit Add On G2211 Diagnoses Atherosclerotic cardiovascular disease I25.10 STEMI (ST elevation myocardial infarction) I21.3 Ischemic cardiomyopathy I25.5 Type 2 diabetes mellitus with hyperglycemia, without long-term current use of insulin E11.65 Diabetes mellitus complication status: with hyperglycemia Diabetes mellitus usp insulin use: without equipment operator intermodal yard use ICD (implantable cardioverter-defibrillator) in place Z95.810
== END 2025-04-02 09:10 | disposition home or self-care (01) ==
LOC: HO.HCS 08:54
PROVIDERS: PCP Internal Medicine; Visit Provider Internal Medicine
DX: I25.10 Atherosclerotic heart disease of native coronary artery without angina pectoris (principal); I21.3 ST elevation (STEMI) myocardial infarction of unspecified site; I25.5 Ischemic cardiomyopathy; E11.65 Type 2 diabetes mellitus with hyperglycemia; Z95.810 Presence of automatic (implantable) cardiac defibrillator
CPT/HCPCS: 99214; G2211

== ENCOUNTER → 2025-04-02 08:53 | Outpatient (BNVA) | payer OTHER, SELFPAY | PROVIDERS: PCP Internal Medicine; Visit Provider Internal Medicine ==

== ENCOUNTER 2025-04-09 09:40 | Outpatient (AMB) | payer OTHER, SELFPAY ==
--- NOTE | 2025-04-09 09:43 | A.OFFVIS_ITS ---
Vital Signs 04/09/25 09:45 Height 5 ft 8 in Weight 182 lb BMI 27.7 BP 96/62 Blood Pressure Location Rt brachial Position Sitting Pulse 74 Pulse Source Pulse Oximeter Pulse Oximetry (%) 98 Oxygen Delivery Method Room Air Intake Visit Reasons: s/p colo Marcus Intake Note: Est pt for s/p colo FUV. CC; Pt denies any specific GI sx or concerns at this time. Reviewing results of procedure. Sales Incentive Analyst Required: No Accompanied by: Self / Same As Patient Allergies No Known Allergies Allergy (Verified 04/09/25 09:45) HPI HPI s/p colo Marcus: Details: Assessment & Plan (1) Ischemic cardiomyopathy: Code(s): I25.5 - Ischemic cardiomyopathy Category: Medical (2) Positive colorectal cancer screening using Cologuard test: Onset Date: ~07/22/24 Comment: Has Colonoscopy scheduled on 10/31/2024 Code(s): R19.5 - Other fecal abnormalities Category: Medical (3) Pre-op examination: Code(s): Z01.818 - Encounter for other preprocedural examination Category: Medical Plan This is his first colonoscopy. He has been cleared by Dr. Dodge despite his severe illnesses in the past year. NO current respiratory problems and his cardiac condition is controlled (has a pacemaker). He is relatively naive to anesthesia and sedation but no problems with past cardiac procedures. No current ID problems. He thinks his father had polyps and the pt had a positive COloguard. Orders: Orders Colonoscopy - GI Use Only Today I25.5 - Ischemic cardiomyopathy, R19.5 - Other fecal abnormalities, Z01.818 - Encounter for other preprocedural examination Medications: New polyethylene glycol 3350 (Miralax) 238 grams PO ONCE 238 grams 0RF colonoscopy prep 1 day bisacodyl (Dulcolax (bisacodyl)) 10 mg (2 x 5 mg) PO BEDTIME 4 tabs 0RF 2 day COLONOSCOPY Findings: Terminal Ileum: Not evaluated Cecum: Normal Ascending Colon: A 6-7 mm sessile polyp in the mid AC - removed with a cold snare Transverse Colon: Normal Descending Colon: Moderate diverticulosis Sigmoid Colon: Severe diverticulosis with luminal narrowing Rectum: Normal Ano-rectum: Moderate internal hemorrhoids Impression and Post Procedure Diagnosis: Colonoscopy Findings: One small polyp was removed Moderate to severe diverticulosis seen in the left colon Moderate hemorrhoids on retroflexed exam. Plan: Pt has a FU appointment on 04/09/25 with Laura Jenkins NP. Repeat Colonoscopy in 5 years if polyps are adenomatous and 10 year if polyps are hyperplastic. BIOPSY Received: 03/24/25 Diagnosis Colon, ascending, polypectomy: Tubular adenoma; negative for high-grade dysplasia TODAY'S VISIT He is agreeable to a 5 year follow up. The procedure was well tolerated. The results were explained and the patient is agreeable to the follow-up interval as stated. The bowel pattern has returned to normal. Education was provided to tell any 1st degree relatives about their findings to be sure that they are screened by age 45. Educated that they will be put on a recall list when it is time for their repeat scope but should they move out of state or away from the hospital they will need to remember along with their primary to repeat the procedure in a timely fashion to avoid any adverse complications. [facility] Medical History (Updated 04/09/25 @ 10:26 by SHINE Shields) Positive colorectal cancer screening using Cologuard test (~07/22/24) Pre-op examination Low BP Candidiasis of mouth and esophagus ICD (implantable cardioverter-defibrillator) in place UTI (urinary tract infection) Bacteriuria, chronic Bacteriuria, asymptomatic Hydronephrosis Atherosclerotic cardiovascular disease STEMI (ST elevation myocardial infarction) Obstructive uropathy Cardiomyopathy Incomplete bladder emptying Hospital discharge follow-up Abnormal echocardiography findings without diagnosis Obstructive uropathy Fungemia Bacteremia due to Gram-positive bacteria Type 2 diabetes mellitus Surgical History History of colonoscopy (03/24/25) History of permanent cardiac pacemaker placement S/P cardiac cath Family History Brother Heart attack Maternal Grandfather CHF (congestive heart failure) Cancer Father Prostate cancer Paternal Grandfather Stomach cancer Other Mental health disorder Substance use disorder Social History Household Members: Family Housing: House Do you presently have visiting nurse or other home services: No Alcohol intake: never Patient Tobacco Use Status: Former Tobacco user e-Cigarette/Vaping Use: Never Used Second Hand Smoke Exposure: Yes service: Yes Current occupational status: employed Current occupation: [employer] Cognitive needs: No Hearing needs: No Vision needs: Yes (glasses) Review of Systems Const Denies fatigue, Denies fever(s), Denies night sweats, Denies poor appetite and Denies weight loss Eyes Details: Glasses Reports requires corrective lenses ENT Reports Normal hearing present, Denies dental pain, Denies dysphagia, Denies hearing loss, Denies mouth pain, Denies odynophagia, Denies throat swelling, Denies tongue swelling and Reports other (Dentition adequate) Card Reports no additional complaints Resp Reports no additional complaints GI Details: Denies abdominal pain, Denies melena, Denies bloating, Denies hematochezia, De nies constipation, Denies GI cramping, Denies dysphagia, Denies excessive flatus, Denies early satiety, Denies heartburn, Denies diarrhea, Denies nausea, Denies odynophagia, Denies vomiting and Denies hematemesis Skin/Breast Denies pruritus, Denies lesions, Denies rash and Denies jaundice Neuro Reports Normal hearing present and Denies Abnormal speech present Endo Denies fatigue Aller/Immun Denies throat swelling and Denies tongue swelling Physical Exam Vital Signs: BMI result Body Mass Index 27.7 Const General: cooperative, no acute distress, well developed and well groomed Nutritional Appearance: well nourished Orientation/consciousness: oriented to person, oriented to place and oriented to time Limitations: No language barrier HEENT Head: Yes normocephalic and Yes atraumatic Eyes General: appearance normal, both eyes and all related structures Pupils: Equal, round and reactive pupils present Neck Neck: Yes normal visual inspection and Yes no lymphadenopathy Thyroid: Thyroid normal Resp Effort & Inspection: normal respiratory effort and able to speak in complete sentences Auscultation: clear to auscultation bilaterally Cardio Rate: regular rate Rhythm: regular rhythm Heart sounds: Normal, physiologic split S2 sound present Peripheral pulses: radial pulses present and posterior tibial pulses present GI Inspection: No distended and No Abdominal panniculus present Palpation (GI): Soft to palpation, nontender, no guarding, not rigid and No hepatosplenomegaly present Percussion: Yes normal to percussion Auscultation: normal bowel sounds Rectal Exam - Male: Yes deferred Skin General skin exam: no rashes or lesions noted, turgor normal, skin not dry, no jaundice, No spider nevi and no striae Rashes: no rashes Nails: normal Neuro General: oriented to person, oriented to place and oriented to time Cranial nerves: Yes Equal, round and reactive pupils present and Yes Normal hearing present Speech: No Abnormal speech present Extrem General: Yes normal to inspection, No clubbing, No cyanosis and No edema Psych Appearance: grossly normal and well kempt Mental Status: mental status grossly normal Speech and movement: Normal speech and movement present Affect: normal affect Attitude: cooperative Thought process: Normal thought process present and not confabulating Thought content: Normal thought content present Insight: Good insight present (Psych) Judgement: Good judgement present (Psych) Assessment & Plan Assessment & Plan (1) Tubular adenoma of colon: Comment: scope= TA repeat in 5 years Code(s): D12.6 - Benign neoplasm of colon, unspecified Category: Medical Plan He is agreeable to a 5 year follow up. The procedure was well tolerated. The results were explained and the patient is agreeable to the follow-up interval as stated. The bowel pattern has returned to normal. Education was provided to tell any 1st degree relatives about their findings to be sure that they are screened by age 45. Educated that they will be put on a recall list when it is time for their repeat scope but should they move out of state or away from the hospital they will need to remember along with their primary to repeat the procedure in a timely fashion to avoid any adverse complications. Coding Level of Care Code Est Pt Level 3 (19842) Diagnoses Tubular adenoma of colon D12.6
[2025-04-09 09:45] VITALS: BP 96/62; PULSE 74; O2SAT 98; BMI 27.7
== END 2025-04-09 10:28 | disposition home or self-care (01) ==
LOC: HO.HGI 09:41
PROVIDERS: PCP Internal Medicine; Visit Provider Nurse Practitioner
DX: D12.6 Benign neoplasm of colon, unspecified (principal)
CPT/HCPCS: 99213

== ENCOUNTER → 2025-05-05 23:59 | Outpatient (BNV) | payer OTHER, SELFPAY ==
--- NOTE | 2025-05-11 18:51 | MHC.OFFVIS ---
Intake Visit Reasons: Remote device check-[employer] Allergies No Known Allergies Allergy (Verified 04/09/25 09:45) [facility] Medical History (Updated 04/09/25 @ 10:26 by SHINE Shields) Positive colorectal cancer screening using Cologuard test (~07/22/24) Pre-op examination Low BP Candidiasis of mouth and esophagus ICD (implantable cardioverter-defibrillator) in place UTI (urinary tract infection) Bacteriuria, chronic Bacteriuria, asymptomatic Hydronephrosis Atherosclerotic cardiovascular disease STEMI (ST elevation myocardial infarction) Obstructive uropathy Cardiomyopathy Incomplete bladder emptying Hospital discharge follow-up Abnormal echocardiography findings without diagnosis Obstructive uropathy Fungemia Bacteremia due to Gram-positive bacteria Type 2 diabetes mellitus Surgical History History of colonoscopy (03/24/25) History of permanent cardiac pacemaker placement S/P cardiac cath Family History Brother Heart attack Maternal Grandfather CHF (congestive heart failure) Cancer Father Prostate cancer Paternal Grandfather Stomach cancer Other Mental health disorder Substance use disorder Social History Household Members: Family Housing: House Do you presently have visiting nurse or other home services: No Alcohol intake: never Patient Tobacco Use Status: Former Tobacco user e-Cigarette/Vaping Use: Never Used Second Hand Smoke Exposure: Yes service: Yes Current occupational status: employed Current occupation: [employer] Cognitive needs: No Hearing needs: No Vision needs: Yes (glasses) Office Procedures Cardiac Device Check Cardiac Device Check Details: Date of service 05/05/2025; Battery life years; normal lead parameters; no treated VT/VF; normal ICD function. [id number] Cardiac Interrogation, implant defibrillator w/interim Procedure code (CPT) selection complete Assessment & Plan Assessment & Plan (1) ICD (implantable cardioverter-defibrillator) in place: Code(s): Z95.810 - Presence of automatic (implantable) cardiac defibrillator Category: Medical (2) Ischemic cardiomyopathy: Code(s): I25.5 - Ischemic cardiomyopathy Category: Medical Plan x Coding Level of Care Code Procedure Only Diagnoses ICD (implantable cardioverter-defibrillator) in place Z95.810 Ischemic cardiomyopathy I25.5 CPT Codes Cardiac Device Check - Cardiac Device 13: [id number] Cardiac Interrogation, implant defibrillator w/interim ([id number])
== END ==
PROVIDERS: PCP Internal Medicine; Visit Provider Internal Medicine
DX: I25.5 Ischemic cardiomyopathy (principal); Z95.810 Presence of automatic (implantable) cardiac defibrillator
CPT/HCPCS: 93295

== ENCOUNTER 2025-05-15 09:08 | Outpatient (AMB) | payer OTHER, SELFPAY ==
--- NOTE | 2025-05-15 09:23 | MHC.PC.OV ---
Vital Signs 05/15/25 09:24 Height 5 ft 8 in Weight 181 lb BMI 27.5 BP 110/70 Blood Pressure Location Lt brachial Position Sitting Pulse 81 Pulse Source Pulse Oximeter Temp 97.1 F Temp Source Temporal Artery Scan Pulse Oximetry (%) 98 Oxygen Delivery Method Room Air Intake Visit Reasons: 3mth f/u Intake Note: Patient is here to follow up on DM, HTN, CKD. Coat Agent Required: No Manager Inventory Management: Not Required per policy Accompanied by: Self / Same As Patient Allergies No Known Allergies Allergy (Verified 05/15/25 09:24) Tobacco use date assessed: 05/15/25 Dental Screening Dental Screen Date: 01/09/25 [facility] Medical History (Updated 05/15/25 @ 10:04 by Richard Wright MD) Positive colorectal cancer screening using Cologuard test (~07/22/24) Pre-op examination Low BP Candidiasis of mouth and esophagus ICD (implantable cardioverter-defibrillator) in place UTI (urinary tract infection) Bacteriuria, chronic Bacteriuria, asymptomatic Hydronephrosis Atherosclerotic cardiovascular disease STEMI (ST elevation myocardial infarction) Obstructive uropathy Cardiomyopathy Incomplete bladder emptying Hospital discharge follow-up Abnormal echocardiography findings without diagnosis Obstructive uropathy Fungemia Bacteremia due to Gram-positive bacteria Type 2 diabetes mellitus Surgical History History of colonoscopy (03/24/25) History of permanent cardiac pacemaker placement S/P cardiac cath Family History Brother Heart attack Maternal Grandfather CHF (congestive heart failure) Cancer Father Prostate cancer Paternal Grandfather Stomach cancer Other Mental health disorder Substance use disorder Social History Household Members: Family Housing: House Do you presently have visiting nurse or other home services: No Alcohol intake: never Patient Tobacco Use Status: Former Tobacco user e-Cigarette/Vaping Use: Never Used Second Hand Smoke Exposure: Yes service: Yes Current occupational status: employed Current occupation: [employer] Cognitive needs: No Hearing needs: No Vision needs: Yes (glasses) Questionnaire Thrive Questionnaire Date Thrive assessed: 05/13/25 I am a: Patient What is your living situation today?: I have a steady place to live Within the past 12 months, did the food you bought not last and you didn't have the money to get more?: Never true Within the past 12 months, did you worry whether your food would run out before you got money to buy more?: Never true Do you have trouble paying for medicines?: No Do you have trouble getting transportation to medical appointments?: No Do you have trouble paying your heating and electricity bill?: No Do you have trouble taking care of your child, family member or friend?: No Do you have trouble with day-to-day activities such as bathing, preparing meals, shopping, managing finances, etc.?: No Are you currently unemployed and looking for a job?: No Are you interested in more education?: No Please select the resources that you would like help with: None Currently or been in a relationship where the following occur: No concerns reported THRIVE Score: 0 AUDIT C Alcohol Use Questionnaire (AUDIT-C) 1. How often do you have a drink containing alcohol?: Never Total Score: 0 MAKAYLA-7 AMB Questionnaire MAKAYLA-7 Date MAKAYLA - 7 assessed: 01/09/25 Source: Developed by Drs. Morgan Kitchen, Luly Jones, Guillermo Rai and colleagues, with an educational azul from [employer]. Physical exam (Primary Care) Vital Signs: Last Vital Signs Temp 97.1 F 05/15/25 09:24 Pulse 81 05/15/25 09:24 BP 110/70 05/15/25 09:24 Pulse Ox 98 05/15/25 09:24 Oxygen Delivery Method Room Air 05/15/25 09:24 BMI result Body Mass Index 27.5 Tobacco/Smoking Status: Tobacco use Status Tobacco use date assessed 05/15/25 05/15/25 09:25 Patient Tobacco Use Status Former Tobacco user 05/15/25 09:25 e-Cigarette/Vaping Use Never Used 05/15/25 09:25 Thrive Assessment: Date of Thrive Assessment Date Thrive assessed 05/13/25 05/15/25 09:25 Currently or been in a relationship where the following occur: No concerns reported Results AMB Hemoglobin A1c AMB Hemoglobin A1c 6.0 % Last Edit by MATT Pollack on 05/15/25 09:46 Results Reviewed Results Reviewed: Laboratory Last Values Hgb A1c (Clinic) 6.0 % (4.0-6.0) 05/15/25 09:22 Coding Level of Care Code Est Pt Level 4 (48971) Complex EM visit Add On G2211 Diagnoses Diabetes E11.9 Assessment & Plan Assessment & Plan (1) Diabetes: Code(s): E11.9 - Type 2 diabetes mellitus without complications Category: Medical Plan: History of Present Illness - The patient is a 49-year-old male presenting with management of chronic conditions, including heart failure. - Heart failure: Currently managed with Entresto, no medication changes, weight stable at 180 pounds. - Dyspnea: Occurs with temperature changes at work, slight windedness after climbing stairs. - Vision changes: Occasional starbursts, plans to schedule an eye examination. - Preventative care: Colonoscopy completed without issues. Social History - Employment: Works in an environment with temperature fluctuations, contributing to dyspnea. - Alcohol use: Minimal, with only one drink in the past two years. 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 Review of Systems - Cardiovascular: Denies chest pain, reports slight windedness after climbing stairs. - Respiratory: Reports dyspnea when transitioning from air-conditioned to hot environments, denies wheezing. - Neurological: Reports occasional starbursts, denies other visual disturbances. - Musculoskeletal: Denies swelling in feet, reports new shoes are slightly tight. Physical Exam General: Cooperative and healthy appearing Nutritional Appearance: Well nourished Orientation/consciousness: Patient oriented x3 Limitations: No limitations Head: Normal to inspection General: Appearance normal, both eyes and all related structures Neck: Normal visual inspection Chest: Normal palpation of entire chest wall Respiratory: Patient experiences shortness of breath when transitioning from air-conditioned environments to hot and humid areas. No wheezing reported. ormal respiratory effort Neurology: Patient oriented x3 Results - Labs: A1c within normal range. Plan 1. Heart Failure - Continue Entresto, monitor weight for changes. 2. Dyspnea On Exertion - Avoid rapid temperature changes, acclimatize gradually. 3. Vision Changes - Schedule eye examination for starbursts. Discussion Notes During the visit, we discussed the importance of continuing the current heart failure management with Entresto and monitoring for any changes in weight. We also addressed the patient's dyspnea, advising him to avoid rapid temperature changes at work and to acclimatize gradually. Additionally, we emphasized the need for an eye examination to investigate the occasional starbursts he experiences. The patient was reminded of the importance of regular follow-ups and to report any new or worsening symptoms. Patient Instructions - Continue taking Entresto as prescribed. - Monitor your weight and report any significant changes. - Avoid rapid temperature changes at work to reduce dyspnea. - Schedule an eye examination to check for vision changes. Orders: Orders AMB Hemoglobin A1c Today E11.65 - Type 2 diabetes mellitus with hyperglycemia, E11.9 - Type 2 diabetes mellitus without complications
[2025-05-15 09:24] VITALS: BP 110/70; PULSE 81; TEMP 36.2; O2SAT 98; BMI 27.5
--- OUTSIDE RECORDS SUMMARY | 2025-05-15 09:36 | XMS_ITS | Clinical Summary ---
Author Organization [facility] Address [address] [place] [id number] Phone Care Team Providers Care Defense Attorney Name Role Phone Alma Rosa Ronquillo MD Primary Care Provider Allergies No known active allergies Medications aspirin 81 MG EC tablet Take 81 mg by mouth. 10/19/2023 Active carvedilol (COREG) 6.25 MG tablet Take 6.25 mg by mouth. 10/19/2023 Active JARDIANCE 10 mg tablet 02/27/2024 Active TRULICITY 0.75 mg/0.5 mL subcutaneous injection 05/15/2024 Active metFORMIN (GLUCOPHAGE) 1000 MG tablet Take 1,000 mg by mouth 2 (two) times a day with meals. 10/17/2023 Active rosuvastatin (CRESTOR) 40 MG tablet Take 40 mg by mouth. 10/19/2023 Active SACUBITRIL-VALSAR HARO 24-26 mg per tablet Take by mouth. 10/19/2023 Active tamsulosin (FLOMAX) 0.4 mg Cap Take 0.4 mg by mouth 2 (two) times a day. 10/17/2023 Active BRILINTA 90 mg Tab Take 90 mg by mouth. 10/19/2023 Active Active Problems Problem Noted Date Diagnosed Date Myocardiopathy 2024 Assessment & Plan (2024 12:10 AM EDT): We had a detailed discussion with the patient with regards to primary prevention ICD. Patient at this point is in favor of defibrillator. Risk and benefits of the procedure were discussed in detail. Continue GDMT for heart failure Atherosclerosis of [place] co ronary artery of [place] heart without angina pectoris 2024 Assessment & Plan (2024 12:10 AM EDT): Continue GDMT for CAD Social History Tobacco Use Types Packs/Day Years Used Date Smoking Tobacco: Never Assessed Education Answer Date Recorded Are you interested in more education? Not on rigoberto e 10/17/2023 Are you concerned about learning? Not on file 10/17/2023 No 10/17/2023 No 10/17/2023 Digital Access Answer Date Recorded No 10/17/2023 No 10/17/2023 Reliable internet access at home? Not on file 10/17/2023 Device with a working camera? Not on file Sex and Gender Information Value Date Recorded Sex Assigned at Not on file Legal Sex Male 5:27 PM EST Gender Identity Not on file Sexual Orientation Not on file Last Filed Vital Signs Vital Sign Reading Time Taken Comments Blood Pressure 100/60 05/20/2024 11:57 AM EDT Pulse 73 05/20/2024 11:57 AM EDT Temperature - - Respiratory Rate 24 10/17/2023 5:38 PM EST Oxygen Saturation 96% 10/17/2023 5:38 PM EST Inhaled Oxygen Concentration - - Weight 84.4 kg (186 lb) 05/20/2024 11:57 AM EDT Height 172.7 cm (5' 8 ) 05/20/2024 11:57 AM EDT Body Mass Index 28.28 05/20/2024 11:57 AM EDT Plan of Treatment Health Maintenance Due Date Last Done Comments Adult Td,Tdap Booster 1974 CREATININE LEVEL 1974 DEPRESSION SCREENING 1986 SMOKING Hx and SMOKELESS TOB ACCO SCREENING 1987 HEPATITIS C SCREENING 1992 HIV ONE-TIME SCREENING (18-6 5 YEARS) 1992 PNEUMOCOCCAL VACCINES (50+ y ears) (1 of 2 - PCV) 1993 SCREENING FOR DIABETES 2009 COLOGUARD 2019 COLONOSCOPY 2019 COLORECTAL CANCER SCREENING 2019 FIT TEST 2019 FOBT 2019 SIGMOIDOSCOPY 2019 VIRTUAL COLONOSCOPY 2019 ZOSTER VACCINES (1 of 2) 2024 COVID-19 VACCINE ( - 2023-2 5 season) 2024 HEPATITIS A VACCINES Aged Out No long er eligible based on patient's age to complete this topic HIB VACCINES Aged Out No longer eligi ble based on patient's age to complete this topic MENINGOCOCCAL VACCINES (ACWY) Aged Out No longer eligible based on patient's age to complete this topic MENINGOCOCCAL VACCINES (B) Aged Out N o longer eligible based on patient's age to complete this topic Medical Devices Not on file Insurance [address] [place] [address] [address] [place] [address] [employer] [address] [place], [place] [address] Care Teams Defense Attorney Relationship Specialty Start Date End Date Alma Rosa Ronquillo MD [address] [place] [address] PCP - General Internal Medicine 05/14/24 Additional Source Comments The information contained in this document represents components of the legal health record. It is not the complete legal health record.[facility]
== END 2025-05-15 10:01 | disposition home or self-care (01) ==
LOC: HO.HMCH 09:08
PROVIDERS: PCP Internal Medicine; Visit Provider Internal Medicine
DX: E11.9 Type 2 diabetes mellitus without complications (principal); E11.65 Type 2 diabetes mellitus with hyperglycemia

== ENCOUNTER → 2025-05-15 09:08 | Outpatient (BNVA) | payer OTHER, SELFPAY | PROVIDERS: PCP Internal Medicine; Visit Provider Internal Medicine | DX: E11.9 Type 2 diabetes mellitus without complications (principal); I50.9 Heart failure, unspecified; R06.00 Dyspnea, unspecified; H53.9 Unspecified visual disturbance; Z79.899 Other long term (current) drug therapy | CPT/HCPCS: 83036 ==

== ENCOUNTER 2025-07-16 14:11 | Outpatient (REF) | payer OTHER, SELFPAY ==
[2025-07-16 15:07] LABS: Appearance Urine Turbid; Glucose Urine UA >=1000 mg/dL (Negative); PH 5.5 (5.0-9.0); Specific Gravity - Urine 1.015 (1.005-1.025); UMIC TRIGGER UA YES
[2025-07-16 15:42] LABS: Anion Gap 13 (12-20); Blood Urea Nitrogen 22 mg/dL (9-16); Carbon Dioxide 25 mmol/L (22-29); Chloride 108 mmol/L (96-108); Estimated Glomerular Filt Rate 38; Potassium 4.0 mmol/L (3.3-5.1); Sodium 142 mmol/L (135-145)
[2025-07-16 15:58] LABS: Protein/Creatinine Ratio, Ur 1.33 (<0.2); Total Protein Urine Random 94 mg/dL (<12)
--- OUTSIDE RECORDS SUMMARY | 2025-07-16 17:01 | XMS_ITS | Clinical Summary ---
Author Organization [facility] Address [address] [place] [phone] Phone Care Team Providers Care Horse Farm Manager Name Role Phone Alma Rosa Ronquillo MD [...] Continue GDMT for heart failure Atherosclerosis of [place] ronary artery of [place] heart without angina pectoris 2024 Assessment & [...] HIV ONE-TIME SCREENING (18-6 5 YEARS) 1992 SCREENING FOR DIABETES 2009 COLOGUARD 2019 COLONOSCOPY 2019 COLORECTAL CANCER SCREENING 2019 FIT TEST 2019 FOBT 2019 SIGMOIDOSCOPY 2019 VIRTUAL COLONOSCOPY 2019 PNEUMOCOCCAL VACCINES (50+ y ears) (1 of 1 - PCV) 2024 ZOSTER VACCINES (1 of 2) 2024 INFLUENZA VACCINE (#1) 2025 COVID-19 VACCINE (2023-2 5 season) 2025 HEPATITIS A VACCINES Aged Out No long [...] topic Medical Devices Not on file Insurance [address] [place], [place] [address]R R [address] [place], [place] [address] [employer] Care Teams Horse Farm Manager Relationship Specialty Start Date End Date Alma Rosa Ronquillo MD [address] [place] [address] PCP - General Internal Medicine 05/14/24 Additional Source Comments The information contained in this document represents components of the legal health record. It is not the complete legal health record.[facility]
== END 2025-07-16 14:12 | disposition home or self-care (01) ==
LOC: HO.LAB 14:11
PROVIDERS: PCP Internal Medicine; Visit Provider Internal Medicine Nephrology
DX: I12.9 Hypertensive chronic kidney disease with stage 1 through stage 4 chronic kidney disease, or unspecified chronic kidney disease (principal); N18.31 Chronic kidney disease, stage 3a
CPT/HCPCS: 36415; 80051; 81001; 81003; 82565; 82570; 84156; 84520

== ENCOUNTER 2025-07-18 10:31 | Outpatient (AMB) | payer OTHER, SELFPAY ==
[2025-07-18 10:53] VITALS: BP 80/50; PULSE 99; O2SAT 97; BMI 27.6
--- NOTE | 2025-07-18 10:53 | HO.NEPHOV_ITS ---
Vital Signs 07/18/25 10:53 Height 5 ft 8 in Weight 181 lb 8 oz BMI 27.6 BP 80/50 L Blood Pressure Location Lt brachial Position Sitting Pulse 99 Pulse Source Pulse Oximeter Pulse Oximetry (%) 97 Oxygen Delivery Method Room Air Intake Visit Reasons: 4 MO FU-Conf Profile Saw Operator Required: No Accompanied by: Self / Same As Patient Allergies No Known Allergies Allergy (Verified 07/18/25 10:53) HPI Comments Details: I had the privilege of seeing Luis in follow up for chronic kidney disease. He is 50 years of age and is going to work in [employer] . He has chronic urinary retention presumed to be due to neurogenic bladder. He has been a diabetic and is on medications. He has lost weight on Trulicity and his hemoglobin A1c is better. He has H/O bilateral hydronephrosis and his urologist has instructed him to do self intermittent catheterization which he r efuses. Alternate option was given for suprapubic catheter insertion which he does not want. He has coronary artery disease needing PCI and stenting. He has cardiomyopathy and is on carvedilol as well as Entresto. He has proteinuria. He denies retinopathy, neuropathy, peripheral arterial disease, carotid disease, nausea, vomiting, diarrhea. He denies taking nonsteroidal anti-inflammatory med ications on a regular basis. He does not have any epistaxis, photosensitivity, skin rashes, hematuria or orthostatic symptoms. He is on Jardiance which he is tolerating well. [facility] Medical History (Updated 05/15/25 @ 10:04 by Richard Wright MD) Positive colorectal cancer screening using Cologuard test (~07/22/24) Pre-op examination Low BP Candidiasis of mouth and esophagus ICD (implantable cardioverter-defibrillator) in place UTI (urinary tract infection) Bacteriuria, chronic Bacteriuria, asymptomatic Hydronephrosis Atherosclerotic cardiovascular disease STEMI (ST elevation myocardial infarction) Obstructive uropathy Cardiomyopathy Incomplete bladder emptying Hospital discharge follow-up Abnormal echocardiography findings without diagnosis Obstructive uropathy Fungemia Bacteremia due to Gram-positive bacteria Type 2 diabetes mellitus Surgical History History of colonoscopy (03/24/25) History of permanent cardiac pacemaker placement S/P cardiac cath Family History Brother Heart attack Maternal Grandfather CHF (congestive heart failure) Cancer Father Prostate cancer Paternal Grandfather Stomach cancer Other Mental health disorder Substance use disorder Social History Household Members: Family Housing: House Do you presently have visiting nurse or other home services: No Alcohol intake: never Patient Tobacco Use Status: Former Tobacco user e-Cigarette/Vaping Use: Never Used Second Hand Smoke Exposure: Yes service: Yes Current occupational status: employed Current occupation: [employer] Cognitive needs: No Hearing needs: No Vision needs: Yes (glasses) Review of Systems Const All systems reviewed & are unremarkable except as noted in HPI and below Physical Exam Vital Signs: Last Vital Signs Pulse 99 07/18/25 10:53 BP 80/50 L 07/18/25 10:53 Pulse Ox 97 07/18/25 10:53 Oxygen Delivery Method Room Air 07/18/25 10:53 BMI result Body Mass Index 27.6 Const General: comfortable and no acute distress Orientation/consciousness: patient oriented x3 HEENT Head: Yes normocephalic Mouth: Normal oral and palatal mucosa present Eyes EOM: EOMs intact bilaterally Neck Neck: Yes supple Resp Auscultation: clear to auscultation bilaterally Cardio Jugular venous distension: no JVD Rate: regular rate GI Palpation (GI): Soft to palpation Auscultation: normal bowel sounds General: Yes no CVA tenderness Back/Spine/Pelvis Back: no CVA tenderness Skin General skin exam: no rashes or lesions noted Neuro General: patient oriented x3 and moves all extremities Extrem General: Yes no pedal edema Results Reviewed Nephrology Results: Sodium, (135-145) 142 mmol/L 07/16/25 Potassium, (3.3-5.1) 4.0 mmol/L 07/16/25 Chloride, (96-108) 108 mmol/L 07/16/25 Carbon Dioxide, (22-29) 25 mmol/L 07/16/25 BUN, (9-16) 22 mg/dL H 07/16/25 Creatinine, (0.5-1.4) 1.87 mg/dL H 07/16/25 Urine Protein, (Neg-Trace) 100 (2+) mg/dL H 07/16/25 Urine Creatinine 70.71 mg/dL 07/16/25 Protein/Creatinin Ratio, (<0.2) 1.33 H 07/16/25 Renal US 04/30/24 Assessment & Plan Assessment & Plan (1) Hypertension: Code(s): I10 - Essential (primary) hypertension Category: Medical Qualifiers: Hypertension type: primary hypertension Qualified Code(s): I10 - Essential (primary) hypertension (2) Cardiomyopathy: Code(s): I42.9 - Cardiomyopathy, unspecified Category: Medical Qualifiers: Cardiomyopathy type: unspecified Qualified Code(s): I42.9 - Cardiomyopathy, unspecified (3) CKD stage 3a, GFR 45-59 ml/min: Code(s): N18.31 - Chronic kidney disease, stage 3a Category: Medical (4) Proteinuria: Code(s): R80.9 - Proteinuria, unspecified Category: Medical Qualifiers: Proteinuria type: other Qualified Code(s): R80.8 - Other proteinuria (5) Neurogenic bladder: Code(s): N31.9 - Neuromuscular dysfunction of bladder, unspecified Category: Medical Plan Luis has CKD due to obstructive uropathy from neurogenic bladder as well as contribution from diabetes mellitus and vascular disease. He has H/O urinary retention with the bilateral hydro nephrosis . He is on Entresto. He has proteinuria due to diabetic nephropathy. He is on Jardiance. He is going to discuss with the urology to explore surgical avenues to help him with his bladder drainage issues. If his creatinine goes up I may temporarily hold his Entresto. He should avoid nonsteroidal anti-inflammatories and maintain good hydration. I shall continue to monitor him pretty closely and optimize his medication based on evolving data. Answered all questions. Follow-up appointment given. Orders: Orders Protein Creatinine Ratio, Ur 4 Months I10 - Essential (primary) hypertension, I42.9 - Cardiomyopathy, unspecified, N18.31 - Chronic kidney disease, stage 3a, R80.8 - Other proteinuria Creatinine 4 Months I10 - Essential (primary) hypertension, I42.9 - Ca rdiomyopathy, unspecified, N18.31 - Chronic kidney disease, stage 3a, R80.8 - Other proteinuria Blood Urea Nitrogen 4 Months I10 - Essential (primary) hypertension, I42.9 - Cardiomyopathy, unspecified, N18.31 - Chronic kidney disease, stage 3a, R80.8 - Other proteinuria Electrolytes 4 Months I10 - Essential (primary) hypertension, I42.9 - Cardi omyopathy, unspecified, N18.31 - Chronic kidney disease, stage 3a, R80.8 - Other proteinuria Coding Level of Care Code Est Pt Level 4 (76997) Diagnoses Primary hypertension I10 Hypertension type: primary hypertension Cardiomyopathy, unspecified type I42.9 Cardiomyopathy type: unspecified CKD stage 3a, GFR 45-59 ml/min N18.31 Other proteinuria R80.8 Proteinuria type: other Neurogenic bladder N31.9
== END 2025-07-18 11:12 | disposition home or self-care (01) ==
LOC: HO.HKA 10:32
PROVIDERS: PCP Internal Medicine; Visit Provider Internal Medicine Nephrology
DX: I10 Essential (primary) hypertension (principal); I42.9 Cardiomyopathy, unspecified; N18.31 Chronic kidney disease, stage 3a; R80.8 Other proteinuria; N31.9 Neuromuscular dysfunction of bladder, unspecified
CPT/HCPCS: 99214

== ENCOUNTER 2025-07-21 09:06 | Outpatient (REF) | payer OTHER, SELFPAY ==
--- NOTE | ~2025-07-21 | US_ITS ---
CLINICAL HISTORY: R33.9 - Retention of urine, unspecified US renal Comparison: 04/30/2024, 01/17/2025 Findings: Right kidney 11.5 cm length. No significant focal abnormality. Persistent right ureteral dilation. Left kidney 11.5 cm length. Left hydronephrosis and hydroureter. This has improved since previous study. No significant focal abnormality. Normal bilateral renal echogenicity. Heterogeneous circumferential bladder wall thickening. Debris noted in dependent portion of the bladder. Findings may indicate acute infection. Impression: Left hydronephrosis and hydroureter, improving Persistentright ureteral dilation Bladder wall thickening and luminal debris Question acute versus chronic infection This document has been electronically signed by: Michael Rahman MD on 07/21/2025 21:15:57
--- OUTSIDE RECORDS SUMMARY | 2025-07-21 09:44 | XMS_ITS | Clinical Summary ---
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 Name Role Phone Alma Rosa Ronquillo MD [...] Continue GDMT for heart failure Atherosclerosis of [place] co ronary artery of [place] heart without angina pectoris 2024 Assessment & [...] Devices Not on file Insurance [address] [place], [place] [id number] [address] [place], [place] [address] [employer] Care Teams Motor Coach Chauffeur Relationship Specialty Start Date End Date Alma Rosa Ronquillo MD [address] [place] [address] PCP - General Internal Medicine 05/14/24 Additional Source Comments The information contained in this document represents components of the legal health record. It is not the complete legal health record.[facility]
== END 2025-07-21 09:07 | disposition home or self-care (01) ==
LOC: HO.US 09:06
PROVIDERS: PCP Internal Medicine; Visit Provider Urology
DX: R33.9 Retention of urine, unspecified (principal); N39.0 Urinary tract infection, site not specified; N31.9 Neuromuscular dysfunction of bladder, unspecified
CPT/HCPCS: 76775

== ENCOUNTER → 2025-07-21 09:08 | Outpatient (BNV) | payer OTHER, SELFPAY | PROVIDERS: PCP Internal Medicine; Visit Provider Radiology Diagnostic Radiology | DX: N13.30 Unspecified hydronephrosis (principal); N13.4 Hydroureter; N32.89 Other specified disorders of bladder | CPT/HCPCS: 76775 ==

== ENCOUNTER → 2025-08-04 23:59 | Outpatient (BNV) | payer SELFPAY ==
--- NOTE | 2025-08-14 13:30 | A.OFFVIS_ITS ---
Intake Visit Reasons: Remote device check-OpenText Allergies No Known Allergies Allergy (Verified 07/18/25 10:53) [facility] Medical History (Updated 05/15/25 @ 10:04 by Richard Wright MD) Positive colorectal cancer screening using Cologuard test (~07/22/24) Pre-op examination Low BP Candidiasis of mouth and esophagus ICD (implantable cardioverter-defibrillator) in place UTI (urinary tract infection) Bacteriuria, chronic Bacteriuria, asymptomatic Hydronephrosis Atherosclerotic cardiovascular disease STEMI (ST elevation myocardial infarction) Obstructive uropathy Cardiomyopathy Incomplete bladder emptying Hospital discharge follow-up Abnormal echocardiography findings without diagnosis Obstructive uropathy Fungemia Bacteremia due to Gram-positive bacteria Type 2 diabetes mellitus Surgical History History of colonoscopy (03/24/25) History of permanent cardiac pacemaker placement S/P cardiac cath Family History Brother Heart attack Maternal Grandfather CHF (congestive heart failure) Cancer Father Prostate cancer Paternal Grandfather Stomach cancer Other Mental health disorder Substance use disorder Social History Household Members: Family Housing: House Do you presently have visiting nurse or other home services: No Alcohol intake: never Patient Tobacco Use Status: Former Tobacco user e-Cigarette/Vaping Use: Never Used Second Hand Smoke Exposure: Yes service: Yes Current occupational status: employed Current occupation: [employer] Cognitive needs: No Hearing needs: No Vision needs: Yes (glasses) Office Procedures Cardiac Device Check Cardiac Device Check Details: Date of service 08/08/2025; Battery life 87%; normal lead parameters; no treated VT/VF; normal ICD function. [id number] Cardiac Interrogation, implant defibrillator w/interim Procedure code (CPT) selection complete Assessment & Plan Assessment & Plan (1) ICD (implantable cardioverter-defibrillator) in place: Code(s): Z95.810 - Presence of automatic (implantable) cardiac defibrillator Category: Medical (2) Ischemic cardiomyopathy: Code(s): I25.5 - Ischemic cardiomyopathy Category: Medical Plan x Coding Level of Care Code Procedure Only Diagnoses ICD (implantable cardioverter-defibrillator) in place Z95.810 Ischemic cardiomyopathy I25.5 CPT Codes Cardiac Device Check - Cardiac Device 13: [id number] Cardiac Interrogation, implant defibrillator w/interim ([id number])
== END ==
PROVIDERS: PCP Internal Medicine; Visit Provider Internal Medicine
DX: I25.5 Ischemic cardiomyopathy (principal); Z95.810 Presence of automatic (implantable) cardiac defibrillator
CPT/HCPCS: 93295